=== PATIENT | female | born 1935 | race Caucasian/White ===

== ENCOUNTER 2017-05-30 09:26 | Emergency (ER) | payer MEDICARE, BC, SELFPAY ==
[2017-05-30 09:28] VITALS: BP 147/86; PULSE 98; RESP 17; TEMP 36.6; O2SAT 97; BMI 24.6
[2017-05-30 09:42] VITALS: O2SAT 98
--- NOTE | 2017-05-30 09:49 | RAD_ITS ---
STUDY: X-RAY CHEST REASON FOR EXAM: Female, 82 years old. Cough and congestion x3 days TECHNIQUE: PA and lateral views of the chest. COMPARISON: 04/14/2017 FINDINGS: EKG leads overlie the chest Lungs are expanded. Previous study described opacifications in the left lower lobe/lingular have worsened since the previous study and now appears clear evidence of an infiltrate with small left pleural effusion. Follow-up recommended to assure resolution. Right lung remains clear. Normal size heart. Normal mediastinum and mariza. Normal visualized pulmonary arteries. Normal visualized aortic arch and descending thoracic aorta. There are diffuse degenerative changes of the visualized thoracic spine. Normal visualized ribs, clavicles, and shoulders. There is no demonstrated abnormality of the visualized soft tissue structures of the upper abdomen. RAD/Chest PA and Lateral IMPRESSION: Left lower lobe/lingular pneumonia, small left pleural effusion. Follow-up recommended to assure resolution Electronically Signed: Ty Chinchilla MD at 11:17 EST , Service support ,
--- NOTE | 2017-05-30 09:49 | EKG12_ITS ---
Test Reason : SOB Blood Pressure : / mmHG Vent. Rate : 086 BPM Atrial Rate : 086 BPM P-R Int : 204 ms QRS Dur : 088 ms QT Int : 398 ms P-R-T Axes : 067 -04 061 degrees QTc Int : 476 ms Normal sinus rhythm Nonspecific T wave abnormality Prolonged QT Abnormal ECG Confirmed by GENO OCONNELL, DIPTI ([id number]), marketing editor DEDE SCALES ([id number] on 06/03/2017 2:38:57 PM Referred By: HERBER Confirmed By:DIPTI LORA MD
--- NOTE | 2017-05-30 09:53 | ED.VISSUMM ---
- ER Visit Summary Date of Service: 05/30/17 Chief Complaint: Shortness of breath History of Present Illness: The patient is a 82 F with COPD and atrial fibrillation on Xarelto presenting with 2-3 days of increase in her chronic cough and increase in her chronic sputum production which is white and unchanged in color along with increase in wheezing. She is on oxygen at nighttime only. No fevers. Feels like her chest is full of mucus she states. Physical Examination: Pulse ox 97 on room air. Otherwise vitals are unremarkable. No acute distress. Inspiratory wheezing throughout all lung hahn, bibasilar rhonchi. More prominent breath sounds at the left base compared with the right. Trachea midline. No cervical lymphadenopathy, neck supple. Abdomen benign. Heart is irregularly irregular but not tachycardic. No pedal edema or calf tenderness. Test Results: Chest x-ray shows left lower lobe infiltrate, consistent with her exam. Otherwise labs are normal. Emergency Department Course and Treatment: Patient feels much better after a set of nebulizer treatments and is not currently dyspneic. Pulse ox is 97-98% on room air. I offered admission. She wants to go home. She is conversational, smiling, and breathing well. With ambulation, she did not become hypoxic, and states that she felt well enough to go home. I do not think that is unreasonable at this point. She has an extensive allergy list, and after extensive discussion with her and her son, she has no true allergic reactions to anything but does not remember the majority of the reactions with the exception of diarrhea to Augmentin. She was given 1 g Rocephin IV, and monitor. She had no true allergic reaction. Therefore, I will place her on Ceftin and advised that she eat with it. She does not remember if her reaction to it was stomach upset or not. Advised to follow-up closely with her doctor. Treatment Plan: Ceftin 500 mg p.o. twice daily ?10 days, prednisone 40 mg daily ?5 days Disposition: Discharge home Impression: Community-acquired pneumonia COPD exacerbation This note was generated with [employer] software. It may contain incorrect words, spelling, and punctuation that were not noted in review of the chart prior to signing ED Disposition - Plan for ED Patient: Disposition: Home or Assisted Living Chief Complaint: Shortness of Breath Instructions: ED Pneumonia Adult, ED COPD Flare Prescriptions: Prednisone [Deltasone] 40 mg PO DAILY #10 tab Cefuroxime Axetil [Ceftin] 500 mg PO BID 10 Days tab Referrals: Cricket Mcconnell [Primary Care Provider] - 2 Days
[2017-05-30] MEDS: Albuterol 2.5 MG/3 ML VIAL.NEB. INHALATION (10:11)
[2017-05-30] MEDS: Ipratropium/Albuterol Sulfate 3 ML AMPUL.NEB INHALATION (10:11)
[2017-05-30 10:13] VITALS: PULSE 80; RESP 20
[2017-05-30 10:18] LABS: Absolute Lymphocyte Count 2.38 X10^3/ul (0.83-4.51); Absolute Neutrophil Count 4.1 X10^3/uL (2.0-7.7); Basophil# 0.02 X10^3/uL; Basophil% 0.3 % (0-1); Eosinophil# 0.06 X10^3/uL; Eosinophils% 0.8 % (0-5); Hematocrit 39.2 % (37-47); Hemoglobin 12.4 g/dl (12.0-15.0); Lymphocyte # 2.38 X10^3/ul (4.0); Lymphocyte % 33.7 % (19-41); Mean Corp Hgb Conc 31.6 g/gl (32-36); Mean Corpuscular Hgb 29.2 pg (27.0-32.0); Mean Corpuscular Volume 92.5 fL (81-99); Mean Platelet Vol. 9.2 fl (6.2-12.0); Monocyte# 0.49 X10^3/uL; Monocyte% 6.9 % (0-10); Neutrophil % 58.2 % (47-70); Platelet Count 309 K/mm3 (150-450); RBC Distribution Width CV 13.4 % (11.6-14.6); RBC Distribution Width SD 45.1 fl (35.1-43.9); Red Blood Count 4.24 M/mm3 (4.2-5.4); White Blood Count 7.1 K/mm3 (4.4-11.0)
[2017-05-30 10:21] LABS: POSITIVE COUNT NO; POSITIVE DIFFERENTIAL NO; POSITIVE MORPHOLOGY NO
[2017-05-30 10:38] LABS: Anion Gap 8 (5-15); BUN 15 mg/dL (7-18); BUN/Creat Ratio 16.6 RATIO (10-20); Calcium,Total 8.8 mg/dL (8.5-10.1); Chloride 107 mmol/L (98-107); EST Glomerular Filtration Rate 64 mL/min (>60); Est Glom Filt Rate - Afr Amer 77 mL/min (>60); Estimated Creatinine Clearance 38.77 ml/min; Glucose 138 mg/dL (74-106); Potassium 3.9 mmol/L (3.5-5.1); Sodium Level 141 mmol/L (136-145)
[2017-05-30 10:50] LABS: BNP,B-Type NATRIURETIC PEPTIDE 57.1 pg/mL (0-100)
[2017-05-30 11:34] VITALS: PULSE 77; RESP 20; O2SAT 97
[2017-05-30] MEDS: Ceftriaxone 1 GM/50 ML BAG IV (12:17)
[2017-05-30] MEDS: MethylPREDNISolone 125 MG/2 ML Vial IV (12:17)
[2017-05-30 12:28] VITALS: BP 163/72; PULSE 76; RESP 18; O2SAT 96
== END 2017-05-30 12:28 | disposition home or self-care (01) ==
PROVIDERS: Emergency Provider Emergency Medicine; Family Provider Family Medicine; PCP Family Medicine
DX: J18.9 Pneumonia, unspecified organism (principal); J44.1 Chronic obstructive pulmonary disease with (acute) exacerbation; I48.91 Unspecified atrial fibrillation; Z79.01 Long term (current) use of anticoagulants
CPT/HCPCS: 71046; 80048; 83880; 84484; 85025; 87804; 93005; 94640; 96374; 96375; 99284; J7050; A4216

== ENCOUNTER → 2017-06-30 13:10 | Outpatient (CLI) | payer MEDICARE, BC, SELFPAY ==
--- NOTE | 2017-07-01 17:39 | PFTCOMP_ITS ---
COMPLETE PULMONARY FUNCTION TEST INTERPRETATION Brief HPI: Patient is an 82 year old female, currently under the care of myself, who presents to [facility] for complete pulmonary function tests secondary to diagnosis of pulmonary fibrosis. Respiratory therapist reports good effort and reproducible results. Interpretation: Forced expiration spirometry shows no large airways obstructive ventilatory defect with an FEV1 of 60 % predicted. There is no significant bronchodilator response by ATS criteria. Spirograms are of good quality and plateau normally. The respiratory flow volume loop shows decreased expiratory flow rates at high lung volumes consistent with small airways obstruction. Lung volumes by body plethysmography show a decreased total lung capacity at 2.92 L, 67 % predicted. All other lung volumes are reduced symmetrically. Diffusion capacity by carbon monoxide is decreased at 22 % predicted. The airway resistance is normal. Compared to previous pulmonary function tests from 05/19/16, there has been a significant change in FVC, down 12%, FEV1, down 26%, and DLCO, down 64%. Impression: Moderate severe restrictive ventilatory defect with a concomitant reduction in diffusing capacity. There has been significant worsening over the last 1 year.
== END ==
PROVIDERS: Family Provider Family Medicine; PCP Family Medicine; Visit Provider Internal Medicine Critical Care Medicine
DX: I27.20 Pulmonary hypertension, unspecified (principal); J84.10 Pulmonary fibrosis, unspecified
CPT/HCPCS: 94060; 94726; 94729

== ENCOUNTER → 2017-07-08 10:23 | Outpatient (CLI) | payer MEDICARE, BC, SELFPAY ==
--- NOTE | 2017-07-08 10:27 | EKG12_ITS ---
Test Reason : SOB, CONGESTION Blood Pressure : / mmHG Vent. Rate : 081 BPM Atrial Rate : 081 BPM P-R Int : 174 ms QRS Dur : 100 ms QT Int : 392 ms P-R-T Axes : 068 019 027 degrees QTc Int : 455 ms Normal sinus rhythm with sinus arrhythmia Normal ECG Confirmed by CATERINA OCONNELL, HECTOR ([id number]), bilingual speech therapist DEDE SCALES ([id number] on 07/09/2017 3:20:24 PM Referred By: DANIEL Confirmed By:HECTOR DIGGS MD
== END ==
PROVIDERS: Family Provider Family Medicine; PCP Family Medicine; Visit Provider Nurse Practitioner Acute Care
DX: Z79.899 Other long term (current) drug therapy (principal)
CPT/HCPCS: 93005

== ENCOUNTER 2017-07-18 19:41 | Emergency (ER) | payer MEDICARE, BC, SELFPAY ==
[2017-07-18 19:42] VITALS: BP 147/59; PULSE 88
[2017-07-18 19:43] VITALS: BP 147/59; PULSE 86; RESP 17; TEMP 36.8; BMI 24.1
--- NOTE | 2017-07-18 20:05 | ED.VISSUMM ---
- ER Visit Summary Date of Service: 07/18/17 Chief Complaint: Constipation History of Present Illness: The patient is a 82 F states that on Thursday she gave herself an enema. Thursday she had a bowel movement. Then she has not had a bowel movement since. Last night into today she has developed a left lower quadrant abdominal pain that radiates into her back. She attempted to perform an enema today but does not believe she held it long enough. She denies any fevers. She notes the left lower quadrant pain is worse when she walks and touches her abdomen. She denies any fevers or urinary symptoms. Physical Examination: Afebrile vital signs are stable Gen: Well-nourished well-developed Head: Normocephalic atraumatic Eyes: Perrl EOMI ENT: TMs clear no rhinorrhea moist mucous membranes Neck: Supple no lymphadenopathy no JVD nontender CVS: Regular rate rhythm no murmurs normal S1-S2 Respiratory: No distress clear to auscultation bilaterally chest nontender Abdomen: Soft tender to palpation in the left lower quadrant nondistended normal bowel sounds no masses Back: Nontender Extremity: Nontender no edema Skin: Normal color no rash Neuro: alert orientated ?3 CN II-XII intact normal strength sensation reflexes gait cerebellar Psych: Normal affect normal mood Test Results: White count is 11.3. Lactic acid is normal. Urinalysis normal. CT shows marked constipation. Emergency Department Course and Treatment: Patient was given lactulose. Continues his treatment at home. I do not believe given the location of the stool that enemas are going to be of much benefit at this point. Perhaps as the stool moves down this may be important. Impression: 1. Constipation This note was generated with [employer] ([place] dictation software. It may contain incorrect words, spelling, and punctuation that were not noted in review of the chart prior to signing ED Disposition - Plan for ED Patient: Disposition: Home or Assisted Living Chief Complaint: Constipation Instructions: ED Constipation Prescriptions: Lactulose 10 gm PO BID #120 ml Referrals: Cricket Mcconnell [Primary Care Provider] - 3-5 Days
[2017-07-18] MEDS: 0.9% Normal Saline 1,000 ML 125 ML IV (20:19)
[2017-07-18 20:36] LABS: Absolute Neutrophil Count 7.2 X10^3/uL (2.0-7.7); Basophil# 0.02 X10^3/uL; Basophil% 0.2 % (0-1); Eosinophil# 0.06 X10^3/uL; Eosinophils% 0.5 % (0-5); Hematocrit 37.5 % (37-47); Hemoglobin 11.9 g/dl (12.0-15.0); Lymphocyte % 26.6 % (19-41); Mean Corp Hgb Conc 31.7 g/gl (32-36); Mean Corpuscular Hgb 29.7 pg (27.0-32.0); Mean Corpuscular Volume 93.5 fL (81-99); Mean Platelet Vol. 9.2 fl (6.2-12.0); Monocyte# 0.96 X10^3/uL; Monocyte% 8.5 % (0-10); Neutrophil # 7.21 X10^3/uL (2.7-7.7); POSITIVE COUNT NO; POSITIVE DIFFERENTIAL NO; POSITIVE MORPHOLOGY NO; Platelet Count 322 K/mm3 (150-450); RBC Distribution Width CV 13.6 % (11.6-14.6); RBC Distribution Width SD 46.7 fl (35.1-43.9); Red Blood Count 4.01 M/mm3 (4.2-5.4); White Blood Count 11.3 K/mm3 (4.4-11.0)
[2017-07-18 20:56] LABS: AST(SGOT) 10 U/L (15-37); Alanine Aminotransfer ALT/SGPT 18 U/L (13-56); Alkaline Phosphatase 62 U/L (45-117); Anion Gap 7 (5-15); BUN 19 mg/dL (7-18); BUN/Creat Ratio 21.6 RATIO (10-20); Calcium,Total 8.4 mg/dL (8.5-10.1); Chloride 106 mmol/L (98-107); Creatinine, Serum 0.88 mg/dL (0.55-1.02); EST Glomerular Filtration Rate 66 mL/min (>60); Est Glom Filt Rate - Afr Amer 79 mL/min (>60); Estimated Creatinine Clearance 39.65 ml/min; Globulin 3.1 g/dL (2.2-4.2); Glucose 141 mg/dL (74-106); Potassium 4.2 mmol/L (3.5-5.1); Protein, Total 6.1 g/dL (6.4-8.2); Sodium Level 142 mmol/L (136-145)
[2017-07-18 21:04] LABS: Lactic Acid 1.5 mmol/L (0.4-2.0)
--- NOTE | 2017-07-18 21:11 | CT_ITS ---
CT Abdomen And Pelvis W/ Contrast INDICATION: LLQ PAIN,CONSTIPATIONHX:DIABETES,HTN,ASTHMA COMPARISON: None TECHNIQUE: Axial CT imaging of the abdomen and pelvis with coronal and sagittal reformatted images. Radiation dose technique applied. 1 mL of Isovue-300 were given intravenously. FINDINGS: Chronic bronchiectasis with peribronchial opacities and volume loss are noted in the left lower lobe. Otherwise, geographic areas of air-trapping are noted at the visualized lung bases. The heart size is at the upper limits of normal. The liver and spleen are unremarkable. The gallbladder is not visualized, may be surgically absent. There is prominence of the common bile duct with 1.2 cm diameter. The kidneys enhance contrast symmetrically bilaterally and are without evidence of hydronephrosis. The pancreas is small in size. The small bowel loops are nondistended. The colon is distended with air and large amount of fecal material. Urinary bladder is physiologically distended. No evidence of free air or free fluid. No evidence of inflammatory mesenteric fat stranding. Osseous structures are diffusely osteopenic and demonstrate multilevel degenerative changes at the lumbar spine. CT/Abdomen/Pelvis W IV Cont ONLY IMPRESSION: Marked constipation. Chronic infection at the left lung base with bronchiectasis and peribronchial thickening. at 2304 Reported and signed by: Cecelia Lundy MD Electronically Signed: Cecelia Lundy MD at 22:03 EDT Tel , Service support ,
[2017-07-18 21:15] LABS: Bacteria 0 SEEN /hpf (None Seen); Mucous, Urine 0 SEEN /hpf (<or=2+); Red Blood Cells-Urine 0 SEEN /hpf (0-5)
[2017-07-18 21:22] LABS: Color, Urine Yellow (Yellow); Glucose, Dipstick Normal (Normal); Ketone-Dipstick Negative (Negative); Leukocyte Esterase-Dipstick 25 /ul (Negative); Nitrite-Dipstick Negative (Negative); Occult Blood-Urine Negative /ul (Negative); Protein-Dipstick Negative (Negative); Specific Gravity, Urine 1.015 (1.002-1.030); Urine Bilirubin Dipstick Negative (Negative); Urine Clarity Sl. Cloudy (Clear); Urine Urobilinogen Normal (Normal)
[2017-07-18 21:37] LABS: Hyaline Cast 0-5 SEEN /lpf (0-5); Squamous Epithelial Cells - UA 0-5 SEEN /hpf (5-10)
[2017-07-18 21:38] LABS: White Blood Cells 0-5 SEEN /hpf (0-5)
[2017-07-19] MEDS: Lactulose 20 GM/30 ML UDC PO (00:33)
[2017-07-19 00:40] VITALS: BP 147/64; PULSE 70; RESP 16; O2SAT 100
== END 2017-07-19 00:41 | disposition home or self-care (01) ==
PROVIDERS: Emergency Provider Emergency Medicine; Family Provider Family Medicine; PCP Family Medicine
DX: K59.00 Constipation, unspecified (principal); I48.91 Unspecified atrial fibrillation; J84.10 Pulmonary fibrosis, unspecified; Z79.01 Long term (current) use of anticoagulants; Z79.899 Other long term (current) drug therapy
CPT/HCPCS: 74177; 80053; 81001; 83605; 85025; 99283; J7030; Q9967; A4216

== ENCOUNTER 2017-07-21 09:37 | Emergency (ER) | payer MEDICARE, BC, SELFPAY ==
[2017-07-21 09:38] VITALS: BP 106/72; PULSE 92; RESP 16; TEMP 36.8; O2SAT 95; BMI 24.1
--- NOTE | 2017-07-21 10:04 | ED.VISSUMM ---
- ER Visit Summary Date of Service: 07/21/17 Chief Complaint: Abdominal bloating and constipation History of Present Illness: The patient is a 82 F who was seen this past weekend and had a significant workup including a CT of the abdomen and pelvis which was remarkable for significant fecal stasis. She was prescribed 15 mL of lactulose twice daily. She reports no results. She states she is watchful waiting. She denies nausea vomiting. She has absolutely no other complaints with respect to her chief complaint. Review of systems is remarkable for dyspnea which is chronic. Physical Examination: Vital signs are unremarkable. She is a pleasant elderly woman who appears in no discomfort. HEENT is unremarkable. Heart is regular. Lungs revealed rales at the bases secondary to bronchiectasis. Abdomen is distended tympanitic decreased bowel sounds. There is no evidence of umbilical or inguinal hernia. A well-healed right upper quadrant scar is noted secondary to cholecystectomy. Test Results: Laboratory results and radiologic images from the seventh were reviewed and it is my impression medical opinion no further testing is warranted or indicated. Emergency Department Course and Treatment: Patient and daughter were instructed that she must drink significantly more fluid than she presently does. She drinks 250-375 cc of fluid per day at most. Treatment Plan: Mag citrate 10 ounces follow 4 hours later with 1 glass of MiraLAX. She is to drink 1 glass of MiraLAX every hour until she has results. Disposition: Discharged to home with daughter Impression: Abdominal discomfort secondary to constipation This note was generated with [employer] dictation software. It may contain incorrect words, spelling, and punctuation that were not noted in review of the chart prior to signing ED Disposition - Plan for ED Patient: Disposition: Home or Assisted Living Chief Complaint: Constipation Instructions: ED Constipation Referrals: Cricket Mcconnell [Primary Care Provider] - 3-5 Days if not improving Additional Instructions: Drink 10 ounces of mag citrate. Begin drinking 1 glass of MiraLAX every 1 hour 4 hours later until you have results. You should drink a minimum of 3-4 containers of your thickened liquid solution a day.
== END 2017-07-21 10:32 | disposition home or self-care (01) ==
LOC: ED 10:23
PROVIDERS: Emergency Provider Emergency Medicine; Family Provider Family Medicine; PCP Family Medicine
DX: K59.00 Constipation, unspecified (principal); I10 Essential (primary) hypertension; E11.9 Type 2 diabetes mellitus without complications; I27.20 Pulmonary hypertension, unspecified; I48.91 Unspecified atrial fibrillation; J47.9 Bronchiectasis, uncomplicated; Z79.01 Long term (current) use of anticoagulants; Z79.899 Other long term (current) drug therapy; Z86.73 Personal history of transient ischemic attack (TIA), and cerebral infarction without residual deficits
CPT/HCPCS: 99282

== ENCOUNTER → 2017-07-24 14:05 | Outpatient (CLI) | payer MEDICARE, BC, SELFPAY ==
--- NOTE | 2017-07-24 14:07 | RAD_ITS ---
STUDY: X-RAY - LUMBAR SPINE REASON FOR EXAM: Female, 82 years old. Low-back pain for 2 months. 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 TECHNIQUE: Four view(s) of the lumbar spine were obtained. COMPARISON: CT of the abdomen and pelvis dated July 18, 2017. FINDINGS: Normal lumbar lordosis. There is mild curvature of the lumbar spine with convexity towards left. There is a normal alignment of the vertebrae. There is multilevel endplate spondylosis of the lumbar vertebrae. There is multi-level degenerative disc disease with multi-level disc space narrowing. There is no demonstrated fracture. There is atherosclerotic calcification of the abdominal aorta without a demonstrated aneurysm. There is a well-circumscribed opacity in the right upper quadrant that may be some thickening of the stomach. RAD/L/S Spine Min 4 Views IMPRESSION: Multilevel spondylosis, degenerative disc disease and degenerative arthropathy of the lumbar spine. Electronically Signed: Jacklyn Bravo MD at 8:42 EDT , Service support ,
== END ==
PROVIDERS: Family Provider Family Medicine; PCP Family Medicine; Visit Provider Family Medicine
DX: M51.16 Intervertebral disc disorders with radiculopathy, lumbar region (principal); M47.896 Other spondylosis, lumbar region
CPT/HCPCS: 72110

== ENCOUNTER → 2017-07-30 12:24 | Outpatient (CLI) | payer MEDICARE, BC, SELFPAY ==
--- NOTE | 2017-07-30 12:33 | MRI_ITS ---
STUDY: MRI LUMBAR SPINE WITHOUT CONTRAST REASON FOR EXAM: Female, 82 years old. LEFT RADICULOPATHY fall 3 weeks ago, pain low back and left side/leg TECHNIQUE: Standardized fat and water weighted pulse sequences were obtained in the sagittal and axial planes. COMPARISON: X-ray July 26, 2017 FINDINGS: Normal lumbar lordosis. There is a levoscoliosis of the lumbar spine. Normal conus medullaris that terminates at the L2 level. There is no spondylolisthesis. There is loss of disc height at L1-2 through L4-5. There is multilevel disc desiccation. There is a chronic compression fracture of L4 on the right. There is a subacute mild compression fracture of the L2 superior endplate without any significant loss of height. No retropulsion of bony fragments to cause central canal stenosis. There is bone marrow edema of L1 on the left, probably representing Modic type I change. There are Modic type II changes at L4-5 and L3-4. There is multilevel facet arthropathy and ligamentum flavum hypertrophy. There is diffuse heterogeneous bone marrow signal consistent with senescent marrow. T12/L1: Sagittal images only were obtained. Normal. L1/2: There is a diffuse bulge larger on the left. There is mild central canal stenosis and moderate left without right neuroforaminal stenosis. L2/3: There is a diffuse bulge larger on the left. There is moderate central canal stenosis and moderate left and mild right neuroforaminal stenosis. L3/4: There is a diffuse bulge. There is moderate central canal stenosis and moderate right and [id number] left neuroforaminal stenosis. L4/5: There is a diffuse bulge. There is mild central canal stenosis and moderate left and mild right neuroforaminal stenosis. L5/S1: There is a mild diffuse bulge causing impression on the ventral thecal sac. There is mild bilateral neuroforaminal stenosis. Normal visualized sacral ala. There is suggestion of a small infrarenal aortic aneurysm measuring 2.3 cm in maximal diameter. MRI/Spine Lumbar (Routine) IMPRESSION: Multilevel degenerative changes, as described above. There is a levoscoliosis. There is a subacute mild compression fracture of the L2. There is suggestion of a small infrarenal aortic aneurysm measuring 2.3 cm. L1/2: There is a diffuse bulge larger on the left. There is mild central canal stenosis and moderate left neuroforaminal stenosis. L2/3: There is a diffuse bulge larger on the left. There is moderate central canal stenosis and moderate left and mild right neuroforaminal stenosis. L3/4: There is a diffuse bulge. There is moderate central canal stenosis and moderate right and iofz-[id number] left neuroforaminal stenosis. L4/5: There is a diffuse bulge. There is mild central canal stenosis and moderate left and mild right neuroforaminal stenosis. L5/S1: There is a mild diffuse bulge. There is mild bilateral neuroforaminal stenosis. Electronically Signed: Myriam Mendez MD at 14:24 EDT , Service support ,
== END ==
PROVIDERS: Family Provider Family Medicine; PCP Family Medicine; Visit Provider Family Medicine
DX: M54.16 Radiculopathy, lumbar region (principal)
CPT/HCPCS: 72148

== ENCOUNTER 2018-05-29 09:53 | Inpatient (IN) | payer MEDICARE, BC, SELFPAY ==
[2018-04-15 10:08] VITALS: BMI 24.5
[2018-05-29] VITALS (13 sets, daily range): BP systolic 117–143; BP diastolic 44–65; PULSE 75–104; RESP 16–26; TEMP 36.6–37.7; O2SAT 92–997; BMI 24.5; BMI 23.8
--- NOTE | 2018-05-29 10:40 | EKG12_ITS ---
Test Reason : SOB Blood Pressure : / mmHG Vent. Rate : 084 BPM Atrial Rate : 084 BPM P-R Int : 202 ms QRS Dur : 116 ms QT Int : 394 ms P-R-T Axes : 056 084 024 degrees QTc Int : 465 ms Normal sinus rhythm Right bundle branch block Abnormal ECG Confirmed by CATERINA OCONNELL, HECTOR ([id number]), graphic editor DEDE SCALES ([id number]) on 06/01/2018 10:29:43 AM Referred By: FERNANDO Confirmed By:HECTOR DIGGS MD
--- NOTE | 2018-05-29 10:40 | RAD_ITS ---
STUDY: X-RAY CHEST REASON FOR EXAM: Female, 83 years old. Cough and shortness of breath TECHNIQUE: PA and lateral views of the chest. COMPARISON: 05/30/2017 FINDINGS: The lungs are clear and expanded. There is no demonstrated pleural abnormality. There is borderline cardiomegaly. Normal mediastinum and mariza. Normal visualized pulmonary arteries. Normal visualized aortic arch and descending thoracic aorta. Normal visualized thoracic spine. Normal visualized ribs, clavicles, and shoulders. There is no demonstrated abnormality of the visualized soft tissue structures of the upper abdomen. RAD/Chest PA and Lateral IMPRESSION: No acute cardiopulmonary disease Electronically Signed: Dave Parker DO at 12:21 EST Tel , Service support ,
[2018-05-29] MEDS: Ipratropium/Albuterol Sulfate 3 ML AMPUL.NEB INHALATION (10:52)
[2018-05-29 11:06] LABS: Absolute Lymphocyte Count 0.85 X10^3/ul (0.83-4.51); Absolute Neutrophil Count 5.7 X10^3/uL (2.0-7.7); Basophil# 0.01 X10^3/uL; Basophil% 0.1 % (0-1); Eosinophil# 0.04 X10^3/uL; Eosinophils% 0.6 % (0-5); Hematocrit 35.8 % (37-47); Hemoglobin 11.3 g/dl (12.0-15.0); Lymphocyte # 0.85 X10^3/ul (4.0); Lymphocyte % 11.8 % (19-41); Mean Corp Hgb Conc 31.6 g/gl (32-36); Mean Corpuscular Hgb 29.7 pg (27.0-32.0); Mean Corpuscular Volume 94.2 fL (81-99); Mean Platelet Vol. 9.2 fl (6.2-12.0); Monocyte# 0.62 X10^3/uL; Monocyte% 8.6 % (0-10); Neutrophil # 5.69 X10^3/uL (2.7-7.7); Neutrophil % 78.8 % (47-70); POSITIVE COUNT NO; POSITIVE DIFFERENTIAL NO; POSITIVE MORPHOLOGY NO; Platelet Count 184 K/mm3 (150-450); RBC Distribution Width CV 13.2 % (11.6-14.6); RBC Distribution Width SD 45.1 fl (35.1-43.9); White Blood Count 7.2 K/mm3 (4.4-11.0)
[2018-05-29] MEDS: MethylPREDNISolone 125 MG/2 ML Vial 60 MG IV (11:08)
[2018-05-29 11:18] LABS: Anion Gap 6 (5-15); BUN 16 mg/dL (7-18); BUN/Creat Ratio 18.4 RATIO (10-20); Calcium,Total 8.5 mg/dL (8.5-10.1); Chloride 108 mmol/L (98-107); Creatinine, Serum 0.87 mg/dL (0.55-1.02); EST Glomerular Filtration Rate 66 mL/min (>60); Est Glom Filt Rate - Afr Amer 80 mL/min (>60); Estimated Creatinine Clearance 39.43 ml/min; Glucose 111 mg/dL (74-106); Potassium 3.9 mmol/L (3.5-5.1); Sodium Level 140 mmol/L (136-145)
[2018-05-29 11:28] LABS: Lactic Acid 1.6 mmol/L (0.4-2.0)
--- NOTE | 2018-05-29 13:24 | NURSING ---
DR MALLORY KING
--- NOTE | 2018-05-29 13:31 | ED.DCSUM_ITS ---
- ER Visit Summary Date of Service: 05/29/18 Chief Complaint: [Shortness of breath] History of Present Illness: The patient is a 83 F [presents the emergency department complaint of shortness of breath for the last 2 days. Patient had a cough with some white phlegm production. Patient is concerned because she was at the dentist office couple days ago having the dental work done and she swallowed some fluid that was not taken and she is worried about aspiration. Patient has had pneumonia before. Patient has a history of diabetes, hypertension, a flutter, restrictive lung disease, and COPD. Patient does use home O2 at night and as needed during the day. Patient has had fever at home up to 100 over the last 2 days. She has had some sweats. Patient complaining of some exertional dyspnea. She is been using her breathing treatments every 3 hours.] Physical Examination: [HEENT-PERRLA, EOMI. Cranial nerves II through XII grossly intact. TMs clear. Mucous membranes moist. No adenopathy. Cardiovascular-regular rate and rhythm without murmur or ectopy Lungs-diminished breath sounds bilaterally with some expiratory wheezes noted. Patient has some coarse breath sounds in the left upper lobe with some rhonchi. She has mild tachypnea but no accessory muscle use or retractions. Abdomen-normoactive bowel sounds, soft, nontender, no rebound or rigidity, no peritoneal signs. Extremities-intact ?4, normal range of motion, normal pulses, atraumatic] Test Results: [EKG obtained on arrival showed a sinus rhythm with a ventricular rate of 84 bpm with a right bundle branch block. CBC with differential showing a 7.2, hemoglobin 11, hematocrit 36, place 24. Chemistries unremarkable. Troponin is less than 0.015. Chest x-ray showed nothing acute.] Emergency Department Course and Treatment: [Patient was given a DuoNeb aerosol and started on Solu-Medrol 125 mg IV. Blood cultures were ordered. Respiratory panel was sent.] Treatment Plan: [Admit for further treatment as patient continues to wheeze generally is weak.] Disposition: [Admit.] Impression: [COPD exacerbation Asthmatic bronchitis Generalized weakness] This note was generated with [employer] software. It may contain incorrect words, spelling, and punctuation that were not noted in review of the chart prior to signing ED Disposition - Plan for ED Patient: Referrals: Cricket Mcconnell [Primary Care Provider] -
--- NOTE | 2018-05-29 13:33 | HP.PCM_ITS ---
Problem List (1) Nonrheumatic aortic valve stenosis Status: Chronic (2) Encounter for long-term current use of high risk medication Status: Chronic (3) Cardiomyopathy in other diseases classified elsewhere Status: Chronic (4) Nonrheumatic tricuspid (valve) insufficiency Status: Chronic (5) Nonrheumatic mitral (valve) insufficiency Status: Chronic (6) Cardiac murmur Status: Chronic (7) Cardiomyopathy Status: Chronic Qualifiers: Cardiomyopathy type: other Qualified Code(s): I42.8 - Other cardiomyopathies (8) Atrial flutter Status: Chronic (9) Bronchiectasis Status: Chronic Qualifiers: Bronchiectasis type: with acute lower respiratory infection Qualified Code(s): J47.0 - Bronchiectasis with acute lower respiratory infection (10) High risk medications (not anticoagulants) long-term use Status: Chronic (11) Restrictive lung disease Status: Chronic (12) Anxiety disorder Status: Chronic Qualifiers: Anxiety disorder type: unspecified anxiety disorder Qualified Code(s): F41.9 - Anxiety disorder, unspecified (13) Diabetes Status: Chronic Qualifiers: Diabetes mellitus type: type 2 Diabetes mellitus complication status: without complication Qualified Code(s): E11.9 - Type 2 diabetes mellitus without complications (14) HTN (hypertension) Status: Chronic Qualifiers: Hypertension type: essential hypertension Qualified Code(s): I10 - Essential (primary) hypertension (15) Hemiparesis Status: Chronic Comment: s/p spine surgery for a cyst (16) Atrial fibrillation with RVR Status: Chronic (17) 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 Patient symptoms started after dental work 2 days prior to his admission. Patient felt she had aspirated. She did develop persistent cough as well as shortness of breath and wheezing. Also did complain of subjective fever as well as chills. In view of the progressive nature of symptoms patient was brought to the emergency department by family. An assessment of acute bronchitis was made. Patient did receive aerosol treatments in the ED without much movement. Check history obtained in the ED however did not demonstrate any acute cardiopulmonary pathology. Patient was admitted to regular nursing floor for subsequent management after a respiratory panel had been obtained. Past Medical History Past Medical History (Chronic Problems): Chronic Problems (Last Reviewed 05/29/18 @ 14:01 by Tanner Talamantes MD) Nonrheumatic aortic valve stenosis (Chronic) Encounter for long-term current use of high risk medication (Chronic) Cardiomyopathy in other diseases classified elsewhere (Chronic) Nonrheumatic tricuspid (valve) insufficiency (Chronic) Nonrheumatic mitral (valve) insufficiency (Chronic) Cardiac murmur (Chronic) Cardiomyopathy (Chronic) Atrial flutter (Chronic) Bronchiectasis (Chronic) High risk medications (not anticoagulants) long-term use (Chronic) Restrictive lung disease (Chronic) Anxiety disorder (Chronic) Diabetes (Chronic) HTN (hypertension) (Chronic) Hemiparesis (Chronic) s/p spine surgery for a cyst Atrial fibrillation with RVR (Chronic) 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 aspiration Dysphagia (Chronic) Pulmonary hypertension, mild (Chronic) d/t lung disease PAF (paroxysmal atrial fibrillation) (Chronic) Medical History: Medical History (Last Reviewed 05/29/18 @ 14:01 by Tanner Talamantes MD) Encounter for long-term current use of high risk medication (Chronic) Z79.899 Cardiomyopathy in other diseases classified elsewhere (Chronic) I43 Nonrheumatic tricuspid (valve) insufficiency (Chronic) I36.1 Nonrheumatic mitral (valve) insufficiency (Chronic) I34.0 Cardiac murmur (Chronic) R01.1 Cardiomyopathy (Chronic) I42.9 Atrial flutter (Chronic) I48.92 Bronchiectasis (Chronic) J47.9 High risk medications (not anticoagulants) long-term use (Chronic) Z79.899 Restrictive lung disease (Chronic) J98.4 URI (upper respiratory infection) (Resolved) J06.9 Thrush, oral (Resolved) B37.0 Pneumonia (Resolved) J18.9 Anxiety disorder (Chronic) F41.9 Diabetes (Chronic) E11.9 HTN (hypertension) (Chronic) I10 Hemiparesis (Chronic) G81.90 s/p spine surgery for a cyst Atrial fibrillation with RVR (Chronic) I48.91 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 aspiration Dysphagia (Chronic) R13.10 Pulmonary hypertension, mild (Chronic) I27.2 d/t lung disease PAF (paroxysmal atrial fibrillation) (Chronic) I48.0 MRSA (methicillin resistant staphylococcus aureus) pneumonia (Resolved) J15.212 Acute respiratory failure with hypoxia (Resolved) J96.01 Bronchiectasis with (acute) exacerbation J47.1 Hip fracture, right S72.001A 09/2017 Localized swelling of both lower legs R22.43 Streptococcal pneumonia J15.4 Back pain M54.9 Bronchiectasis J47.9 Dyspnea R06.00 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 Seasonal allergies J30.2 Sinus drainage J34.89 Endotracheally intubated Z97.8 Allergies amoxicillin trihydrate [From Augmentin] Allergy (Verified 05/29/18 09:58) Diarrhea aspirin [ASA] Allergy (Verified 05/29/18 09:58) Unknown pt states she has mac degen and can't take it cefdinir Allergy (Verified 05/29/18 09:58) Unknown doxycycline Allergy (Verified 05/29/18 09:58) Unknown gatifloxacin [From Tequin] Allergy (Verified 05/29/18 09:58) Unknown potassium clavulanate [From Augmentin] Allergy (Verified 05/29/18 09:58) Unknown levofloxacin [From Levaquin] Adverse Reaction (Severe, Verified 05/29/18 09:58) Rash fluticasone propionate [From Advair Diskus] Adverse Reaction (Verified 05/29/18 09:58) Unknown salmeterol xinafoate [From Advair Diskus] Adverse Reaction (Verified 05/29/18 09:58) Unknown my head gets funny Home Medications: Ambulatory Orders Medication Instructions Recorded Albuterol IH (ProAir) [Proair Hfa 2 puff INHALATION Q6H PRN PRN 01/29/17 (SP)Vent Pts] Amiodarone HCl 100 mg PO DAILY 01/29/17 Clonazepam [Klonopin] 0.5 mg PO TID PRN PRN 01/29/17 Furosemide [Lasix] 20 mg PO DAILY 01/29/17 Omeprazole [Prilosec] 20 mg PO DAILY 01/29/17 Rivaroxaban [Xarelto] 15 mg PO DAILY 01/29/17 Temazepam [Restoril] 15 mg PO QHS 01/29/17 Montelukast Sodium [Singulair] 10 mg PO DAILY 04/14/17 Potassium Chloride [Klor-Con 10] 10 meq PO BID 04/14/17 fluticasone 50 mcg/actuation nasal 1 spray INTRANASAL QDAY 04/16/17 spray,suspension guaifenesin 100 mg/5 mL oral liquid 200 mg PO Q4H PRN 04/16/17 losartan 25 mg tablet 25 mg PO QDAY 04/16/17 vlxcimdtewmb-Nd-uscz-minerals 1 tab PO QDAY ea 04/16/17 tablet prednisolone acetate 1 % eye 1 drp OPHTHALMIC QDAY ml 04/16/17 drops,suspension nortriptyline 50 mg capsule 50 mg PO QHS cap 09/01/17 diltiazem ER 120 mg capsule,24 120 mg PO DAILY #90 cap 02/26/18 hr,extended release azithromycin 250 mg tablet 250 mg PO QMWF tab 03/24/18 ergocalciferol (vitamin D2) 50,000 50,000 unit PO .QOW cap 03/24/18 unit capsule albuterol sulfate 2.5 mg/3 mL 2.5 mg INHALATION Q4H PRN #180 vial 04/15/18 (0.083 %) solution for nebulization umeclidinium 62.5 mcg/actuation 1 inh INHALATION QDAY #3 device 05/17/18 blister powder for inhalation Acetaminophen 1,000 mg PO BID PRN PRN 05/29/18 Bisacodyl 10 mg RC DAILY PRN 05/29/18 Glucagon,Human Recombinant 1 mg IJ PRN PRN 05/29/18 [Glucagon Emergency Kit] Hydrocodone/Acetaminophen [[place] 1 each PO QHS 05/29/18 5-325 Tablet] Magnesium Hydroxide [Milk Of 30 ml PO DAILY PRN PRN 05/29/18 Magnesia] Mometasone/Formoterol [Dulera 200 2 puff INHALATION BID 05/29/18 Mcg/5 Mcg Inhaler] Na Phos,M-B/Na Phos,Di-Ba [Fleet 120 ml RECTAL X1 PRN 05/29/18 Enema] Polyethylene Glycol 3350 [Miralax] 17 gm PO DAILY 05/29/18 Prednisone 1 tab PO DAILY 05/29/18 Sennosides/Docusate Sodium 1 tab PO DAILY PRN 05/29/18 [Senna-S Laxative Tablet] Surgical History: Surgical History (Last Reviewed 05/29/18 @ 14:01 by Tanner Talamantes MD) DCCV for atrial flutter (Resolved) 04/11/14 H/O Spinal surgery Z98.890 to remove tumor Hx of cholecystectomy Z98.890, Z90.49 Partial hip replacement 09/2017 Surgical History: - - spinal tumor removed, cholecystectomy 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 Review of Systems Constitutional: Reports: Anorexia, Chills, Fever, Weakness HEENT: Denies: Head Aches, Sinus Congestion, Sinus Drainage Cardiovascular: Denies: Chest Pain, Orthopnea, Palpitations, Paroxysmal Noc. Dyspnea Respiratory: Reports: Cough, Shortness of Breath Gastrointestinal: Denies: Abdominal Pain, Hematemesis, Hematochezia, Nausea, Melena Genitourinary: Denies: Dysuria, Frequency, Hematuria Musculoskeletal: Denies: Joint Pain, Joint Tenderness Neurological: Denies: Focal weakness, Numbness, Tingling Psychiatric: Denies: Homicidal Ideations, Suicidal Ideations Hematologic/ Lymphatic: Denies: Easy Bruising, Easy Bleeding VTE Information - Inpt Only VTE Present on Admission: No VTE Mechan Device Prophylaxis: Knee High PARK Hose VTE Pharm Prophylaxis ordered?: Yes Patient Problems: Active and Suspected Problems (Last Reviewed 05/29/18 @ 14:01 by Tanner Talamantes MD) Acute bronchitis (Acute) Objective: GENERAL: Appears ill looking HEENT: Atraumatic; moist oral mucosa EYES; Anicteric, Normal Conjunctiva NECK; supple, normal thyroid, RESPIRATORY: Diminished to auscultation bilaterally, bilateral rhonchi CARDIOVASCULAR: Regular S1 S2, GI: soft, non-tender, normoactive bowel sounds, : No Renal angle tenderness; EXTREMITIES: No edema, no clubbing, no cyanosis. MUSCULOSKELETAL: No Joint Tenderness; NEURO: Awake; left sided weakness SKIN: No Rash PSYCH; Normal affect - Physical Exam Vital Signs Temp Pulse Resp BP Pulse Ox 98.3 F 76 22 H 127/59 H 95 05/29/18 13:32 05/29/18 13:32 05/29/18 13:32 05/29/18 13:32 05/29/18 13:32 Oxygen Delivery Method Room Air Weight: 60.781 kg Body Mass Index (BMI) 24.5 Finger Stick Blood Glucose 133 Laboratory Tests Past 24 Hrs 05/29/18 05/29/18 05/29/18 10:30 10:30 10:30 WBC 7.2 RBC 3.80 L Hgb 11.3 L Hct 35.8 L MCV 94.2 MCH 29.7 MCHC 31.6 L RDW 13.2 RDW Differential 45.1 H Plt Count 184 MPV 9.2 Immature Gran % (Auto) 0.100 Neut % (Auto) 78.8 H Lymph % (Auto) 11.8 L [place] % (Auto) 8.6 Eos % (Auto) 0.6 Baso % (Auto) 0.1 Absolute Neuts (auto) 5.7 Absolute Lymphs (auto) 0.85 Total Counted Not Reportable Sodium 140 Potassium 3.9 Chloride 108 H Carbon Dioxide 26.0 Anion Gap 6 BUN 16 Creatinine 0.87 Estim Creat Clear Calc 39.43 Est GFR (MDRD) Af Amer 80 Est GFR (MDRD) Non-Af 66 BUN/Creatinine Ratio 18.4 Glucose 111 H Lactic Acid 1.6 Calcium 8.5 Assessment/Plan All Active Problems (Last Reviewed 05/29/18 @ 14:01 by Tanner Talamantes MD) Acute bronchitis (Acute) DCCV for atrial flutter (Resolved) URI (upper respiratory infection) (Resolved) Thrush, oral (Resolved) Pneumonia (Resolved) MRSA (methicillin resistant staphylococcus aureus) pneumonia (Resolved) Acute respiratory failure with hypoxia (Resolved) Patient is an 83-year-old lady with multiple comorbidities presenting with progressive shortness of breath and persistent cough in addition to subjective fever and chills. An assessment of acute bronchitis made admitted to regular nursing floor for further management 1. Acute bronchitis suspected to be viral in etiology. Chest x-ray obtained on admission did not show any infiltrate. Patient has been admitted to a regular nursing floor as stated above. Patient was started on aerosol treatment, steroids and empiric Tamiflu pending results of respiratory panel. Patient was also placed on oxygen titrated to keep saturation greater than 90 2. Chronic hypoxic respiratory failure secondary to combination of COPD and bronchiectasis patient is followed by pulmonary medicine as outpatient patient is on baseline home O2 3. Dysphagia patient is on mechanical soft diet 4. Paroxysmal A. fib/flutter patient is on amiodarone and Cardizem. Also on systemic anticoagulation with xarelto. 5. GERD; on PPI 6. Hypertension blood pressure stable did continue with home meds 7. Anxiety disorder patient is on Klonopin at home 8. History of left-sided hemiplegia following cervical cyst removal requested for PT OT as tolerated 9. DVT prophylaxis patient will Xarelto no need for additional measures Clinical Impression(s) from Imaging Studies Chest X-Ray 05/29/18 10:40 IMPRESSION: No acute cardiopulmonary disease Electronically Signed: Dave Parker DO at 12:21 EST Tel , Service support , Code Visit OBSV E&M: [id number] Initial observation care L3
--- NOTE | 2018-05-29 13:34 | NURSING ---
MED SURG COPD, EXAC, WEAKNESS, BRONCHITIS KITTOE
[2018-05-29] MEDS: Oseltamivir Phosphate 30 MG Capsule PO ×2 (17:55→23:13)
[2018-05-29] MEDS: 0.9% NaCl Peripheral Flush Adult/Peds IV ×2 (18:03→23:03)
--- NOTE | 2018-05-29 21:20 | NURSING ---
This nurse was phoned by JOSE Contreras and asked to come to pts room. After entering, noticed pt was on the bathroom floor. 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 133/76, 113,, 98.2, 14 R, 76%. Pt denied hitting her head, back or knees and stated I only hit my behind. Assessed pts coccyx which was reddened on left posterior hip. Gave scheduled NORCO. Charge nurse informed. Will continue to monitor.
[2018-05-29] MEDS: clonazePAM 0.5 MG Tablet PO (23:00)
[2018-05-29] MEDS: HYDROcodone Bitartrate/Apap 5/325 Tablet PO (23:00)
[2018-05-29] MEDS: Nortriptyline 25 MG Capsule 50 MG PO (23:01)
[2018-05-29] MEDS: Temazepam 15 MG Capsule PO (23:01)
[2018-05-29] MEDS: guaiFENesin 1,200 MG Tablet 1200 MG PO (23:11)
[2018-05-30] VITALS (8 sets, daily range): BP systolic 115–152; BP diastolic 58–72; PULSE 65–86; RESP 16–20; TEMP 36.5–36.8; O2SAT 84–96
[2018-05-30] MEDS: Acetaminophen 500 MG Tablet 1000 MG PO ×2 (02:57→23:38)
[2018-05-30] MEDS: guaiFENesin 10 ML UDC (200MG/10ML) PO ×2 (02:58→23:38)
[2018-05-30] MEDS: 0.9% NaCl Peripheral Flush Adult/Peds IV ×2 (05:26→14:26)
[2018-05-30 06:28] LABS: Hematocrit 35.2 % (37-47); Hemoglobin 11.6 g/dl (12.0-15.0); Mean Corpuscular Hgb 30.7 pg (27.0-32.0); Mean Corpuscular Volume 93.1 fL (81-99); Mean Platelet Vol. 10.1 fl (6.2-12.0); Platelet Count 193 K/mm3 (150-450); RBC Distribution Width CV 12.6 % (11.6-14.6); RBC Distribution Width SD 41.2 fl (35.1-43.9); Red Blood Count 3.78 M/mm3 (4.2-5.4); White Blood Count 16.1 K/mm3 (4.4-11.0)
[2018-05-30 06:30] LABS: Scan Indicated on CBC? Y/N NO
[2018-05-30 06:35] LABS: Anion Gap 9 (5-15); BUN 22 mg/dL (7-18); BUN/Creat Ratio 27.8 RATIO (10-20); Chloride 107 mmol/L (98-107); Creatinine, Serum 0.79 mg/dL (0.55-1.02); EST Glomerular Filtration Rate 74 mL/min (>60); Est Glom Filt Rate - Afr Amer 89 mL/min (>60); Glucose 157 mg/dL (74-106); Potassium 4.1 mmol/L (3.5-5.1); Sodium Level 139 mmol/L (136-145)
[2018-05-30] MEDS: Ipratropium/Albuterol Sulfate 3 ML AMPUL.NEB INHALATION ×4 (06:49→19:00)
--- NOTE | 2018-05-30 07:20 | PCM.PN.HOSP ---
Patient Problems: Active and Suspected Problems (Last Reviewed 05/29/18 @ 14:01 by Tanner Talamantes MD) Acute bronchitis (Acute) Subjective: Patient is an 83-year-old lady with multiple comorbidities presenting with progressive shortness of breath and persistent cough in addition to subjective fever and chills. An assessment of acute bronchitis made admitted to regular nursing floor for further management. Subsequent respiratory panel obtained came back positive for influenza A. Patient had been started empirically on Tamiflu on admission. Seen this a.m. complains of feeling tired Objective: GENERAL: Appears ill looking HEENT: Atraumatic; moist oral mucosa EYES; Anicteric, Normal Conjunctiva NECK; supple, normal thyroid, RESPIRATORY: Diminished to auscultation bilaterally, bilateral rhonchi CARDIOVASCULAR: Regular S1 S2, GI: soft, non-tender, normoactive bowel sounds, : No Renal angle tenderness; EXTREMITIES: No edema, no clubbing, no cyanosis. MUSCULOSKELETAL: No Joint Tenderness; NEURO: Awake; left sided weakness SKIN: No Rash PSYCH; Normal affect Vitals/I&O's: Vital Signs Temp Pulse Resp BP Pulse Ox 97.7 F L 65 16 134/68 H 93 05/30/18 03:01 05/30/18 03:01 05/30/18 03:01 05/30/18 03:01 05/30/18 03:01 Oxygen Flow Rate (L/min) 2 Oxygen Delivery Method Nasal Cannula Weight: 57.6 kg Body Mass Index (BMI) 23.8 Finger Stick Blood Glucose 133 Intake and Output for Last 24 Hours 05/28/18 05/29/18 05/30/18 23:59 23:59 23:59 Intake Total 300 / 300 Balance 300 / 300 Microbiology Past 72 Hours 05/29/18 11:02 Mucosa - Nasopharyngeal Respiratory Panel (PCR) - Preliminary Influenza A (Subtype H3) Laboratory Results 05/29/18 10:30: WBC 7.2, RBC 3.80 L, Hgb 11.3 L, Hct 35.8 L, MCV 94.2, MCH 29.7, MCHC 31.6 L, RDW 13.2, RDW Differential 45.1 H, Plt Count 184, MPV 9.2, Immature Gran % (Auto) 0.100, Neut % (Auto) 78.8 H, Lymph % (Auto) 11.8 L, [place] % (Auto) 8.6, Eos % (Auto) 0.6, Baso % (Auto) 0.1, Absolute Neuts (auto) 5.7, Absolute Lymphs (auto) 0.85, Total Counted Not Reportable 05/29/18 10:30: Sodium 140, Potassium 3.9, Chloride 108 H, Carbon Dioxide 26.0, Anion Gap 6, BUN 16, Creatinine 0.87, Estim Creat Clear Calc 39.43, Est GFR (MDRD) Af Amer 80, Est GFR (MDRD) Non-Af 66, BUN/Creatinine Ratio 18.4, Glucose 111 H, Calcium 8.5 05/29/18 10:30: Lactic Acid 1.6 05/30/18 05:59: WBC 16.1 H, RBC 3.78 L, Hgb 11.6 L, Hct 35.2 L, MCV 93.1, MCH 30.7, MCHC 33.0, RDW 12.6, RDW Differential 41.2, Plt Count 193, MPV 10.1 05/30/18 05:59: Sodium 139, Potassium 4.1, Chloride 107, Carbon Dioxide 23.0, Anion Gap 9, BUN 22 H, Creatinine 0.79, Estim Creat Clear Calc 34.30, Est GFR (MDRD) Af Amer 89, Est GFR (MDRD) Non-Af 74, BUN/Creatinine Ratio 27.8 H, Glucose 157 H, Calcium 9.0 Current Medications Acetaminophen (Tylenol) 1,000 mg PO BID PRN PRN PRN Reason: PAIN Last Admin: 05/30/18 02:57 Dose: 1,000 mg Hydrocodone Bitart/Acetaminophen ([place] 5mg-325mg) 1 tablet PO QHS [facility] Last Admin: 05/29/18 23:00 Dose: 1 tablet Albuterol Sulfate (Ventolin Aerosols) 2.5 mg INHALATION Q4H PRN PRN Reason: pul fibrosis J84.10 & bronchiectasis J47.9 Albuterol/Ipratropium (Duoneb) 3 ml INHALATION Q4HWA.RT [facility] Last Admin: 05/30/18 06:49 Dose: 3 ml Amiodarone HCl (Cordarone) 100 mg PO DAILY [facility] Azithromycin (Zithromax) 250 mg PO MoWeFr@1000 [facility] Bisacodyl (Dulcolax) 10 mg RECTAL DAILY PRN PRN Reason: Constipation Clonazepam (Klonopin) 0.5 mg PO TID PRN PRN PRN Reason: ANXIETY Last Admin: 05/29/18 23:00 Dose: 0.5 mg Diltiazem HCl (Cardizem Cd) 120 mg PO DAILY [facility] Fluticasone Propionate (Flonase Nasal [place]) 1 spray NASAL DAILY [facility] Furosemide (Lasix) 20 mg PO DAILY [facility] Guaifenesin (Mucinex) 1,200 mg PO BID [facility] Last Admin: 05/29/18 23:11 Dose: 1,200 mg Guaifenesin (Robitussin) 10 ml PO Q4H PRN PRN PRN Reason: COUGH Last Admin: 05/30/18 02:58 Dose: 10 ml Losartan Potassium (Cozaar) 25 mg PO DAILY [facility] Magnesium Hydroxide (Milk Of Magnesia) 30 ml PO DAILY PRN PRN PRN Reason: Constipation Methylprednisolone (Solu-Medrol) 40 mg IV Q8 [facility] Stop: 05/30/18 14:01 Last Admin: 05/30/18 05:26 Dose: 40 mg Montelukast Sodium (Singulair) 10 mg PO QHS [facility] Nortriptyline HCl (Pamelor) 50 mg PO QHS [facility] Last Admin: 05/29/18 23:01 Dose: 50 mg Oseltamivir Phosphate (Tamiflu) 30 mg PO BID [facility] Stop: 06/02/18 22:01 Last Admin: 05/29/18 23:13 Dose: 30 mg Pantoprazole Sodium (Protonix) 20 mg PO DAILY [facility] Polyethylene Glycol (Miralax) 17 gm PO DAILY [facility] Potassium Chloride (K[facility]Dur) [facility] Last Admin: 05/29/18 17:56 Dose: 10 meq Prednisolone Acetate (Pred Forte Eye Drops (1 Ml)) 1 drop OPHTHALMIC DAILY [facility] Prednisone () 40 mg PO DAILY@0800 [facility] Rivaroxaban (Xarelto) 15 mg PO DAILY [facility] Senna/Docusate Sodium (Senokot-S, Juanita-Colace) 1 tablet PO DAILY PRN PRN PRN Reason: Constipation Sodium Chloride () 5 - 15 ml IV UD PRN PRN Reason: SALINE FLUSH Last Admin: 05/30/18 05:26 Dose: 10 ml Temazepam (Restoril) 15 mg PO QHS [facility] Last Admin: 05/29/18 23:01 Dose: 15 mg Medical Necessity - Tobacco Use Smoking Status: Never smoker Tobacco Use: Non-smoker Assessment/Plan All Active Problems (Last Reviewed 05/29/18 @ 14:01 by Tanner Talamantes MD) Acute bronchitis (Acute) DCCV for atrial flutter (Resolved) URI (upper respiratory infection) (Resolved) Thrush, oral (Resolved) Pneumonia (Resolved) MRSA (methicillin resistant staphylococcus aureus) pneumonia (Resolved) Acute respiratory failure with hypoxia (Resolved) Patient is an 83-year-old lady with multiple comorbidities presenting with progressive shortness of breath and persistent cough in addition to subjective fever and chills. An assessment of acute bronchitis made admitted to regular nursing floor for further management 1. Acute viral bronchitis with influenza A. Chest x-ray obtained on admission did not show any infiltrate. Patient has been admitted to a regular nursing floor as stated above. Patient was started on aerosol treatment, steroids and empiric Tamiflu pending results of respiratory panel. Patient acute respiratory panel came back positive for influenza A patient was also placed on oxygen titrated to keep saturation greater than 90 2. Chronic hypoxic respiratory failure secondary to combination of COPD and bronchiectasis patient is followed by pulmonary medicine as outpatient patient is on baseline home O2 3. Dysphagia patient is on mechanical soft diet 4. Paroxysmal A. fib/flutter patient is on amiodarone and Cardizem. Also on systemic anticoagulation with xarelto. 5. GERD; on PPI 6. Hypertension blood pressure stable did continue with home meds 7. Anxiety disorder patient is on Klonopin at home 8. History of left-sided hemiplegia following cervical cyst removal requested for PT OT as tolerated 9. DVT prophylaxis patient will Xarelto no need for additional measures Advance planning; did discuss with the patient and family regarding advanced directives as well as CODE STATUS. Did explain the various scenarios involved ( FULL CODE, DNR CCA, DNR CCA with no intubation, and DNR CC and what each meant) patient elected to be DNR CCA no intubation. Order was placed. Time spent on discussion 18 minutes. Microbiology 05/29/18 11:02 Respiratory Panel (PCR) - Final Mucosa - Nasopharyngeal Influenza A (Subtype H3) Code Visit OBSV E&M: [id number] Subsequent observation care L3
[2018-05-30] MEDS: Oseltamivir Phosphate 30 MG Capsule PO ×2 (08:23→21:27)
[2018-05-30] MEDS: Furosemide 20 MG Tablet PO (08:24)
[2018-05-30] MEDS: dilTIAZem CD 120 MG Capsule PO (08:27)
[2018-05-30] MEDS: Fluticasone 0.05% 1 SPRAY NASAL.SRY NASAL (08:30)
[2018-05-30] MEDS: Amiodarone 200 MG Tablet 100 MG PO (08:30)
[2018-05-30] MEDS: Losartan Potassium 25 MG Tablet PO (08:30)
[2018-05-30] MEDS: Polyethylene Glycol 3350 17 GM PACKET PO (08:31)
[2018-05-30] MEDS: guaiFENesin 1,200 MG Tablet 1200 MG PO ×2 (08:31→21:19)
[2018-05-30] MEDS: Rivaroxaban 15 MG Tablet PO (08:33)
[2018-05-30] MEDS: prednisoLONE eye drops (1 mL) 1 DROP OPTH.BTL 1 DRP OPHTHALMIC (08:33)
[2018-05-30] MEDS: Pantoprazole Sodium 20 MG Tablet PO (08:45)
[2018-05-30] MEDS: HYDROcodone Bitartrate/Apap 5/325 Tablet PO (21:19)
[2018-05-30] MEDS: clonazePAM 0.5 MG Tablet PO (21:19)
[2018-05-30] MEDS: Montelukast 10 MG Tablet PO (21:19)
[2018-05-30] MEDS: Nortriptyline 25 MG Capsule 50 MG PO (21:20)
[2018-05-30] MEDS: Temazepam 15 MG Capsule PO (21:20)
[2018-05-31] VITALS (12 sets, daily range): BP systolic 123–142; BP diastolic 51–66; PULSE 79–99; RESP 16–28; TEMP 36.6–37.3; O2SAT 85–97
[2018-05-31 06:13] LABS: Hematocrit 34.3 % (37-47); Hemoglobin 11.3 g/dl (12.0-15.0); Mean Corp Hgb Conc 32.9 g/gl (32-36); Mean Corpuscular Hgb 31.7 pg (27.0-32.0); Mean Corpuscular Volume 96.1 fL (81-99); Mean Platelet Vol. 9.9 fl (6.2-12.0); Platelet Count 211 K/mm3 (150-450); RBC Distribution Width CV 12.6 % (11.6-14.6); RBC Distribution Width SD 42.8 fl (35.1-43.9); Red Blood Count 3.57 M/mm3 (4.2-5.4); White Blood Count 14.7 K/mm3 (4.4-11.0)
[2018-05-31 06:21] LABS: BUN 25 mg/dL (7-18); Creatinine, Serum 0.81 mg/dL (0.55-1.02); EST Glomerular Filtration Rate 72 mL/min (>60); Estimated Creatinine Clearance 42.35 ml/min; Glucose 141 mg/dL (74-106)
[2018-05-31 06:22] LABS: Anion Gap 9 (5-15); Chloride 107 mmol/L (98-107); Est Glom Filt Rate - Afr Amer 88 mL/min (>60); Potassium 4.3 mmol/L (3.5-5.1); Sodium Level 139 mmol/L (136-145)
[2018-05-31] MEDS: Ipratropium/Albuterol Sulfate 3 ML AMPUL.NEB INHALATION ×3 (07:00→19:11)
[2018-05-31 07:05] LABS: Scan Indicated on CBC? Y/N NO
[2018-05-31] MEDS: dilTIAZem CD 120 MG Capsule PO (09:07)
[2018-05-31] MEDS: Amiodarone 200 MG Tablet 100 MG PO (09:07)
[2018-05-31] MEDS: Losartan Potassium 25 MG Tablet PO (09:07)
[2018-05-31] MEDS: predniSONE 20 MG Tablet 40 MG PO (09:07)
[2018-05-31] MEDS: Fluticasone 0.05% 1 SPRAY NASAL.SRY NASAL (09:08)
[2018-05-31] MEDS: Furosemide 20 MG Tablet PO (09:08)
[2018-05-31] MEDS: guaiFENesin 1,200 MG Tablet 1200 MG PO ×2 (09:10→22:05)
[2018-05-31] MEDS: prednisoLONE eye drops (1 mL) 1 DROP OPTH.BTL 1 DRP OPHTHALMIC (09:12)
[2018-05-31] MEDS: Rivaroxaban 15 MG Tablet PO (09:12)
[2018-05-31] MEDS: Oseltamivir Phosphate 30 MG Capsule PO ×2 (09:12→22:05)
[2018-05-31] MEDS: Azithromycin 250 MG Tablet PO (09:13)
[2018-05-31] MEDS: Pantoprazole Sodium 20 MG Tablet PO (09:14)
--- NOTE | 2018-05-31 10:50 | PCM.PN.HOSP ---
Patient Problems: Active and Suspected Problems (Last Reviewed 05/29/18 @ 14:01 by Tanner Talamantes MD) Acute bronchitis (Acute) Subjective: Patient was seen and examined. Complains of feeling very weak. Denies any fever or chills. No acute events overnight Vitals/I&O's: Vital Signs Temp Pulse Resp BP Pulse Ox 98.1 F 98 16 137/62 H 96 05/31/18 07:54 05/31/18 07:54 05/31/18 07:54 05/31/18 07:54 05/31/18 07:54 Oxygen Flow Rate (L/min) 2 Oxygen Delivery Method Nasal Cannula Weight: 58.3 kg Body Mass Index (BMI) 23.8 Finger Stick Blood Glucose 133 Intake and Output for Last 24 Hours 05/29/18 05/30/18 05/31/18 23:59 23:59 23:59 Intake Total 300 / 300 700 / 700 Balance 300 / 300 700 / 700 General: Alert, Oriented x3, Cooperative, No apparent distress, - - on 2L of oxygen HEENT: Atraumatic, PERRLA, EOMI, Normocephalic Oral: Moist Mucosa Neck: Supple Lungs: Normal air movement, Diminished Cardiovascular: Regular rate, Regular Rhythm, Normal S1, Normal S2, No murmurs Abdomen: Bowel Sounds Present, Soft, Non Tender, Non-Distended, No Hepato-splenomegaly Extremities: No edema Skin: No rashes, No breakdown Musculoskeletal: No Tenderness to Palpation of Joints or Extremities Neurological: Cranial nerves II-XII grossly intact Psych/Mental Status: Normal Affect, Appropriate Microbiology Past 72 Hours 05/29/18 11:05 Blood Culture (Wb) #2 - Anticubital Left Blood Culture - Preliminary No growth in 48 hours. 05/29/18 10:30 Blood Culture (Wb) - Anticubital Right Blood Culture - Preliminary No growth in 48 hours. 05/30/18 06:30 Sputum, Expectorated/Coughed Gram Stain - Final 05/29/18 11:02 Mucosa - Nasopharyngeal Respiratory Panel (PCR) - Final Influenza A (Subtype H3) Laboratory Results 05/31/18 05:16: WBC 14.7 H, RBC 3.57 L, Hgb 11.3 L, Hct 34.3 L, MCV 96.1, MCH 31.7, MCHC 32.9, RDW 12.6, RDW Differential 42.8, Plt Count 211, MPV 9.9 05/31/18 05:16: Sodium 139, Potassium 4.3, Chloride 107, Carbon Dioxide 23.0, Anion Gap 9, BUN 25 H, Creatinine 0.81, Estim Creat Clear Calc 42.35, Est GFR (MDRD) Af Amer 88, Est GFR (MDRD) Non-Af 72, BUN/Creatinine Ratio 31.0 H, Glucose 141 H, Calcium 9.0 Current Medications Acetaminophen (Tylenol) 1,000 mg PO BID PRN PRN PRN Reason: PAIN Last Admin: 05/30/18 23:38 Dose: 1,000 mg Hydrocodone Bitart/Acetaminophen ([place] 5mg-325mg) 1 tablet PO QHS [facility] Last Admin: 05/30/18 21:19 Dose: 1 tablet Albuterol Sulfate (Ventolin Aerosols) 2.5 mg INHALATION Q4H PRN PRN Reason: pul fibrosis J84.10 & bronchiectasis J47.9 Albuterol/Ipratropium (Duoneb) 3 ml INHALATION Q4HWA.RT [facility] Last Admin: 05/31/18 07:00 Dose: 3 ml Amiodarone HCl (Cordarone) 100 mg PO DAILY [facility] Last Admin: 05/31/18 09:07 Dose: 100 mg Azithromycin (Zithromax) 250 mg PO MoWeFr@1000 [facility] Last Admin: 05/31/18 09:13 Dose: 250 mg Bisacodyl (Dulcolax) 10 mg RECTAL DAILY PRN PRN Reason: Constipation Clonazepam (Klonopin) 0.5 mg PO TID PRN PRN PRN Reason: ANXIETY Last Admin: 05/30/18 21:19 Dose: 0.5 mg Diltiazem HCl (Cardizem Cd) 120 mg PO DAILY [facility] Last Admin: 05/31/18 09:07 Dose: 120 mg Fluticasone Propionate (Flonase Nasal [place]) 1 spray NASAL DAILY [facility] Last Admin: 05/31/18 09:08 Dose: 1 spray Furosemide (Lasix) 20 mg PO DAILY [facility] Last Admin: 05/31/18 09:08 Dose: 20 mg Guaifenesin (Mucinex) 1,200 mg PO BID [facility] Last Admin: 05/31/18 09:10 Dose: 1,200 mg Losartan Potassium (Cozaar) 25 mg PO DAILY [facility] Last Admin: 05/31/18 09:07 Dose: 25 mg Magnesium Hydroxide (Milk Of Magnesia) 30 ml PO DAILY PRN PRN PRN Reason: Constipation Montelukast Sodium (Singulair) 10 mg PO QHS [facility] Last Admin: 05/30/18 21:19 Dose: 10 mg Nortriptyline HCl (Pamelor) 50 mg PO QHS [facility] Last Admin: 05/30/18 21:20 Dose: 50 mg Oseltamivir Phosphate (Tamiflu) 30 mg PO BID [facility] Stop: 06/02/18 22:01 Last Admin: 05/31/18 09:12 Dose: 30 mg Pantoprazole Sodium (Protonix) 20 mg PO DAILY [facility] Last Admin: 05/31/18 09:14 Dose: 20 mg Polyethylene Glycol (Miralax) 17 gm PO DAILY [facility] Last Admin: 05/31/18 09:10 Dose: Not Given [facility] Last Admin: 05/31/18 09:06 Dose: 10 meq Prednisolone Acetate (Pred Forte Eye Drops (1 Ml)) 1 drop OPHTHALMIC DAILY [facility] Last Admin: 05/31/18 09:12 Dose: 1 ml Prednisone () 40 mg PO DAILY@0800 [facility] Last Admin: 05/31/18 09:07 Dose: 40 mg Rivaroxaban (Xarelto) 15 mg PO DAILY [facility] Last Admin: 05/31/18 09:12 Dose: 15 mg Senna/Docusate Sodium (Senokot-S, Juanita-Colace) 1 tablet PO DAILY PRN PRN PRN Reason: Constipation Sodium Chloride () 5 - 15 ml IV UD PRN PRN Reason: SALINE FLUSH Last Admin: 05/30/18 14:26 Dose: 10 ml Temazepam (Restoril) 15 mg PO QHS [facility] Last Admin: 05/30/18 21:20 Dose: 15 mg Medical Necessity - Tobacco Use Smoking Status: Never smoker Tobacco Use: Non-smoker Assessment/Plan All Active Problems (Last Reviewed 05/29/18 @ 14:01 by Tanner Talamantes MD) Acute bronchitis (Acute) DCCV for atrial flutter (Resolved) URI (upper respiratory infection) (Resolved) Thrush, oral (Resolved) Pneumonia (Resolved) MRSA (methicillin resistant staphylococcus aureus) pneumonia (Resolved) Acute respiratory failure with hypoxia (Resolved) 83-year-old lady with multiple comorbidities admitted with progressive shortness of breath, cough, fever and chills and is being managed as acute bronchitis secondary to Acute influenza A. 1. Acute viral bronchitis secondary to Acute influenza A, continues to be on Tamiflu, will continue with as needed supportive care 2. Chronic hypoxic respiratory failure secondary to combination of COPD/bronchiectasis, on 2 L home oxygen, follows with pulmonary outpatient. 3. Dysphagia- on mechanical soft diet 4. Paroxysmal A. fib/flutter, on amiodarone, Cardizem, xarelto. 5. GERD on PPI 6. Hypertension, BP is stable, on Losartan, continue same 7. Anxiety disorder- on Klonopin, Restoril 8. History of left-sided hemiplegia following cervical cyst removal 9. DVT prophylaxis -on Xarelto Code Visit Inpatient E&M: 57091 Subs Hosp L2
--- NOTE | 2018-05-31 12:05 | CASEMGMT ---
HAROLDO CELAYA Face to Face with patient for initial transition planning/care coordination assessment. HAROLDO CELAYA introduced self and role at [facility]. Patient sitting in chair, alert and oriented, daughter in law and grandson at bedside. Patient willing to participate in assessment and is able to answer all questions appropriately. Care providers, pharmacy, and demographics verified. Patient wishes to discharge to SNF at discharge with [facility] at her first choice. Patient states she has no further needs or concerns at this time. CHEVY Noriega updated regarding request for placement at discharge. PCP: Jayesh Specialists: Nikhil, interlocker maintainer; Marisol, nurse midwife/clinical instructor Preferred Pharmacy: [facility] Insurance: [facility] Prescription Benefit: Yes Living Will/HPOA: Yes, son Adam Velazcole HPOA LNOK: Sons, daughter in law, grandson Living Arrangements: Patient lives with son in ranch style home with 2 step and railing to enter the home. Patient requires assistance with bathing at home. Transportation: Family DME/HHC: Patient has shower chair, raised toilet seat, grab bars, walker, rollator, wc, oxygen 2 lpm at night through [employer], and nebulizer at home. Patient has Private aide 1x/week for bathing. [facility] for SN once a week. Disposition Plan: Patient to discharge to SNF pending acceptance and qualifying stay. Natacha BROWNLEE, RN, CM
--- NOTE | 2018-05-31 12:30 | CASEMGMT ---
Social Work Note RN BELIA Vickers updated this worker that pt is wanting SNF at discharge and would like referral sent to [facility]. SW placed a call to Haroon Bernard, quality management, to send referral to [facility]. Natacha Noriega GUIDE [place], LAN SPECIALIST
--- NOTE | 2018-05-31 12:57 | CASEMGMT ---
Per CHEVY Angeles, referral needs sent to [facility]. Call placed to facility, spoke with Jovana. Should have bed availability on Thursday. Referal faxed to [phone], confirmation received. Betty Brenard LPN Clinical Support
[2018-05-31] MEDS: Acetaminophen 500 MG Tablet 1000 MG PO (17:19)
[2018-05-31] MEDS: Nortriptyline 25 MG Capsule 50 MG PO (22:03)
[2018-05-31] MEDS: HYDROcodone Bitartrate/Apap 5/325 Tablet PO (22:05)
[2018-05-31] MEDS: Montelukast 10 MG Tablet PO (22:05)
[2018-05-31] MEDS: Temazepam 15 MG Capsule PO (22:05)
[2018-05-31] MEDS: clonazePAM 0.5 MG Tablet PO (22:09)
[2018-06-01] VITALS (32 sets, daily range): BP systolic 90–145; BP diastolic 46–72; PULSE 80–117; RESP 12–32; TEMP 36.6–37.9; O2SAT 86–98
[2018-06-01] MEDS: Albuterol 2.5 MG/3 ML VIAL.NEB. INHALATION (03:51)
--- NOTE | 2018-06-01 04:09 | NURSING ---
Did pt's vitals at 0325 and her pulse ox was in the mid 80's on 5L. Called respiratory and he came up and put her on a venti mask with pink adapter at 40%. He had to do a nasal swab in another room and then he was going to come back and check her pulse ox again. Recheck pulse ox and it was 89. respiratory then put her on 50% 02. will recheck o2.
--- NOTE | 2018-06-01 04:30 | RAD_ITS ---
STUDY: X-RAY CHEST REASON FOR EXAM: Female, 83 years old. Dyspnea TECHNIQUE: Single AP portable view of the chest. COMPARISON: 05/29/2018 FINDINGS: Patchy airspace opacities are seen in the right upper lobe, right lower lobe and left lower lobe suggesting bilateral pneumonia. There is no demonstrated pleural abnormality. Normal size heart. Normal mediastinum and mariza. Normal visualized pulmonary arteries. Normal visualized aortic arch and descending thoracic aorta. Normal visualized thoracic spine. Normal visualized ribs, clavicles, and shoulders. There is no demonstrated abnormality of the visualized soft tissue structures of the upper abdomen. RAD/Chest 1 View (Portable) IMPRESSION: Bilateral pneumonia. Electronically Signed: Gloria Parish MD at 5:21 EST Tel , Service support ,
[2018-06-01] MEDS: Acetaminophen 500 MG Tablet 1000 MG PO (05:55)
[2018-06-01] MEDS: Ceftriaxone 1 GM/50 ML BAG IV (06:03)
[2018-06-01] MEDS: Ipratropium/Albuterol Sulfate 3 ML AMPUL.NEB INHALATION ×4 (07:12→19:18)
[2018-06-01] MEDS: predniSONE 20 MG Tablet 40 MG PO (08:05)
[2018-06-01 09:32] LABS: M R Staph aureus DNA By PCR POSITIVE (Negative); Probe Check PASS
[2018-06-01] MEDS: Pantoprazole Sodium 20 MG Tablet PO (11:07)
[2018-06-01] MEDS: Amiodarone 200 MG Tablet 100 MG PO (11:07)
[2018-06-01] MEDS: guaiFENesin 1,200 MG Tablet 1200 MG PO ×2 (11:08→22:56)
[2018-06-01] MEDS: Polyethylene Glycol 3350 17 GM PACKET PO (11:08)
[2018-06-01] MEDS: dilTIAZem CD 120 MG Capsule PO (11:08)
[2018-06-01] MEDS: Oseltamivir Phosphate 30 MG Capsule PO ×2 (11:08→22:56)
[2018-06-01] MEDS: Rivaroxaban 15 MG Tablet PO ×2 (11:08)
[2018-06-01] MEDS: Fluticasone 0.05% 1 SPRAY NASAL.SRY NASAL (11:12)
--- NOTE | 2018-06-01 11:16 | PCM.PN.HOSP ---
Patient Problems: Active and Suspected Problems (Last Reviewed 05/29/18 @ 14:01 by Tanner Talamantes MD) Acute bronchitis (Acute) Influenza A (Acute) Subjective: Patient was seen and examined. Overnight she became more hypoxic, according to use of BiPAP. Patient has been transitioned over the day 2 vent remarks and nasal cannula oxygen. Pulmonology has been consulted. She complains of feeling hot and cold. Denied any chest discomfort, dizziness or palpitations. Vitals/I&O's: Vital Signs Temp Pulse Resp BP Pulse Ox 98.7 F 87 22 H 127/69 H 96 06/01/18 11:14 06/01/18 11:14 06/01/18 11:14 06/01/18 11:14 06/01/18 11:14 Oxygen Flow Rate (L/min) 5 Oxygen Delivery Method Venturi Mask Weight: 58 kg Body Mass Index (BMI) 23.8 Finger Stick Blood Glucose 133 Intake and Output for Last 24 Hours 05/30/18 05/31/18 06/01/18 23:59 23:59 23:59 Intake Total 300 / 300 1200 / 1200 400 / 400 Output Total 300 / 300 Balance 300 / 300 1200 / 1200 100 / 100 General: Alert, Oriented x3, Cooperative, - - in mild respirator distress, on Bipap HEENT: Atraumatic, PERRLA, EOMI, Normocephalic Oral: Moist Mucosa Neck: Supple, No JVD, Negative Carotid Bruits Lungs: Normal air movement, Diminished Cardiovascular: Regular rate, Regular Rhythm, Normal S1, Normal S2, No murmurs Abdomen: Bowel Sounds Present, Soft, Non Tender, Non-Distended, No Hepato-splenomegaly Extremities: No edema Skin: No rashes, No breakdown Musculoskeletal: No Tenderness to Palpation of Joints or Extremities Lymphatic: No Cervical, Supraclavicular, or Inguinal Adenopathy Neurological: Cranial nerves II-XII grossly intact, Neuro grossly intact Psych/Mental Status: Normal Affect, Appropriate Microbiology Past 72 Hours 05/30/18 06:30 Sputum, Expectorated/Coughed Gram Stain - Final 05/30/18 06:30 Sputum, Expectorated/Coughed Respiratory Culture - Preliminary Staphylococcus aureus 05/29/18 11:05 Blood Culture (Wb) #2 - Anticubital Left Blood Culture - Preliminary No growth in 48 hours. 05/29/18 10:30 Blood Culture (Wb) - Anticubital Right Blood Culture - Preliminary No growth in 48 hours. 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 & bronchiectasis J47.9 Last Admin: 06/01/18 03:51 Dose: 2.5 mg Albuterol/Ipratropium (Duoneb) 3 ml INHALATION Q4HWA.RT [facility] Last Admin: 06/01/18 07:12 Dose: 3 ml Amiodarone HCl (Cordarone) 100 mg PO DAILY [facility] Last Admin: 06/01/18 11:07 Dose: 100 mg Bisacodyl (Dulcolax) 10 mg RECTAL DAILY PRN PRN Reason: Constipation Clonazepam (Klonopin) 0.5 mg PO TID PRN PRN PRN Reason: ANXIETY Last Admin: 05/31/18 22:09 Dose: 0.5 mg Diltiazem HCl (Cardizem Cd) 120 mg PO DAILY [facility] Last Admin: 06/01/18 11:08 Dose: 120 mg Fluticasone Propionate (Flonase Nasal [place]) 1 spray NASAL DAILY [facility] Last Admin: 06/01/18 11:12 Dose: 1 spray Furosemide (Lasix) 20 mg PO DAILY [facility] Last Admin: 05/31/18 09:08 Dose: 20 mg Guaifenesin (Mucinex) 1,200 mg PO BID [facility] Last Admin: 06/01/18 11:08 Dose: 1,200 mg Ceftriaxone Sodium (Rocephin) 1 gm in 50 mls @ 100 mls/hr IV Q24 [facility] Last Admin: 06/01/18 06:03 Dose: 100 mls/hr Doxycycline Hyclate 100 mg/ (Dextrose) 260 mls @ 250 mls/hr IV Q12 [facility] Losartan Potassium (Cozaar) 25 mg PO DAILY [facility] Last Admin: 05/31/18 09:07 Dose: 25 mg Magnesium Hydroxide (Milk Of Magnesia) 30 ml PO DAILY PRN PRN PRN Reason: Constipation Montelukast Sodium (Singulair) 10 mg PO QHS [facility] Last Admin: 05/31/18 22:05 Dose: 10 mg Nortriptyline HCl (Pamelor) 50 mg PO QHS [facility] Last Admin: 05/31/18 22:03 Dose: 50 mg Oseltamivir Phosphate (Tamiflu) 30 mg PO BID [facility] Stop: 06/02/18 22:01 Last Admin: 06/01/18 11:08 Dose: 30 mg Pantoprazole Sodium (Protonix) 20 mg PO DAILY [facility] Last Admin: 06/01/18 11:07 Dose: 20 mg Polyethylene Glycol (Miralax) 17 gm PO DAILY [facility] Last Admin: 06/01/18 11:08 Dose: 17 gm Potassium [facility] ([facility]) [facility] Last Admin: 06/01/18 08:05 Dose: 10 meq Prednisolone Acetate (Pred Forte Eye Drops (1 Ml)) 1 drop OPHTHALMIC DAILY [facility] Last Admin: 05/31/18 09:12 Dose: 1 ml Prednisone () 40 mg PO DAILY@0800 [facility] Last Admin: 06/01/18 08:05 Dose: 40 mg Rivaroxaban (Xarelto) 15 mg PO DAILY [facility] Last Admin: 06/01/18 11:08 Dose: 15 mg Senna/Docusate Sodium (Senokot-S, Juanita-Colace) 1 tablet PO DAILY PRN PRN PRN Reason: Constipation Sodium Chloride () 5 - 15 ml IV UD PRN PRN Reason: SALINE FLUSH Last Admin: 05/30/18 14:26 Dose: 10 ml Temazepam (Restoril) 15 mg PO QHS [facility] Last Admin: 05/31/18 22:05 Dose: 15 mg Medical Necessity - Tobacco Use Smoking Status: Never smoker Tobacco Use: Non-smoker Assessment/Plan All Active Problems (Last Reviewed 05/29/18 @ 14:01 by Tanner Talamantes MD) Acute bronchitis (Acute) Influenza A (Acute) DCCV for atrial flutter (Resolved) URI (upper respiratory infection) (Resolved) Thrush, oral (Resolved) Pneumonia (Resolved) MRSA (methicillin resistant staphylococcus aureus) pneumonia (Resolved) Acute respiratory failure with hypoxia (Resolved) 83-year-old lady with multiple comorbidities admitted with progressive shortness of breath, cough, fever and chills and is being managed as acute bronchitis secondary to Acute influenza A. Overnight, patient had complained of hypoxia, chest x-ray confirms bilateral pneumonia. Sputum cultures positive for staph aureus. MRSA PCR positive. 1. Acute MRSA bilateral pneumonia, likely secondary to hospital-acquired versus natural sequelae of acute influenza Patient has been in the hospital for more than 48 hours, was on IV azithromycin and ceftriaxone, switched to IV vancomycin Pulmonology consulted. 2. Acute viral bronchitis secondary to Acute influenza A, on Tamiflu, will continue with as needed supportive care 3. Acute on chronic hypoxic respiratory failure secondary to combination of COPD/bronchiectasis, was on BiPAP overnight, Ventimask, continue to monitor on nasal cannula oxygen, encourage use of incentive spirometer, PEEP. 4. Dysphagia- on mechanical soft diet 5. Paroxysmal A. fib/flutter, on amiodarone, Cardizem, xarelto. 6. GERD on PPI 7. Hypertension, BP is stable, on Losartan, continue same 8. Anxiety disorder- on Klonopin, Restoril 9. History of left-sided hemiplegia following cervical cyst removal 10. DVT prophylaxis -on Xarelto Code Visit Inpatient E&M: 55353 Subs Hosp L2
--- NOTE | 2018-06-01 11:31 | CASEMGMT ---
Addendum entered by Natacha Noriega 06/01/18 13:24: SW updated pt on acceptance to [facility]. Per physician, pt is going to be at [facility] for 1-2 more days. Original Note: Social Work Note SW placed a call to Jovana at [facility]. Per Jovana a pt is discharging tomorrow morning and pending the pt does discharge she will have a bed for pt tomorrow afternoon. CHEVY asked Jovana to let this worker know SHEILA if the discharge isn't happening tomorrow so this worker can look at different facilities for pt. Jovana states understanding. Plan: Discharge to [facility] tomorrow skilled Natacha Noriega CHOCOLATE PACKER, SCHOOL BUS DISPATCHER
[2018-06-01] MEDS: prednisoLONE eye drops (1 mL) 1 DROP OPTH.BTL 1 DRP OPHTHALMIC (12:43)
--- NOTE | 2018-06-01 13:50 | CON.PCM_ITS ---
Problem List (1) Influenza A Status: Acute (2) Nonrheumatic aortic valve stenosis Status: Chronic (3) Cardiomyopathy in other diseases classified elsewhere Status: Chronic (4) Nonrheumatic tricuspid (valve) insufficiency Status: Chronic (5) Nonrheumatic mitral (valve) insufficiency Status: Chronic (6) Bronchiectasis Status: Chronic Qualifiers: Bronchiectasis type: with acute lower respiratory infection Qualified Code(s): J47.0 - Bronchiectasis with acute lower respiratory infection (7) Restrictive lung disease Status: Chronic (8) Anxiety disorder Status: Chronic Qualifiers: Anxiety disorder type: unspecified anxiety disorder Qualified Code(s): F41.9 - Anxiety disorder, unspecified (9) Diabetes Status: Chronic Qualifiers: Diabetes mellitus type: type 2 Diabetes mellitus complication status: without complication Qualified Code(s): E11.9 - Type 2 diabetes mellitus without complications (10) HTN (hypertension) Status: Chronic Qualifiers: Hypertension type: essential hypertension Qualified Code(s): I10 - Essential (primary) hypertension (11) Pulmonary hypertension, mild Status: Chronic Comment: d/t lung disease (12) MRSA (methicillin resistant staphylococcus aureus) pneumonia Status: Resolved Qualifiers: Laterality: bilateral Lung location: unspecified part of lung Qualified Code(s): J15.212 - Pneumonia due to Methicillin resistant Staphylococcus aureus (13) Acute respiratory failure with hypoxia Status: Resolved Reason for Consult Date of Consultation: 06/01/18 Reason for Consultation: Hypoxic respiratory failure History of Present Illness: The patient is an 83 year old F, with past medical history listed below and well-known to me from the outpatient office, who presented to [facility] on 05/29/2018 secondary to shortness of breath and persistent cough. Symptoms reportedly started shortly after dental work 2 days prior to presentation. Patient does have a history of dysphasia and was worried that she had aspirated. Patient started to develop persistent cough, shortness of breath and wheezing. Patient received aerosol treatments in the ED without much improvement, so was admitted to the floor and placed on ceftriaxone and azithromycin. She has come back positive with influenza A. Over the course of patient's hospitalization, patient feels she is subjectively unchanged. Overnight, patient had respiratory distress requiring BiPAP rescue secondary to low oxygen saturations. Patient does use 2 L nasal cannula with exertion at baseline, but is currently requiring 5 L nasal cannula to maintain appropriate saturations. Patient does report a significant cough productive of green to yellow sputum. No hemoptysis has been reported. Patient sputum culture has grown MRSA, so a pulmonary consult was obtained. Prior to acute illness, patient reports she was at her baseline. Patient does use a modified diet at baseline and states that she has been compliant. Patient denies any recent sinus congestion, chest pain, abdominal pain, nausea or vomiting. Patient did have some subjective fevers. Patient states that she is been compliant with her baseline inhaler therapy. Review of systems otherwise negative x10 systems. Past Medical History Past Medical History (Chronic Problems): Chronic Problems (Last Reviewed 05/29/18 @ 14:01 by Tanner Talamantes MD) Nonrheumatic aortic valve stenosis (Chronic) Encounter for long-term current use of high risk medication (Chronic) Cardiomyopathy in other diseases classified elsewhere (Chronic) Nonrheumatic tricuspid (valve) insufficiency (Chronic) Nonrheumatic mitral (valve) insufficiency (Chronic) Cardiac murmur (Chronic) Cardiomyopathy (Chronic) Atrial flutter (Chronic) Bronchiectasis (Chronic) High risk medications (not anticoagulants) long-term use (Chronic) Restrictive lung disease (Chronic) Anxiety disorder (Chronic) Diabetes (Chronic) HTN (hypertension) (Chronic) Hemiparesis (Chronic) s/p spine surgery for a cyst Atrial fibrillation with RVR (Chronic) 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 aspiration Dysphagia (Chronic) Pulmonary hypertension, mild (Chronic) d/t lung disease PAF (paroxysmal atrial fibrillation) (Chronic) Medical History: Medical History (Last Reviewed 05/29/18 @ 14:01 by Tanner Talamantes MD) Encounter for long-term current use of high risk medication (Chronic) Z79.899 Cardiomyopathy in other diseases classified elsewhere (Chronic) I43 Nonrheumatic tricuspid (valve) insufficiency (Chronic) I36.1 Nonrheumatic mitral (valve) insufficiency (Chronic) I34.0 Cardiac murmur (Chronic) R01.1 Cardiomyopathy (Chronic) I42.9 Atrial flutter (Chronic) I48.92 Bronchiectasis (Chronic) J47.9 High risk medications (not anticoagulants) long-term use (Chronic) Z79.899 Restrictive lung disease (Chronic) J98.4 URI (upper respiratory infection) (Resolved) J06.9 Thrush, oral (Resolved) B37.0 Pneumonia (Resolved) J18.9 Anxiety disorder (Chronic) F41.9 Diabetes (Chronic) E11.9 HTN (hypertension) (Chronic) I10 Hemiparesis (Chronic) G81.90 s/p spine surgery for a cyst Atrial fibrillation with RVR (Chronic) I48.91 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 aspiration Dysphagia (Chronic) R13.10 Pulmonary hypertension, mild (Chronic) I27.2 d/t lung disease PAF (paroxysmal atrial fibrillation) (Chronic) I48.0 MRSA (methicillin resistant staphylococcus aureus) pneumonia (Resolved) J15.212 Acute respiratory failure with hypoxia (Resolved) J96.01 Bronchiectasis with (acute) exacerbation J47.1 Hip fracture, right S72.001A 09/2017 Localized swelling of both lower legs R22.43 Streptococcal pneumonia J15.4 Back pain M54.9 Bronchiectasis J47.9 Dyspnea R06.00 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 Seasonal allergies J30.2 Sinus drainage J34.89 Endotracheally intubated Z97.8 Allergies amoxicillin trihydrate [From Augmentin] Allergy (Verified 05/29/18 09:58) Diarrhea aspirin [ASA] Allergy (Verified 05/29/18 09:58) Unknown pt states she has mac degen and can't take it cefdinir Allergy (Verified 05/29/18 09:58) Unknown doxycycline Allergy (Verified 05/29/18 09:58) Unknown gatifloxacin [From Tequin] Allergy (Verified 05/29/18 09:58) Unknown potassium clavulanate [From Augmentin] Allergy (Verified 05/29/18 09:58) Unknown levofloxacin [From Levaquin] Adverse Reaction (Severe, Verified 05/29/18 09:58) Rash fluticasone propionate [From Advair Diskus] Adverse Reaction (Verified 05/29/18 09:58) Unknown salmeterol xinafoate [From Advair Diskus] Adverse Reaction (Verified 05/29/18 09:58) Unknown my head gets funny Home Medications: Ambulatory Orders Medication Instructions Recorded Albuterol IH (ProAir) [Proair Hfa 2 puff INHALATION Q6H PRN PRN 01/29/17 (SP)Vent Pts] Amiodarone HCl 100 mg PO DAILY 01/29/17 Clonazepam [Klonopin] 0.5 mg PO TID PRN PRN 01/29/17 Furosemide [Lasix] 20 mg PO DAILY 01/29/17 Omeprazole [Prilosec] 20 mg PO DAILY 01/29/17 Rivaroxaban [Xarelto] 15 mg PO DAILY 01/29/17 Temazepam [Restoril] 15 mg PO QHS 01/29/17 Montelukast Sodium [Singulair] 10 mg PO DAILY 04/14/17 Potassium Chloride [Klor-Con 10] 10 meq PO BID 04/14/17 fluticasone 50 mcg/actuation nasal 1 spray INTRANASAL QDAY 04/16/17 spray,suspension guaifenesin 100 mg/5 mL oral liquid 200 mg PO Q4H PRN 04/16/17 losartan 25 mg tablet 25 mg PO QDAY 04/16/17 nuceflxlwqre-Bc-ssct-minerals 1 tab PO QDAY ea 04/16/17 tablet prednisolone acetate 1 % eye 1 drp OPHTHALMIC QDAY ml 04/16/17 drops,suspension nortriptyline 50 mg capsule 50 mg PO QHS cap 09/01/17 diltiazem ER 120 mg capsule,24 120 mg PO DAILY #90 cap 02/26/18 hr,extended release azithromycin 250 mg tablet 250 mg PO QMWF tab 03/24/18 ergocalciferol (vitamin D2) 50,000 50,000 unit PO .QOW cap 03/24/18 unit capsule albuterol sulfate 2.5 mg/3 mL 2.5 mg INHALATION Q4H PRN #180 vial 04/15/18 (0.083 %) solution for nebulization umeclidinium 62.5 mcg/actuation 1 inh INHALATION QDAY #3 device 05/17/18 blister powder for inhalation Acetaminophen 1,000 mg PO BID PRN PRN 05/29/18 Bisacodyl 10 mg RC DAILY PRN 05/29/18 Glucagon,Human Recombinant 1 mg IJ PRN PRN 05/29/18 [Glucagon Emergency Kit] Hydrocodone/Acetaminophen [Metcalf 1 each PO QHS 05/29/18 5-325 Tablet] Magnesium Hydroxide [Milk Of 30 ml PO DAILY PRN PRN 05/29/18 Magnesia] Mometasone/Formoterol [Dulera 200 2 puff INHALATION BID 05/29/18 Mcg/5 Mcg Inhaler] Na Phos,M-B/Na Phos,Di-Ba [Fleet 120 ml RECTAL X1 PRN 05/29/18 Enema] Polyethylene Glycol 3350 [Miralax] 17 gm PO DAILY 05/29/18 Prednisone 1 tab PO DAILY 05/29/18 Sennosides/Docusate Sodium 1 tab PO DAILY PRN 05/29/18 [Senna-S Laxative Tablet] Surgical History: Surgical History (Last Reviewed 05/29/18 @ 14:01 by Tanner Talamantes MD) DCCV for atrial flutter (Resolved) 04/11/14 H/O Spinal surgery Z98.890 to remove tumor Hx of cholecystectomy Z98.890, Z90.49 Partial hip replacement 09/2017 Surgical History: - - spinal tumor removed, cholecystectomy Psychiatric History: 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 Review of Systems Comment: See HPI, otherwise negative x10 systems Patient Problems: Active and Suspected Problems (Last Reviewed 05/29/18 @ 14:01 by Tanner Talamantes MD) Acute bronchitis (Acute) Influenza A (Acute) Objective: Chest x-ray was personally reviewed and shows evolving bilateral infiltrates over the course of the hospitalization. Last pulmonary function test (06/30/2017): Moderate restrictive ventilatory defect with reduction in diffusing capacity (FVC 63%, FEV1 60%, TLC 67%, DLCO 22%). There is been no recent echocardiogram. - Physical Exam General: Alert, Oriented x3, Cooperative, - - Mild conversational dyspnea. Appears stated age. HEENT: Atraumatic, PERRLA, EOMI, Normocephalic, - - No scleral icterus or injection noted. Oral: Moist Mucosa, No Gingival or Mucosal Lesions/ Ulcerations, - - Fair dentition. Neck: Supple, No JVD, No Nodes, Trachea Midline Lungs: No rales, Diminished, Rhonchi - Bilateral, Wheezes - Bilateral Cardiovascular: Regular rate, Regular Rhythm, Normal S1, Normal S2, Murmur - 2 out of 6 systolic ejection murmur at the right sternal border, No rub noted, No Gallop Abdomen: Bowel Sounds Present, Soft, Non Tender, Non-Distended Extremities: No clubbing, No cyanosis, No edema, Capillary Refill Less than 3 Seconds Skin: No rashes, No breakdown Musculoskeletal: No Tenderness to Palpation of Joints or Extremities Lymphatic: No Cervical, Supraclavicular, or Inguinal Adenopathy Neurological: Cranial nerves II-XII grossly intact, Neuro grossly intact, Motor Exam 5/5 strength throughout Psych/Mental Status: Alert and oriented to time, place, person, mood and affect Vital Signs Temp Pulse Resp BP Pulse Ox 37.1 C 87 22 H 127/69 H 96 06/01/18 11:14 06/01/18 11:14 06/01/18 11:14 06/01/18 11:14 06/01/18 11:14 Oxygen Flow Rate (L/min) 5 Oxygen Delivery Method Venturi Mask Weight: 58 kg Body Mass Index (BMI) 23.8 Finger Stick Blood Glucose 133 Intake and Output for Last 24 Hours 05/30/18 05/31/18 06/01/18 23:59 23:59 23:59 Intake Total 300 / 300 1200 / 1200 950 / 950 Output Total 300 / 300 Balance 300 / 300 1200 / 1200 650 / 650 Microbiology Past 72 Hours 05/30/18 06:30 Gram Stain - Final Sputum, Expectorated/Coughed Respiratory Culture - Preliminary Staphylococcus aureus 05/29/18 11:05 Blood Culture - Preliminary Blood Culture (Wb) #2 - Anticubital Left No growth in 48 hours. 05/29/18 10:30 Blood Culture - Preliminary Blood Culture (Wb) - Anticubital Right No growth in 48 hours. 05/29/18 11:02 Respiratory Panel (PCR) - Final Mucosa - Nasopharyngeal Influenza A (Subtype H3) Laboratory Tests Past 24 Hrs 06/01/18 07:49 MRSA (PCR) POSITIVE H Clinical Impression(s) from Imaging Studies Chest X-Ray 05/29/18 10:40 IMPRESSION: No acute cardiopulmonary disease Electronically Signed: Dave Parker DO at 12:21 EST Tel , Service support , Chest X-Ray 06/01/18 04:30 IMPRESSION: Bilateral pneumonia. Electronically Signed: Gloria Parish MD at 5:21 EST Tel , Service support , Assessment/Plan All Active Problems (Last Reviewed 05/29/18 @ 14:01 by Tanner Talamantes MD) Acute bronchitis (Acute) Influenza A (Acute) DCCV for atrial flutter (Resolved) URI (upper respiratory infection) (Resolved) Thrush, oral (Resolved) Pneumonia (Resolved) MRSA (methicillin resistant staphylococcus aureus) pneumonia (Resolved) Acute respiratory failure with hypoxia (Resolved) RECOMMENDATIONS: 1. Transition to vancomycin 2. Continue steroids, mucolytic, Tamiflu and bronchodilators 3. Aggressive pulmonary toileting with Acapella, possible initiation of vest therapy 4. Wean oxygen as tolerated 5. Rescue as necessary overnight IMPRESSIONS: 1. Acute on chronic hypoxic respiratory failure secondary to influenza A with MRSA superinfection She was significant worsening in infiltrates over the course of the hospitalization. Clinical suspicion for superinfection with MRSA. Patient does have a history of bronchiectasis in the past with staph noted on previous cultures. However, patient is not been positive recently. Continue with prednisone therapy, mucolytic and Tamiflu. Bronchodilators as ordered. Patient may require BiPAP rescue, especially with sleeping. Wean oxygen as tolerated. 2. 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 Patient has had multiple admissions secondary to aspiration pneumonia in the distant past. Patient should be continued on a modified diet. 3. History of paroxysmal A. fib Patient is currently on her baseline medications and tolerating well. Heart rate is well-controlled. Continue current therapy. 4. Diabetes mellitus/hypertension Patient currently on modified diet. Blood pressures have been trending up. Continue sliding scale insulin. Will need to watch blood sugars closely given concomitant steroid therapy 5. Anxiety disorder Patient is on Klonopin among other medications at home. Patient appears to be at baseline at this time. Code Visit Inpatient E&M: 99608 Init Hosp L3
[2018-06-01] MEDS: Vancomycin IV 1,000 MG/200 ML BAG 200 MG IV (14:13)
[2018-06-01] MEDS: 0.9% NaCl Peripheral Flush Adult/Peds IV (14:13)
--- NOTE | 2018-06-01 14:39 | PCM.RX.CS ---
Consult Pharmacy has been consulted to manage selected antiobiotic: Vancomycin Type of Consult: New start Suspected Infection: Pneumonia Prior Doses of Antibiotics Received/Current Regimen: NEW START Labs: Sodium 139 mmol/L (136-145) 05/31/18 05:16 Potassium 4.3 mmol/L (3.5-5.1) 05/31/18 05:16 Chloride 107 mmol/L (98-107) 05/31/18 05:16 Carbon Dioxide 23.0 mmol/L (21.0-32.0) 05/31/18 05:16 Anion Gap 9 (5-15) 05/31/18 05:16 BUN 25 mg/dL (7-18) H 05/31/18 05:16 Creatinine 0.81 mg/dL (0.55-1.02) 05/31/18 05:16 Est GFR (MDRD) Af Amer 88 mL/min (>60) 05/31/18 05:16 Est GFR (MDRD) Non-Af 72 mL/min (>60) 05/31/18 05:16 BUN/Creatinine Ratio 31.0 RATIO (10-20) H 05/31/18 05:16 Glucose 141 mg/dL (74-106) H 05/31/18 05:16 TROUGH LEVEL PRIOR TO 4TH DOSE Microbiology: Microbiology 05/30/18 06:30 Sputum, Expectorated/Coughed Gram Stain - Final 05/30/18 06:30 Sputum, Expectorated/Coughed Respiratory Culture - Preliminary Staphylococcus aureus 05/29/18 11:05 Blood Culture (Wb) #2 - Anticubital Left Blood Culture - Preliminary No growth in 48 hours. 05/29/18 10:30 Blood Culture (Wb) - Anticubital Right Blood Culture - Preliminary No growth in 48 hours. 05/29/18 11:02 Mucosa - Nasopharyngeal Respiratory Panel (PCR) - Final Influenza A (Subtype H3) Weight used for dosin kg Estimated Creatinine Clearance: 42 Goal Trough: 15-20 mcg/mL - VANCOMYCIN LOAD OF 1000MG THEN 500MG Q12H Pharmacy Plan for Drug Dosing: Pharmacy Service will continue to monitor and adjust dosing as required.
[2018-06-01] MEDS: Montelukast 10 MG Tablet PO (22:55)
[2018-06-01] MEDS: Nortriptyline 25 MG Capsule 50 MG PO (22:55)
[2018-06-01] MEDS: Temazepam 15 MG Capsule PO (22:56)
[2018-06-01] MEDS: HYDROcodone Bitartrate/Apap 5/325 Tablet PO (22:56)
[2018-06-02] VITALS (31 sets, daily range): BP systolic 103–150; BP diastolic 53–78; PULSE 80–114; RESP 12–36; TEMP 36.4–37.3; O2SAT 70–100
[2018-06-02] MEDS: Vancomycin IV 500 MG/100 ML BAG 100 MG IV ×2 (01:33→13:23)
[2018-06-02] MEDS: 0.9% NaCl Peripheral Flush Adult/Peds IV (01:33)
--- NOTE | 2018-06-02 05:35 | NURSING ---
Pt's SATS routinely dropped throughout the night and morning into the 80's due to her removing her Bipap. Once bipap was put back on her pulse ox nori back into the mid to high 90's.
[2018-06-02 06:02] LABS: Anion Gap 10 (5-15); BUN 19 mg/dL (7-18); BUN/Creat Ratio 24.5 RATIO (10-20); Calcium,Total 8.6 mg/dL (8.5-10.1); Chloride 103 mmol/L (98-107); Creatinine, Serum 0.78 mg/dL (0.55-1.02); EST Glomerular Filtration Rate 76 mL/min (>60); Est Glom Filt Rate - Afr Amer 92 mL/min (>60); Glucose 95 mg/dL (74-106); Sodium Level 137 mmol/L (136-145)
[2018-06-02 06:45] LABS: Absolute Neutrophil Count 9.6 X10^3/uL (2.0-7.7); Basophil# 0.16 X10^3/uL; Basophil% 1.3 % (0-1); Eosinophil# 0.01 X10^3/uL; Eosinophils% 0.1 % (0-5); Hematocrit 34.7 % (37-47); Mean Corp Hgb Conc 31.7 g/gl (32-36); Mean Corpuscular Hgb 30.3 pg (27.0-32.0); Mean Corpuscular Volume 95.6 fL (81-99); Mean Platelet Vol. 9.9 fl (6.2-12.0); Monocyte% 7.3 % (0-10); Neutrophil # 9.56 X10^3/uL (2.7-7.7); Neutrophil % 77.9 % (47-70); Platelet Count 197 K/mm3 (150-450); RBC Distribution Width CV 12.6 % (11.6-14.6); RBC Distribution Width SD 42.3 fl (35.1-43.9); Red Blood Count 3.63 M/mm3 (4.2-5.4); White Blood Count 12.3 K/mm3 (4.4-11.0)
[2018-06-02 06:50] LABS: Differential Indicated SCAN CRITERIA MET; POSITIVE COUNT NO; POSITIVE DIFFERENTIAL NO; POSITIVE MORPHOLOGY YES
[2018-06-02] MEDS: Ipratropium/Albuterol Sulfate 3 ML AMPUL.NEB INHALATION ×4 (07:01→18:44)
--- NOTE | 2018-06-02 07:03 | NURSING ---
PT complained and refused bipap. pt was on bipap all night. I put pt on 6L NC and called respiratory about her low SATS. respiratory came and gave her a breathing treatment.
--- NOTE | 2018-06-02 07:19 | CPS ---
Pt was 86% on 6 lpm with HOB flat. HOB elevated and pt's saturation came up to 92% on 6lpm. Nurse made aware.Aerosol rx given and janusz well. Pt was offered Bipap prior to leaving room and refused. Pt's saturation remained at 92% prior to leaving room.
[2018-06-02] MEDS: dilTIAZem CD 120 MG Capsule PO (08:34)
[2018-06-02] MEDS: predniSONE 20 MG Tablet 40 MG PO (08:35)
[2018-06-02] MEDS: Pantoprazole Sodium 20 MG Tablet PO (08:35)
[2018-06-02] MEDS: Amiodarone 200 MG Tablet 100 MG PO (08:35)
[2018-06-02] MEDS: Oseltamivir Phosphate 30 MG Capsule PO ×2 (08:35→21:26)
[2018-06-02] MEDS: Furosemide 20 MG Tablet PO (08:35)
[2018-06-02] MEDS: Losartan Potassium 25 MG Tablet PO (08:35)
[2018-06-02] MEDS: Fluticasone 0.05% 1 SPRAY NASAL.SRY NASAL (08:36)
[2018-06-02] MEDS: guaiFENesin 1,200 MG Tablet 1200 MG PO ×2 (08:36→21:25)
[2018-06-02] MEDS: prednisoLONE eye drops (1 mL) 1 DROP OPTH.BTL 1 DRP OPHTHALMIC (08:38)
--- NOTE | 2018-06-02 10:43 | PCM.PN.HOSP ---
Patient Problems: Active and Suspected Problems (Last Reviewed 05/29/18 @ 14:01 by Tanner Talamantes MD) Acute bronchitis (Acute) Influenza A (Acute) Subjective: Patient seen and examined. She has persistent cough. No fever or chills. Been on Venturi mask and 6L nasal canula oxygen. Objective: General: Alert, Oriented x3, Cooperative, - - in mild respiratory distress, on Venturi mask at the time of exam HEENT: Atraumatic, PERRLA, EOMI, Normocephalic Oral: Moist Mucosa Neck: Supple, No JVD, Negative Carotid Bruits Lungs: Diminished, lots of transmitted sounds Cardiovascular: Regular rate, Regular Rhythm, Normal S1, Normal S2, No murmurs Abdomen: Bowel Sounds Present, Soft, Non Tender, Non-Distended, No Hepato-splenomegaly Extremities: No edema Skin: No rashes, No breakdown Musculoskeletal: No Tenderness to Palpation of Joints or Extremities Lymphatic: No Cervical, Supraclavicular, or Inguinal Adenopathy Neurological: Cranial nerves II-XII grossly intact, Neuro grossly intact Psych/Mental Status: Normal Affect, Appropriate Vitals/I&O's: Vital Signs Temp Pulse Resp BP Pulse Ox 98.0 F 97 30 H 126/53 H 87 06/02/18 10:37 06/02/18 10:37 06/02/18 10:37 06/02/18 10:37 06/02/18 10:37 Oxygen Flow Rate (L/min) 6 Oxygen Delivery Method Venturi Mask Weight: 58.1 kg Body Mass Index (BMI) 23.8 Finger Stick Blood Glucose 133 Intake and Output for Last 24 Hours 05/31/18 06/01/18 06/02/18 23:59 23:59 23:59 Intake Total 1200 / 1200 1650 / 1650 440 / 440 Output Total 300 / 300 150 / 150 Balance 1200 / 1200 1350 / 1350 290 / 290 Microbiology Past 72 Hours 05/30/18 06:30 Sputum, Expectorated/Coughed Gram Stain - Final 05/30/18 06:30 Sputum, Expectorated/Coughed Respiratory Culture - Final Meth. resistant Staph. aureus Presumptive C albicans 05/29/18 11:05 Blood Culture (Wb) #2 - Anticubital Left Blood Culture - Preliminary No growth in 48 hours. 05/29/18 10:30 Blood Culture (Wb) - Anticubital Right Blood Culture - Preliminary No growth in 48 hours. 05/29/18 11:02 Mucosa - Nasopharyngeal Respiratory Panel (PCR) - Final Influenza A (Subtype H3) Laboratory Results 06/02/18 04:56: WBC 12.3 H, RBC 3.63 L, Hgb 11.0 L, Hct 34.7 L, MCV 95.6, MCH 30.3, MCHC 31.7 L, RDW 12.6, RDW Differential 42.3, Plt Count 197, MPV 9.9, Immature Gran % (Auto) 0.400, Neut % (Auto) 77.9 H, Lymph % (Auto) 13.0 L, [place] % (Auto) 7.3, Eos % (Auto) 0.1, Baso % (Auto) 1.3 H, Absolute Neuts (auto) 9.6 H, Absolute Lymphs (auto) 1.60, Total Counted Not Reportable 06/02/18 04:56: Sodium 137, Potassium 4.0, Chloride 103, Carbon Dioxide 24.0, Anion Gap 10, BUN 19 H, Creatinine 0.78, Estim Creat Clear Calc 34.30, Est GFR (MDRD) Af Amer 92, Est GFR (MDRD) Non-Af 76, BUN/Creatinine Ratio 24.5 H, Glucose 95, Calcium 8.6 Current Medications Acetaminophen (Tylenol) 1,000 mg PO BID PRN PRN PRN Reason: PAIN Last Admin: 06/01/18 05:55 Dose: 1,000 mg Hydrocodone Bitart/Acetaminophen ([place] 5mg-325mg) 1 tablet PO QHS [facility] Last Admin: 06/01/18 22:56 Dose: 1 tablet Albuterol Sulfate (Ventolin Aerosols) 2.5 mg INHALATION Q4H PRN PRN Reason: pul fibrosis J84.10 & bronchiectasis J47.9 Last Admin: 06/01/18 03:51 Dose: 2.5 mg Albuterol/Ipratropium (Duoneb) 3 ml INHALATION Q4HWA.RT [facility] Last Admin: 06/02/18 07:01 Dose: 3 ml Amiodarone HCl (Cordarone) 100 mg PO DAILY [facility] Last Admin: 06/02/18 08:35 Dose: 100 mg Bisacodyl (Dulcolax) 10 mg RECTAL DAILY PRN PRN Reason: Constipation Clonazepam (Klonopin) 0.5 mg PO TID PRN PRN PRN Reason: ANXIETY Last Admin: 05/31/18 22:09 Dose: 0.5 mg Diltiazem HCl (Cardizem Cd) 120 mg PO DAILY [facility] Last Admin: 06/02/18 08:34 Dose: 120 mg Fluticasone Propionate (Flonase Nasal Grahn) 1 spray NASAL DAILY [facility] Last Admin: 06/02/18 08:36 Dose: 1 spray Furosemide (Lasix) 20 mg PO DAILY [facility] Last Admin: 06/02/18 08:35 Dose: 20 mg Guaifenesin (Mucinex) 1,200 mg PO BID [facility] Last Admin: 06/02/18 08:36 Dose: 1,200 mg Vancomycin IV Pharmacy to Dose (1 ea/ Sodium Chloride) 500 mls @ 250 mls/hr IV X1 PRN; Protocol PRN Reason: Rx to Dose Vancomycin HCl () 500 mg in 100 mls @ 100 mls/hr IV Q12H [facility] Last Admin: 06/02/18 01:33 Dose: 100 mls/hr Losartan Potassium (Cozaar) 25 mg PO DAILY [facility] Last Admin: 06/02/18 08:35 Dose: 25 mg Magnesium Hydroxide (Milk Of Magnesia) 30 ml PO DAILY PRN PRN PRN Reason: Constipation Montelukast Sodium (Singulair) 10 mg PO QHS [facility] Last Admin: 06/01/18 22:55 Dose: 10 mg Nortriptyline HCl (Pamelor) 50 mg PO QHS [facility] Last Admin: 06/01/18 22:55 Dose: 50 mg Oseltamivir Phosphate (Tamiflu) 30 mg PO BID [facility] Stop: 06/02/18 22:01 Last Admin: 06/02/18 08:35 Dose: 30 mg Pantoprazole Sodium (Protonix) 20 mg PO DAILY [facility] Last Admin: 06/02/18 08:35 Dose: 20 mg Polyethylene Glycol (Miralax) 17 gm PO DAILY [facility] Last Admin: 06/02/18 08:36 Dose: Not Given [facility] Last Admin: 06/02/18 08:34 Dose: 10 meq Prednisolone Acetate (Pred Forte Eye Drops (1 Ml)) 1 drop OPHTHALMIC DAILY [facility] Last Admin: 02/20/19 08:38 Dose: 1 drop Prednisone () 40 mg PO DAILY@0800 [facility] Last Admin: 06/02/18 08:35 Dose: 40 mg Rivaroxaban (Xarelto) 15 mg PO DAILY [facility] Last Admin: 06/01/18 11:08 Dose: 15 mg Senna/Docusate Sodium (Senokot-S, Juanita-Colace) 1 tablet PO DAILY PRN PRN PRN Reason: Constipation Sodium Chloride () 5 - 15 ml IV UD PRN PRN Reason: SALINE FLUSH Last Admin: 06/02/18 01:33 Dose: 10 ml Temazepam (Restoril) 15 mg PO QHS [facility] Last Admin: 06/01/18 22:56 Dose: 15 mg Medical Necessity - Tobacco Use Smoking Status: Never smoker Tobacco Use: Non-smoker Assessment/Plan All Active Problems (Last Reviewed 05/29/18 @ 14:01 by Tanner Talamantes MD) Acute bronchitis (Acute) Influenza A (Acute) DCCV for atrial flutter (Resolved) URI (upper respiratory infection) (Resolved) Thrush, oral (Resolved) Pneumonia (Resolved) MRSA (methicillin resistant staphylococcus aureus) pneumonia (Resolved) Acute respiratory failure with hypoxia (Resolved) 83-year-old lady with multiple comorbidities admitted with progressive shortness of breath, cough, fever and chills and is being managed as acute bronchitis secondary to Acute influenza A. Over the course of her stay here, patient had complained of progressive shortness of breath and chest x-ray confirmed bilateral pneumonia. Sputum cultures positive for staph aureus. MRSA PCR positive. 1. Acute MRSA bilateral pneumonia, likely secondary to hospital-acquired versus natural sequelae of acute influenza Patient has been in the hospital for more than 48 hours, on IV vancomycin Pulmonology consulted. 2. Oral thrush, will start on nystatin swish and swallow 3. Acute viral bronchitis secondary to Acute influenza A, on Tamiflu, last dose today 4. Acute on chronic hypoxic respiratory failure secondary to combination of COPD/bronchiectasis, interchanging between Ventimask and nasal canula oxygen Continue to monitor on nasal cannula oxygen, encourage use of incentive spirometer, PEEP. 5. Dysphagia- on mechanical soft diet 6. Paroxysmal A. fib/flutter, on amiodarone, Cardizem, xarelto. 7. GERD on PPI 8. Hypertension, BP is stable, on Losartan, continue same 9. Anxiety disorder- on Klonopin, Restoril 10. History of left-sided hemiplegia following cervical cyst removal 11. DVT prophylaxis -on Xarelto Code Visit Inpatient E&M: 61870 Subs Hosp L2
[2018-06-02] MEDS: 0.9% Normal Saline 1,000 ML 75 ML IV (11:11)
--- NOTE | 2018-06-02 11:28 | CASEMGMT ---
Social Work Note Physician is not discharging pt today. CHEVY placed a call to Jovana at [facility] and updated her on this. CHEVY faxed updated clinicals to [facility]. [facility] Natacha Noriega [employer]PERATOR, [employer] MACHINE OPERATOR
--- NOTE | 2018-06-02 11:33 | PN_ITS ---
Patient Problems: Active and Suspected Problems (Last Reviewed 05/29/18 @ 14:01 by Tanner Talamantes MD) Acute bronchitis (Acute) Influenza A (Acute) Subjective: Patient did okay overnight. Patient feels subjectively worse compared to previous. Patient is now currently on 6 L to Ventimask to maintain saturations. Patient does report a cough that is wet, but little production is reported. Patient does admit she is not used her Acapella much given the need for Ventimask. - Physical Exam General: Alert, Oriented x3, Cooperative, - - Mild conversational dyspnea. Appears stated age. HEENT: Atraumatic, PERRLA, EOMI, Normocephalic, - - No scleral icterus or inject ion noted. Oral: Moist Mucosa, No Gingival or Mucosal Lesions/ Ulcerations, - - Fair dentition Neck: Supple, No JVD, No Nodes, Trachea Midline Lungs: No rales, Diminished, Rhonchi, Wheezes, - - Symmetric expansion. Cardiovascular: Regular rate, Regular Rhythm, Normal S1, Normal S2, No murmurs, No rub noted, No Gallop Abdomen: Bowel Sounds Present, Soft, Non Tender, Non-Distended Extremities: No clubbing, No cyanosis, Edema - Trace lower extremity Skin: - - No significant change compared to previous Musculoskeletal: No Tenderness to Palpation of Joints or Extremities, No Muscle Wasting Lymphatic: No Cervical, Supraclavicular, or Inguinal Adenopathy Neurological: Cranial nerves II-XII grossly intact, Neuro grossly intact, Motor Exam 5/5 strength throughout Psych/Mental Status: Alert and oriented to time, place, person, mood and affect Vital Signs Temp Pulse Resp BP Pulse Ox 36.7 C 97 30 H 126/53 H 92 06/02/18 10:37 06/02/18 10:37 06/02/18 10:37 06/02/18 10:37 06/02/18 10:59 Oxygen Flow Rate (L/min) 6 Oxygen Delivery Method Venturi Mask Weight: 58.1 kg Body Mass Index (BMI) 23.8 Finger Stick Blood Glucose 133 Intake and Output for Last 24 Hours 05/31/18 06/01/18 06/02/18 23:59 23:59 23:59 Intake Total 1200 / 1200 1650 / 1650 440 / 440 Output Total 300 / 300 150 / 150 Balance 1200 / 1200 1350 / 1350 290 / 290 Microbiology Past 72 Hours 05/30/18 06:30 Gram Stain - Final Sputum, Expectorated/Coughed Respiratory Culture - Final Meth. resistant Staph. aureus Presumptive C albicans 05/29/18 11:05 Blood Culture - Preliminary Blood Culture (Wb) #2 - Anticubital Left No growth in 48 hours. 05/29/18 10:30 Blood Culture - Preliminary Blood Culture (Wb) - Anticubital Right No growth in 48 hours. 05/29/18 11:02 Respiratory Panel (PCR) - Final Mucosa - Nasopharyngeal Influenza A (Subtype H3) Laboratory Tests Past 24 Hrs 06/02/18 06/02/18 04:56 04:56 WBC 12.3 H RBC 3.63 L Hgb 11.0 L Hct 34.7 L MCV 95.6 MCH 30.3 MCHC 31.7 L RDW 12.6 RDW Differential 42.3 Plt Count 197 MPV 9.9 Immature Gran % (Auto) 0.400 Neut % (Auto) 77.9 H Lymph % (Auto) 13.0 L [place] % (Auto) 7.3 Eos % (Auto) 0.1 Baso % (Auto) 1.3 H Absolute Neuts (auto) 9.6 H Absolute Lymphs (auto) 1.60 Total Counted Not Reportable Sodium 137 Potassium 4.0 Chloride 103 Carbon Dioxide 24.0 Anion Gap 10 BUN 19 H Creatinine 0.78 Estim Creat Clear Calc 34.30 Est GFR (MDRD) Af Amer 92 Est GFR (MDRD) Non-Af 76 BUN/Creatinine Ratio 24.5 H Glucose 95 Calcium 8.6 Medical Necessity - Tobacco Use Smoking Status: Never smoker Tobacco Use: Non-smoker Assessment/Plan All Active Problems (Last Reviewed 05/29/18 @ 14:01 by Tanner Talamantes MD) Acute bronchitis (Acute) Influenza A (Acute) DCCV for atrial flutter (Resolved) URI (upper respiratory infection) (Resolved) Thrush, oral (Resolved) Pneumonia (Resolved) MRSA (methicillin resistant staphylococcus aureus) pneumonia (Resolved) Acute respiratory failure with hypoxia (Resolved) RECOMMENDATIONS: 1. Continue vancomycin 2. Continue steroids, mucolytic, Tamiflu and bronchodilators 3. Aggressive pulmonary toileting with Acapella, add vest therapy 4. Wean oxygen as tolerated 5. Rescue as necessary overnight IMPRESSIONS: 1. Acute on chronic hypoxic respiratory failure secondary to influenza A with MRSA superinfection She was significant worsening in infiltrates over the course of the hospitalization. Clinical suspicion for superinfection with MRSA. Patient does have a history of bronchiectasis in the past with staph noted on previous cultures. However, patient is not been positive recently. Continue with prednisone therapy, mucolytic, Tamiflu and bronchodilators. Wean oxygen as tolerated. Add vest therapy to help with pulmonary toileting. Continue BiPAP at night. 2. 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 Patient has had multiple admissions secondary to aspiration pneumonia in the distant past. Patient should be continued on a modified diet. 3. History of paroxysmal A. fib Patient is currently on her baseline medications and tolerating well. Heart rate is well-controlled. Continue current therapy. 4. Diabetes mellitus/hypertension Patient currently on modified diet. Blood pressures have been trending up. Continue sliding scale insulin. Will need to watch blood sugars closely given concomitant steroid therapy 5. Anxiety disorder Patient is on Klonopin among other medications at home. Patient appears to be at baseline at this time. Code Visit Inpatient E&M: 31541 [facility] Hosp L3
[2018-06-02] MEDS: NYSTATIN 500,000 UNIT/5 ML UDC 500000 UNIT PO ×3 (13:26→21:25)
--- NOTE | 2018-06-02 15:06 | NURSING ---
student nurses charting reviewed for educational teaching only
[2018-06-02] MEDS: Montelukast 10 MG Tablet PO (21:25)
[2018-06-02] MEDS: HYDROcodone Bitartrate/Apap 5/325 Tablet PO (21:25)
[2018-06-02] MEDS: Nortriptyline 25 MG Capsule 50 MG PO (21:25)
[2018-06-02] MEDS: Temazepam 15 MG Capsule PO (21:26)
[2018-06-03] VITALS (35 sets, daily range): BP systolic 111–147; BP diastolic 54–73; PULSE 69–127; RESP 12–46; TEMP 36.4–37.5; O2SAT 60–99
[2018-06-03] MEDS: Vancomycin IV 500 MG/100 ML BAG 100 MG IV (01:38)
[2018-06-03] MEDS: 0.9% Normal Saline 1,000 ML 75 ML IV ×2 (01:38→21:59)
[2018-06-03 02:06] LABS: Absolute Lymphocyte Count 1.31 X10^3/ul (0.83-4.51); Basophil# 0.05 X10^3/uL; Basophil% 0.3 % (0-1); Hematocrit 31.6 % (37-47); Hemoglobin 10.2 g/dl (12.0-15.0); Lymphocyte # 1.31 X10^3/ul (4.0); Lymphocyte % 8.8 % (19-41); Mean Corp Hgb Conc 32.3 g/gl (32-36); Mean Corpuscular Hgb 29.9 pg (27.0-32.0); Mean Corpuscular Volume 92.7 fL (81-99); Mean Platelet Vol. 9.6 fl (6.2-12.0); Monocyte# 1.38 X10^3/uL; Monocyte% 9.3 % (0-10); Neutrophil # 12.04 X10^3/uL (2.7-7.7); Neutrophil % 81.2 % (47-70); POSITIVE COUNT NO; POSITIVE DIFFERENTIAL NO; POSITIVE MORPHOLOGY NO; Platelet Count 213 K/mm3 (150-450); RBC Distribution Width CV 12.7 % (11.6-14.6); RBC Distribution Width SD 43.1 fl (35.1-43.9); Red Blood Count 3.41 M/mm3 (4.2-5.4); White Blood Count 14.8 K/mm3 (4.4-11.0)
[2018-06-03 03:37] LABS: Anion Gap 9 (5-15); BUN 21 mg/dL (7-18); BUN/Creat Ratio 32.1 RATIO (10-20); Calcium,Total 8.2 mg/dL (8.5-10.1); Chloride 106 mmol/L (98-107); Creatinine, Serum 0.65 mg/dL (0.55-1.02); EST Glomerular Filtration Rate 92 mL/min (>60); Est Glom Filt Rate - Afr Amer 111 mL/min (>60); Glucose 123 mg/dL (74-106); Potassium 4.3 mmol/L (3.5-5.1); Sodium Level 141 mmol/L (136-145)
--- NOTE | 2018-06-03 05:10 | NURSING ---
bladder scanned for >[id number]
[2018-06-03] MEDS: Ipratropium/Albuterol Sulfate 3 ML AMPUL.NEB INHALATION ×4 (06:55→18:37)
--- NOTE | 2018-06-03 09:39 | RAD_ITS ---
STUDY: X-RAY CHEST REASON FOR EXAM: Female, 83 years old. Shortness of breath/dyspnea. TECHNIQUE: Single AP portable view of the chest. COMPARISON: Comparison is made with prior study dated June 01, 2018. FINDINGS: EKG electrodes are seen. Since prior study, there has been progressive infiltrate in the left upper lobe. Improved aeration of the left lower lobe. Progressive right upper lobe infiltrate as well. Normal size heart. Normal mediastinum and mariza. Normal visualized pulmonary arteries. There is atherosclerotic calcification of the aortic arch with tortuosity. There are diffuse degenerative changes of the visualized thoracic spine. Normal visualized ribs, clavicles, and shoulders. There is no demonstrated abnormality of the visualized soft tissue structures of the upper abdomen. RAD/Chest 1 View (Portable) IMPRESSION: Progressive infiltrates in the right upper lobe and left upper lobe. Improved aeration of the left lung base. Electronically Signed: Roger Mijares MD at 10:43 EST , Service support ,
--- NOTE | 2018-06-03 09:39 | NURSING ---
supervisor malt house informed Dr. Patino at bedside and requesting moving pt to ICU.
--- NOTE | 2018-06-03 09:45 | NURSING ---
PT WAS HAVING INCREASED SOB AND SATS WERE DROPPING TO MID 8O'S HEART RATE INCREASING TO 130-140'S - PT HAD BEEN PREVIOUSLY UP TO CHAIR AND THEN BACK TO BED AND WAS UNABLE TO RECOVER SO BIPAP APPLIED- DR PAINTSIL UP TO SEE PT AND VSA AT EVERY 15-TO HOUR AND SHE ORDERED BLOOD GASES AND CHEST X-RAY AND WAS SENT OT ICU- PT TRANSPORTED AND REPORT GIVEN
--- NOTE | 2018-06-03 09:54 | PN_ITS ---
Patient Problems: Active and Suspected Problems (Last Reviewed 05/29/18 @ 14:01 by Tanner Talamantes MD) Acute bronchitis (Acute) Influenza A (Acute) Subjective: Patient was seen and examined. She is reported not to have tolerated vest therapy ordered yesterday. She has been tachycardiac. Patient complains of not being able to bring out sputum well and her mouth being very dry. She denies chest pain, dizziness. She feels very weak and fatigued. Rest of ROS is negative. Objective: Physical exam: General: Alert, Oriented x3, Cooperative, - - in mild respiratory distress, on Bipap HEENT: Atraumatic, PERRLA, EOMI, Normocephalic Oral: Moist Mucosa Neck: Supple, No JVD, Negative Carotid Bruits Lungs: Diminished, lots of transmitted sounds Cardiovascular: Regular rate, Regular Rhythm, Normal S1, Normal S2, No murmurs Abdomen: Bowel Sounds Present, Soft, Non Tender, Non-Distended, No Hepato- splenomegaly Extremities: No edema Skin: No rashes, No breakdown Musculoskeletal: No Tenderness to Palpation of Joints or Extremities Lymphatic: No Cervical, Supraclavicular, or Inguinal Adenopathy Neurological: Cranial nerves II-XII grossly intact, Neuro grossly intact Psych/Mental Status: Normal Affect, Appropriate Vitals/I&O's: Vital Signs Temp Pulse Resp BP Pulse Ox 98.8 F 127 H 32 H 111/56 L 87 06/03/18 09:16 06/03/18 09:16 06/03/18 09:16 06/03/18 09:16 06/03/18 09:16 Oxygen Flow Rate (L/min) 6 Oxygen Delivery Method Bi-pap Weight: 58.4 kg Body Mass Index (BMI) 23.8 Finger Stick Blood Glucose 133 Intake and Output for Last 24 Hours 06/01/18 06/02/18 06/03/18 23:59 23:59 23:59 Intake Total 1650 / 1650 440 / 440 1197 / 1197 Output Total 300 / 300 350 / 350 525 / 525 Balance 1350 / 1350 90 / 90 672 / 672 Microbiology Past 72 Hours 05/30/18 06:30 Sputum, Expectorated/Coughed Gram Stain - Final 05/30/18 06:30 Sputum, Expectorated/Coughed Respiratory Culture - Final Meth. resistant Staph. aureus Presumptive C albicans 05/29/18 11:05 Blood Culture (Wb) #2 - Anticubital Left Blood Culture - Preliminary No growth in 48 hours. 05/29/18 10:30 Blood Culture (Wb) - Anticubital Right Blood Culture - Preliminary No growth in 48 hours. Laboratory Results 06/03/18 01:45: Vancomycin Trough 8.0 06/03/18 01:45: WBC 14.8 H, RBC 3.41 L, Hgb 10.2 L, Hct 31.6 L, MCV 92.7, MCH 29.9, MCHC 32.3, RDW 12.7, RDW Differential 43.1, Plt Count 213, MPV 9.6, Immature Gran % (Auto) 0.400, Neut % (Auto) 81.2 H, Lymph % (Auto) 8.8 L, [place] % (Auto) 9.3, Eos % (Auto) 0.0, Baso % (Auto) 0.3, Absolute Neuts (auto) 12.0 H, Absolute Lymphs (auto) 1.31, Total Counted Not Reportable 06/03/18 01:45: Sodium 141, Potassium 4.3, Chloride 106, Carbon Dioxide 26.0, Anion Gap 9, BUN 21 H, Creatinine 0.65, Estim Creat Clear Calc 34.30, Est GFR (MDRD) Af Amer 111, Est GFR (MDRD) Non-Af 92, BUN/Creatinine Ratio 32.1 H, Glucose 123 H, Calcium 8.2 L Current Medications Acetaminophen (Tylenol) 1,000 mg PO BID PRN PRN PRN Reason: PAIN Last Admin: 06/01/18 05:55 Dose: 1,000 mg Hydrocodone Bitart/Acetaminophen ([place] 5mg-325mg) 1 tablet PO QHS ANDREA Last Admin: 06/02/18 21:25 Dose: 1 tablet Albuterol Sulfate (Ventolin Aerosols) 2.5 mg INHALATION Q4H PRN PRN Reason: pul fibrosis J84.10 & bronchiectasis J47.9 Last Admin: 06/01/18 03:51 Dose: 2.5 mg Albuterol/Ipratropium (Duoneb) 3 ml INHALATION Q4HWA.RT ANDREA Last Admin: 06/03/18 06:55 Dose: 3 ml Amiodarone HCl (Cordarone) 100 mg PO DAILY ANDREA Last Admin: 06/02/18 08:35 Dose: 100 mg Bisacodyl (Dulcolax) 10 mg RECTAL DAILY PRN PRN Reason: Constipation Clonazepam (Klonopin) 0.5 mg PO TID PRN PRN PRN Reason: ANXIETY Last Admin: 05/31/18 22:09 Dose: 0.5 mg Diltiazem HCl (Cardizem Cd) 120 mg PO DAILY [facility] Last Admin: 06/02/18 08:34 Dose: 120 mg Fluticasone Propionate (Flonase Nasal [place]) 1 spray NASAL DAILY [facility] Last Admin: 06/02/18 08:36 Dose: 1 spray Furosemide (Lasix) 20 mg PO DAILY [facility] Last Admin: 06/02/18 08:35 Dose: 20 mg Guaifenesin (Mucinex) 1,200 mg PO BID [facility] Last Admin: 06/02/18 21:25 Dose: 1,200 mg Vancomycin IV Pharmacy to Dose (1 ea/ Sodium Chloride) 500 mls @ 250 mls/hr IV X1 PRN; Protocol PRN Reason: Rx to Dose Vancomycin HCl () 500 mg in 100 mls @ 100 mls/hr IV Q12H [facility] Last Admin: 06/03/18 01:38 Dose: 100 mls/hr Ceftriaxone Sodium (Rocephin) 1 gm in 50 mls @ 100 mls/hr IV Q24 [facility] Sodium Chloride () 1,000 mls @ 100 mls/hr IV .Q10H [facility] Stop: 06/03/18 06:54 Losartan Potassium (Cozaar) 25 mg PO DAILY [facility] Last Admin: 06/02/18 08:35 Dose: 25 mg Magnesium Hydroxide (Milk Of Magnesia) 30 ml PO DAILY PRN PRN PRN Reason: Constipation Methylprednisolone (Solu-Medrol) 40 mg IV Q8 [facility] Montelukast Sodium (Singulair) 10 mg PO QHS [facility] Last Admin: 06/02/18 21:25 Dose: 10 mg Nortriptyline HCl (Pamelor) 50 mg PO QHS [facility] Last Admin: 06/02/18 21:25 Dose: 50 mg Nystatin (Nystatin) 500,000 unit PO 4X/DAY [facility] Stop: 06/12/18 14:01 Last Admin: 06/02/18 21:25 Dose: 500,000 unit Pantoprazole Sodium (Protonix) 20 mg PO DAILY [facility] Last Admin: 06/02/18 08:35 Dose: 20 mg Polyethylene Glycol (Miralax) 17 gm PO DAILY [facility] Last Admin: 06/02/18 08:36 Dose: Not Given Potassium Chloride (K-Dur) 10 meq PO BIDCM [facility] Last Admin: 06/02/18 16:53 Dose: 10 meq Prednisolone Acetate (Pred Forte Eye Drops (1 Ml)) 1 drop OPHTHALMIC DAILY [facility] Last Admin: 06/02/18 08:38 Dose: 1 drop Rivaroxaban (Xarelto) 15 mg PO DAILY [facility] Last Admin: 06/01/18 11:08 Dose: 15 mg Senna/Docusate Sodium (Senokot-S, Juanita-Colace) 1 tablet PO DAILY PRN PRN PRN Reason: Constipation Sodium Chloride () 5 - 15 ml IV UD PRN PRN Reason: SALINE FLUSH Last Admin: 06/02/18 01:33 Dose: 10 ml Temazepam (Restoril) 15 mg PO QHS [facility] Last Admin: 06/02/18 21:26 Dose: 15 mg Medical Necessity - Tobacco Use Smoking Status: Never smoker Tobacco Use: Non-smoker Assessment/Plan All Active Problems (Last Reviewed 05/29/18 @ 14:01 by Tanner Talamantes MD) Acute bronchitis (Acute) Influenza A (Acute) DCCV for atrial flutter (Resolved) URI (upper respiratory infection) (Resolved) Thrush, oral (Resolved) Pneumonia (Resolved) MRSA (methicillin resistant staphylococcus aureus) pneumonia (Resolved) Acute respiratory failure with hypoxia (Resolved) 83-year-old female with multiple comorbidities admitted with progressive shortness of breath, cough, fever and chills and is being managed as acute bronchitis secondary to Acute influenza A. Over the course of her stay here, patient had complained of progressive shortness of breath and chest x-ray confirmed bilateral pneumonia. Sputum cultures positive for staph aureus. MRSA PCR positive. 1. Acute on chronic hypoxic respiratory failure secondary to progressive HCAP/MRSA pneumonia, patient is on BiPAP Code Status is DNR CCA, will continue on BiPAP, wean off for SPO2 more than 94%, continue on breathing treatments Will transfer to ICU for closer monitoring. 2. Acute MRSA bilateral pneumonia, hospital-acquired versus natural sequelae of acute influenza On IV vancomycin, started on IV ceftriaxone. Upon review of CXR, will continue on IV vancomycin and Zosyn going forward. We will repeat blood cultures and sputum cultures. 3. Oral thrush, on nystatin swish and swallow 4. Acute viral bronchitis secondary to Acute influenza A, completed Tamiflu. 5. Dysphagia- on mechanical soft diet 6. Paroxysmal A. fib/flutter, on amiodarone, Cardizem, xarelto. 7. GERD on PPI 8. Hypertension, BP is relatively low, will hold losartan, will continue to monitor 9. Anxiety disorder- on Klonopin, Restoril 10. DVT prophylaxis -on Xarelto 11. GI ppx- PPI Code Visit Inpatient E&M: 38743 Subs Hosp L3
--- NOTE | 2018-06-03 10:05 | NURSING ---
pt transported by this nurse, primary RN, and CPS on telemonitor/c.spo2 and bipap to ICU1. Serena ZARCO at bedside
--- NOTE | 2018-06-03 10:08 | PCM.RX.CS ---
Consult Pharmacy has been consulted to manage selected antiobiotic: Vancomycin Type of Consult: Follow-up Suspected Infection: Pneumonia Prior Doses of Antibiotics Received/Current Regimen: Medications Discontinued Medications Vancomycin HCl () 500 mg in 100 mls @ 100 mls/hr IV Q12H ANDREA Last Admin: 06/03/18 01:38 Dose: 100 mls/hr Labs: Sodium 141 mmol/L (136-145) 06/03/18 01:45 Potassium 4.3 mmol/L (3.5-5.1) 06/03/18 01:45 Chloride 106 mmol/L (98-107) 06/03/18 01:45 Carbon Dioxide 26.0 mmol/L (21.0-32.0) 06/03/18 01:45 Anion Gap 9 (5-15) 06/03/18 01:45 BUN 21 mg/dL (7-18) H 06/03/18 01:45 Creatinine 0.65 mg/dL (0.55-1.02) 06/03/18 01:45 Est GFR (MDRD) Af Amer 111 mL/min (>60) 06/03/18 01:45 Est GFR (MDRD) Non-Af 92 mL/min (>60) 06/03/18 01:45 BUN/Creatinine Ratio 32.1 RATIO (10-20) H 06/03/18 01:45 Glucose 123 mg/dL (74-106) H 06/03/18 01:45 Vancomycin Trough 8.0 ug/mL (5.0-15.0) 06/03/18 01:45 Microbiology: Microbiology 05/30/18 06:30 Sputum, Expectorated/Coughed Gram Stain - Final 05/30/18 06:30 Sputum, Expectorated/Coughed Respiratory Culture - Final Meth. resistant Staph. aureus Presumptive C albicans 05/29/18 11:05 Blood Culture (Wb) #2 - Anticubital Left Blood Culture - Preliminary No growth in 48 hours. 05/29/18 10:30 Blood Culture (Wb) - Anticubital Right Blood Culture - Preliminary No growth in 48 hours. 05/29/18 11:02 Mucosa - Nasopharyngeal Respiratory Panel (PCR) - Final Influenza A (Subtype H3) Goal Trough: 15-20 mcg/mL Pharmacy Plan for Drug Dosing: The patient had a trough drawn 12hrs from last administered dose, which resulted in a value of 8 (drawn appropriately). Given the trough goal is 15-20, will plan on increasing vancomycin dose. Will also schedule administration of new dosing schedule sooner than 12hrs, given low initial trough. New trough assessment will be scheduled prior to 4th dose of new regimen. PLAN/RECOMMENDATIONS 1. Vancomycin 1000mg IV Q12hrs to start 06/03/18 @1100 2. Trough scheduled 06/04/18 @2230 3. Pharmacy Service will continue to monitor and adjust dosing as required.
[2018-06-03 10:32] LABS: Allen Test POS; Base Excess 0 mmol/L (-2 to +2); Bicarbonate 24.4 mmol/L (22-26); Blood Gas Specimen Type ART; EPAP 7; FI02 60; IPAP 12; PO2 77 mmHG (75-100); RR 41; SITE L Radial; SO2 95 % (95-99); Time Given 1020; Total Carbon Dioxide 26 mmol/L; pCO2 39.6 mmHg (35-45)
--- NOTE | 2018-06-03 10:45 | CASEMGMT ---
Pt came to ICU from [facility]. Plan is for pt to go to [facility] at discharge. SW called [facility], let Jovana in admissions know that pt was moved to ICU today. SW will continue to follow. ENRIQUE Roca, WEB SITE ADMIN
--- NOTE | 2018-06-03 10:53 | CASEMGMT ---
LW/POA forms in echplatter, from 2013. Bahman Edmonds is listed as POA. SW placed the forms in the paper chart. ENRIQUE Roca, CATTLE EXAMINER
[2018-06-03] MEDS: Ceftriaxone 1 GM/50 ML BAG IV (11:00)
[2018-06-03] MEDS: prednisoLONE eye drops (1 mL) 1 DROP OPTH.BTL 1 DRP OPHTHALMIC (11:16)
[2018-06-03] MEDS: Fluticasone 0.05% 1 SPRAY NASAL.SRY NASAL (11:37)
[2018-06-03] MEDS: Amiodarone 200 MG Tablet 100 MG PO (11:38)
[2018-06-03] MEDS: guaiFENesin 1,200 MG Tablet 1200 MG PO ×2 (11:38→21:53)
[2018-06-03] MEDS: dilTIAZem CD 120 MG Capsule PO (11:39)
[2018-06-03] MEDS: Rivaroxaban 15 MG Tablet PO (11:39)
[2018-06-03] MEDS: NYSTATIN 500,000 UNIT/5 ML UDC 500000 UNIT PO ×3 (11:50→21:53)
[2018-06-03] MEDS: Vancomycin IV 1,000 MG/200 ML BAG 200 MG IV ×2 (11:50→22:12)
[2018-06-03] MEDS: Pantoprazole Sodium 20 MG Tablet PO (11:50)
[2018-06-03] MEDS: 0.9% Normal Saline 1,000 ML 100 ML IV (12:04)
[2018-06-03 13:10] LABS: BNP,B-Type NATRIURETIC PEPTIDE 91.8 pg/mL (0-100)
[2018-06-03 13:13] LABS: Phosphorus 2.5 mg/dL (2.5-4.9)
--- NOTE | 2018-06-03 13:46 | PN_ITS ---
Subjective: LATE ENTRY Placed on vest therapy yesterday. Patient reportedly did not tolerate this very well and became tachycardic. Patient has continued to report a wet but nonproductive cough. Overnight, patient had been persistently tachycardic and was desaturating despite 6 L nasal cannula. Patient was also noted to be tach ypneic into the 30s. Patient was transferred to the intensive care unit and placed on BiPAP therapy. Patient has not had any fever overnight and states she feels mildly improved after continuation of BiPAP therapy. Objective: Chest x-ray was personally reviewed and shows increased infiltrates in the left upper lobe General: Alert, Oriented x3, Cooperative, - - Conversational dyspnea appreciated. HEENT: Atraumatic, PERRLA, EOMI, Normocephalic, - - No scleral icterus or injection noted. Oral: Moist Mucosa, No Gingival or Mucosal Lesions/ Ulcerations, - - Fair dentition Neck: Supple, No JVD, No Nodes, Trachea Midline Lungs: No rales, Diminished, Rhonchi, Wheezes, - - Symmetric expansion. No dullness to percussion. Cardiovascular: Normal S1, Normal S2, No murmurs, Irregular Rate, No rub noted, No Gallop, Tachycardic Abdomen: Bowel Sounds Present, Soft, Non Tender, Non-Distended Extremities: No cyanosis, Capillary Refill Less than 3 Seconds, Edema Skin: - - No significant change compared to previous Musculoskeletal: No Tenderness to Palpation of Joints or Extremities Lymphatic: No Cervical, Supraclavicular, or Inguinal Adenopathy Neurological: Cranial nerves II-XII grossly intact, Neuro grossly intact, Motor Exam 5/5 strength throughout Psych/Mental Status: Anxious, Restless Vital Signs Temp Pulse Resp BP Pulse Ox 37.3 C H 105 H 35 H 127/64 H 95 06/03/18 12:00 06/03/18 13:00 06/03/18 13:00 06/03/18 13:00 06/03/18 13:00 Oxygen Flow Rate (L/min) 6 Oxygen Delivery Method Bi-pap Weight: 53.6 kg Body Mass Index (BMI) 23.8 Finger Stick Blood Glucose 133 Intake and Output for Last 24 Hours 06/01/18 06/02/18 06/03/18 23:59 23:59 23:59 Intake Total 1650 / 1650 440 / 440 1301 / 1301 Output Total 300 / 300 350 / 350 525 / 525 Balance 1350 / 1350 90 / 90 776 / 776 Labs (Last 48 Hours) 06/02/18 06/02/18 06/03/18 04:56 04:56 01:45 WBC 12.3 H RBC 3.63 L Hgb 11.0 L Hct 34.7 L MCV 95.6 MCH 30.3 MCHC 31.7 L RDW 12.6 RDW Differential 42.3 Plt Count 197 MPV 9.9 Immature Gran % (Auto) 0.400 Neut % (Auto) 77.9 H Lymph % (Auto) 13.0 L [place] % (Auto) 7.3 Eos % (Auto) 0.1 Baso % (Auto) 1.3 H Absolute Neuts (auto) 9.6 H Absolute Lymphs (auto) 1.60 Total Counted Not Reportable Specimen Type Sample Site pH Bicarbonate Actual POC Total CO2 Base Excess O2 Saturation O2 % ABG pCO2 ABG pO2 [place] Test Respiration Rate O2 Delivery Device EPAP IPAP Blood Gas Notified Whom Blood Gas Notified Time Sodium 137 Potassium 4.0 Chloride 103 Carbon Dioxide 24.0 Anion Gap 10 BUN 19 H Creatinine 0.78 Estim Creat Clear Calc 34.30 Est GFR (MDRD) Af Amer 92 Est GFR (MDRD) Non-Af 76 BUN/Creatinine Ratio 24.5 H Glucose 95 Calcium 8.6 Phosphorus B-Natriuretic Peptide Vancomycin Trough 8.0 06/03/18 06/03/18 06/03/18 01:45 01:45 01:45 WBC 14.8 H RBC 3.41 L Hgb 10.2 L Hct 31.6 L MCV 92.7 MCH 29.9 MCHC 32.3 RDW 12.7 RDW Differential 43.1 Plt Count 213 MPV 9.6 Immature Gran % (Auto) 0.400 Neut % (Auto) 81.2 H Lymph % (Auto) 8.8 L [place] % (Auto) 9.3 Eos % (Auto) 0.0 Baso % (Auto) 0.3 Absolute Neuts (auto) 12.0 H Absolute Lymphs (auto) 1.31 Total Counted Not Reportable Specimen Type Sample Site pH Bicarbonate Actual POC Total CO2 Base Excess O2 Saturation O2 % ABG pCO2 ABG pO2 [place] Test Respiration Rate O2 Delivery Device EPAP IPAP Blood Gas Notified Whom Blood Gas Notified Time Sodium 141 Potassium 4.3 Chloride 106 Carbon Dioxide 26.0 Anion Gap 9 BUN 21 H Creatinine 0.65 Estim Creat Clear Calc 34.30 Est GFR (MDRD) Af Amer 111 Est GFR (MDRD) Non-Af 92 BUN/Creatinine Ratio 32.1 H Glucose 123 H Calcium 8.2 L Phosphorus B-Natriuretic Peptide 91.8 Vancomycin Trough 06/03/18 06/03/18 01:45 10:26 WBC RBC Hgb Hct MCV MCH MCHC RDW RDW Differential Plt Count MPV Immature Gran % (Auto) Neut % (Auto) Lymph % (Auto) [place] % (Auto) Eos % (Auto) Baso % (Auto) Absolute Neuts (auto) Absolute Lymphs (auto) Total Counted Specimen Type ART Sample Site L Radial pH 7.40 Bicarbonate Actual 24.4 POC Total CO2 26 Base Excess 0 O2 Saturation 95 O2 % 60 ABG pCO2 39.6 ABG pO2 77 [place] Test POS Respiration Rate 41 O2 Delivery Device Bi / C PAP EPAP 7 IPAP 12 Blood Gas Notified Whom ICU Blood Gas Notified Time 1020 Sodium Potassium Chloride Carbon Dioxide Anion Gap BUN Creatinine Estim Creat Clear Calc Est GFR (MDRD) Af Amer Est GFR (MDRD) Non-Af BUN/Creatinine Ratio Glucose Calcium Phosphorus 2.5 B-Natriuretic Peptide Vancomycin Trough Microbiology 05/29/18 11:05 Blood Culture (Wb) #2 - Anticubital Left Blood Culture - Final No growth in 5 days. 05/29/18 10:30 Blood Culture (Wb) - Anticubital Right Blood Culture - Final No growth in 5 days. 05/30/18 06:30 Sputum, Expectorated/Coughed Gram Stain - Final 05/30/18 06:30 Sputum, Expectorated/Coughed Respiratory Culture - Final Meth. resistant Staph. aureus Presumptive C albicans Clinical Impression(s) from Imaging Studies Chest X-Ray 06/03/18 09:39 IMPRESSION: Progressive infiltrates in the right upper lobe and left upper lobe. Improved aeration of the left lung base. Electronically Signed: Roger Mijares MD at 10:43 EST , Service support , Medical Necessity - Tobacco Use Smoking Status: Never smoker Tobacco Use: Non-smoker Assessment/Plan All Active Problems (Last Reviewed 05/29/18 @ 14:01 by Tanner Talamantes MD) Acute bronchitis (Acute) Influenza A (Acute) DCCV for atrial flutter (Resolved) URI (upper respiratory infection) (Resolved) Thrush, oral (Resolved) Pneumonia (Resolved) MRSA (methicillin resistant staphylococcus aureus) pneumonia (Resolved) Acute respiratory failure with hypoxia (Resolved) RECOMMENDATIONS: 1. Continue vancomycin add Zosyn 2. Continue steroids, mucolytic, Tamiflu and bronchodilators 3. Transition to AVAPS 4. Wean oxygen as tolerated 5. Continue modified diet IMPRESSIONS: 1. Acute on chronic hypoxic respiratory failure secondary to influenza A with MRSA superinfection She was significant worsening in infiltrates over the course of the hospitalization. Clinical suspicion for superinfection with MRSA. Unclear for patient's recent decompensation. Patient may have had some thin liquids with aspiration. Other differential would include diastolic dysfunction exacerbated by A. fib with RVR. Cardiology has been consulted. Heart rate is slightly more improved compared to previous. Will transition patient to AVAPS and her persistent tachypnea on BiPAP therapy. Will allow for more targeted tidal volumes. 2. 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 Patient has had multiple admissions secondary to aspiration pneumonia in the distant past. Patient should be continued on a modified diet. 3. History of paroxysmal A. fib Patient is currently on her baseline medications and tolerating well. Heart rate is well-controlled. Continue current therapy. 4. Diabetes mellitus/hypertension Patient currently on modified diet. Blood pressures have been trending up. Continue sliding scale insulin. Will need to watch blood sugars closely given concomitant steroid therapy 5. Anxiety disorder Patient is on Klonopin among other medications at home. Patient appears to be at baseline at this time. TIME: 33 minutes critical care time spent addressing patient's acute on chronic respiratory failure, CHF, pulmonary fibrosis, A. fib with RVR, review of all data and collaboration with care team (10 AM to 1:45 PM) Code Visit 9xxxx: [id number] Critical care first hour
[2018-06-03] MEDS: Temazepam 15 MG Capsule PO (21:53)
[2018-06-03] MEDS: Nortriptyline 25 MG Capsule 50 MG PO (21:53)
[2018-06-03] MEDS: Montelukast 10 MG Tablet PO (21:53)
[2018-06-03] MEDS: 0.9% NaCl Peripheral Flush Adult/Peds IV (21:53)
[2018-06-03] MEDS: HYDROcodone Bitartrate/Apap 5/325 Tablet PO (21:54)
[2018-06-04] VITALS (37 sets, daily range): BP systolic 102–160; BP diastolic 58–103; PULSE 65–121; RESP 12–32; TEMP 36.4–37.3; O2SAT 91–100
--- NOTE | 2018-06-04 02:30 | NURSING ---
Pt had not urinated in [place] this shift. Pt stated she felt as though she had gone. Pt bedding dry and suction canister empty. Bladder scanned pt to find 999ml in bladder. Ramos catheter placed using sterile technique throughout procedure. Immediate return of cloudy, dark yellow urine returned in the amount of 800ml. Pt tolerated well.
[2018-06-04 05:13] LABS: Albumin, Serum 1.8 g/dL (3.2-5.0); BUN 17 mg/dL (7-18); BUN/Creat Ratio 26.3 RATIO (10-20); Calcium,Total 8.4 mg/dL (8.5-10.1); Chloride 108 mmol/L (98-107); Creatinine, Serum 0.65 mg/dL (0.55-1.02); EST Glomerular Filtration Rate 93 mL/min (>60); Est Glom Filt Rate - Afr Amer 113 mL/min (>60); Glucose 195 mg/dL (74-106); Phosphorus 2.7 mg/dL (2.5-4.9); Potassium 4.4 mmol/L (3.5-5.1); Sodium Level 142 mmol/L (136-145)
[2018-06-04 05:28] LABS: Absolute Lymphocyte Count 0.99 X10^3/ul (0.83-4.51); Absolute Neutrophil Count 11.9 X10^3/uL (2.0-7.7); Basophil# 0.02 X10^3/uL; Basophil% 0.1 % (0-1); Hematocrit 32.6 % (37-47); Hemoglobin 10.4 g/dl (12.0-15.0); Lymphocyte # 0.99 X10^3/ul (4.0); Lymphocyte % 7.3 % (19-41); Mean Corp Hgb Conc 31.9 g/gl (32-36); Mean Corpuscular Hgb 29.5 pg (27.0-32.0); Mean Corpuscular Volume 92.6 fL (81-99); Mean Platelet Vol. 9.8 fl (6.2-12.0); Monocyte# 0.45 X10^3/uL; Monocyte% 3.3 % (0-10); Neutrophil # 11.91 X10^3/uL (2.7-7.7); Neutrophil % 88.5 % (47-70); Platelet Count 271 K/mm3 (150-450); RBC Distribution Width CV 12.8 % (11.6-14.6); RBC Distribution Width SD 43.5 fl (35.1-43.9); Red Blood Count 3.52 M/mm3 (4.2-5.4); White Blood Count 13.5 K/mm3 (4.4-11.0)
[2018-06-04 05:39] LABS: POSITIVE COUNT NO; POSITIVE MORPHOLOGY NO
[2018-06-04 05:43] LABS: POSITIVE DIFFERENTIAL NO
[2018-06-04] MEDS: Ipratropium/Albuterol Sulfate 3 ML AMPUL.NEB INHALATION ×4 (07:10→18:48)
--- NOTE | 2018-06-04 07:36 | PCM.PN.HOSP ---
Patient Problems: Active and Suspected Problems (Last Reviewed 05/29/18 @ 14:01 by Tanner Talamantes MD) Acute bronchitis (Acute) Influenza A (Acute) Subjective: Patient was seen and examined. She remained on Bipap for most of yesterday. Able to tolerate being off Bipap for a short period of time. Still has a problem bringing up sputum. Objective: Physical exam: General: Alert, Oriented x3, Cooperative, - - in mild respiratory distress, on Bipap HEENT: Atraumatic, PERRLA, EOMI, Normocephalic Oral: Moist Mucosa Neck: Supple, No JVD, Negative Carotid Bruits Lungs: Diminished, lots of transmitted sounds, wheezing++ Cardiovascular: Regular rate, Regular Rhythm, Normal S1, Normal S2, No murmurs Abdomen: Bowel Sounds Present, Soft, Non Tender, Non-Distended, No Hepato-splenomegaly Extremities: No edema Skin: No rashes, No breakdown Musculoskeletal: No Tenderness to Palpation of Joints or Extremities Lymphatic: No Cervical, Supraclavicular, or Inguinal Adenopathy Neurological: Cranial nerves II-XII grossly intact, Neuro grossly intact Psych/Mental Status: Normal Affect, Appropriate Vitals/I&O's: Vital Signs Temp Pulse Resp BP Pulse Ox 97.8 F 95 30 H 145/81 H 97 06/04/18 04:00 06/04/18 07:10 06/04/18 07:10 06/04/18 06:00 06/04/18 06:00 Oxygen Flow Rate (L/min) 10 Oxygen Delivery Method Nasal Cannula Weight: 54.2 kg Body Mass Index (BMI) 23.8 Finger Stick Blood Glucose 133 Intake and Output for Last 24 Hours 06/02/18 06/03/18 06/04/18 23:59 23:59 23:59 Intake Total 440 / 440 2229 / 2229 1400 / 1400 Output Total 350 / 350 525 / 525 875 / 875 Balance 90 / 90 1704 / 1704 525 / 525 Microbiology Past 72 Hours 05/29/18 11:05 Blood Culture (Wb) #2 - Anticubital Left Blood Culture - Final No growth in 5 days. 05/29/18 10:30 Blood Culture (Wb) - Anticubital Right Blood Culture - Final No growth in 5 days. 05/30/18 06:30 Sputum, Expectorated/Coughed Gram Stain - Final 05/30/18 06:30 Sputum, Expectorated/Coughed Respiratory Culture - Final Meth. resistant Staph. aureus Presumptive C albicans Laboratory Results 06/03/18 01:45: B-Natriuretic Peptide 91.8 06/03/18 01:45: Phosphorus 2.5 06/03/18 10:26: Specimen Type ART, Sample Site L Radial, pH 7.40, Bicarbonate Actual 24.4, POC Total CO2 26, Base Excess 0, O2 Saturation 95, O2 % 60, ABG pCO2 39.6, ABG pO2 77, [place] Test POS, Respiration Rate 41, O2 Delivery Device Bi / C PAP, EPAP 7, IPAP 12, Blood Gas Notified Whom ICU MD, Blood Gas Notified Time 1020 06/04/18 04:30: WBC 13.5 H, RBC 3.52 L, Hgb 10.4 L, Hct 32.6 L, MCV 92.6, MCH 29.5, MCHC 31.9 L, RDW 12.8, RDW Differential 43.5, Plt Count 271, MPV 9.8, Immature Gran % (Auto) 0.800, Neut % (Auto) 88.5 H, Lymph % (Auto) 7.3 L, [place] % (Auto) 3.3, Eos % (Auto) 0.0, Baso % (Auto) 0.1, Absolute Neuts (auto) 11.9 H, Absolute Lymphs (auto) 0.99, Total Counted Not Reportable 06/04/18 04:30: Sodium 142, Potassium 4.4, Chloride 108 H, Carbon Dioxide 26.0, BUN 17, Creatinine 0.65, Estim Creat Clear Calc 34.30, Est GFR (MDRD) Af Amer 113, Est GFR (MDRD) Non-Af 93, BUN/Creatinine Ratio 26.3 H, Glucose 195 H, Calcium 8.4 L, Phosphorus 2.7, Albumin 1.8 L Current Medications Hydrocodone Bitart/Acetaminophen (Kemp 5mg-325mg) 1 tablet PO QHS ANDREA Last Admin: 06/03/18 21:54 Dose: 1 tablet Albuterol Sulfate (Ventolin Aerosols) 2.5 mg INHALATION Q4H PRN PRN Reason: pul fibrosis J84.10 & bronchiectasis J47.9 Last Admin: 06/01/18 03:51 Dose: 2.5 mg Albuterol/Ipratropium (Duoneb) 3 ml INHALATION Q4HWA.RT [facility] Last Admin: 06/04/18 07:10 Dose: 3 ml Amiodarone HCl (Cordarone) 100 mg PO DAILY [facility] Last Admin: 06/03/18 11:38 Dose: 100 mg Bisacodyl (Dulcolax) 10 mg RECTAL DAILY PRN PRN Reason: Constipation Clonazepam (Klonopin) 0.5 mg PO TID PRN PRN PRN Reason: ANXIETY Last Admin: 05/31/18 22:09 Dose: 0.5 mg Diltiazem HCl (Cardizem Cd) 120 mg PO DAILY [facility] Last Admin: 06/03/18 11:39 Dose: 120 mg Fluticasone Propionate (Flonase Nasal [place]) 1 spray NASAL DAILY [facility] Last Admin: 06/03/18 11:37 Dose: 1 spray Guaifenesin (Mucinex) 1,200 mg PO BID [facility] Last Admin: 06/03/18 21:53 Dose: 1,200 mg Vancomycin IV Pharmacy to Dose (1 ea/ Sodium Chloride) 500 mls @ 250 mls/hr IV X1 PRN; Protocol PRN Reason: Rx to Dose Vancomycin HCl (Vancomycin) 1,000 mg in 200 mls @ 200 mls/hr IV Q12H [facility] Last Admin: 06/03/18 22:12 Dose: 200 mls/hr Piperacillin Sod/Tazobactam (Sod 3.375 gm/ Sodium Chloride) 50 mls @ 12.5 mls/hr IV Q8 [facility] Magnesium Hydroxide (Milk Of Magnesia) 30 ml PO DAILY PRN PRN PRN Reason: Constipation Methylprednisolone (Solu-Medrol) 40 mg IV Q8 [facility] Last Admin: 06/04/18 05:45 Dose: 40 mg Montelukast Sodium (Singulair) 10 mg PO QHS [facility] Last Admin: 06/03/18 21:53 Dose: 10 mg Nortriptyline HCl (Pamelor) 50 mg PO QHS [facility] Last Admin: 06/03/18 21:53 Dose: 50 mg Nystatin (Nystatin) 500,000 unit PO 4X/DAY [facility] Stop: 06/12/18 14:01 Last Admin: 06/03/18 21:53 Dose: 500,000 unit Pantoprazole Sodium (Protonix) 20 mg PO DAILY [facility] Last Admin: 06/03/18 11:50 Dose: 20 mg Polyethylene Glycol (Miralax) 17 gm PO DAILY [facility] Last Admin: 06/03/18 11:39 Dose: Not Given Potassium Chloride (K-Dur) 10 meq PO BIDCM [facility] Last Admin: 06/03/18 16:48 Dose: 10 meq Prednisolone Acetate (Pred Forte Eye Drops (1 Ml)) 1 drop OPHTHALMIC DAILY [facility] Last Admin: 06/03/18 11:16 Dose: 1 drop Rivaroxaban (Xarelto) 15 mg PO DAILY [facility] Last Admin: 06/03/18 11:39 Dose: 15 mg Senna/Docusate Sodium (Senokot-S, Juanita-Colace) 1 tablet PO DAILY PRN PRN PRN Reason: Constipation Sodium Chloride () 5 - 15 ml IV UD PRN PRN Reason: SALINE FLUSH Last Admin: 06/03/18 21:53 Dose: 10 ml Temazepam (Restoril) 15 mg PO QHS [facility] Last Admin: 06/03/18 21:53 Dose: 15 mg Medical Necessity - Tobacco Use Smoking Status: Never smoker Tobacco Use: Non-smoker Assessment/Plan All Active Problems (Last Reviewed 05/29/18 @ 14:01 by Tanner Talamantes MD) Acute bronchitis (Acute) Influenza A (Acute) DCCV for atrial flutter (Resolved) URI (upper respiratory infection) (Resolved) Thrush, oral (Resolved) Pneumonia (Resolved) MRSA (methicillin resistant staphylococcus aureus) pneumonia (Resolved) Acute respiratory failure with hypoxia (Resolved) 83-year-old female with multiple comorbidities admitted with progressive shortness of breath, cough, fever and chills and is being managed as acute bronchitis secondary to Acute influenza A. Over the course of her stay here, patient had complained of progressive shortness of breath and chest x-ray confirmed bilateral pneumonia. Sputum cultures positive for staph aureus. MRSA PCR positive. 1. Acute on chronic hypoxic respiratory failure secondary to progressive HCAP/MRSA pneumonia, patient remains unchanged On BiPAP, will continue on BiPAP, wean off for SPO2 more than 94%, continue on breathing treatments Continue to keep in ICU for closer monitoring. 2. Acute MRSA bilateral pneumonia, hospital-acquired versus natural sequelae of acute influenza On IV vancomycin, and Zosyn, repeat blood cultures are pending. 3. Oral thrush, on nystatin swish and swallow 4. Acute viral bronchitis secondary to Acute influenza A, completed Tamiflu. 5. Dysphagia- on mechanical soft diet 6. Paroxysmal A. fib/flutter, on amiodarone, Cardizem, xarelto. 7. GERD on PPI 8. Hypertension, BP is starting to rise up, will resume losartan, will continue to monitor 9. Anxiety disorder- on Klonopin, Restoril 10. DVT prophylaxis -on Xarelto 11. GI ppx- PPI Code Visit Inpatient E&M: 50847 Subs Hosp L3
--- NOTE | 2018-06-04 07:38 | PCM.PN.INT ---
Subjective: Patient did okay overnight on AVAPS, but tolerated only approximately 1 hour off of BiPAP this morning. Patient reported subjective improvement in overall condition, but continues to have a loose cough with minimal production. Patient denied any chest pain and was asking for a p.o. diet. Patient did have to have a Ramos placed overnight secondary to urinary retention with 800 mL immediate response. General: Alert, Oriented x3, Cooperative, - - Mild conversational dyspnea off of BiPAP. Comfortable on BiPAP. HEENT: Atraumatic, PERRLA, EOMI, Normocephalic, - - Slight scleral injection without icterus Oral: No Gingival or Mucosal Lesions/ Ulcerations, Dry Mucosa Neck: Supple, No Nodes, Trachea Midline, JVD, Right Lungs: No rales, Diminished, Rhonchi, Wheezes, - - Symmetric expansion. No dullness to percussion. Cardiovascular: Regular rate, Regular Rhythm, Normal S1, Normal S2, Murmur - Grade 2 out of 6 systolic ejection murmur at the right sternal border, No rub noted, No Gallop, - - Sinus rhythm noted on telemetry. Abdomen: Bowel Sounds Present, Soft, Non Tender, Non-Distended Extremities: No cyanosis, Clubbing, Edema Skin: - - No significant change compared to previous Musculoskeletal: No Tenderness to Palpation of Joints or Extremities Lymphatic: No Cervical, Supraclavicular, or Inguinal Adenopathy Neurological: Cranial nerves II-XII grossly intact, Neuro grossly intact, Motor Exam 5/5 strength throughout Psych/Mental Status: Anxious Vital Signs Temp Pulse Resp BP Pulse Ox 36.6 C 95 30 H 145/81 H 97 06/04/18 04:00 06/04/18 07:10 06/04/18 07:10 06/04/18 06:00 06/04/18 06:00 Oxygen Flow Rate (L/min) 10 Oxygen Delivery Method Nasal Cannula Weight: 54.2 kg Body Mass Index (BMI) 23.8 Finger Stick Blood Glucose 133 Intake and Output for Last 24 Hours 06/02/18 06/03/18 06/04/18 23:59 23:59 23:59 Intake Total 440 / 440 2229 / 2229 1400 / 1400 Output Total 350 / 350 525 / 525 875 / 875 Balance 90 / 90 1704 / 1704 525 / 525 Labs (Last 48 Hours) 06/03/18 06/03/18 06/03/18 01:45 01:45 01:45 WBC 14.8 H RBC 3.41 L Hgb 10.2 L Hct 31.6 L MCV 92.7 MCH 29.9 MCHC 32.3 RDW 12.7 RDW Differential 43.1 Plt Count 213 MPV 9.6 Immature Gran % (Auto) 0.400 Neut % (Auto) 81.2 H Lymph % (Auto) 8.8 L [place] % (Auto) 9.3 Eos % (Auto) 0.0 Baso % (Auto) 0.3 Absolute Neuts (auto) 12.0 H Absolute Lymphs (auto) 1.31 Total Counted Not Reportable Specimen Type Sample Site pH Bicarbonate Actual POC Total CO2 Base Excess O2 Saturation O2 % ABG pCO2 ABG pO2 [place] Test Respiration Rate O2 Delivery Device EPAP IPAP Blood Gas Notified Whom Blood Gas Notified Time Sodium 141 Potassium 4.3 Chloride 106 Carbon Dioxide 26.0 Anion Gap 9 BUN 21 H Creatinine 0.65 Estim Creat Clear Calc 34.30 Est GFR (MDRD) Af Amer 111 Est GFR (MDRD) Non-Af 92 BUN/Creatinine Ratio 32.1 H Glucose 123 H Calcium 8.2 L Phosphorus B-Natriuretic Peptide Albumin Vancomycin Trough 8.0 06/03/18 06/03/18 06/03/18 01:45 01:45 10:26 WBC RBC Hgb Hct MCV MCH MCHC RDW RDW Differential Plt Count MPV Immature Gran % (Auto) Neut % (Auto) Lymph % (Auto) [place] % (Auto) Eos % (Auto) Baso % (Auto) Absolute Neuts (auto) Absolute Lymphs (auto) Total Counted Specimen Type ART Sample Site L Radial pH 7.40 Bicarbonate Actual 24.4 POC Total CO2 26 Base Excess 0 O2 Saturation 95 O2 % 60 ABG pCO2 39.6 ABG pO2 77 [place] Test POS Respiration Rate 41 O2 Delivery Device Bi / C PAP EPAP 7 IPAP 12 Blood Gas Notified Whom ICU MD Blood Gas Notified Time 1020 Sodium Potassium Chloride Carbon Dioxide Anion Gap BUN Creatinine Estim Creat Clear Calc Est GFR (MDRD) Af Amer Est GFR (MDRD) Non-Af BUN/Creatinine Ratio Glucose Calcium Phosphorus 2.5 B-Natriuretic Peptide 91.8 Albumin Vancomycin Trough 06/04/18 06/04/18 04:30 04:30 WBC 13.5 H RBC 3.52 L Hgb 10.4 L Hct 32.6 L MCV 92.6 MCH 29.5 MCHC 31.9 L RDW 12.8 RDW Differential 43.5 Plt Count 271 MPV 9.8 Immature Gran % (Auto) 0.800 Neut % (Auto) 88.5 H Lymph % (Auto) 7.3 L [place] % (Auto) 3.3 Eos % (Auto) 0.0 Baso % (Auto) 0.1 Absolute Neuts (auto) 11.9 H Absolute Lymphs (auto) 0.99 Total Counted Not Reportable Specimen Type Sample Site pH Bicarbonate Actual POC Total CO2 Base Excess O2 Saturation O2 % ABG pCO2 ABG pO2 [place] Test Respiration Rate O2 Delivery Device EPAP IPAP Blood Gas Notified Whom Blood Gas Notified Time Sodium 142 Potassium 4.4 Chloride 108 H Carbon Dioxide 26.0 Anion Gap BUN 17 Creatinine 0.65 Estim Creat Clear Calc 34.30 Est GFR (MDRD) Af Amer 113 Est GFR (MDRD) Non-Af 93 BUN/Creatinine Ratio 26.3 H Glucose 195 H Calcium 8.4 L Phosphorus 2.7 B-Natriuretic Peptide Albumin 1.8 L Vancomycin Trough Microbiology 05/29/18 11:05 Blood Culture (Wb) #2 - Anticubital Left Blood Culture - Final No growth in 5 days. 05/29/18 10:30 Blood Culture (Wb) - Anticubital Right Blood Culture - Final No growth in 5 days. 05/30/18 06:30 Sputum, Expectorated/Coughed Gram Stain - Final 05/30/18 06:30 Sputum, Expectorated/Coughed Respiratory Culture - Final Meth. resistant Staph. aureus Presumptive C albicans Clinical Impression(s) from Imaging Studies Chest X-Ray 06/03/18 09:39 IMPRESSION: Progressive infiltrates in the right upper lobe and left upper lobe. Improved aeration of the left lung base. Electronically Signed: Roger Mijares MD at 10:43 EST , Service support , Medical Necessity - Tobacco Use Smoking Status: Never smoker Tobacco Use: Non-smoker Assessment/Plan All Active Problems (Last Reviewed 05/29/18 @ 14:01 by Tanner Talamantes MD) Acute bronchitis (Acute) Influenza A (Acute) DCCV for atrial flutter (Resolved) URI (upper respiratory infection) (Resolved) Thrush, oral (Resolved) Pneumonia (Resolved) MRSA (methicillin resistant staphylococcus aureus) pneumonia (Resolved) Acute respiratory failure with hypoxia (Resolved) RECOMMENDATIONS: 1. Continue vancomycin and Zosyn 2. Continue steroids, mucolytic, Tamiflu and bronchodilators 3. Transition to AVAPS with breaks as tolerated 4. Wean oxygen as tolerated 5. Hold IV fluids IMPRESSIONS: 1. Acute on chronic hypoxic respiratory failure secondary to influenza A with MRSA superinfection She was significant worsening in infiltrates over the course of the hospitalization. Clinical suspicion for superinfection with MRSA. Unclear for patient's recent decompensation. Patient may have had some thin liquids with aspiration. Other differential would include diastolic dysfunction exacerbated by A. fib with RVR, but BNP is not impressive. Cardiology has been consulted. Heart rate is improved compared to previous. Will continue AVAPS and give breaks as tolerated. This should be continued with any sleep. 2. 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 Patient has had multiple admissions secondary to aspiration pneumonia in the distant past. Patient should be continued on a modified diet (nectar thick). 3. History of paroxysmal A. fib Patient is currently on her baseline medications and tolerating well. Heart rate is well-controlled. Continue current therapy. 4. Diabetes mellitus/hypertension Patient currently on modified diet. Blood pressures have been trending up. Continue sliding scale insulin. Will need to watch blood sugars closely given concomitant steroid therapy 5. Anxiety disorder Patient is on Klonopin among other medications at home. Patient appears to be at baseline at this time. TIME: 31 minutes critical care time spent addressing patient's acute on chronic respiratory failure, CHF, pulmonary fibrosis, A. fib with RVR, review of all data and collaboration with care team (7 AM to 7:42 AM) Code Visit 9xxxx: [id number] Critical care first hour
[2018-06-04] MEDS: Pantoprazole Sodium 20 MG Tablet PO (10:09)
[2018-06-04] MEDS: NYSTATIN 500,000 UNIT/5 ML UDC 500000 UNIT PO ×4 (10:09→22:00)
[2018-06-04] MEDS: Polyethylene Glycol 3350 17 GM PACKET PO (10:09)
[2018-06-04] MEDS: Amiodarone 200 MG Tablet 100 MG PO (10:09)
[2018-06-04] MEDS: guaiFENesin 1,200 MG Tablet 1200 MG PO ×2 (10:09→22:00)
[2018-06-04] MEDS: prednisoLONE eye drops (1 mL) 1 DROP OPTH.BTL 1 DRP OPHTHALMIC (10:10)
[2018-06-04] MEDS: Fluticasone 0.05% 1 SPRAY NASAL.SRY NASAL (10:11)
[2018-06-04] MEDS: Rivaroxaban 15 MG Tablet PO (10:25)
[2018-06-04] MEDS: dilTIAZem CD 120 MG Capsule PO (10:25)
[2018-06-04] MEDS: Vancomycin IV 1,000 MG/200 ML BAG 200 MG IV (12:07)
--- NOTE | 2018-06-04 12:24 | CASEMGMT ---
Addendum entered by Megan Nguyen 06/04/18 14:07: SW called Miguel at [facility], second message left and let her know to follow up w/SW Nadiya Nava if she has any questions. ENRIQUE Roca, PUBLIC RELATIONS ACCOUNT SUPERVISOR Original Note: SW spoke w/pt, daughter in law and sister in room, confirmed that plan is for pt to go to [facility] at discharge. Pt's sister in law said that Guillermo(pt's son) just painted the pt's room--he works in maintenance at [facility]. SW called Miguel at [facility], message left and updates faxed. CHEVY completed the hospital exemption in [place] and placed it along w/transport forms and green sheet on the front of chart in the event pt can be discharged on the weekend. ENRIQUE Roca, PUBLIC RELATIONS ACCOUNT SUPERVISOR
[2018-06-04] MEDS: Losartan Potassium 25 MG Tablet PO (14:34)
--- NOTE | 2018-06-04 15:29 | EKG12_ITS ---
Test Reason : ARRHYTHMIA Blood Pressure : / mmHG Vent. Rate : 118 BPM Atrial Rate : 118 BPM P-R Int : 202 ms QRS Dur : 104 ms QT Int : 332 ms P-R-T Axes : 000 071 009 degrees QTc Int : 465 ms Sinus tachycardia with Fusion complexes ST & T wave abnormality, consider anterior ischemia Abnormal ECG Confirmed by CATERINA OCONNELL, HECTOR ([id number]), supervising editor trailer ANGIE MOORE ([id number]) on 06/10/2018 3:56:17 PM Referred By: ROSETTE Confirmed By:HECTOR DIGGS MD
[2018-06-04] MEDS: Metoprolol Tartrate 5 MG/5 ML Vial 2.5 MG IV (16:42)
[2018-06-04] MEDS: Temazepam 15 MG Capsule PO (22:00)
[2018-06-04] MEDS: HYDROcodone Bitartrate/Apap 5/325 Tablet PO (22:00)
[2018-06-04] MEDS: Nortriptyline 25 MG Capsule 50 MG PO (22:00)
[2018-06-04] MEDS: Montelukast 10 MG Tablet PO (22:01)
[2018-06-04] MEDS: clonazePAM 0.5 MG Tablet PO (22:20)
[2018-06-04] MEDS: 0.9% NaCl Peripheral Flush Adult/Peds IV (23:01)
[2018-06-05] VITALS (36 sets, daily range): BP systolic 108–153; BP diastolic 31–130; PULSE 63–99; RESP 12–35; TEMP 36.3–37.1; O2SAT 90–100
[2018-06-05 00:56] LABS: Vancomycin, Trough Level 16.4 ug/mL (5.0-15.0)
[2018-06-05] MEDS: Vancomycin IV 1,000 MG/200 ML BAG 200 MG IV ×2 (01:10→10:32)
--- NOTE | 2018-06-05 02:29 | PCM.RX.CS ---
Consult Pharmacy has been consulted to manage selected antiobiotic: Vancomycin Type of Consult: Follow-up Suspected Infection: Pneumonia Prior Doses of Antibiotics Received/Current Regimen: Medications Vancomycin HCl (Vancomycin) 1,000 mg in 200 mls @ 200 mls/hr IV Q12H ANDREA Last Admin: 06/05/18 01:10 Dose: 200 mls/hr Labs: Sodium 142 mmol/L (136-145) 06/04/18 04:30 Potassium 4.4 mmol/L (3.5-5.1) 06/04/18 04:30 Chloride 108 mmol/L (98-107) H 06/04/18 04:30 Carbon Dioxide 26.0 mmol/L (21.0-32.0) 06/04/18 04:30 Anion Gap 9 (5-15) 06/03/18 01:45 BUN 17 mg/dL (7-18) 06/04/18 04:30 Creatinine 0.65 mg/dL (0.55-1.02) 06/04/18 04:30 Est GFR (MDRD) Af Amer 113 mL/min (>60) 06/04/18 04:30 Est GFR (MDRD) Non-Af 93 mL/min (>60) 06/04/18 04:30 BUN/Creatinine Ratio 26.3 RATIO (10-20) H 06/04/18 04:30 Glucose 195 mg/dL (74-106) H 06/04/18 04:30 Vancomycin Trough 16.4 ug/mL (5.0-15.0) H 06/04/18 23:05 Microbiology: Microbiology 05/29/18 11:05 Blood Culture (Wb) #2 - Anticubital Left Blood Culture - Final No growth in 5 days. 05/29/18 10:30 Blood Culture (Wb) - Anticubital Right Blood Culture - Final No growth in 5 days. 05/30/18 06:30 Sputum, Expectorated/Coughed Gram Stain - Final 05/30/18 06:30 Sputum, Expectorated/Coughed Respiratory Culture - Final Meth. resistant Staph. aureus Presumptive C albicans 05/29/18 11:02 Mucosa - Nasopharyngeal Respiratory Panel (PCR) - Final Influenza A (Subtype H3) Weight used for dosin kg Estimated Creatinine Clearance: 42 Goal Trough: 15-20 mcg/mL Pharmacy Plan for Drug Dosing: Pharmacy Service will continue to monitor and adjust dosing as required. The vancomycin trough level returned at 16.4 before the 4th dose of the new regimen in the goal range of 15-20. Vancomycin 1000mg IV q12h will be continued and a trough level will be checked in 4 days. Follow-Up Labs: Trough Vancomycin Labs to be done on [date and time ordered]: 06/08/18 1035
[2018-06-05] MEDS: Ipratropium/Albuterol Sulfate 3 ML AMPUL.NEB INHALATION ×3 (06:50→18:39)
--- NOTE | 2018-06-05 07:30 | PCM.PN.HOSP ---
Patient Problems: Active and Suspected Problems (Last Reviewed 05/29/18 @ 14:01 by Tanner Talamantes MD) Acute bronchitis (Acute) Influenza A (Acute) Subjective: Patient was seen and examined. She is of BiPAP this morning, on 8 L of oxygen. She was on BiPAP throughout the night. She was in atrial flutter yesterday, given IV metoprolol, converted to normal sinus rhythm. She denied any worsening shortness of breath. Complains of chest wall discomfort with vest therapy. Complained that she could not over boiled eggs and banana. I reassured her that Speech therapy will be in to be evaluate her. Vitals/I&O's: Vital Signs Temp Pulse Resp BP Pulse Ox 97.4 F L 78 20 H 153/130 H 91 06/05/18 04:00 06/05/18 07:00 06/05/18 07:00 06/05/18 07:00 06/05/18 07:00 Oxygen Flow Rate (L/min) 8 Oxygen Delivery Method Nasal Cannula Weight: 53.6 kg Body Mass Index (BMI) 23.8 Finger Stick Blood Glucose 133 Intake and Output for Last 24 Hours 06/03/18 06/04/18 06/05/18 23:59 23:59 23:59 Intake Total 2229 / 2229 2674 / 2674 388.7 / 388.7 Output Total 525 / 525 1570 / 1570 150 / 150 Balance 1704 / 1704 1104 / 1104 238.7 / 238.7 General: Alert, Oriented x3, Cooperative, No apparent distress, - - On 8 L of oxygen HEENT: Atraumatic, PERRLA, EOMI, Normocephalic Oral: Dry Mucosa Neck: Supple Lungs: Clear to auscultation, Normal air movement Cardiovascular: Regular rate, Regular Rhythm, Normal S1, Normal S2, No murmurs, - - anterior chest wall discomfort Abdomen: Bowel Sounds Present, Soft, Non Tender, Non-Distended, No Hepato-splenomegaly Extremities: No edema Skin: No rashes, No breakdown Musculoskeletal: No Tenderness to Palpation of Joints or Extremities Lymphatic: No Cervical, Supraclavicular, or Inguinal Adenopathy Neurological: Cranial nerves II-XII grossly intact, Neuro grossly intact Psych/Mental Status: Normal Affect, Appropriate Microbiology Past 72 Hours 05/29/18 11:05 Blood Culture (Wb) #2 - Anticubital Left Blood Culture - Final No growth in 5 days. 05/29/18 10:30 Blood Culture (Wb) - Anticubital Right Blood Culture - Final No growth in 5 days. 05/30/18 06:30 Sputum, Expectorated/Coughed Gram Stain - Final 05/30/18 06:30 Sputum, Expectorated/Coughed Respiratory Culture - Final Meth. resistant Staph. aureus Presumptive C albicans Laboratory Results 06/04/18 23:05: Vancomycin Trough 16.4 H Current Medications Hydrocodone Bitart/Acetaminophen (Lennox 5mg-325mg) 1 tablet PO QHS [facility] Last Admin: 06/04/18 22:00 Dose: 1 tablet Albuterol Sulfate (Ventolin Aerosols) 2.5 mg INHALATION Q4H PRN PRN Reason: pul fibrosis J84.10 & bronchiectasis J47.9 Last Admin: 06/01/18 03:51 Dose: 2.5 mg Albuterol/Ipratropium (Duoneb) 3 ml INHALATION Q4HWA.RT [facility] Last Admin: 06/05/18 06:50 Dose: 3 ml Amiodarone HCl (Cordarone) 100 mg PO DAILY [facility] Last Admin: 06/04/18 10:09 Dose: 100 mg Bisacodyl (Dulcolax) 10 mg RECTAL DAILY PRN PRN Reason: Constipation Clonazepam (Klonopin) 0.5 mg PO TID PRN PRN PRN Reason: ANXIETY Last Admin: 06/04/18 22:20 Dose: 0.5 mg Diltiazem HCl (Cardizem Cd) 120 mg PO DAILY [facility] Last Admin: 06/04/18 10:25 Dose: 120 mg Fluticasone Propionate (Flonase Nasal [place]) 1 spray NASAL DAILY [facility] Last Admin: 06/04/18 10:11 Dose: 1 spray Guaifenesin (Mucinex) 1,200 mg PO BID [facility] Last Admin: 06/04/18 22:00 Dose: 1,200 mg Vancomycin IV Pharmacy to Dose (1 ea/ Sodium Chloride) 500 mls @ 250 mls/hr IV X1 PRN; Protocol PRN Reason: Rx to Dose Vancomycin HCl (Vancomycin) 1,000 mg in 200 mls @ 200 mls/hr IV Q12H [facility] Last Admin: 06/05/18 01:10 Dose: 200 mls/hr Piperacillin Sod/Tazobactam (Sod 3.375 gm/ Sodium Chloride) 50 mls @ 12.5 mls/hr IV Q8 [facility] Last Admin: 06/05/18 05:52 Dose: 12.5 mls/hr Losartan Potassium (Cozaar) 25 mg PO DAILY [facility] Last Admin: 06/04/18 14:34 Dose: 25 mg Magnesium Hydroxide (Milk Of Magnesia) 30 ml PO DAILY PRN PRN PRN Reason: Constipation Methylprednisolone (Solu-Medrol) 40 mg IV Q8 [facility] Last Admin: 06/05/18 05:52 Dose: 40 mg Montelukast Sodium (Singulair) 10 mg PO QHS [facility] Last Admin: 06/04/18 22:01 Dose: 10 mg Nortriptyline HCl (Pamelor) 50 mg PO QHS [facility] Last Admin: 06/04/18 22:00 Dose: 50 mg Nystatin (Nystatin) 500,000 unit PO 4X/DAY [facility] Stop: 06/12/18 14:01 Last Admin: 06/04/18 22:00 Dose: 500,000 unit Pantoprazole Sodium (Protonix) 20 mg PO DAILY [facility] Last Admin: 06/04/18 10:09 Dose: 20 mg Polyethylene Glycol (Miralax) 17 gm PO DAILY [facility] Last Admin: 06/04/18 10:09 Dose: 17 gm Potassium Chloride (K-Dur) 10 meq PO BIDCM [facility] Last Admin: 06/04/18 16:42 Dose: 10 meq Prednisolone Acetate (Pred Forte Eye Drops (1 Ml)) 1 drop OPHTHALMIC DAILY [facility] Last Admin: 06/04/18 10:10 Dose: 1 drop Rivaroxaban (Xarelto) 15 mg PO DAILY [facility] Last Admin: 06/04/18 10:25 Dose: 15 mg Senna/Docusate Sodium (Senokot-S, Juanita-Colace) 1 tablet PO DAILY PRN PRN PRN Reason: Constipation Sodium Chloride () 5 - 15 ml IV UD PRN PRN Reason: SALINE FLUSH Last Admin: 06/04/18 23:01 Dose: 10 ml Temazepam (Restoril) 15 mg PO QHS [facility] Last Admin: 06/04/18 22:00 Dose: 15 mg Medical Necessity - Tobacco Use Smoking Status: Never smoker Tobacco Use: Non-smoker Assessment/Plan All Active Problems (Last Reviewed 05/29/18 @ 14:01 by Tanner Talamantes MD) Acute bronchitis (Acute) Influenza A (Acute) DCCV for atrial flutter (Resolved) URI (upper respiratory infection) (Resolved) Thrush, oral (Resolved) Pneumonia (Resolved) MRSA (methicillin resistant staphylococcus aureus) pneumonia (Resolved) Acute respiratory failure with hypoxia (Resolved) 83-year-old female with multiple comorbidities admitted with progressive shortness of breath, cough, fever and chills and is being managed as acute bronchitis secondary to Acute influenza A. Over the course of her stay here, patient had complained of progressive shortness of breath and chest x-ray confirmed bilateral pneumonia. Sputum cultures positive for staph aureus. MRSA PCR positive. 1. Acute on chronic hypoxic respiratory failure secondary to progressive HCAP/MRSA pneumonia, patient is improved today, on 8 L of oxygen, will get BiPAP at night, tray setter on board, will continue to wean off for SPO2 more than 94%, continue on breathing treatments Continue to keep in ICU for closer monitoring. 2. Acute MRSA bilateral pneumonia, hospital-acquired versus natural sequelae of acute influenza On IV vancomycin(day5) and Zosyn(day 2), repeat blood cultures are pending We will continue same 3. Possible acute COPD exacerbation, patient is on IV Solu-Medrol, continue same, possible switch to prednisone taper from tomorrow if she continues to be improving 4. Oral thrush, on nystatin swish and swallow 5. Acute viral bronchitis secondary to Acute influenza A, completed Tamiflu. 6. Dysphagia- on mechanical soft diet, will be seen by speech therapist 7. Paroxysmal A. fib/flutter, in NSR now, on amiodarone, Cardizem, xarelto. 8. GERD on PPI 9. Hypertension, resumed on her home blood pressure medication, continue to monitor 10. Anxiety disorder- on Klonopin, Restoril 11. DVT prophylaxis -on Xarelto 12. GI ppx- PPI Code Visit Inpatient E&M: [id number] Subs Hosp L2
--- NOTE | 2018-06-05 08:05 | PCM.PN.INT ---
Subjective: Patient did well overnight. Patient is back in sinus rhythm and only required BiPAP therapy for approximately 5 hours overnight. Patient has had high nasal cannula requirements otherwise though. Patient reports subjective improvement in overall condition. General: Alert, Cooperative, No apparent distress, Confused, - - Mild conversational dyspnea HEENT: Atraumatic, PERRLA, EOMI, Normocephalic, - - Scleral injection without icterus. Oral: Moist Mucosa, No Gingival or Mucosal Lesions/ Ulcerations Neck: Supple, No JVD, No Nodes, Trachea Midline Lungs: No rales, Diminished, Rhonchi, Wheezes - Scattered at right base Cardiovascular: Regular rate, Regular Rhythm, Normal S1, Normal S2, No murmurs, No rub noted, No Gallop Abdomen: Bowel Sounds Present, Soft, Non Tender, Non-Distended Extremities: No cyanosis, Capillary Refill Less than 3 Seconds, Clubbing, Edema - Trace lower extremity Skin: - - No significant change from previous Musculoskeletal: No Tenderness to Palpation of Joints or Extremities, Muscle Wasting Lymphatic: No Cervical, Supraclavicular, or Inguinal Adenopathy Neurological: Cranial nerves II-XII grossly intact, Neuro grossly intact, Motor Exam 5/5 strength throughout Psych/Mental Status: Normal Affect, Appropriate Vital Signs Temp Pulse Resp BP Pulse Ox 36.3 C L 78 20 H 153/130 H 91 06/05/18 04:00 06/05/18 07:00 06/05/18 07:00 06/05/18 07:00 06/05/18 07:00 Oxygen Flow Rate (L/min) 8 Oxygen Delivery Method Nasal Cannula Weight: 53.6 kg Body Mass Index (BMI) 23.8 Finger Stick Blood Glucose 133 Intake and Output for Last 24 Hours 06/03/18 06/04/18 06/05/18 23:59 23:59 23:59 Intake Total 2229 / 2229 2674 / 2674 388.7 / 388.7 Output Total 525 / 525 1570 / 1570 150 / 150 Balance 1704 / 1704 1104 / 1104 238.7 / 238.7 Labs (Last 48 Hours) 06/03/18 06/03/18 06/03/18 01:45 01:45 10:26 WBC RBC Hgb Hct MCV MCH MCHC RDW RDW Differential Plt Count MPV Immature Gran % (Auto) Neut % (Auto) Lymph % (Auto) [place] % (Auto) Eos % (Auto) Baso % (Auto) Absolute Neuts (auto) Absolute Lymphs (auto) Total Counted Specimen Type ART Sample Site L Radial pH 7.40 Bicarbonate Actual 24.4 POC Total CO2 26 Base Excess 0 O2 Saturation 95 O2 % 60 ABG pCO2 39.6 ABG pO2 77 [place] Test POS Respiration Rate 41 O2 Delivery Device Bi / C PAP EPAP 7 IPAP 12 Blood Gas Notified Whom ICU MD Blood Gas Notified Time 1020 Sodium Potassium Chloride Carbon Dioxide BUN Creatinine Estim Creat Clear Calc Est GFR (MDRD) Af Amer Est GFR (MDRD) Non-Af BUN/Creatinine Ratio Glucose Calcium Phosphorus 2.5 B-Natriuretic Peptide 91.8 Albumin Vancomycin Trough 06/04/18 06/04/18 06/04/18 04:30 04:30 23:05 WBC 13.5 H RBC 3.52 L Hgb 10.4 L Hct 32.6 L MCV 92.6 MCH 29.5 MCHC 31.9 L RDW 12.8 RDW Differential 43.5 Plt Count 271 MPV 9.8 Immature Gran % (Auto) 0.800 Neut % (Auto) 88.5 H Lymph % (Auto) 7.3 L [place] % (Auto) 3.3 Eos % (Auto) 0.0 Baso % (Auto) 0.1 Absolute Neuts (auto) 11.9 H Absolute Lymphs (auto) 0.99 Total Counted Not Reportable Specimen Type Sample Site pH Bicarbonate Actual POC Total CO2 Base Excess O2 Saturation O2 % ABG pCO2 ABG pO2 [place] Test Respiration Rate O2 Delivery Device EPAP IPAP Blood Gas Notified Whom Blood Gas Notified Time Sodium 142 Potassium 4.4 Chloride 108 H Carbon Dioxide 26.0 BUN 17 Creatinine 0.65 Estim Creat Clear Calc 34.30 Est GFR (MDRD) Af Amer 113 Est GFR (MDRD) Non-Af 93 BUN/Creatinine Ratio 26.3 H Glucose 195 H Calcium 8.4 L Phosphorus 2.7 B-Natriuretic Peptide Albumin 1.8 L Vancomycin Trough 16.4 H Microbiology 05/29/18 11:05 Blood Culture (Wb) #2 - Anticubital Left Blood Culture - Final No growth in 5 days. 05/29/18 10:30 Blood Culture (Wb) - Anticubital Right Blood Culture - Final No growth in 5 days. Medical Necessity - Tobacco Use Smoking Status: Never smoker Tobacco Use: Non-smoker Assessment/Plan All Active Problems (Last Reviewed 05/29/18 @ 14:01 by Tanner Talamantes MD) Acute bronchitis (Acute) Influenza A (Acute) DCCV for atrial flutter (Resolved) URI (upper respiratory infection) (Resolved) Thrush, oral (Resolved) Pneumonia (Resolved) MRSA (methicillin resistant staphylococcus aureus) pneumonia (Resolved) Acute respiratory failure with hypoxia (Resolved) RECOMMENDATIONS: 1. Continue vancomycin and Zosyn 2. Continue steroids, mucolytic and bronchodilators 3. Continue AVAPS with breaks as tolerated 4. Wean oxygen as tolerated 5. Hold IV fluids 6. Possible transfer out of the intensive care unit later today if FiO2 less than 6 L IMPRESSIONS: 1. Acute on chronic hypoxic respiratory failure secondary to influenza A with MRSA superinfection She was significant worsening in infiltrates over the course of the hospitalization. Clinical suspicion for superinfection with MRSA. Unclear for patient's recent decompensation. Patient may have had some thin liquids with aspiration. Patient appears to be improving from a clinical standpoint. We will continue to wean oxygen as tolerated. If patient is able to tolerate less than 6 L, likely okay to go to the PCU from my perspective. Do anticipate a protracted recovery given patient's poor baseline status. 2. 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 Patient has had multiple admissions secondary to aspiration pneumonia in the distant past. Patient should be continued on a modified diet (nectar thick). 3. History of paroxysmal A. fib Patient is currently on her baseline medications and tolerating well. Heart rate is well-controlled. Continue current therapy. 4. Diabetes mellitus/hypertension Patient currently on modified diet. Blood pressures have been trending up. Continue sliding scale insulin. Will need to watch blood sugars closely given concomitant steroid therapy 5. Anxiety disorder Patient is on Klonopin among other medications at home. Patient appears to be at baseline at this time. Code Visit Inpatient E&M: [id number] [facility] Hosp L3
--- NOTE | 2018-06-05 09:51 | CM.UR ---
Participated in interdisciplinary rounds this am. Therapy will continue to work with her. Diet is unchanged. [facility]. Haroon Rod RN, CCM.
[2018-06-05] MEDS: Amiodarone 200 MG Tablet 100 MG PO (09:59)
[2018-06-05] MEDS: guaiFENesin 1,200 MG Tablet 1200 MG PO ×2 (10:00→21:28)
[2018-06-05] MEDS: Rivaroxaban 15 MG Tablet PO (10:00)
[2018-06-05] MEDS: Losartan Potassium 25 MG Tablet PO (10:00)
[2018-06-05] MEDS: Pantoprazole Sodium 20 MG Tablet PO (10:00)
[2018-06-05] MEDS: Polyethylene Glycol 3350 17 GM PACKET PO (10:01)
[2018-06-05] MEDS: Fluticasone 0.05% 1 SPRAY NASAL.SRY NASAL (10:01)
[2018-06-05] MEDS: prednisoLONE eye drops (1 mL) 1 DROP OPTH.BTL 1 DRP OPHTHALMIC (10:02)
[2018-06-05] MEDS: NYSTATIN 500,000 UNIT/5 ML UDC 500000 UNIT PO ×4 (10:04→21:29)
[2018-06-05] MEDS: dilTIAZem CD 120 MG Capsule PO (12:16)
[2018-06-05] MEDS: 0.9% NaCl Peripheral Flush Adult/Peds IV ×2 (12:17→21:38)
[2018-06-05] MEDS: clonazePAM 0.5 MG Tablet PO ×2 (15:03→21:38)
[2018-06-05] MEDS: Albuterol 2.5 MG/3 ML VIAL.NEB. INHALATION (16:50)
[2018-06-05] MEDS: Temazepam 15 MG Capsule PO (21:28)
[2018-06-05] MEDS: Nortriptyline 25 MG Capsule 50 MG PO (21:28)
[2018-06-05] MEDS: HYDROcodone Bitartrate/Apap 5/325 Tablet PO (21:28)
[2018-06-05] MEDS: Montelukast 10 MG Tablet PO (21:28)
[2018-06-06] VITALS (35 sets, daily range): BP systolic 131–163; BP diastolic 57–80; PULSE 65–101; RESP 12–36; TEMP 36.7–37.1; O2SAT 88–97
[2018-06-06] MEDS: Vancomycin IV 1,000 MG/200 ML BAG 200 MG IV ×2 (01:25→10:34)
[2018-06-06] MEDS: 0.9% NaCl Peripheral Flush Adult/Peds IV ×3 (05:11→21:17)
[2018-06-06] MEDS: Ipratropium/Albuterol Sulfate 3 ML AMPUL.NEB INHALATION ×4 (06:59→19:20)
[2018-06-06] MEDS: Ondansetron 4 MG/2 ML Vial IV (07:00)
[2018-06-06 07:17] LABS: Anion Gap 7 (5-15); BUN 23 mg/dL (7-18); BUN/Creat Ratio 31.6 RATIO (10-20); Chloride 105 mmol/L (98-107); Creatinine, Serum 0.73 mg/dL (0.55-1.02); EST Glomerular Filtration Rate 82 mL/min (>60); Est Glom Filt Rate - Afr Amer 99 mL/min (>60); Glucose 215 mg/dL (74-106); Potassium 4.3 mmol/L (3.5-5.1); Sodium Level 140 mmol/L (136-145)
[2018-06-06 07:23] LABS: Absolute Lymphocyte Count 0.73 X10^3/ul (0.83-4.51); Absolute Neutrophil Count 18.4 X10^3/uL (2.0-7.7); Basophil# 0.01 X10^3/uL; Hematocrit 32.4 % (37-47); Hemoglobin 10.1 g/dl (12.0-15.0); Lymphocyte # 0.73 X10^3/ul (4.0); Lymphocyte % 3.6 % (19-41); Mean Corp Hgb Conc 31.2 g/gl (32-36); Mean Corpuscular Hgb 29.3 pg (27.0-32.0); Mean Corpuscular Volume 93.9 fL (81-99); Mean Platelet Vol. 9.7 fl (6.2-12.0); Monocyte# 0.84 X10^3/uL; Monocyte% 4.1 % (0-10); Neutrophil # 18.36 X10^3/uL (2.7-7.7); Neutrophil % 90.1 % (47-70); Platelet Count 358 K/mm3 (150-450); RBC Distribution Width CV 12.5 % (11.6-14.6); RBC Distribution Width SD 41.3 fl (35.1-43.9); Red Blood Count 3.45 M/mm3 (4.2-5.4); White Blood Count 20.4 K/mm3 (4.4-11.0)
[2018-06-06 07:24] LABS: POSITIVE COUNT YES; POSITIVE DIFFERENTIAL NO; POSITIVE MORPHOLOGY YES
--- NOTE | 2018-06-06 07:32 | PN_ITS ---
Subjective: Patient did okay overnight. Patient did wear BiPAP with sleep, but otherwise respiratory status has been doing well. Patient has been receiving significant pulmonary toileting, but productive cough is minimal per the patient. Patient had noted some nausea this morning, but no diarrhea or fever has been reported. General: Alert, Oriented x3, Cooperative, No apparent distress, Confused - At times per nursing, - - Very hard of hearing. HEENT: Atraumatic, PERRLA, EOMI, Normocephalic, - - No scleral icterus or injection noted. Oral: Moist Mucosa, No Gingival or Mucosal Lesions/ Ulcerations Neck: Supple, No JVD, No Nodes, Trachea Midline Lungs: No rhonchi, No rales, Diminished, Wheezes - Scattered Cardiovascular: Regular rate, Regular Rhythm, Normal S1, Normal S2, No murmurs, No rub noted, No Gallop Abdomen: Bowel Sounds Present, Soft, Non Tender, Non-Distended Extremities: No clubbing, No cyanosis, No edema, Capillary Refill Less than 3 Seconds Skin: No rashes, No breakdown Musculoskeletal: No Tenderness to Palpation of Joints or Extremities Lymphatic: No Cervical, Supraclavicular, or Inguinal Adenopathy Neurological: Cranial nerves II-XII grossly intact, Neuro grossly intact, Motor Exam 5/5 strength throughout Psych/Mental Status: Appropriate, Anxious Vital Signs Temp Pulse Resp BP Pulse Ox 36.7 C 74 24 H 158/74 H 93 06/06/18 04:00 06/06/18 06:00 06/06/18 06:00 06/06/18 06:00 06/06/18 06:00 Oxygen Flow Rate (L/min) 7 Oxygen Delivery Method Nasal Cannula Weight: 53.7 kg Body Mass Index (BMI) 23.8 Finger Stick Blood Glucose 133 Intake and Output for Last 24 Hours 06/04/18 06/05/18 06/06/18 23:59 23:59 23:59 Intake Total 2674 / 2674 1273.2 / 1273.2 393 / 393 Output Total 1570 / 1570 590 / 590 250 / 250 Balance 1104 / 1104 683.2 / 683.2 143 / 143 Labs (Last 48 Hours) 06/04/18 06/06/18 06/06/18 23:05 05:15 05:15 WBC 20.4 H RBC 3.45 L Hgb 10.1 L Hct 32.4 L MCV 93.9 MCH 29.3 MCHC 31.2 L RDW 12.5 RDW Differential 41.3 Plt Count 358 MPV 9.7 Immature Gran % (Auto) 2.200 H Neut % (Auto) 90.1 H Lymph % (Auto) 3.6 L [place] % (Auto) 4.1 Eos % (Auto) 0.0 Baso % (Auto) 0.0 Absolute Neuts (auto) 18.4 H Absolute Lymphs (auto) 0.73 L Total Counted Not Reportable Sodium 140 Potassium 4.3 Chloride 105 Carbon Dioxide 28.0 Anion Gap 7 BUN 23 H Creatinine 0.73 Estim Creat Clear Calc 34.30 Est GFR (MDRD) Af Amer 99 Est GFR (MDRD) Non-Af 82 BUN/Creatinine Ratio 31.6 H Glucose 215 H Calcium 9.0 Vancomycin Trough 16.4 H Microbiology 06/03/18 14:35 Blood Culture (Wb) - Anticubital Left Blood Culture - Preliminary No growth in 48 hours. 06/03/18 14:30 Blood Culture (Wb) - Anticubital Right Blood Culture - Preliminary No growth in 48 hours. Medical Necessity - Tobacco Use Smoking Status: Never smoker Tobacco Use: Non-smoker Assessment/Plan All Active Problems (Last Reviewed 05/29/18 @ 14:01 by Tanner Talamantes MD) Acute bronchitis (Acute) Influenza A (Acute) DCCV for atrial flutter (Resolved) URI (upper respiratory infection) (Resolved) Thrush, oral (Resolved) Pneumonia (Resolved) MRSA (methicillin resistant staphylococcus aureus) pneumonia (Resolved) Acute respiratory failure with hypoxia (Resolved) RECOMMENDATIONS: 1. Continue vancomycin and Zosyn to complete a 10-day course 2. Continue steroids, mucolytic and bronchodilators 3. Continue AVAPS with breaks as tolerated 4. Wean oxygen as tolerated 5. Possible transfer out of the intensive care unit later today if FiO2 less than 6 L IMPRESSIONS: 1. Acute on chronic hypoxic respiratory failure secondary to influenza A with MRSA superinfection She was significant worsening in infiltrates over the course of the hospitalization. Clinical suspicion for superinfection with MRSA following influenza A on presentation. Unclear for patient's recent decompensation. Patient may have had some thin liquids with aspiration. Patient appears to be improving from a clinical standpoint. We will continue to wean oxygen as tolerated. If patient is able to tolerate less than 6 L, likely okay to go to the PCU from my perspective. Do anticipate a protracted recovery given patient's poor baseline status. 2. 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 Patient has had multiple admissions secondary to aspiration pneumonia in the distant past. Patient should be continued on a modified diet (nectar thick). 3. History of paroxysmal A. fib Patient is currently on her baseline medications and tolerating well. Heart rate is well-controlled. Continue current therapy. Patient has had issues with A. fib with RVR during hospitalization. 4. Diabetes mellitus/hypertension Patient currently on modified diet. Blood pressures have been trending up. Continue sliding scale insulin. Will need to watch blood sugars closely given concomitant steroid therapy 5. Anxiety disorder Patient is on Klonopin among other medications at home. Patient appears to be at baseline at this time. Code Visit Inpatient E&M: [id number] [facility] Hosp L3
[2018-06-06] MEDS: Losartan Potassium 25 MG Tablet PO (08:38)
[2018-06-06] MEDS: dilTIAZem CD 120 MG Capsule PO (08:38)
[2018-06-06] MEDS: Amiodarone 200 MG Tablet 100 MG PO (08:38)
[2018-06-06] MEDS: Pantoprazole Sodium 20 MG Tablet PO (08:39)
[2018-06-06] MEDS: guaiFENesin 1,200 MG Tablet 1200 MG PO ×2 (08:39→21:10)
[2018-06-06] MEDS: Rivaroxaban 15 MG Tablet PO (08:39)
[2018-06-06] MEDS: Polyethylene Glycol 3350 17 GM PACKET PO (08:39)
[2018-06-06] MEDS: Fluticasone 0.05% 1 SPRAY NASAL.SRY NASAL (10:34)
[2018-06-06] MEDS: NYSTATIN 500,000 UNIT/5 ML UDC 500000 UNIT PO ×4 (10:34→21:10)
[2018-06-06] MEDS: prednisoLONE eye drops (1 mL) 1 DROP OPTH.BTL 1 DRP OPHTHALMIC (10:35)
[2018-06-06] MEDS: Glucerna Shake 120 ML LIQUID PO ×4 (10:35→21:11)
--- NOTE | 2018-06-06 14:19 | PCM.PN.HOSP ---
Patient Problems: Active and Suspected Problems (Last Reviewed 05/29/18 @ 14:01 by Tanner Talamantes MD) Acute bronchitis (Acute) Influenza A (Acute) Subjective: Patient was seen and examined. She feels the same. Difficult to get sputum out. She does not like the vest therapy. Denies fever or chills. Objective: Physical exam: General: Alert, Oriented x3, Cooperative, No apparent distress, - - On 8 L of oxygen HEENT: Atraumatic, PERRLA, EOMI, Normocephalic Oral: Dry Mucosa Neck: Supple Lungs: Clear to auscultation, Normal air movement Cardiovascular: Regular rate, Regular Rhythm, Normal S1, Normal S2, No murmurs, - - anterior chest wall discomfort Abdomen: Bowel Sounds Present, Soft, Non Tender, Non-Distended, No Hepato-splenomegaly Extremities: No edema Skin: No rashes, No breakdown Musculoskeletal: No Tenderness to Palpation of Joints or Extremities Lymphatic: No Cervical, Supraclavicular, or Inguinal Adenopathy Neurological: Cranial nerves II-XII grossly intact, Neuro grossly intact Psych/Mental Status: Normal Affect, Appropriate Vitals/I&O's: Vital Signs Temp Pulse Resp BP Pulse Ox 98.6 F 100 25 H 135/68 H 92 06/06/18 12:00 06/06/18 12:00 06/06/18 12:00 06/06/18 12:00 06/06/18 12:00 Oxygen Flow Rate (L/min) 10 Oxygen Delivery Method Nasal Cannula Weight: 53.7 kg Body Mass Index (BMI) 23.8 Finger Stick Blood Glucose 133 Intake and Output for Last 24 Hours 06/04/18 06/05/18 06/06/18 23:59 23:59 23:59 Intake Total 2674 / 2674 1273.2 / 1273.2 393 / 393 Output Total 1570 / 1570 590 / 590 250 / 250 Balance 1104 / 1104 683.2 / 683.2 143 / 143 Microbiology Past 72 Hours 06/03/18 14:35 Blood Culture (Wb) - Anticubital Left Blood Culture - Preliminary No growth in 48 hours. 06/03/18 14:30 Blood Culture (Wb) - Anticubital Right Blood Culture - Preliminary No growth in 48 hours. 05/29/18 11:05 Blood Culture (Wb) #2 - Anticubital Left Blood Culture - Final No growth in 5 days. 05/29/18 10:30 Blood Culture (Wb) - Anticubital Right Blood Culture - Final No growth in 5 days. Laboratory Results 06/06/18 05:15: WBC 20.4 H, RBC 3.45 L, Hgb 10.1 L, Hct 32.4 L, MCV 93.9, MCH 29.3, MCHC 31.2 L, RDW 12.5, RDW Differential 41.3, Plt Count 358, MPV 9.7, Immature Gran % (Auto) 2.200 H, Neut % (Auto) 90.1 H, Lymph % (Auto) 3.6 L, [place] % (Auto) 4.1, Eos % (Auto) 0.0, Baso % (Auto) 0.0, Absolute Neuts (auto) 18.4 H, Absolute Lymphs (auto) 0.73 L, Total Counted Not Reportable, Diff Path Review August06/06/18 05:15: Sodium 140, Potassium 4.3, Chloride 105, Carbon Dioxide 28.0, Anion Gap 7, BUN 23 H, Creatinine 0.73, Estim Creat Clear Calc 34.30, Est GFR (MDRD) Af Amer 99, Est GFR (MDRD) Non-Af 82, BUN/Creatinine Ratio 31.6 H, Glucose 215 H, Calcium 9.0 Current Medications Hydrocodone Bitart/Acetaminophen ([place] 5mg-325mg) 1 tablet PO QHS [facility] Last Admin: 06/05/18 21:28 Dose: 1 tablet Albuterol Sulfate (Ventolin Aerosols) 2.5 mg INHALATION Q4H PRN PRN Reason: pul fibrosis J84.10 & bronchiectasis J47.9 Last Admin: 06/05/18 16:50 Dose: 2.5 mg Albuterol/Ipratropium (Duoneb) 3 ml INHALATION Q4HWA.RT [facility] Last Admin: 06/06/18 11:11 Dose: 3 ml Amiodarone HCl (Cordarone) 100 mg PO DAILY [facility] Last Admin: 06/06/18 08:38 Dose: 100 mg Bisacodyl (Dulcolax) 10 mg RECTAL DAILY PRN PRN Reason: Constipation Clonazepam (Klonopin) 0.5 mg PO TID PRN PRN PRN Reason: ANXIETY Last Admin: 06/05/18 21:38 Dose: 0.5 mg Diltiazem HCl (Cardizem Cd) 120 mg PO DAILY [facility] Last Admin: 06/06/18 08:38 Dose: 120 mg Fluticasone Propionate (Flonase Nasal [place]) 1 spray NASAL DAILY [facility] Last Admin: 06/06/18 10:34 Dose: 1 spray Guaifenesin (Mucinex) 1,200 mg PO BID [facility] Last Admin: 06/06/18 08:39 Dose: 1,200 mg Vancomycin IV Pharmacy to Dose (1 ea/ Sodium Chloride) 500 mls @ 250 mls/hr IV X1 PRN; Protocol PRN Reason: Rx to Dose Vancomycin HCl (Vancomycin) 1,000 mg in 200 mls @ 200 mls/hr IV Q12H [facility] Last Admin: 06/06/18 10:34 Dose: 200 mls/hr Piperacillin Sod/Tazobactam (Sod 3.375 gm/ Sodium Chloride) 50 mls @ 12.5 mls/hr IV Q8 [facility] Last Admin: 06/06/18 05:11 Dose: 12.5 mls/hr Losartan Potassium (Cozaar) 25 mg PO DAILY [facility] Last Admin: 06/06/18 08:38 Dose: 25 mg Magnesium Hydroxide (Milk Of Magnesia) 30 ml PO DAILY PRN PRN PRN Reason: Constipation Methylprednisolone (Solu-Medrol) 40 mg IV Q12 [facility] Montelukast Sodium (Singulair) 10 mg PO QHS [facility] Last Admin: 06/05/18 21:28 Dose: 10 mg Nortriptyline HCl (Pamelor) 50 mg PO QHS [facility] Last Admin: 06/05/18 21:28 Dose: 50 mg Nutritional Formula (Lactose Free) (Glucerna Shake) 120 ml PO 4X/DAY [facility] Last Admin: 06/06/18 10:35 Dose: 120 ml Nystatin (Nystatin) 500,000 unit PO 4X/DAY [facility] Stop: 06/12/18 14:01 Last Admin: 06/06/18 10:34 Dose: 500,000 unit Ondansetron HCl (Zofran) 4 mg IV Q6H PRN PRN PRN Reason: NAUSEA/VOMITING Last Admin: 06/06/18 07:00 Dose: 4 mg Pantoprazole Sodium (Protonix) 20 mg PO DAILY [facility] Last Admin: 06/06/18 08:39 Dose: 20 mg Polyethylene Glycol (Miralax) 17 gm PO DAILY [facility] Last Admin: 06/06/18 08:39 Dose: 17 gm Potassium Chloride (K-Dur) 10 meq PO BIDCM [facility] Last Admin: 06/06/18 08:38 Dose: 10 meq Prednisolone Acetate (Pred Forte Eye Drops (1 Ml)) 1 drop OPHTHALMIC DAILY [facility] Last Admin: 06/06/18 10:35 Dose: 1 drop Rivaroxaban (Xarelto) 15 mg PO DAILY [facility] Last Admin: 06/06/18 08:39 Dose: 15 mg Senna/Docusate Sodium (Senokot-S, Juanita-Colace) 1 tablet PO DAILY PRN PRN PRN Reason: Constipation Sodium Chloride () 5 - 15 ml IV UD PRN PRN Reason: SALINE FLUSH Last Admin: 06/06/18 07:00 Dose: 10 ml Temazepam (Restoril) 15 mg PO QHS [facility] Last Admin: 06/05/18 21:28 Dose: 15 mg Medical Necessity - Tobacco Use Smoking Status: Never smoker Tobacco Use: Non-smoker Assessment/Plan All Active Problems (Last Reviewed 05/29/18 @ 14:01 by Tanner Talamantes MD) Acute bronchitis (Acute) Influenza A (Acute) DCCV for atrial flutter (Resolved) URI (upper respiratory infection) (Resolved) Thrush, oral (Resolved) Pneumonia (Resolved) MRSA (methicillin resistant staphylococcus aureus) pneumonia (Resolved) Acute respiratory failure with hypoxia (Resolved) 83-year-old female with multiple comorbidities admitted with progressive shortness of breath, cough, fever and chills and is being managed as acute bronchitis secondary to Acute influenza A. Over the course of her stay here, patient had complained of progressive shortness of breath and chest x-ray confirmed bilateral pneumonia. Sputum cultures positive for staph aureus. MRSA PCR positive. 1. Acute on chronic hypoxic respiratory failure secondary to progressive HCAP/MRSA pneumonia, Patient appears to have very minimal improvements, not much progress in her recovery. On nasal canula oxygen during the day and Bipap at night. Remains in ICU. Will continue to wean off for SPO2 more than 94%, continue on breathing treatments 2. Acute MRSA bilateral pneumonia - hospital-acquired versus natural sequelae of acute influenza On IV vancomycin(day 6) and Zosyn(day 3), repeat blood cultures are negative We will continue same antibiotics for now. 3. Possible acute COPD exacerbation, remains on IV Solu-Medrol, will leave it same as there is not much improvement 4. Oral thrush, on nystatin swish and swallow 5. Acute viral bronchitis secondary to Acute influenza A, completed Tamiflu. 6. Dysphagia- on mechanical soft diet, will be seen by speech therapist 7. Paroxysmal A. fib/flutter, in NSR now, on amiodarone, Cardizem, xarelto. 8. GERD on PPI 9. Hypertension, resumed on her home blood pressure medication, continue to monitor 10. Anxiety disorder- on Klonopin, Restoril 11. DVT prophylaxis -on Xarelto 12. GI ppx- PPI 13. Disposition: Patient will require SNF at discharge Code Visit Inpatient E&M: 87658 Subs Hosp L2
[2018-06-06] MEDS: clonazePAM 0.5 MG Tablet PO ×2 (14:37→21:10)
[2018-06-06] MEDS: Nortriptyline 25 MG Capsule 50 MG PO (21:10)
[2018-06-06] MEDS: HYDROcodone Bitartrate/Apap 5/325 Tablet PO (21:10)
[2018-06-06] MEDS: Temazepam 15 MG Capsule PO (21:10)
[2018-06-06] MEDS: Montelukast 10 MG Tablet PO (21:10)
[2018-06-06] MEDS: Mag Hydrox/Al Hydrox/Simeth 30 ML UDC PO (23:23)
--- NOTE | 2018-06-06 23:25 | NURSING ---
Pt. was given Mylanta for indigestion/burping and pt. requesting bipap be left off for awhile. Pt. on 12L hi flow O2.
[2018-06-07] VITALS (36 sets, daily range): BP systolic 114–171; BP diastolic 7–111; PULSE 78–914; RESP 12–41; TEMP 36.3–37.7; O2SAT 86–96
[2018-06-07] MEDS: Ipratropium/Albuterol Sulfate 3 ML AMPUL.NEB INHALATION ×4 (00:30→15:00)
[2018-06-07] MEDS: Vancomycin IV 1,000 MG/200 ML BAG 200 MG IV ×3 (00:50→23:35)
--- NOTE | 2018-06-07 00:57 | CPS ---
increased Fio2 to 50%
[2018-06-07] MEDS: Ondansetron 4 MG/2 ML Vial IV (01:39)
[2018-06-07] MEDS: 0.9% NaCl Peripheral Flush Adult/Peds IV ×3 (01:39→10:10)
[2018-06-07 04:31] LABS: Hematocrit 31.9 % (37-47); Hemoglobin 10.3 g/dl (12.0-15.0); Mean Corp Hgb Conc 32.3 g/gl (32-36); Mean Corpuscular Hgb 29.9 pg (27.0-32.0); Mean Corpuscular Volume 92.5 fL (81-99); Mean Platelet Vol. 9.2 fl (6.2-12.0); Platelet Count 316 K/mm3 (150-450); RBC Distribution Width CV 12.9 % (11.6-14.6); RBC Distribution Width SD 43.6 fl (35.1-43.9); Red Blood Count 3.45 M/mm3 (4.2-5.4); White Blood Count 26.2 K/mm3 (4.4-11.0)
[2018-06-07 04:34] LABS: Differential Indicated MANUAL DIFF; POSITIVE COUNT YES; POSITIVE DIFFERENTIAL YES; POSITIVE MORPHOLOGY YES
[2018-06-07 04:51] LABS: Anion Gap 8 (5-15); BUN 21 mg/dL (7-18); BUN/Creat Ratio 27.2 RATIO (10-20); Calcium,Total 8.5 mg/dL (8.5-10.1); Chloride 102 mmol/L (98-107); Creatinine, Serum 0.77 mg/dL (0.55-1.02); EST Glomerular Filtration Rate 76 mL/min (>60); Est Glom Filt Rate - Afr Amer 92 mL/min (>60); Glucose 237 mg/dL (74-106); Potassium 4.7 mmol/L (3.5-5.1); Sodium Level 141 mmol/L (136-145)
--- NOTE | 2018-06-07 06:31 | RAD_ITS ---
STUDY: X-RAY CHEST REASON FOR EXAM: Female, 83 years old. Shortness of breath/dyspnea. TECHNIQUE: Single AP portable view of the chest. COMPARISON: Comparison is made with prior examination dated June 03, 2018. FINDINGS: EKG electrodes are seen. Stable dense infiltration in the right upper lobe. Mild improved aeration of the right lung base. Stable left pulmonary infiltrates. Blunting of left costophrenic angle. Normal size heart. Normal mediastinum and mariza. Normal visualized pulmonary arteries. There is atherosclerotic calcification of the aortic arch with tortuosity. There are diffuse degenerative changes of the visualized thoracic spine. Normal visualized ribs, clavicles, and shoulders. There is no demonstrated abnormality of the visualized soft tissue structures of the upper abdomen. RAD/Chest 1 View (Portable) IMPRESSION: Improved aeration of the right lung base. Otherwise, there has been essentially no change. Electronically Signed: Roger Mijares MD at 12:26 EST , Service support ,
[2018-06-07 06:33] LABS: Lymphocyte 7 % (19-41); Monocyte 4 % (0-10); Neutrophil-Band 3 % (0-5); Neutrophil-Segmented 86 % (47-70); Total Cells Counted 100 (MANUAL DIFF)
[2018-06-07 06:34] LABS: Anisocytosis 1+; Basophilic Stippling RARE; Hypochromasia RARE; Platelet Estimate ADEQUATE (ADEQ); Polychromasia RARE
[2018-06-07 06:35] LABS: Microcytosis 1+; Platelet Morphology LARGE
[2018-06-07 06:36] LABS: Absolute Lymphocyte Count 1.83 X10^3/ul (0.83-4.51); Absolute Neutrophil Count 23.3 X10^3/uL (2.0-7.7)
--- NOTE | 2018-06-07 06:55 | PCM.PN.INT ---
Subjective: The patient was seen and examined at the bedside this morning. Events from the last 24 hours have been reviewed. The patient is currently afebrile, hemodynamically stable and maintaining appropriate oxygen saturations on AVAPS with an FiO2 requirement of 55%. The patient is currently overall net +6.8 L for the admission. Patient's white blood cell count has increased to 26,000 this morning. The patient has been resistant to the idea of using BiPAP at times. Nevertheless, she appears to have decompensated over the last 24 hours. Her BNP is elevated this morning as well. In addition, over concerns for potential aspiration, she has been made n.p.o., with plans for modified barium swallow. Objective: The patient's most recent lab work, culture data and imaging studies have all been personally reviewed. Respiratory viral panel was positive for influenza A. Sputum culture was positive for methicillin-resistant staph aureus. Blood cultures have not shown any growth to date. Surface echocardiogram dated August 2015 revealed normal LV size and ejection fraction. There was moderate focal aortic valve calcification along with a right ventricular systolic pressure estimated to be 32 mmHg. General: Alert, Cooperative HEENT: Atraumatic, PERRLA, Normocephalic Oral: No Gingival or Mucosal Lesions/ Ulcerations, Dry Mucosa Neck: Supple, No Nodes, Trachea Midline Lungs: Diminished, Wheezes Cardiovascular: Normal S1, Normal S2, No murmurs, Irregular Rate, Tachycardic Abdomen: Bowel Sounds Present, Soft, Non Tender Extremities: No clubbing, No cyanosis, No edema Skin: No breakdown Musculoskeletal: No Tenderness to Palpation of Joints or Extremities Lymphatic: No Cervical, Supraclavicular, or Inguinal Adenopathy Neurological: Cranial nerves II-XII grossly intact, Neuro grossly intact Psych/Mental Status: Anxious Vital Signs Temp Pulse Resp BP Pulse Ox 36.9 C 90 28 H 141/66 H 93 06/07/18 04:00 06/07/18 06:29 06/07/18 06:29 06/07/18 06:00 06/07/18 06:29 Oxygen Flow Rate (L/min) 12 Oxygen Delivery Method Bi-pap Weight: 121 lb 14.65 oz Body Mass Index (BMI) 23.8 Finger Stick Blood Glucose 133 Intake and Output for Last 24 Hours 06/05/18 06/06/18 06/07/18 23:59 23:59 23:59 Intake Total 1273.2 / 1273.2 1399.4 / 1399.4 338 / 338 Output Total 590 / 590 1120 / 1120 250 / 250 Balance 683.2 / 683.2 279.4 / 279.4 88 / 88 Labs (Last 48 Hours) 06/06/18 06/06/18 06/07/18 05:15 05:15 04:10 WBC 20.4 H 26.2 H RBC 3.45 L 3.45 L Hgb 10.1 L 10.3 L Hct 32.4 L 31.9 L MCV 93.9 92.5 MCH 29.3 29.9 MCHC 31.2 L 32.3 RDW 12.5 12.9 RDW Differential 41.3 43.6 Plt Count 358 316 MPV 9.7 9.2 Immature Gran % (Auto) 2.200 H Neut % (Auto) 90.1 H Not Reportable Lymph % (Auto) 3.6 L [place] % (Auto) 4.1 Eos % (Auto) 0.0 Baso % (Auto) 0.0 Absolute Neuts (auto) 18.4 H 23.3 H Absolute Lymphs (auto) 0.73 L 1.83 Total Counted Not Reportable 100 Neutrophils % (Manual) 86 H Band Neutrophils % 3 Lymphocytes % (Manual) 7 L Monocytes % (Manual) 4 Diff Path Review May foll May foll Platelet Estimate ADEQUATE Plt Morphology Comment LARGE Polychromasia RARE Hypochromasia RARE Basophilic Stippling RARE Anisocytosis 1+ Microcytosis 1+ Sodium 140 Potassium 4.3 Chloride 105 Carbon Dioxide 28.0 Anion Gap 7 BUN 23 H Creatinine 0.73 Estim Creat Clear Calc 34.30 Est GFR (MDRD) Af Amer 99 Est GFR (MDRD) Non-Af 82 BUN/Creatinine Ratio 31.6 H Glucose 215 H Calcium 9.0 06/07/18 04:10 WBC RBC Hgb Hct MCV MCH MCHC RDW RDW Differential Plt Count MPV Immature Gran % (Auto) Neut % (Auto) Lymph % (Auto) [place] % (Auto) Eos % (Auto) Baso % (Auto) Absolute Neuts (auto) Absolute Lymphs (auto) Total Counted Neutrophils % (Manual) Band Neutrophils % Lymphocytes % (Manual) Monocytes % (Manual) Diff Path Review Platelet Estimate Plt Morphology Comment Polychromasia Hypochromasia Basophilic Stippling Anisocytosis Microcytosis Sodium 141 Potassium 4.7 Chloride 102 Carbon Dioxide 31.0 Anion Gap 8 BUN 21 H Creatinine 0.77 Estim Creat Clear Calc 34.30 Est GFR (MDRD) Af Amer 92 Est GFR (MDRD) Non-Af 76 BUN/Creatinine Ratio 27.2 H Glucose 237 H Calcium 8.5 Microbiology 06/03/18 14:35 Blood Culture (Wb) - Anticubital Left Blood Culture - Preliminary No growth in 48 hours. 06/03/18 14:30 Blood Culture (Wb) - Anticubital Right Blood Culture - Preliminary No growth in 48 hours. Clinical Impression(s) from Imaging Studies Chest X-Ray 05/29/18 10:40 IMPRESSION: No acute cardiopulmonary disease Electronically Signed: Dvae Parker DO at 12:21 EST Tel , Service support , Chest X-Ray 06/01/18 04:30 IMPRESSION: Bilateral pneumonia. Electronically Signed: Gloria Parish MD at 5:21 EST Tel , Service support , Chest X-Ray 06/03/18 09:39 IMPRESSION: Progressive infiltrates in the right upper lobe and left upper lobe. Improved aeration of the left lung base. Electronically Signed: Roger Mijares MD at 10:43 EST , Service support , Medical Necessity - Tobacco Use Smoking Status: Never smoker Tobacco Use: Non-smoker Assessment/Plan All Active Problems (Last Reviewed 05/29/18 @ 14:01 by Tanner Talamantes MD) Acute bronchitis (Acute) Influenza A (Acute) DCCV for atrial flutter (Resolved) URI (upper respiratory infection) (Resolved) Thrush, oral (Resolved) Pneumonia (Resolved) MRSA (methicillin resistant staphylococcus aureus) pneumonia (Resolved) Acute respiratory failure with hypoxia (Resolved) RECOMMENDATIONS: 1. Continue the use of noninvasive positive pressure ventilation as tolerated. 2. Start daily IV Lasix as ordered. 3. Patient made n.p.o. for now. Recommend modified barium swallow. 4. Continue aerosol treatments as ordered. 5. Transition from IV steroids to prednisone beginning today. 6. Continue antibiotics as ordered. IMPRESSIONS: 1. Acute on chronic hypoxemic respiratory failure secondary to influenza A with MRSA superinfection Although initially improving on therapy, the patient appears to have decompensated overnight with worsening oxygenation. Her plain film chest x-ray also appears somewhat worse than previous. Given that her BNP is also elevated and she is net positive for the admission, IV diuretics will be started today. Over concerns for potential silent aspiration, the patient has been made n.p.o. with plans to proceed with a modified barium swallow. She will be continued on her current antibiotic course as ordered. 2. 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 pending further evaluation with modified barium swallow. 3. History of paroxysmal atrial fibrillation Continue current medical management and systemic anticoagulation with Xarelto. 4. Diabetes mellitus/hypertension/generalized anxiety disorder Complicates care, management, recovery and prognosis. Continue home medications as indicated. This note was generated with [employer] dictation software. It may contain incorrect words, spelling, and punctuation that were not noted in checking the note before signing. Code Visit Inpatient E&M: [id number] [facility] Hosp L3
--- NOTE | 2018-06-07 06:59 | PN_ITS ---
Subjective: The patient was seen and examined at the bedside this morning. Events from the last 24 hours have been reviewed. The patient is currently afebrile, hemodynamically stable and maintaining appropriate oxygen saturations on AVAPS with an FiO2 requirement of 55%. The patient is currently overall net +6.8 L for the admission. Patient's white blood cell count has increased to 26,000 this morning. The patient has been resistant to the idea of using BiPAP at times. Nevertheless, she appears to have decompensated over the last 24 hours. Her BNP is elevated this morning as well. In addition, over concerns for potential aspiration, she has been made n.p.o., with plans for modified barium swallow. Objective: The patient's most recent lab work, culture data and imaging studies have all been personally reviewed. Respiratory viral panel was positive for influenza A. Sputum culture was positive for methicillin-resistant staph aureus. Blood cultures have not shown any growth to date. Surface echocardiogram dated August 2015 revealed normal LV size and ejection fraction. There was moderate focal aortic valve calcification along with a right ventricular systolic pressure estimated to be 32 mmHg. General: Alert, Cooperative HEENT: Atraumatic, PERRLA, Normocephalic Oral: No Gingival or Mucosal Lesions/ Ulcerations, Dry Mucosa Neck: Supple, No Nodes, Trachea Midline Lungs: Diminished, Wheezes Cardiovascular: Normal S1, Normal S2, No murmurs, Irregular Rate, Tachycardic Abdomen: Bowel Sounds Present, Soft, Non Tender Extremities: No clubbing, No cyanosis, No edema Skin: No breakdown Musculoskeletal: No Tenderness to Palpation of Joints or Extremities Lymphatic: No Cervical, Supraclavicular, or Inguinal Adenopathy Neurological: Cranial nerves II-XII grossly intact, Neuro grossly intact Psych/Mental Status: Anxious Vital Signs Temp Pulse Resp BP Pulse Ox 36.9 C 90 28 H 141/66 H 93 06/07/18 04:00 06/07/18 06:29 06/07/18 06:29 06/07/18 06:00 06/07/18 06:29 Oxygen Flow Rate (L/min) 12 Oxygen Delivery Method Bi-pap Weight: 121 lb 14.65 oz Body Mass Index (BMI) 23.8 Finger Stick Blood Glucose 133 Intake and Output for Last 24 Hours 06/05/18 06/06/18 06/07/18 23:59 23:59 23:59 Intake Total 1273.2 / 1273.2 1399.4 / 1399.4 338 / 338 Output Total 590 / 590 1120 / 1120 250 / 250 Balance 683.2 / 683.2 279.4 / 279.4 88 / 88 Labs (Last 48 Hours) 06/06/18 06/06/18 06/07/18 05:15 05:15 04:10 WBC 20.4 H 26.2 H RBC 3.45 L 3.45 L Hgb 10.1 L 10.3 L Hct 32.4 L 31.9 L MCV 93.9 92.5 MCH 29.3 29.9 MCHC 31.2 L 32.3 RDW 12.5 12.9 RDW Differential 41.3 43.6 Plt Count 358 316 MPV 9.7 9.2 Immature Gran % (Auto) 2.200 H Neut % (Auto) 90.1 H Not Reportable Lymph % (Auto) 3.6 L [place] % (Auto) 4.1 Eos % (Auto) 0.0 Baso % (Auto) 0.0 Absolute Neuts (auto) 18.4 H 23.3 H Absolute Lymphs (auto) 0.73 L 1.83 Total Counted Not Reportable 100 Neutrophils % (Manual) 86 H Band Neutrophils % 3 Lymphocytes % (Manual) 7 L Monocytes % (Manual) 4 Diff Path Review May foll May foll Platelet Estimate ADEQUATE Plt Morphology Comment LARGE Polychromasia RARE Hypochromasia RARE Basophilic Stippling RARE Anisocytosis 1+ Microcytosis 1+ Sodium 140 Potassium 4.3 Chloride 105 Carbon Dioxide 28.0 Anion Gap 7 BUN 23 H Creatinine 0.73 Estim Creat Clear Calc 34.30 Est GFR (MDRD) Af Amer 99 Est GFR (MDRD) Non-Af 82 BUN/Creatinine Ratio 31.6 H Glucose 215 H Calcium 9.0 06/07/18 04:10 WBC RBC Hgb Hct MCV MCH MCHC RDW RDW Differential Plt Count MPV Immature Gran % (Auto) Neut % (Auto) Lymph % (Auto) [place] % (Auto) Eos % (Auto) Baso % (Auto) Absolute Neuts (auto) Absolute Lymphs (auto) Total Counted Neutrophils % (Manual) Band Neutrophils % Lymphocytes % (Manual) Monocytes % (Manual) Diff Path Review Platelet Estimate Plt Morphology Comment Polychromasia Hypochromasia Basophilic Stippling Anisocytosis Microcytosis Sodium 141 Potassium 4.7 Chloride 102 Carbon Dioxide 31.0 Anion Gap 8 BUN 21 H Creatinine 0.77 Estim Creat Clear Calc 34.30 Est GFR (MDRD) Af Amer 92 Est GFR (MDRD) Non-Af 76 BUN/Creatinine Ratio 27.2 H Glucose 237 H Calcium 8.5 Microbiology 06/03/18 14:35 Blood Culture (Wb) - Anticubital Left Blood Culture - Preliminary No growth in 48 hours. 06/03/18 14:30 Blood Culture (Wb) - Anticubital Right Blood Culture - Preliminary No growth in 48 hours. Clinical Impression(s) from Imaging Studies Chest X-Ray 05/29/18 10:40 IMPRESSION: No acute cardiopulmonary disease Electronically Signed: aDve Parker DO at 12:21 EST Tel , Service support , Chest X-Ray 06/01/18 04:30 IMPRESSION: Bilateral pneumonia. Electronically Signed: Gloria Parish MD at 5:21 EST Tel , Service support , Chest X-Ray 06/03/18 09:39 IMPRESSION: Progressive infiltrates in the right upper lobe and left upper lobe. Improved aeration of the left lung base. Electronically Signed: Roger Mijares MD at 10:43 EST , Service support , Medical Necessity - Tobacco Use Smoking Status: Never smoker Tobacco Use: Non-smoker Assessment/Plan All Active Problems (Last Reviewed 05/29/18 @ 14:01 by Tanner Talamantes MD) Acute bronchitis (Acute) Influenza A (Acute) DCCV for atrial flutter (Resolved) URI (upper respiratory infection) (Resolved) Thrush, oral (Resolved) Pneumonia (Resolved) MRSA (methicillin resistant staphylococcus aureus) pneumonia (Resolved) Acute respiratory failure with hypoxia (Resolved) RECOMMENDATIONS: 1. Continue the use of noninvasive positive pressure ventilation as tolerated. 2. Start daily IV Lasix as ordered. 3. Patient made n.p.o. for now. Recommend modified barium swallow. 4. Continue aerosol treatments as ordered. 5. Transition from IV steroids to prednisone beginning today. 6. Continue antibiotics as ordered. IMPRESSIONS: 1. Acute on chronic hypoxemic respiratory failure secondary to influenza A with MRSA superinfection Although initially improving on therapy, the patient appears to have decompensated overnight with worsening oxygenation. Her plain film chest x-ray also appears somewhat worse than previous. Given that her BNP is also elevated and she is net positive for the admission, IV diuretics will be started today. Over concerns for potential silent aspiration, the patient has been made n.p.o. with plans to proceed with a modified barium swallow. She will be continued on her current antibiotic course as ordered. 2. 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 pending further evaluation with modified barium swallow. 3. History of paroxysmal atrial fibrillation Continue current medical management and systemic anticoagulation with Xarelto. 4. Diabetes mellitus/hypertension/generalized anxiety disorder Complicates care, management, recovery and prognosis. Continue home medications as indicated. This note was generated with [employer] dictation software. It may contain incorrect words, spelling, and punctuation that were not noted in checking the note before signing. Code Visit Inpatient E&M: 13589 [facility] Hosp L3
--- NOTE | 2018-06-07 07:47 | PCM.PN.HOSP ---
Patient Problems: Active and Suspected Problems (Last Reviewed 05/29/18 @ 14:01 by Tanner Talamantes MD) Acute bronchitis (Acute) Influenza A (Acute) Subjective: Patient is an 83-year-old lady with multiple comorbidities presenting with progressive shortness of breath and persistent cough in addition to subjective fever and chills. An assessment of acute bronchitis made admitted to regular nursing floor for further management and condition deteriorated resulting in patient being moved from the regular nursing floor to ICU. Patient was managed with noninvasive ventilation BiPAP. Subsequent sputum cultures came back positive for MRSA Objective: GENERAL: Ill-looking HEENT: Atraumatic; moist oral mucosa EYES; Anicteric, Normal Conjunctiva NECK; supple, normal thyroid, no distended JVD. RESPIRATORY: Diminished to auscultation bilaterally, CARDIOVASCULAR: Regular S1 S2, GI: soft, non-tender, normoactive bowel sounds, : No Renal angle tenderness; EXTREMITIES: trace edema, no clubbing, MUSCULOSKELETAL: No Joint Tenderness; NEURO: Awake; no lateralizing signs. SKIN: No Rash PSYCH; Normal affect Vitals/I&O's: Vital Signs Temp Pulse Resp BP Pulse Ox 98.4 F 90 28 H 141/66 H 93 06/07/18 04:00 06/07/18 06:29 06/07/18 06:29 06/07/18 06:00 06/07/18 06:29 Oxygen Flow Rate (L/min) 12 Oxygen Delivery Method Bi-pap Weight: 55.3 kg Body Mass Index (BMI) 23.8 Finger Stick Blood Glucose 133 Intake and Output for Last 24 Hours 06/05/18 06/06/18 06/07/18 23:59 23:59 23:59 Intake Total 1273.2 / 1273.2 1399.4 / 1399.4 338 / 338 Output Total 590 / 590 1120 / 1120 250 / 250 Balance 683.2 / 683.2 279.4 / 279.4 88 / 88 Microbiology Past 72 Hours 06/03/18 14:35 Blood Culture (Wb) - Anticubital Left Blood Culture - Preliminary No growth in 48 hours. 06/03/18 14:30 Blood Culture (Wb) - Anticubital Right Blood Culture - Preliminary No growth in 48 hours. Laboratory Results 06/06/18 05:15: Diff Path Review August06/07/18 04:10: WBC 26.2 H, RBC 3.45 L, Hgb 10.3 L, Hct 31.9 L, MCV 92.5, MCH 29.9, MCHC 32.3, RDW 12.9, RDW Differential 43.6, Plt Count 316, MPV 9.2, Neut % (Auto) Not Reportable, Absolute Neuts (auto) 23.3 H, Absolute Lymphs (auto) 1.83, Total Counted 100, Neutrophils % (Manual) 86 H, Band Neutrophils % 3, Lymphocytes % (Manual) 7 L, Monocytes % (Manual) 4, Diff Path Review May foll, Platelet Estimate ADEQUATE, Plt Morphology Comment LARGE, Polychromasia RARE, Hypochromasia RARE, Basophilic Stippling RARE, Anisocytosis 1+, Microcytosis 1+ 06/07/18 04:10: Sodium 141, Potassium 4.7, Chloride 102, Carbon Dioxide 31.0, Anion Gap 8, BUN 21 H, Creatinine 0.77, Estim Creat Clear Calc 34.30, Est GFR (MDRD) Af Amer 92, Est GFR (MDRD) Non-Af 76, BUN/Creatinine Ratio 27.2 H, Glucose 237 H, Calcium 8.5 Current Medications Hydrocodone Bitart/Acetaminophen ([place] 5mg-325mg) 1 tablet PO QHS [facility] Last Admin: 06/06/18 21:10 Dose: 1 tablet Al Hydroxide/Mg Hydroxide (Mylanta Ii) 30 ml PO Q6H PRN PRN PRN Reason: INDIGESTION Last Admin: 06/06/18 23:23 Dose: 30 ml Albuterol Sulfate (Ventolin Aerosols) 2.5 mg INHALATION Q4H PRN PRN Reason: pul fibrosis J84.10 & bronchiectasis J47.9 Last Admin: 06/05/18 16:50 Dose: 2.5 mg Albuterol/Ipratropium (Duoneb) 3 ml INHALATION Q4HWA.RT [facility] Last Admin: 06/07/18 06:29 Dose: 3 ml Amiodarone HCl (Cordarone) 100 mg PO DAILY [facility] Last Admin: 06/06/18 08:38 Dose: 100 mg Bisacodyl (Dulcolax) 10 mg RECTAL DAILY PRN PRN Reason: Constipation Clonazepam (Klonopin) 0.5 mg PO TID PRN PRN PRN Reason: ANXIETY Last Admin: 06/06/18 21:10 Dose: 0.5 mg Diltiazem HCl (Cardizem Cd) 120 mg PO DAILY [facility] Last Admin: 06/06/18 08:38 Dose: 120 mg Fluticasone Propionate (Flonase Nasal [place]) 1 spray NASAL DAILY [facility] Last Admin: 06/06/18 10:34 Dose: 1 spray Guaifenesin (Mucinex) 1,200 mg PO BID [facility] Last Admin: 06/06/18 21:10 Dose: 1,200 mg Vancomycin IV Pharmacy to Dose (1 ea/ Sodium Chloride) 500 mls @ 250 mls/hr IV X1 PRN; Protocol PRN Reason: Rx to Dose Vancomycin HCl (Vancomycin) 1,000 mg in 200 mls @ 200 mls/hr IV Q12H [facility] Last Admin: 06/07/18 00:50 Dose: 200 mls/hr Piperacillin Sod/Tazobactam (Sod 3.375 gm/ Sodium Chloride) 50 mls @ 12.5 mls/hr IV Q8 [facility] Last Admin: 06/07/18 05:57 Dose: 12.5 mls/hr Losartan Potassium (Cozaar) 25 mg PO DAILY [facility] Last Admin: 06/06/18 08:38 Dose: 25 mg Magnesium Hydroxide (Milk Of Magnesia) 30 ml PO DAILY PRN PRN PRN Reason: Constipation Methylprednisolone (Solu-Medrol) 40 mg IV Q12 [facility] Last Admin: 06/06/18 21:10 Dose: 40 mg Montelukast Sodium (Singulair) 10 mg PO QHS [facility] Last Admin: 06/06/18 21:10 Dose: 10 mg Nortriptyline HCl (Pamelor) 50 mg PO QHS [facility] Last Admin: 06/06/18 21:10 Dose: 50 mg Nutritional Formula (Lactose Free) (Glucerna Shake) 120 ml PO 4X/DAY [facility] Last Admin: 06/06/18 21:11 Dose: 120 ml Nystatin (Nystatin) 500,000 unit PO 4X/DAY [facility] Stop: 06/12/18 14:01 Last Admin: 06/06/18 21:10 Dose: 500,000 unit Ondansetron HCl (Zofran) 4 mg IV Q6H PRN PRN PRN Reason: NAUSEA/VOMITING Last Admin: 06/07/18 01:39 Dose: 4 mg Pantoprazole Sodium (Protonix) 20 mg PO DAILY [facility] Last Admin: 06/06/18 08:39 Dose: 20 mg Polyethylene Glycol (Miralax) 17 gm PO DAILY [facility] Last Admin: 06/06/18 08:39 Dose: 17 gm Potassium Chloride (K-Dur) 10 meq PO BIDCM [facility] Last Admin: 06/06/18 14:37 Dose: 10 meq Prednisolone Acetate (Pred Forte Eye Drops (1 Ml)) 1 drop OPHTHALMIC DAILY [facility] Last Admin: 06/06/18 10:35 Dose: 1 drop Rivaroxaban (Xarelto) 15 mg PO DAILY [facility] Last Admin: 06/06/18 08:39 Dose: 15 mg Senna/Docusate Sodium (Senokot-S, Juanita-Colace) 1 tablet PO DAILY PRN PRN PRN Reason: Constipation Sodium Chloride () 5 - 15 ml IV UD PRN PRN Reason: SALINE FLUSH Last Admin: 06/07/18 05:57 Dose: 10 ml Temazepam (Restoril) 15 mg PO QHS [facility] Last Admin: 06/06/18 21:10 Dose: 15 mg Medical Necessity - Tobacco Use Smoking Status: Never smoker Tobacco Use: Non-smoker Assessment/Plan All Active Problems (Last Reviewed 05/29/18 @ 14:01 by Tanner Talamantes MD) Acute bronchitis (Acute) Influenza A (Acute) DCCV for atrial flutter (Resolved) URI (upper respiratory infection) (Resolved) Thrush, oral (Resolved) Pneumonia (Resolved) MRSA (methicillin resistant staphylococcus aureus) pneumonia (Resolved) Acute respiratory failure with hypoxia (Resolved) Patient is an 83-year-old lady with multiple comorbidities presenting with progressive shortness of breath and persistent cough in addition to subjective fever and chills. An assessment of acute bronchitis made admitted to regular nursing floor for further management and condition deteriorated resulting in patient being moved from the regular nursing floor to ICU. Patient was managed with noninvasive ventilation BiPAP. Subsequent sputum cultures came back positive for MRSA 1. Acute hypoxic respiratory failure secondary to acute influenza A infection complicated by MRSA pneumonia. Patient transferred from a regular nursing floor to the intensive care unit managed on noninvasive ventilation BiPAP which has since been weaned off to high flow oxygen patient did complete a 5-day treatment with Tamiflu currently remains on Zosyn and vancomycin 2. Chronic hypoxic respiratory failure secondary to combination of COPD and bronchiectasis patient is followed by pulmonary medicine as outpatient patient is on baseline home O2 3. Dysphagia patient is on mechanical soft diet 4. Paroxysmal A. fib/flutter patient is on amiodarone and Cardizem. Also on systemic anticoagulation with xarelto. 5. GERD; on PPI 6. Hypertension blood pressure stable did continue with home meds 7. Anxiety disorder patient is on Klonopin at home 8. History of left-sided hemiplegia following cervical cyst removal requested for PT OT as tolerated 9. DVT prophylaxis patient will Xarelto no need for additional measures 10. Physical deconditioning: PT OT as tolerated with plans for patient to be discharged to a fdc facility when medically stable Microbiology 06/03/18 14:35 Blood Culture (Wb) - Anticubital Left Blood Culture - Preliminary No growth in 48 hours. 06/03/18 14:30 Blood Culture (Wb) - Anticubital Right Blood Culture - Preliminary No growth in 48 hours. 05/29/18 11:05 Blood Culture (Wb) #2 - Anticubital Left Blood Culture - Final No growth in 5 days. 05/29/18 10:30 Blood Culture (Wb) - Anticubital Right Blood Culture - Final No growth in 5 days. 05/30/18 06:30 Sputum, Expectorated/Coughed Gram Stain - Final 05/30/18 06:30 Sputum, Expectorated/Coughed Respiratory Culture - Final Meth. resistant Staph. aureus Presumptive C albicans 05/29/18 11:02 Mucosa - Nasopharyngeal Respiratory Panel (PCR) - Final Influenza A (Subtype H3) Active Medications Hydrocodone Bitart/Acetaminophen ([place] 5mg-325mg) 1 tablet PO QHS [facility] Last Admin: 06/06/18 21:10 Dose: 1 tablet Al Hydroxide/Mg Hydroxide (Mylanta Ii) 30 ml PO Q6H PRN PRN PRN Reason: INDIGESTION Last Admin: 06/06/18 23:23 Dose: 30 ml Albuterol Sulfate (Ventolin Aerosols) 2.5 mg INHALATION Q4H PRN PRN Reason: pul fibrosis J84.10 & bronchiectasis J47.9 Last Admin: 06/05/18 16:50 Dose: 2.5 mg Albuterol/Ipratropium (Duoneb) 3 ml INHALATION Q4HWA.RT [facility] Last Admin: 06/07/18 06:29 Dose: 3 ml Amiodarone HCl (Cordarone) 100 mg PO DAILY [facility] Last Admin: 06/06/18 08:38 Dose: 100 mg Bisacodyl (Dulcolax) 10 mg RECTAL DAILY PRN PRN Reason: Constipation Clonazepam (Klonopin) 0.5 mg PO TID PRN PRN PRN Reason: ANXIETY Last Admin: 06/06/18 21:10 Dose: 0.5 mg Diltiazem HCl (Cardizem Cd) 120 mg PO DAILY [facility] Last Admin: 06/06/18 08:38 Dose: 120 mg Fluticasone Propionate (Flonase Nasal [place]) 1 spray NASAL DAILY [facility] Last Admin: 06/06/18 10:34 Dose: 1 spray Guaifenesin (Mucinex) 1,200 mg PO BID [facility] Last Admin: 06/06/18 21:10 Dose: 1,200 mg Vancomycin IV Pharmacy to Dose (1 ea/ Sodium Chloride) 500 mls @ 250 mls/hr IV X1 PRN; Protocol PRN Reason: Rx to Dose Vancomycin HCl (Vancomycin) 1,000 mg in 200 mls @ 200 mls/hr IV Q12H [facility] Last Admin: 06/07/18 00:50 Dose: 200 mls/hr Piperacillin Sod/Tazobactam (Sod 3.375 gm/ Sodium Chloride) 50 mls @ 12.5 mls/hr IV Q8 [facility] Last Admin: 06/07/18 05:57 Dose: 12.5 mls/hr Losartan Potassium (Cozaar) 25 mg PO DAILY [facility] Last Admin: 06/06/18 08:38 Dose: 25 mg Magnesium Hydroxide (Milk Of Magnesia) 30 ml PO DAILY PRN PRN PRN Reason: Constipation Methylprednisolone (Solu-Medrol) 40 mg IV Q12 [facility] Last Admin: 06/06/18 21:10 Dose: 40 mg Montelukast Sodium (Singulair) 10 mg PO QHS [facility] Last Admin: 06/06/18 21:10 Dose: 10 mg Nortriptyline HCl (Pamelor) 50 mg PO QHS [facility] Last Admin: 06/06/18 21:10 Dose: 50 mg Nutritional Formula (Lactose Free) (Glucerna Shake) 120 ml PO 4X/DAY [facility] Last Admin: 06/06/18 21:11 Dose: 120 ml Nystatin (Nystatin) 500,000 unit PO 4X/DAY [facility] Stop: 06/12/18 14:01 Last Admin: 06/06/18 21:10 Dose: 500,000 unit Ondansetron HCl (Zofran) 4 mg IV Q6H PRN PRN PRN Reason: NAUSEA/VOMITING Last Admin: 06/07/18 01:39 Dose: 4 mg Pantoprazole Sodium (Protonix) 20 mg PO DAILY [facility] Last Admin: 06/06/18 08:39 Dose: 20 mg Polyethylene Glycol (Miralax) 17 gm PO DAILY [facility] Last Admin: 06/06/18 08:39 Dose: 17 gm Potassium Chloride (K-Dur) 10 meq PO BIDCM [facility] Last Admin: 06/06/18 14:37 Dose: 10 meq Prednisolone Acetate (Pred Forte Eye Drops (1 Ml)) 1 drop OPHTHALMIC DAILY [facility] Last Admin: 06/06/18 10:35 Dose: 1 drop Rivaroxaban (Xarelto) 15 mg PO DAILY [facility] Last Admin: 06/06/18 08:39 Dose: 15 mg Senna/Docusate Sodium (Senokot-S, Juanita-Colace) 1 tablet PO DAILY PRN PRN PRN Reason: Constipation Sodium Chloride () 5 - 15 ml IV UD PRN PRN Reason: SALINE FLUSH Last Admin: 06/07/18 05:57 Dose: 10 ml Temazepam (Restoril) 15 mg PO QHS [facility] Last Admin: 06/06/18 21:10 Dose: 15 mg Clinical Impression(s) from Imaging Studies Chest X-Ray 05/29/18 10:40 IMPRESSION: No acute cardiopulmonary disease Electronically Signed: Dave Parker DO at 12:21 EST Tel , Service support , Chest X-Ray 06/01/18 04:30 IMPRESSION: Bilateral pneumonia. Electronically Signed: Gloria Parish MD at 5:21 EST Tel , Service support , Chest X-Ray 06/03/18 09:39 IMPRESSION: Progressive infiltrates in the right upper lobe and left upper lobe. Improved aeration of the left lung base. Electronically Signed: Roger Mijares MD at 10:43 EST , Service support , Code Visit Inpatient E&M: [id number] Subs Hosp L3
[2018-06-07 09:18] LABS: BNP,B-Type NATRIURETIC PEPTIDE 526.9 pg/mL (0-100)
[2018-06-07] MEDS: Furosemide 40 MG/4 ML Vial IV (09:57)
--- NOTE | 2018-06-07 09:58 | NURSING ---
HYPOXIA: Increase oxygen hi flow nasal canula to 15L. O2 saturation remained between 84-86%. Bipap applied with 70% Oxygen. Oxygen saturation now 92%. ALL PO meds held at this time. Lasix given per MD order prior to hypoxic episode. Dr. Delgadillo informed of decline. Will continue to monitor.
[2018-06-07] MEDS: prednisoLONE eye drops (1 mL) 1 DROP OPTH.BTL 1 DRP OPHTHALMIC (10:06)
--- NOTE | 2018-06-07 10:18 | CASEMGMT ---
CHEVY called Jovana at [facility] and let her know patient is still not ready for d/c. CHEVY told her if she is not on bi-pap she is on 12-15L of O2. CHEVY faxed her updates. Nadiya [employer]
[2018-06-07 12:14] LABS: Pathologist Review Reviewed
[2018-06-07 12:20] LABS: Pathologist Review Reviewed
--- NOTE | 2018-06-07 12:35 | CPS ---
Attempted to take of Bipap and placed on 15lpm high flow cannula. SpO2 dropped into the 70's. Bipap/AVAPS reapplied.
[2018-06-07] MEDS: NYSTATIN 500,000 UNIT/5 ML UDC 500000 UNIT PO (13:41)
[2018-06-07] MEDS: Acetaminophen 650 MG Suppository RECTAL (14:05)
[2018-06-07] MEDS: Albuterol 2.5 MG/3 ML VIAL.NEB. INHALATION (19:10)
[2018-06-08] VITALS (38 sets, daily range): BP systolic 73–125; BP diastolic 45–106; PULSE 74–163; RESP 12–126; TEMP 35.9–36.7; O2SAT 83–100
[2018-06-08] MEDS: Ipratropium/Albuterol Sulfate 3 ML AMPUL.NEB INHALATION ×4 (07:16→19:22)
--- NOTE | 2018-06-08 07:28 | PN_ITS ---
Patient Problems: Active and Suspected Problems (Last Reviewed 05/29/18 @ 14:01 by Tanner Talamantes MD) Acute bronchitis (Acute) Influenza A (Acute) Subjective: Patient seen was placed back on BiPAP during the night. Chest x-ray obtained demonstrated Progressive infiltrates in the right upper lobe and left upper lobe. Objective: GENERAL: Ill-looking: On BiPAP HEENT: Atraumatic; moist oral mucosa EYES; Anicteric, Normal Conjunctiva NECK; supple, normal thyroid, no distended JVD. RESPIRATORY: Diminished to auscultation bilaterally, CARDIOVASCULAR: Regular S1 S2, GI: soft, non-tender, normoactive bowel sounds, : No Renal angle tenderness; EXTREMITIES: trace edema, no clubbing, MUSCULOSKELETAL: No Joint Tenderness; NEURO: Awake; no lateralizing signs. SKIN: No Rash PSYCH; flat affect Vitals/I&O's: Vital Signs Temp Pulse Resp BP Pulse Ox 97.8 F 135 H 34 H 105/57 L 90 06/08/18 04:00 06/08/18 07:00 06/08/18 07:00 06/08/18 07:00 06/08/18 07:00 Oxygen Flow Rate (L/min) 15 Oxygen Delivery Method Bi-pap Weight: 51 kg Body Mass Index (BMI) 23.8 Finger Stick Blood Glucose 133 Intake and Output for Last 24 Hours 06/06/18 06/07/18 06/08/18 23:59 23:59 23:59 Intake Total 1399.4 / 1399.4 668.7 / 668.7 295.5 / 295.5 Output Total 1120 / 1120 3425 / 3425 295 / 295 Balance 279.4 / 279.4 -2756.3 / -2756.3 0.5 / 0.5 Microbiology Past 72 Hours 06/03/18 14:35 Blood Culture (Wb) - Anticubital Left Blood Culture - Preliminary No growth in 48 hours. 06/03/18 14:30 Blood Culture (Wb) - Anticubital Right Blood Culture - Preliminary No growth in 48 hours. Laboratory Results 06/06/18 05:15: Diff Path Review Reviewed 06/07/18 04:10: Diff Path Review Reviewed 06/07/18 04:10: B-Natriuretic Peptide 526.9 H Current Medications Acetaminophen (Tylenol) 650 mg RECTAL Q4H PRN PRN PRN Reason: MILD-MOD PAIN (1-5/10) Last Admin: 06/07/18 14:05 Dose: 650 mg Hydrocodone Bitart/Acetaminophen ([place] 5mg-325mg) 1 tablet PO QHS [facility] Last Admin: 06/07/18 21:17 Dose: Not Given Al Hydroxide/Mg Hydroxide (Mylanta Ii) 30 ml PO Q6H PRN PRN PRN Reason: INDIGESTION Last Admin: 06/06/18 23:23 Dose: 30 ml Albuterol Sulfate (Ventolin Aerosols) 2.5 mg INHALATION Q4H PRN PRN Reason: pul fibrosis J84.10 & bronchiectasis J47.9 Last Admin: 06/07/18 19:10 Dose: 2.5 mg Albuterol/Ipratropium (Duoneb) 3 ml INHALATION Q4HWA.RT [facility] Last Admin: 06/08/18 07:16 Dose: 3 ml Amiodarone HCl (Cordarone) 100 mg PO DAILY [facility] Last Admin: 06/07/18 12:39 Dose: Not Given Bisacodyl (Dulcolax) 10 mg RECTAL DAILY PRN PRN Reason: Constipation Clonazepam (Klonopin) 0.5 mg PO TID PRN PRN PRN Reason: ANXIETY Last Admin: 06/06/18 21:10 Dose: 0.5 mg Diltiazem HCl (Cardizem Cd) 120 mg PO DAILY [facility] Last Admin: 06/07/18 12:39 Dose: Not Given Fluticasone Propionate (Flonase Nasal [place]) 1 spray NASAL DAILY [facility] Last Admin: 06/07/18 12:39 Dose: Not Given Furosemide (Lasix) 40 mg IV DAILY [facility] Last Admin: 06/07/18 09:57 Dose: 40 mg Guaifenesin (Mucinex) 1,200 mg PO BID [facility] Last Admin: 06/07/18 21:17 Dose: Not Given Vancomycin IV Pharmacy to Dose (1 ea/ Sodium Chloride) 500 mls @ 250 mls/hr IV X1 PRN; Protocol PRN Reason: Rx to Dose Vancomycin HCl (Vancomycin) 1,000 mg in 200 mls @ 200 mls/hr IV Q12H [facility] Last Admin: 06/07/18 23:35 Dose: 200 mls/hr Piperacillin Sod/Tazobactam (Sod 3.375 gm/ Sodium Chloride) 50 mls @ 12.5 mls/hr IV Q8 [facility] Last Admin: 06/08/18 06:36 Dose: 12.5 mls/hr Losartan Potassium (Cozaar) 25 mg PO DAILY [facility] Last Admin: 06/07/18 12:39 Dose: Not Given Magnesium Hydroxide (Milk Of Magnesia) 30 ml PO DAILY PRN PRN PRN Reason: Constipation Montelukast Sodium (Singulair) 10 mg PO QHS [facility] Last Admin: 06/07/18 21:18 Dose: Not Given Nortriptyline HCl (Pamelor) 50 mg PO QHS [facility] Last Admin: 06/07/18 21:18 Dose: Not Given Nutritional Formula (Lactose Free) (Glucerna Shake) 120 ml PO 4X/DAY [facility] Last Admin: 06/07/18 21:17 Dose: Not Given Nystatin (Nystatin) 500,000 unit PO 4X/DAY [facility] Stop: 06/12/18 14:01 Last Admin: 06/07/18 21:17 Dose: Not Given Ondansetron HCl (Zofran) 4 mg IV Q6H PRN PRN PRN Reason: NAUSEA/VOMITING Last Admin: 06/07/18 01:39 Dose: 4 mg Pantoprazole Sodium (Protonix) 20 mg PO DAILY [facility] Last Admin: 06/07/18 12:38 Dose: Not Given Polyethylene Glycol (Miralax) 17 gm PO DAILY [facility] Last Admin: 06/07/18 12:38 Dose: Not Given Potassium Chloride (K-Dur) 10 meq PO BIDCM [facility] Last Admin: 06/07/18 17:53 Dose: Not Given Prednisolone Acetate (Pred Forte Eye Drops (1 Ml)) 1 drop OPHTHALMIC DAILY [facility] Last Admin: 06/07/18 10:06 Dose: 1 drop Prednisone () 40 mg PO DAILY@0800 [facility] Rivaroxaban (Xarelto) 15 mg PO DAILY [facility] Last Admin: 06/07/18 12:38 Dose: Not Given Senna/Docusate Sodium (Senokot-S, Juanita-Colace) 1 tablet PO DAILY PRN PRN PRN Reason: Constipation Sodium Chloride () 5 - 15 ml IV UD PRN PRN Reason: SALINE FLUSH Last Admin: 06/07/18 10:10 Dose: 10 ml Temazepam (Restoril) 15 mg PO QHS [facility] Last Admin: 06/07/18 21:18 Dose: Not Given Medical Necessity - Tobacco Use Smoking Status: Never smoker Tobacco Use: Non-smoker Assessment/Plan All Active Problems (Last Reviewed 05/29/18 @ 14:01 by Tanner Talamantes MD) Acute bronchitis (Acute) Influenza A (Acute) DCCV for atrial flutter (Resolved) URI (upper respiratory infection) (Resolved) Thrush, oral (Resolved) Pneumonia (Resolved) MRSA (methicillin resistant staphylococcus aureus) pneumonia (Resolved) Acute respiratory failure with hypoxia (Resolved) Patient is an 83-year-old lady with multiple comorbidities presenting with progressive shortness of breath and persistent cough in addition to subjective fever and chills. An assessment of acute bronchitis made admitted to regular nursing floor for further management and condition deteriorated resulting in patient being moved from the regular nursing floor to ICU. Patient was managed with noninvasive ventilation BiPAP. Subsequent sputum cultures came back positive for MRSA 1. Acute hypoxic respiratory failure secondary to acute influenza A infection complicated by MRSA pneumonia. Patient transferred from a regular nursing floor to the intensive care unit managed on noninvasive ventilation BiPAP which has since been weaned off to high flow oxygen patient did complete a 5-day treatment with Tamiflu currently remains on Zosyn and vancomycin patient has been weaned off BiPAP however had to be placed back on the night of 06/07/2018. Remains on vancomycin and Zosyn. Case discussed with Dr. Delgadillo with pulmonary medicine/intensive care 2. Chronic hypoxic respiratory failure secondary to combination of COPD and bronchiectasis patient is followed by pulmonary medicine as outpatient patient is on baseline home O2 3. Dysphagia patient is on mechanical soft diet 4. Paroxysmal A. fib/flutter patient is on amiodarone and Cardizem. On systemic anticoagulation with xarelto. 5. GERD; on PPI 6. Hypertension blood pressure stable did continue with home meds 7. Anxiety disorder patient is on Klonopin at home 8. History of left-sided hemiplegia following cervical cyst removal requested for PT OT as tolerated 9. DVT prophylaxis patient will Xarelto no need for additional measures 10. Physical deconditioning: PT OT as tolerated with plans for patient to be discharged to a group home facility when medically stable Code Visit Inpatient E&M: [id number] [facility] Hosp L3
--- NOTE | 2018-06-08 07:30 | PCM.PN.INT ---
Subjective: The patient was seen and examined at the bedside this morning. Events from the last 24 hours have been reviewed. The patient is currently afebrile, but continues to decompensate from a respiratory perspective. She was started on IV diuretic therapy and was noted to be overall net -2.7 L yesterday. She remains overall net +4 L for the admission. The patient has been essentially BiPAP dependent since yesterday, with an escalating FiO2 requirement, currently at 70%. She is also in atrial fibrillation with a rapid ventricular rate. She does report worsening shortness of breath, but denies the presence of a cough. When removed from her BiPAP this morning and placed on a Ventimask, the patient lasted only a few minutes before desaturating into the low 80s. I spoke with both the patient and her family at the bedside this morning following rounds regarding her clinical decompensation and worsening respiratory status. I explained to them that I felt that we were at the point where he needed to make a decision about proceeding with invasive mechanical ventilation versus pursuing comfort care measures. They stated that she would not want to give up and the patient verbalized to me that she needed help breathing. I explained to them my concerns regarding invasive mechanical ventilation, and in particular, my concern that we may be unable to wean her from the ventilator. While they understand my concerns, they wish to pursue aggressive medical therapy at this time. Bedside Intubation Note: The patient was placed in the appropriate sniffing position. She was premedicated with 4 mg of Versed, after which time, she was preoxygenated via bag valve mask. The patient then received 20 mg of etomidate. Direct laryngoscopy was performed, which revealed a grade 1 view. Thick, dried oral secretions were noted in the patient's posterior oropharynx. A #7.5 endotracheal tube was subsequently placed without complication. Positive color change was noted on end-tidal CO2 detector. Bilateral breath sounds were noted. Plain film chest x-ray is currently pending. Objective: The patient's most recent lab work, culture data and imaging studies have all been personally reviewed. Respiratory viral panel was positive for influenza A. Sputum culture was positive for methicillin-resistant staph aureus. Blood cultures have not shown any growth to date. Surface echocardiogram dated August 2015 revealed normal LV size and ejection fraction. There was moderate focal aortic valve calcification along with a right ventricular systolic pressure estimated to be 32 mmHg. General: Alert, Cooperative, - - Acutely ill in appearance with labored breathing HEENT: Atraumatic, PERRLA, Normocephalic Oral: Dry Mucosa Neck: Supple, No Nodes, Trachea Midline Lungs: Diminished, Rales, Short of Breath, Tachypneic, Wheezes Cardiovascular: Normal S1, Normal S2, No murmurs, Irregular Rate, Tachycardic Abdomen: Bowel Sounds Present, Soft, Non Tender Extremities: No clubbing, No cyanosis, No edema Skin: - - No significant change from previous Musculoskeletal: No Tenderness to Palpation of Joints or Extremities Lymphatic: No Cervical, Supraclavicular, or Inguinal Adenopathy Neurological: Cranial nerves II-XII grossly intact, Neuro grossly intact Psych/Mental Status: Anxious Vital Signs Temp Pulse Resp BP Pulse Ox 36.6 C 135 H 34 H 105/57 L 90 06/08/18 04:00 06/08/18 07:00 06/08/18 07:00 06/08/18 07:00 06/08/18 07:00 Oxygen Flow Rate (L/min) 15 Oxygen Delivery Method Bi-pap Weight: 112 lb 6.972 oz Body Mass Index (BMI) 23.8 Finger Stick Blood Glucose 133 Intake and Output for Last 24 Hours 06/06/18 06/07/18 06/08/18 23:59 23:59 23:59 Intake Total 1399.4 / 1399.4 668.7 / 668.7 295.5 / 295.5 Output Total 1120 / 1120 3425 / 3425 295 / 295 Balance 279.4 / 279.4 -2756.3 / -2756.3 0.5 / 0.5 Labs (Last 48 Hours) 06/06/18 06/07/18 06/07/18 05:15 04:10 04:10 WBC 26.2 H RBC 3.45 L Hgb 10.3 L Hct 31.9 L MCV 92.5 MCH 29.9 MCHC 32.3 RDW 12.9 RDW Differential 43.6 Plt Count 316 MPV 9.2 Neut % (Auto) Not Reportable Absolute Neuts (auto) 23.3 H Absolute Lymphs (auto) 1.83 Total Counted 100 Neutrophils % (Manual) 86 H Band Neutrophils % 3 Lymphocytes % (Manual) 7 L Monocytes % (Manual) 4 Diff Path Review Reviewed Reviewed Platelet Estimate ADEQUATE Plt Morphology Comment LARGE Polychromasia RARE Hypochromasia RARE Basophilic Stippling RARE Anisocytosis 1+ Microcytosis 1+ Sodium 141 Potassium 4.7 Chloride 102 Carbon Dioxide 31.0 Anion Gap 8 BUN 21 H Creatinine 0.77 Estim Creat Clear Calc 34.30 Est GFR (MDRD) Af Amer 92 Est GFR (MDRD) Non-Af 76 BUN/Creatinine Ratio 27.2 H Glucose 237 H Calcium 8.5 B-Natriuretic Peptide 06/07/18 04:10 WBC RBC Hgb Hct MCV MCH MCHC RDW RDW Differential Plt Count MPV Neut % (Auto) Absolute Neuts (auto) Absolute Lymphs (auto) Total Counted Neutrophils % (Manual) Band Neutrophils % Lymphocytes % (Manual) Monocytes % (Manual) Diff Path Review Platelet Estimate Plt Morphology Comment Polychromasia Hypochromasia Basophilic Stippling Anisocytosis Microcytosis Sodium Potassium Chloride Carbon Dioxide Anion Gap BUN Creatinine Estim Creat Clear Calc Est GFR (MDRD) Af Amer Est GFR (MDRD) Non-Af BUN/Creatinine Ratio Glucose Calcium B-Natriuretic Peptide 526.9 H Clinical Impression(s) from Imaging Studies Chest X-Ray 05/29/18 10:40 IMPRESSION: No acute cardiopulmonary disease Electronically Signed: Dave Parker DO at 12:21 EST Tel , Service support , Chest X-Ray 06/01/18 04:30 IMPRESSION: Bilateral pneumonia. Electronically Signed: Gloria Parish MD at 5:21 EST Tel , Service support , Chest X-Ray 06/03/18 09:39 IMPRESSION: Progressive infiltrates in the right upper lobe and left upper lobe. Improved aeration of the left lung base. Electronically Signed: Roger Mijares MD at 10:43 EST , Service support , Chest X-Ray 06/07/18 06:31 IMPRESSION: Improved aeration of the right lung base. Otherwise, there has been essentially no change. Electronically Signed: Roger Mijares MD at 12:26 EST , Service support , Medical Necessity - Tobacco Use Smoking Status: Never smoker Tobacco Use: Non-smoker Assessment/Plan All Active Problems (Last Reviewed 05/29/18 @ 14:01 by Tanner Talamantes MD) Acute bronchitis (Acute) Influenza A (Acute) DCCV for atrial flutter (Resolved) URI (upper respiratory infection) (Resolved) Thrush, oral (Resolved) Pneumonia (Resolved) MRSA (methicillin resistant staphylococcus aureus) pneumonia (Resolved) Acute respiratory failure with hypoxia (Resolved) RECOMMENDATIONS: 1. We will place hold on barium swallow today, as the patient is unable to tolerate being removed from BiPAP. 2. Patient to remain n.p.o. for now. 3. We will place orders for IV amiodarone and Cardizem. The patient's prednisone will also be transitioned back to IV Solu-Medrol. 4. We will continue IV diuretic therapy 5. As there are plans for the patient to be intubated, will obtain arterial blood gas 1 hour after intubation. 6. Obtain repeat sputum culture. 7. Consider initiation of tube feeds. IMPRESSIONS: 1. Acute on chronic hypoxemic respiratory failure secondary to influenza A with MRSA superinfection Although initially improving on therapy, the patient appears to have decompensated overnight with worsening oxygenation. Her plain film chest x-ray also appears somewhat worse than previous. Given that her BNP is also elevated and she is net positive for the admission, IV diuretics were started. However, the patient is continue to decompensate from a respiratory perspective. I had a lengthy discussion with the patient and her family at the bedside and they have elected to proceed with intubation. The patient will be continued on antibiotics accordingly. Once intubated, will obtain repeat sputum culture. 2. 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 pending further evaluation with modified barium swallow. 3. History of paroxysmal atrial fibrillation Continue current medical management and systemic anticoagulation with Xarelto. The patient's p.o. medications were transitioned to IV amiodarone and Cardizem this morning. 4. Diabetes mellitus/hypertension/generalized anxiety disorder Complicates care, management, recovery and prognosis. Continue home medications as indicated. TIME: 45 minutes, inclusive of procedures, was spent addressing the patient's acute on chronic hypoxemic respiratory failure, influenza A infection, MRSA pneumonia, history of chronic aspiration, paroxysmal atrial fibrillation, review of all data and collaboration with the care team. ([id number]) Code Visit 9xxxx: [id number] Critical care first hour
--- NOTE | 2018-06-08 07:33 | PN_ITS ---
Subjective: The patient was seen and examined at the bedside this morning. Events from the last 24 hours have been reviewed. The patient is currently afebrile, but continues to decompensate from a respiratory perspective. She was started on IV diuretic therapy and was noted to be overall net -2.7 L yesterday. She remains overall net +4 L for the admission. The patient has been essentially BiPAP dependent since yesterday, with an escalating FiO2 requirement, currently at 70%. She is also in atrial fibrillation with a rapid ventricular rate. She does report worsening shortness of breath, but denies the presence of a cough. When removed from her BiPAP this morning and placed on a Ventimask, the patient lasted only a few minutes before desaturating into the low 80s. I spoke with both the patient and her family at the bedside this morning following rounds regarding her clinical decompensation and worsening respiratory status. I explained to them that I felt that we were at the point where he needed to make a decision about proceeding with invasive mechanical ventilation versus pursuing comfort care measures. They stated that she would not want to give up and the patient verbalized to me that she needed help breathing. I explained to them my concerns regarding invasive mechanical ventilation, and in particular, my concern that we may be unable to wean her from the ventilator. While they understand my concerns, they wish to pursue aggressive medical therapy at this time. Bedside Intubation Note: The patient was placed in the appropriate sniffing position. She was premedicated with 4 mg of Versed, after which time, she was preoxygenated via bag valve mask. The patient then received 20 mg of etomidate. Direct laryngoscopy was performed, which revealed a grade 1 view. Thick, dried oral secretions were noted in the patient's posterior oropharynx. A #7.5 endotracheal tube was subsequently placed without complication. Positive color change was noted on end-tidal CO2 detector. Bilateral breath sounds were noted. Plain film chest x-ray is currently pending. Objective: The patient's most recent lab work, culture data and imaging studies have all been personally reviewed. Respiratory viral panel was positive for influenza A. Sputum culture was positive for methicillin-resistant staph aureus. Blood cultures have not shown any growth to date. Surface echocardiogram dated August 2015 revealed normal LV size and ejection fraction. There was moderate focal aortic valve calcification along with a right ventricular systolic pressure estimated to be 32 mmHg. General: Alert, Cooperative, - - Acutely ill in appearance with labored breathing HEENT: Atraumatic, PERRLA, Normocephalic Oral: Dry Mucosa Neck: Supple, No Nodes, Trachea Midline Lungs: Diminished, Rales, Short of Breath, Tachypneic, Wheezes Cardiovascular: Normal S1, Normal S2, No murmurs, Irregular Rate, Tachycardic Abdomen: Bowel Sounds Present, Soft, Non Tender Extremities: No clubbing, No cyanosis, No edema Skin: - - No significant change from previous Musculoskeletal: No Tenderness to Palpation of Joints or Extremities Lymphatic: No Cervical, Supraclavicular, or Inguinal Adenopathy Neurological: Cranial nerves II-XII grossly intact, Neuro grossly intact Psych/Mental Status: Anxious Vital Signs Temp Pulse Resp BP Pulse Ox 36.6 C 135 H 34 H 105/57 L 90 06/08/18 04:00 06/08/18 07:00 06/08/18 07:00 06/08/18 07:00 06/08/18 07:00 Oxygen Flow Rate (L/min) 15 Oxygen Delivery Method Bi-pap Weight: 112 lb 6.972 oz Body Mass Index (BMI) 23.8 Finger Stick Blood Glucose 133 Intake and Output for Last 24 Hours 06/06/18 06/07/18 06/08/18 23:59 23:59 23:59 Intake Total 1399.4 / 1399.4 668.7 / 668.7 295.5 / 295.5 Output Total 1120 / 1120 3425 / 3425 295 / 295 Balance 279.4 / 279.4 -2756.3 / -2756.3 0.5 / 0.5 Labs (Last 48 Hours) 06/06/18 06/07/18 06/07/18 05:15 04:10 04:10 WBC 26.2 H RBC 3.45 L Hgb 10.3 L Hct 31.9 L MCV 92.5 MCH 29.9 MCHC 32.3 RDW 12.9 RDW Differential 43.6 Plt Count 316 MPV 9.2 Neut % (Auto) Not Reportable Absolute Neuts (auto) 23.3 H Absolute Lymphs (auto) 1.83 Total Counted 100 Neutrophils % (Manual) 86 H Band Neutrophils % 3 Lymphocytes % (Manual) 7 L Monocytes % (Manual) 4 Diff Path Review Reviewed Reviewed Platelet Estimate ADEQUATE Plt Morphology Comment LARGE Polychromasia RARE Hypochromasia RARE Basophilic Stippling RARE Anisocytosis 1+ Microcytosis 1+ Sodium 141 Potassium 4.7 Chloride 102 Carbon Dioxide 31.0 Anion Gap 8 BUN 21 H Creatinine 0.77 Estim Creat Clear Calc 34.30 Est GFR (MDRD) Af Amer 92 Est GFR (MDRD) Non-Af 76 BUN/Creatinine Ratio 27.2 H Glucose 237 H Calcium 8.5 B-Natriuretic Peptide 06/07/18 04:10 WBC RBC Hgb Hct MCV MCH MCHC RDW RDW Differential Plt Count MPV Neut % (Auto) Absolute Neuts (auto) Absolute Lymphs (auto) Total Counted Neutrophils % (Manual) Band Neutrophils % Lymphocytes % (Manual) Monocytes % (Manual) Diff Path Review Platelet Estimate Plt Morphology Comment Polychromasia Hypochromasia Basophilic Stippling Anisocytosis Microcytosis Sodium Potassium Chloride Carbon Dioxide Anion Gap BUN Creatinine Estim Creat Clear Calc Est GFR (MDRD) Af Amer Est GFR (MDRD) Non-Af BUN/Creatinine Ratio Glucose Calcium B-Natriuretic Peptide 526.9 H Clinical Impression(s) from Imaging Studies Chest X-Ray 05/29/18 10:40 IMPRESSION: No acute cardiopulmonary disease Electronically Signed: Dave Parker DO at 12:21 EST Tel , Service support , Chest X-Ray 06/01/18 04:30 IMPRESSION: Bilateral pneumonia. Electronically Signed: Gloria Parish MD at 5:21 EST Tel , Service support , Chest X-Ray 06/03/18 09:39 IMPRESSION: Progressive infiltrates in the right upper lobe and left upper lobe. Improved aeration of the left lung base. Electronically Signed: Roger Mijares MD at 10:43 EST , Service support , Chest X-Ray 06/07/18 06:31 IMPRESSION: Improved aeration of the right lung base. Otherwise, there has been essentially no change. Electronically Signed: Roger Mijares MD at 12:26 EST , Service support , Medical Necessity - Tobacco Use Smoking Status: Never smoker Tobacco Use: Non-smoker Assessment/Plan All Active Problems (Last Reviewed 05/29/18 @ 14:01 by Tanner Talamantes MD) Acute bronchitis (Acute) Influenza A (Acute) DCCV for atrial flutter (Resolved) URI (upper respiratory infection) (Resolved) Thrush, oral (Resolved) Pneumonia (Resolved) MRSA (methicillin resistant staphylococcus aureus) pneumonia (Resolved) Acute respiratory failure with hypoxia (Resolved) RECOMMENDATIONS: 1. We will place hold on barium swallow today, as the patient is unable to tolerate being removed from BiPAP. 2. Patient to remain n.p.o. for now. 3. We will place orders for IV amiodarone and Cardizem. The patient's prednisone will also be transitioned back to IV Solu-Medrol. 4. We will continue IV diuretic therapy 5. As there are plans for the patient to be intubated, will obtain arterial blood gas 1 hour after intubation. 6. Obtain repeat sputum culture. 7. Consider initiation of tube feeds. IMPRESSIONS: 1. Acute on chronic hypoxemic respiratory failure secondary to influenza A with MRSA superinfection Although initially improving on therapy, the patient appears to have decompensated overnight with worsening oxygenation. Her plain film chest x-ray also appears somewhat worse than previous. Given that her BNP is also elevated and she is net positive for the admission, IV diuretics were started. However, the patient is continue to decompensate from a respiratory perspective. I had a lengthy discussion with the patient and her family at the bedside and they have elected to proceed with intubation. The patient will be continued on antibiotics accordingly. Once intubated, will obtain repeat sputum culture. 2. 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 pending further evaluation with modified barium swallow. 3. History of paroxysmal atrial fibrillation Continue current medical management and systemic anticoagulation with Xarelto. The patient's p.o. medications were transitioned to IV amiodarone and Cardizem this morning. 4. Diabetes mellitus/hypertension/generalized anxiety disorder Complicates care, management, recovery and prognosis. Continue home medications as indicated. TIME: 45 minutes, inclusive of procedures, was spent addressing the patient's acute on chronic hypoxemic respiratory failure, influenza A infection, MRSA pneumonia, history of chronic aspiration, paroxysmal atrial fibrillation, review of all data and collaboration with the care team. ([id number]) Code Visit 9xxxx: [id number] Critical care first hour
[2018-06-08] MEDS: Midazolam 2 MG/2 ML Syringe 4 MG IV (10:47)
[2018-06-08] MEDS: Propofol 10MG/Ml 1,000 MG/100 ML Bottle 3.06 MG CONT INF (11:00)
--- NOTE | 2018-06-08 11:00 | RAD_ITS ---
STUDY: X-RAY CHEST REASON FOR EXAM: Female, 83 years old. Endotracheal tube and orogastric tube placement. TECHNIQUE: Single AP portable view of the chest. COMPARISON: Comparison is made with prior examination dated June 07, 2018. FINDINGS: An endotracheal tube has been placed. The tip is at 2.6 cm proximal to the cade. An orogastric tube is seen with its tip below the left hemidiaphragm. Stable appearance of the bilateral pulmonary infiltrates worse on the right side. Blunting of left costophrenic angle. RAD/Chest 1 View (Portable) IMPRESSION: The tip of the endotracheal tube is a 2.6 cm proximal to the cade. Stable appearance of the lungs. Electronically Signed: Roger Mijares, at 15:00 EST , Service support ,
--- NOTE | 2018-06-08 11:04 | NURSING ---
1047- 4MG VERSED IV VERSED GIVEN PER DR HOLDER ORDER 1048- 20MG ETOMIDATE IV GIVEN PER DR HOLDER 1050-PT INTUBATED 7.5 ETT 23 AT LIP. POSITIVE COLOR CHANGE
[2018-06-08] MEDS: prednisoLONE eye drops (1 mL) 1 DROP OPTH.BTL 1 DRP OPHTHALMIC (11:43)
[2018-06-08] MEDS: Fluticasone 0.05% 1 SPRAY NASAL.SRY NASAL (11:46)
[2018-06-08] MEDS: 0.9% NaCl Peripheral Flush Adult/Peds IV (11:47)
--- NOTE | 2018-06-08 11:48 | CHAPLAIN ---
Type of Pastoral Visit _x__ Initial Visit ___ Follow-up Visit ___ On-call Visit ___ General Patient Visit ___ Spiritual Assessment ___ Family Conference ___ Bereavement ___ Rapid Response ___ Code Blue ___ Other (describe below) Pastoral Care Referral From ___ Patient _x__ Family ___ Nurse ___ Physician ___ Food Service Cashier ___ Dismantler ___ Other (describe below) Sacrament/Intervention _x__ Active listening ___ Anointing ___ Zoroastrian ___ Bereavement ___ Communion ___ [place] exploration ___ ___ Life review _x__ Prayer ___ Reconciliation ___ Sacrament of Sick _x__ Supportive presence ___ Wedding ___ Other (describe below) Pastoral Comments patient is now intubated and family is gathered in waiting room; offered support and prayer with family which was well received; gave presence and time to seek family needs
[2018-06-08] MEDS: fentaNYL drip 100 ML 5 MCG IV ×2 (12:02→21:43)
[2018-06-08] MEDS: Furosemide 40 MG/4 ML Vial IV (12:07)
[2018-06-08 12:10] LABS: Allen Test POS; Base Excess 13 mmol/L (-2 to +2); Bicarbonate 35.6 mmol/L (22-26); Blood Gas Specimen Type ART; FI02 100; Mode VC+; O2 Delivery Device Vent; PEEP 12; PO2 67 mmHG (75-100); RR 12; SITE L Radial; SO2 95 % (95-99); Time Given 1200; Total Carbon Dioxide 37 mmol/L; Vt 400; pCO2 43.2 mmHg (35-45); pH 7.52 (7.35-7.45)
[2018-06-08 12:31] LABS: Vancomycin, Trough Level 21.2 ug/mL (5.0-15.0)
--- NOTE | 2018-06-08 12:43 | RAD_ITS ---
STUDY: X-RAY CHEST REASON FOR EXAM: Female, 83 years old. PICC line. TECHNIQUE: Single AP portable view of the chest. COMPARISON: Comparison is made with prior examination dated June 08, 2018 at 11:05 AM. FINDINGS: An endotracheal tube is in situ. The tip is at 3.3 cm proximal to the cade. An oral gastric tube is seen with the tip below left hemidiaphragm. A left-sided PICC line catheter has been placed. The tip is at the junction of the superior vena cava and right atrium. EKG lead are seen. Airspace disease seen in both lungs more prominent in the right upper lobe. Inspire study, there has been improved aeration of both lungs. There is no demonstrated pleural abnormality. Normal size heart. Normal mediastinum and mariza. Normal visualized pulmonary arteries. There is atherosclerotic calcification of the aortic arch with tortuosity. There are diffuse degenerative changes of the visualized thoracic spine. Normal visualized ribs, clavicles, and shoulders. There is no demonstrated abnormality of the visualized soft tissue structures of the upper abdomen. RAD/Chest 1 View (Portable) IMPRESSION: Since prior study, there has been improved aeration of both lungs. All the support tubes are in good position. The tip of the left PICC line catheter is at the junction of the superior vena cava and right atrium. Electronically Signed: Roger Mijares, at 13:55 EST , Service support ,
--- NOTE | 2018-06-08 13:05 | PCM.RX.CS ---
Consult Pharmacy has been consulted to manage selected antiobiotic: Vancomycin Type of Consult: Follow-up Suspected Infection: Pneumonia Prior Doses of Antibiotics Received/Current Regimen: 14 Labs: Sodium 141 mmol/L (136-145) 06/07/18 04:10 Potassium 4.7 mmol/L (3.5-5.1) 06/07/18 04:10 Chloride 102 mmol/L (98-107) 06/07/18 04:10 Carbon Dioxide 31.0 mmol/L (21.0-32.0) 06/07/18 04:10 Anion Gap 8 (5-15) 06/07/18 04:10 BUN 21 mg/dL (7-18) H 06/07/18 04:10 Creatinine 0.77 mg/dL (0.55-1.02) 06/07/18 04:10 Est GFR (MDRD) Af Amer 92 mL/min (>60) 06/07/18 04:10 Est GFR (MDRD) Non-Af 76 mL/min (>60) 06/07/18 04:10 BUN/Creatinine Ratio 27.2 RATIO (10-20) H 06/07/18 04:10 Glucose 237 mg/dL (74-106) H 06/07/18 04:10 Vancomycin Trough 21.2 ug/mL (5.0-15.0) H 06/08/18 11:35 HOLD DOSE AND RECHECK VANCO TROUGH LEVEL IN 12 HRS Microbiology: Microbiology 06/03/18 14:35 Blood Culture (Wb) - Anticubital Left Blood Culture - Preliminary No growth in 48 hours. 06/03/18 14:30 Blood Culture (Wb) - Anticubital Right Blood Culture - Preliminary No growth in 48 hours. 05/29/18 11:05 Blood Culture (Wb) #2 - Anticubital Left Blood Culture - Final No growth in 5 days. 05/29/18 10:30 Blood Culture (Wb) - Anticubital Right Blood Culture - Final No growth in 5 days. 05/30/18 06:30 Sputum, Expectorated/Coughed Gram Stain - Final 05/30/18 06:30 Sputum, Expectorated/Coughed Respiratory Culture - Final Meth. resistant Staph. aureus Presumptive C albicans 05/29/18 11:02 Mucosa - Nasopharyngeal Respiratory Panel (PCR) - Final Influenza A (Subtype H3) Weight used for dosin kg Estimated Creatinine Clearance: 34 Goal Trough: 15-20 mcg/mL - HOLD VANCOMYCIN AND RECHECK VANCO TROUGH LEVEL IN 12 HRS = 06/08/18 @ 1584 Pharmacy Plan for Drug Dosing: Pharmacy Service will continue to monitor and adjust dosing as required.
[2018-06-08] MEDS: Rivaroxaban 15 MG Tablet GT (13:50)
[2018-06-08] MEDS: Famotidine 20 MG Tablet GT ×2 (13:50→21:29)
[2018-06-08 14:29] LABS: Absolute Lymphocyte Count 2.66 X10^3/ul (0.83-4.51); Absolute Neutrophil Count 29.1 X10^3/uL (2.0-7.7); Basophil# 0.08 X10^3/uL; Basophil% 0.2 % (0-1); Eosinophil# 0.17 X10^3/uL; Eosinophils% 0.5 % (0-5); Hemoglobin 12.1 g/dl (12.0-15.0); Lymphocyte # 2.66 X10^3/ul (4.0); Mean Corpuscular Hgb 29.2 pg (27.0-32.0); Mean Corpuscular Volume 94.2 fL (81-99); Mean Platelet Vol. 9.9 fl (6.2-12.0); Monocyte% 1.5 % (0-10); Neutrophil # 29.14 X10^3/uL (2.7-7.7); Neutrophil % 87.7 % (47-70); Platelet Count 326 K/mm3 (150-450); RBC Distribution Width SD 44.5 fl (35.1-43.9); Red Blood Count 4.14 M/mm3 (4.2-5.4)
[2018-06-08 14:30] LABS: Differential Indicated SCAN CRITERIA MET; POSITIVE COUNT YES; POSITIVE DIFFERENTIAL YES; POSITIVE MORPHOLOGY YES; White Blood Count 33.3 K/mm3 (4.4-11.0)
[2018-06-08 14:39] LABS: Anion Gap 6 (5-15); BUN 24 mg/dL (7-18); BUN/Creat Ratio 23.1 RATIO (10-20); Calcium,Total 8.4 mg/dL (8.5-10.1); Chloride 97 mmol/L (98-107); Creatinine, Serum 1.04 mg/dL (0.55-1.02); EST Glomerular Filtration Rate 54 mL/min (>60); Est Glom Filt Rate - Afr Amer 65 mL/min (>60); Estimated Creatinine Clearance 32.99 ml/min; Glucose 108 mg/dL (74-106); Potassium 4.3 mmol/L (3.5-5.1); Sodium Level 137 mmol/L (136-145)
[2018-06-08 14:46] LABS: CPK Total, Creatine Kinase 40 U/L (26-192); Triglycerides 178 mg/dL
[2018-06-08 15:16] LABS: Differential Comment SCANNED
--- NOTE | 2018-06-08 15:31 | CASEMGMT ---
CHEVY called Jovana at [facility] and let her know that patient is now on a vent. CHEVY let her know we will keep them updated. Nadiya SAXENA MSW
[2018-06-08 16:51] LABS: Bedside Glucose 117 mg/dL (70-110)
[2018-06-08 17:16] LABS: Bedside Glucose 127 mg/dL (70-110)
[2018-06-08] MEDS: NYSTATIN 500,000 UNIT/5 ML UDC 500000 UNIT PO (21:28)
[2018-06-08] MEDS: Nortriptyline 25 MG Capsule 50 MG GT (21:29)
[2018-06-08] MEDS: Montelukast 10 MG Tablet GT (21:29)
[2018-06-08] MEDS: Temazepam 15 MG Capsule GT (21:29)
[2018-06-08] MEDS: guaiFENesin 1,200 MG Tablet 1200 MG PO (21:29)
[2018-06-08] MEDS: Chlorhexidine 15 ML PO (21:38)
[2018-06-09] VITALS (39 sets, daily range): BP systolic 80–129; BP diastolic 48–81; PULSE 14–137; RESP 12–28; TEMP 36–37.7; O2SAT 89–98
[2018-06-09 00:12] LABS: Vancomycin, Trough Level 17.8 ug/mL (5.0-15.0)
[2018-06-09 00:26] LABS: Bedside Glucose 180 mg/dL (70-110)
[2018-06-09] MEDS: 0.9% NaCl Peripheral Flush Adult/Peds IV ×2 (00:26→12:08)
[2018-06-09] MEDS: Insulin Lispro 100 UNIT/ML INSULN.PEN SC ×4 (00:26→17:43)
--- NOTE | 2018-06-09 00:52 | PCM.RX.CS ---
Consult Pharmacy has been consulted to manage selected antiobiotic: Vancomycin Type of Consult: Follow-up Suspected Infection: Pneumonia Prior Doses of Antibiotics Received/Current Regimen: Medications Discontinued Medications Vancomycin HCl (Vancomycin) 1,000 mg in 200 mls @ 200 mls/hr IV Q12H ANDREA Last Admin: 06/08/18 13:41 Dose: Not Given (held due to trough level at 21.2) Last Actual Admin: 06/07/185 Vancomycin trough level returned on 06/08/18 2315 at 17.8 mg/L at 24 hr after last dose. This is now in goal range of 15-20. Vancomycin will be restarted at 1000 mg IV q24h beginning 06/09/18 0200. Labs: Sodium 137 mmol/L (136-145) 06/08/18 14:00 Potassium 4.3 mmol/L (3.5-5.1) 06/08/18 14:00 Chloride 97 mmol/L (98-107) L 06/08/18 14:00 Carbon Dioxide 34.0 mmol/L (21.0-32.0) H 06/08/18 14:00 Anion Gap 6 (5-15) 06/08/18 14:00 BUN 24 mg/dL (7-18) H 06/08/18 14:00 Creatinine 1.04 mg/dL (0.55-1.02) H 06/08/18 14:00 Est GFR (MDRD) Af Amer 65 mL/min (>60) 06/08/18 14:00 Est GFR (MDRD) Non-Af 54 mL/min (>60) L 06/08/18 14:00 BUN/Creatinine Ratio 23.1 RATIO (10-20) H 06/08/18 14:00 Glucose 108 mg/dL (74-106) H 06/08/18 14:00 Vancomycin Trough 17.8 ug/mL (5.0-15.0) H 06/08/18 23:15 Microbiology: Microbiology 06/08/18 12:00 Sputum, Induced/Lukens Gram Stain - Final 06/03/18 14:35 Blood Culture (Wb) - Anticubital Left Blood Culture - Final No growth in 5 days. 06/03/18 14:30 Blood Culture (Wb) - Anticubital Right Blood Culture - Final No growth in 5 days. 05/29/18 11:05 Blood Culture (Wb) #2 - Anticubital Left Blood Culture - Final No growth in 5 days. 05/29/18 10:30 Blood Culture (Wb) - Anticubital Right Blood Culture - Final No growth in 5 days. 05/30/18 06:30 Sputum, Expectorated/Coughed Gram Stain - Final 05/30/18 06:30 Sputum, Expectorated/Coughed Respiratory Culture - Final Meth. resistant Staph. aureus Presumptive C albicans 05/29/18 11:02 Mucosa - Nasopharyngeal Respiratory Panel (PCR) - Final Influenza A (Subtype H3) Weight used for dosin kg Estimated Creatinine Clearance: 33 ml/min Goal Trough: 15-20 mcg/mL Pharmacy Plan for Drug Dosing: Pharmacy Service will continue to monitor and adjust dosing as required. Follow-Up Labs: Trough Vancomycin Labs to be done on [date and time ordered]: 06/11/18 0130 before 3rd dose of new regimen
[2018-06-09] MEDS: CHLORHEXIDINE GLUC 2% CLOTH 1 EACH TOWELETTE TOPICAL (02:28)
[2018-06-09 06:10] LABS: Bedside Glucose 157 mg/dL (70-110)
--- NOTE | 2018-06-09 06:30 | PN_ITS ---
Subjective: The patient was seen and examined at the bedside this morning. Events from the last 24 hours have been reviewed. Overnight, the patient bounced between normal sinus rhythm and atrial fibrillation. She remains on mechanical ventilation, but is not currently requiring any form of sedation. Her FiO2 is down to 40% and her PEEP is at 5. She is currently documented to be overall net +4 L for the admission. Consultation was placed to infectious diseases yesterday, as the patient's white count continues to climb in the setting of clinical decom pensation, despite being on broad-spectrum antibiotics. Objective: The patient's most recent lab work, culture data and imaging studies have all been personally reviewed. Respiratory viral panel was positive for influenza A. Sputum culture was positive for methicillin-resistant staph aureus. Blood cultures have not shown any growth to date. Surface echocardiogram dated August 2015 revealed normal LV size and ejection fraction. There was moderate focal aortic valve calcification along with a right ventricular systolic pressure estimated to be 32 mmHg. General: Alert, No apparent distress, - - Remains intubated and mechanically ventilated. Tolerating AC without issue. HEENT: Atraumatic, PERRLA, Normocephalic Oral: No Gingival or Mucosal Lesions/ Ulcerations, - - Endotracheal and OG tubes in place Neck: Supple, No Nodes, Trachea Midline Lungs: No wheeze, No rales, Diminished, Rhonchi Cardiovascular: Regular rate, Regular Rhythm, Normal S1, Normal S2, No murmurs, - - Currently in NSR on telemetry Abdomen: Bowel Sounds Present, Soft, Non Tender, Non-Distended Extremities: No clubbing, No cyanosis, - - Trace pedal edema Musculoskeletal: No Tenderness to Palpation of Joints or Extremities Lymphatic: No Cervical, Supraclavicular, or Inguinal Adenopathy Neurological: Neuro grossly intact, - - No sedation. RASS is currently 0 to +1 Vital Signs Temp Pulse Resp BP Pulse Ox 37.7 C H 88 20 H 104/62 93 06/09/18 04:00 06/09/18 06:00 06/09/18 06:00 06/09/18 06:00 06/09/18 06:00 Oxygen Flow Rate (L/min) 15 Oxygen Delivery Method Mechanical Ventilator Weight: 111 lb 15.917 oz Body Mass Index (BMI) 23.8 Finger Stick Blood Glucose 133 Intake and Output for Last 24 Hours 06/07/18 06/08/18 06/09/18 23:59 23:59 23:59 Intake Total 668.7 / 668.7 643.5 / 643.5 434 / 434 Output Total 3425 / 3425 705 / 705 250 / 250 Balance -2756.3 / -2756.3 -61.5 / -61.5 184 / 184 Labs (Last 48 Hours) 06/06/18 06/07/18 06/07/18 05:15 04:10 04:10 WBC Corrected WBC RBC Hgb Hct MCV MCH MCHC RDW RDW Differential Plt Count MPV Immature Gran % (Auto) Neut % (Auto) Lymph % (Auto) [place] % (Auto) Eos % (Auto) Baso % (Auto) Absolute Neuts (auto) 23.3 H Absolute Lymphs (auto) 1.83 Total Counted 100 Neutrophils % (Manual) 86 H Band Neutrophils % 3 Lymphocytes % (Manual) 7 L Monocytes % (Manual) 4 Eosinophils % (Manual) Basophils % (Manual) Metamyelocytes % Myelocytes % Promyelocytes % Blast Cells % Plasma Cell % (Manual) Other Cells % Nucleated RBCs/100 WBC Differential Comment Diff Path Review Reviewed Reviewed Hypersegmented Neuts Atypical Lymphocytes Reactive Lymphocytes Smudge Cells Toxic Granulation Dohle Bodies [place] Rods Platelet Estimate ADEQUATE Plt Morphology Comment LARGE RBC Morphology Polychromasia RARE Hypochromasia RARE Poikilocytosis Basophilic Stippling RARE Anisocytosis 1+ Microcytosis 1+ Macrocytosis Spherocytes Sickle Cells Target Cells Tear Drop Cells Ovalocytes Stomatocytes [place] Bodies [place] Cells Bite Cells Acanthocytes (Spur) Rouleaux Schistocytes Specimen Type Sample Site pH Bicarbonate Actual POC Total CO2 Base Excess O2 Saturation O2 % ABG pCO2 ABG pO2 [place] Test Respiration Rate O2 Delivery Device Minute Volume Vent Mode Tidal Volume POC PEEP Blood Gas Notified Whom Blood Gas Notified Time Sodium Potassium Chloride Carbon Dioxide Anion Gap BUN Creatinine Estim Creat Clear Calc Est GFR (MDRD) Af Amer Est GFR (MDRD) Non-Af BUN/Creatinine Ratio Glucose Calcium Total Creatine Kinase B-Natriuretic Peptide 526.9 H Triglycerides Vancomycin Trough POC Glucose 06/08/18 06/08/18 06/08/18 11:35 11:35 11:52 WBC Cancelled Corrected WBC Cancelled RBC Cancelled Hgb Cancelled Hct Cancelled MCV Cancelled MCH Cancelled MCHC Cancelled RDW Cancelled RDW Differential Cancelled Plt Count Cancelled MPV Cancelled Immature Gran % (Auto) Cancelled Neut % (Auto) Cancelled Lymph % (Auto) Cancelled [place] % (Auto) Cancelled Eos % (Auto) Cancelled Baso % (Auto) Cancelled Absolute Neuts (auto) Cancelled Absolute Lymphs (auto) Cancelled Total Counted Cancelled Neutrophils % (Manual) Cancelled Band Neutrophils % Cancelled Lymphocytes % (Manual) Cancelled Monocytes % (Manual) Cancelled Eosinophils % (Manual) Cancelled Basophils % (Manual) Cancelled Metamyelocytes % Cancelled Myelocytes % Cancelled Promyelocytes % Cancelled Blast Cells % Cancelled Plasma Cell % (Manual) Cancelled Other Cells % Cancelled Nucleated RBCs/100 WBC Cancelled Differential Comment Cancelled Diff Path Review Cancelled Hypersegmented Neuts Cancelled Atypical Lymphocytes Cancelled Reactive Lymphocytes Cancelled Smudge Cells Cancelled Toxic Granulation Cancelled Dohle Bodies Cancelled [place] Rods Cancelled Platelet Estimate Cancelled Plt Morphology Comment Cancelled RBC Morphology Cancelled Polychromasia Cancelled Hypochromasia Cancelled Poikilocytosis Cancelled Basophilic Stippling Cancelled Anisocytosis Cancelled Microcytosis Cancelled Macrocytosis Cancelled Spherocytes Cancelled Sickle Cells Cancelled Target Cells Cancelled Tear Drop Cells Cancelled Ovalocytes Cancelled Stomatocytes Cancelled [place] Bodies Cancelled [place] Cells Cancelled Bite Cells Cancelled Acanthocytes (Spur) Cancelled Rouleaux Cancelled Schistocytes Cancelled Specimen Type Sample Site pH Bicarbonate Actual POC Total CO2 Base Excess O2 Saturation O2 % ABG pCO2 ABG pO2 [place] Test Respiration Rate O2 Delivery Device Minute Volume Vent Mode Tidal Volume POC PEEP Blood Gas Notified Whom Blood Gas Notified Time Sodium Potassium Chloride Carbon Dioxide Anion Gap BUN Creatinine Estim Creat Clear Calc Est GFR (MDRD) Af Amer Est GFR (MDRD) Non-Af BUN/Creatinine Ratio Glucose Calcium Total Creatine Kinase B-Natriuretic Peptide Triglycerides Vancomycin Trough 21.2 H POC Glucose 117 H 06/08/18 06/08/18 06/08/18 12:05 14:00 14:00 WBC 33.3 H* Corrected WBC RBC 4.14 L Hgb 12.1 Hct 39.0 MCV 94.2 MCH 29.2 MCHC 31.0 L RDW 13.0 RDW Differential 44.5 H Plt Count 326 MPV 9.9 Immature Gran % (Auto) 2.100 H Neut % (Auto) 87.7 H Lymph % (Auto) 8.0 L [place] % (Auto) 1.5 Eos % (Auto) 0.5 Baso % (Auto) 0.2 Absolute Neuts (auto) 29.1 H Absolute Lymphs (auto) 2.66 Total Counted Not Reportable Neutrophils % (Manual) Band Neutrophils % Lymphocytes % (Manual) Monocytes % (Manual) Eosinophils % (Manual) Basophils % (Manual) Metamyelocytes % Myelocytes % Promyelocytes % Blast Cells % Plasma Cell % (Manual) Other Cells % Nucleated RBCs/100 WBC Differential Comment SCANNED Diff Path Review May foll Hypersegmented Neuts Atypical Lymphocytes Reactive Lymphocytes Smudge Cells Toxic Granulation Dohle Bodies [place]s Platelet Estimate Plt Morphology Comment RBC Morphology Polychromasia Hypochromasia Poikilocytosis Basophilic Stippling Anisocytosis Microcytosis Macrocytosis Spherocytes Sickle Cells Target Cells Tear Drop Cells Ovalocytes Stomatocytes [place] Bodies [place] Cells Bite Cells Acanthocytes (Spur) Rouleaux Schistocytes Specimen Type ART Sample Site L Radial pH 7.52 H Bicarbonate Actual 35.6 H POC Total CO2 37 Base Excess 13 H O2 Saturation 95 O2 % 100 ABG pCO2 43.2 ABG pO2 67 L [place] Test POS Respiration Rate 12 O2 Delivery Device Vent Minute Volume 9.00 Vent Mode VC+ Tidal Volume 400 POC PEEP 12 Blood Gas Notified Whom ICU Blood Gas Notified Time 1200 Sodium 137 Potassium 4.3 Chloride 97 L Carbon Dioxide 34.0 H Anion Gap 6 BUN 24 H Creatinine 1.04 H Estim Creat Clear Calc 32.99 Est GFR (MDRD) Af Amer 65 Est GFR (MDRD) Non-Af 54 L BUN/Creatinine Ratio 23.1 H Glucose 108 H Calcium 8.4 L Total Creatine Kinase B-Natriuretic Peptide Triglycerides Vancomycin Trough POC Glucose 06/08/18 06/08/18 06/08/18 14:00 17:05 23:15 WBC Corrected WBC RBC Hgb Hct MCV MCH MCHC RDW RDW Differential Plt Count MPV Immature Gran % (Auto) Neut % (Auto) Lymph % (Auto) [place] % (Auto) Eos % (Auto) Baso % (Auto) Absolute Neuts (auto) Absolute Lymphs (auto) Total Counted Neutrophils % (Manual) Band Neutrophils % Lymphocytes % (Manual) Monocytes % (Manual) Eosinophils % (Manual) Basophils % (Manual) Metamyelocytes % Myelocytes % Promyelocytes % Blast Cells % Plasma Cell % (Manual) Other Cells % Nucleated RBCs/100 WBC Differential Comment Diff Path Review Hypersegmented Neuts Atypical Lymphocytes Reactive Lymphocytes Smudge Cells Toxic Granulation Dohle Bodies [place] Platelet Estimate Plt Morphology Comment RBC Morphology Polychromasia Hypochromasia Poikilocytosis Basophilic Stippling Anisocytosis Microcytosis Macrocytosis Spherocytes Sickle Cells Target Cells Tear Drop Cells Ovalocytes Stomatocytes [place] Bodies [place] Cells Bite Cells Acanthocytes (Spur) Rouleaux Schistocytes Specimen Type Sample Site pH Bicarbonate Actual POC Total CO2 Base Excess O2 Saturation O2 % ABG pCO2 ABG pO2 [place] Test Respiration Rate O2 Delivery Device Minute Volume Vent Mode Tidal Volume POC PEEP Blood Gas Notified Whom Blood Gas Notified Time Sodium Potassium Chloride Carbon Dioxide Anion Gap BUN Creatinine Estim Creat Clear Calc Est GFR (MDRD) Af Amer Est GFR (MDRD) Non-Af BUN/Creatinine Ratio Glucose Calcium Total Creatine Kinase 40 B-Natriuretic Peptide Triglycerides 178 Vancomycin Trough 17.8 H POC Glucose 127 H 06/08/18 06/09/18 06/09/18 23:21 05:53 06:10 WBC Pending Corrected WBC RBC Pending Hgb Pending Hct Pending MCV Pending MCH Pending MCHC Pending RDW Pending RDW Differential Pending Plt Count Pending MPV Immature Gran % (Auto) Neut % (Auto) Pending Lymph % (Auto) [place] % (Auto) Eos % (Auto) Baso % (Auto) Absolute Neuts (auto) Pending Absolute Lymphs (auto) Total Counted Pending Neutrophils % (Manual) Band Neutrophils % Lymphocytes % (Manual) Monocytes % (Manual) Eosinophils % (Manual) Basophils % (Manual) Metamyelocytes % Myelocytes % Promyelocytes % Blast Cells % Plasma Cell % (Manual) Other Cells % Nucleated RBCs/100 WBC Differential Comment Diff Path Review Hypersegmented Neuts Atypical Lymphocytes Reactive Lymphocytes Smudge Cells Toxic Granulation Dohle Bodies [place] Platelet Estimate Plt Morphology Comment RBC Morphology Polychromasia Hypochromasia Poikilocytosis Basophilic Stippling Anisocytosis Microcytosis Macrocytosis Spherocytes Sickle Cells Target Cells Tear Drop Cells Ovalocytes Stomatocytes [place] Bodies [place] Cells Bite Cells Acanthocytes (Spur) Rouleaux Schistocytes Specimen Type Sample Site pH Bicarbonate Actual POC Total CO2 Base Excess O2 Saturation O2 % ABG pCO2 ABG pO2 [place] Test Respiration Rate O2 Delivery Device Minute Volume Vent Mode Tidal Volume POC PEEP Blood Gas Notified Whom Blood Gas Notified Time Sodium Potassium Chloride Carbon Dioxide Anion Gap BUN Creatinine Estim Creat Clear Calc Est GFR (MDRD) Af Amer Est GFR (MDRD) Non-Af BUN/Creatinine Ratio Glucose Calcium Total Creatine Kinase B-Natriuretic Peptide Triglycerides Vancomycin Trough POC Glucose 180 H 157 H 06/09/18 06:10 WBC Corrected WBC RBC Hgb Hct MCV MCH MCHC RDW RDW Differential Plt Count MPV Immature Gran % (Auto) Neut % (Auto) Lymph % (Auto) [place] % (Auto) Eos % (Auto) Baso % (Auto) Absolute Neuts (auto) Absolute Lymphs (auto) Total Counted Neutrophils % (Manual) Band Neutrophils % Lymphocytes % (Manual) Monocytes % (Manual) Eosinophils % (Manual) Basophils % (Manual) Metamyelocytes % Myelocytes % Promyelocytes % Blast Cells % Plasma Cell % (Manual) Other Cells % Nucleated RBCs/100 WBC Differential Comment Diff Path Review Hypersegmented Neuts Atypical Lymphocytes Reactive Lymphocytes Smudge Cells Toxic Granulation Dohle Bodies [place] Platelet Estimate Plt Morphology Comment RBC Morphology Polychromasia Hypochromasia Poikilocytosis Basophilic Stippling Anisocytosis Microcytosis Macrocytosis Spherocytes Sickle Cells Target Cells Tear Drop Cells Ovalocytes Stomatocytes [place] Bodies [place] Cells Bite Cells Acanthocytes (Spur) Rouleaux Schistocytes Specimen Type Sample Site pH Bicarbonate Actual POC Total CO2 Base Excess O2 Saturation O2 % ABG pCO2 ABG pO2 [place] Test Respiration Rate O2 Delivery Device Minute Volume Vent Mode Tidal Volume POC PEEP Blood Gas Notified Whom Blood Gas Notified Time Sodium Pending Potassium Pending Chloride Pending Carbon Dioxide Pending Anion Gap Pending BUN Pending Creatinine Pending Estim Creat Clear Calc Est GFR (MDRD) Af Amer Pending Est GFR (MDRD) Non-Af Pending BUN/Creatinine Ratio Pending Glucose Pending Calcium Pending Total Creatine Kinase B-Natriuretic Peptide Triglycerides Vancomycin Trough POC Glucose Microbiology 06/08/18 12:00 Sputum, Induced/Lukens Gram Stain - Final 06/03/18 14:35 Blood Culture (Wb) - Anticubital Left Blood Culture - Final No growth in 5 days. 06/03/18 14:30 Blood Culture (Wb) - Anticubital Right Blood Culture - Final No growth in 5 days. Clinical Impression(s) from Imaging Studies Chest X-Ray 05/29/18 10:40 IMPRESSION: No acute cardiopulmonary disease Electronically Signed: Dave Parker DO at 12:21 EST Tel , Service support , Chest X-Ray 06/01/18 04:30 IMPRESSION: Bilateral pneumonia. Electronically Signed: Gloria Parish MD at 5:21 EST Tel , Service support , Chest X-Ray 06/03/18 09:39 IMPRESSION: Progressive infiltrates in the right upper lobe and left upper lobe. Improved aeration of the left lung base. Electronically Signed: Roger Mijares MD at 10:43 EST , Service support , Chest X-Ray 06/07/18 06:31 IMPRESSION: Improved aeration of the right lung base. Otherwise, there has been essentially no change. Electronically Signed: Roger Mijares MD at 12:26 EST , Service support , Chest X-Ray 06/08/18 11:00 IMPRESSION: The tip of the endotracheal tube is a 2.6 cm proximal to the cade. Stable appearance of the lungs. Electronically Signed: Roger Mijares at 15:00 EST , Service support , Chest X-Ray 06/08/18 12:43 IMPRESSION: Since prior study, there has been improved aeration of both lungs. All the support tubes are in good position. The tip of the left PICC line catheter is at the junction of the superior vena cava and right atrium. Electronically Signed: Roger Mijares, at 13:55 EST , Service support , Medical Necessity - Tobacco Use Smoking Status: Never smoker Tobacco Use: Non-smoker Assessment/Plan All Active Problems (Last Reviewed 05/29/18 @ 14:01 by Tanner Talamantes MD) Acute bronchitis (Acute) Influenza A (Acute) DCCV for atrial flutter (Resolved) URI (upper respiratory infection) (Resolved) Thrush, oral (Resolved) Pneumonia (Resolved) MRSA (methicillin resistant staphylococcus aureus) pneumonia (Resolved) Acute respiratory failure with hypoxia (Resolved) RECOMMENDATIONS: 1. Will discontinue propofol. Fentanyl can be resumed if needed. 2. Continue to wean FiO2 and PEEP to maintain an oxygen saturation at or above 90%. 3. Continue broad-spectrum antimicrobials, pending evaluation by infectious diseases. 4. Continue amiodarone down the G-tube. 5. Continue IV steroids as ordered. 6. Start tube feeds today. 7. Physical therapy to work with patient. 8. Continue Xarelto 9. Continue Pepcid for GI prophylaxis IMPRESSIONS: 1. Acute on chronic hypoxemic respiratory failure secondary to influenza A with MRSA superinfection Although initially improving on therapy, the patient later decompensated, becoming dependent on BiPAP therapy. On June 08, the patient required elective intubation due to an inability to be weaned from noninvasive positive pressure ventilation. In the interim, the patient's white blood cell count has increased, despite being on broad-spectrum antimicrobials. Therefore, infectious diseases has been consulted to evaluate patient. The patient would likely also benefit from gentle diuresis. However, the patient's blood press ures remain borderline for attempts at diuretic therapy. 2. Severe sepsis secondary to influenza A with MRSA superinfection Repeat cultures are currently pending. We will continue broad-spectrum antimicrobials, pending evaluation by infectious diseases. 3. Acute kidney injury Potentially prerenal in etiology. The patient is going to be started on tube feeds today. She is overall net positive for the hospital admission. Therefore, we will hold off on supplemental IV fluids for now. 4. History of pulmonary fibrosis secondary to chronic aspiration Strongly recommend that if the patient is able to be extubated from invasive mechanical ventilation, that she remain n.p.o. until she can be evaluated by speech therapy and undergo a modified barium swallow. 5. History of paroxysmal atrial fibrillation Continue baseline anticoagulation and cardiac medication regimen. 6. Diabetes mellitus/hypertension/generalized anxiety disorder Complicates care, management, recovery and prognosis. Continue home medications as indicated. Physical therapy to work with patient today. TIME: 40 minutes, inclusive of procedures, was spent addressing the patient's acute on chronic hypoxemic respiratory failure, influenza A infection, MRSA pneumonia, history of chronic aspiration, paroxysmal atrial fibrillation, review of all data and collaboration with the care team. ([id number]) Code Visit [id number]: [id number] Critical care first hour
[2018-06-09 06:33] LABS: Anion Gap 11 (5-15); BUN 50 mg/dL (7-18); BUN/Creat Ratio 33.8 RATIO (10-20); Calcium,Total 7.8 mg/dL (8.5-10.1); Chloride 98 mmol/L (98-107); Creatinine, Serum 1.48 mg/dL (0.55-1.02); EST Glomerular Filtration Rate 36 mL/min (>60); Est Glom Filt Rate - Afr Amer 43 mL/min (>60); Estimated Creatinine Clearance 23.18 ml/min; Glucose 167 mg/dL (74-106); Potassium 4.8 mmol/L (3.5-5.1); Sodium Level 141 mmol/L (136-145)
[2018-06-09 06:37] LABS: Absolute Lymphocyte Count 2.09 X10^3/ul (0.83-4.51); Absolute Neutrophil Count 28.7 X10^3/uL (2.0-7.7); Basophil# 0.04 X10^3/uL; Basophil% 0.1 % (0-1); Eosinophil# 0.01 X10^3/uL; Lymphocyte # 2.09 X10^3/ul (4.0); Lymphocyte % 6.5 % (19-41); Mean Corp Hgb Conc 31.4 g/gl (32-36); Mean Corpuscular Hgb 29.3 pg (27.0-32.0); Mean Corpuscular Volume 93.3 fL (81-99); Monocyte# 0.71 X10^3/uL; Monocyte% 2.2 % (0-10); Neutrophil % 89.8 % (47-70); Platelet Count 354 K/mm3 (150-450); RBC Distribution Width CV 13.1 % (11.6-14.6); Red Blood Count 3.75 M/mm3 (4.2-5.4)
[2018-06-09 06:46] LABS: Differential Indicated SCAN CRITERIA MET; POSITIVE COUNT YES; POSITIVE DIFFERENTIAL YES; POSITIVE MORPHOLOGY NO
[2018-06-09] MEDS: Ipratropium/Albuterol Sulfate 3 ML AMPUL.NEB INHALATION ×2 (06:48→10:59)
--- NOTE | 2018-06-09 07:22 | PCM.PN.HOSP ---
Patient Problems: Active and Suspected Problems (Last Reviewed 05/29/18 @ 14:01 by Tanner Talamantes MD) Acute bronchitis (Acute) Influenza A (Acute) Subjective: Patient was intubated on 06/08/2018 as a result of worsening respiratory status and when family elected to have patient intubated. Patient remains on the vent WBC count remains markedly elevated greater than 33K. Kidney function has worsened. Objective: GENERAL: Awake on the vent HEENT: Atraumatic; EYES; Anicteric, Normal Conjunctiva NECK; supple, normal thyroid, RESPIRATORY: Diminished to auscultation bilaterally, CARDIOVASCULAR: Regular S1 S2, GI: soft, non-tender, normoactive bowel sounds, : No Renal angle tenderness; EXTREMITIES: trace edema, no clubbing, NEURO: on the vent. unable to assess SKIN: No Rash PSYCH; on the vent. unable to assess Vitals/I&O's: Vital Signs Temp Pulse Resp BP Pulse Ox 99.8 F H 85 12 106/48 L 89 06/09/18 04:00 06/09/18 07:00 06/09/18 07:00 06/09/18 07:00 06/09/18 07:00 Oxygen Flow Rate (L/min) 15 Oxygen Delivery Method Mechanical Ventilator Weight: 50.8 kg Body Mass Index (BMI) 23.8 Finger Stick Blood Glucose 133 Intake and Output for Last 24 Hours 06/07/18 06/08/18 06/09/18 23:59 23:59 23:59 Intake Total 668.7 / 668.7 643.5 / 643.5 434 / 434 Output Total 3425 / 3425 705 / 705 250 / 250 Balance -2756.3 / -2756.3 -61.5 / -61.5 184 / 184 Microbiology Past 72 Hours 06/08/18 12:00 Sputum, Induced/Lukens Gram Stain - Final 06/03/18 14:35 Blood Culture (Wb) - Anticubital Left Blood Culture - Final No growth in 5 days. 06/03/18 14:30 Blood Culture (Wb) - Anticubital Right Blood Culture - Final No growth in 5 days. Laboratory Results 06/08/18 11:35: Vancomycin Trough 21.2 H 06/08/18 11:35: WBC Cancelled, Corrected WBC Cancelled, RBC Cancelled, Hgb Cancelled, Hct Cancelled, MCV Cancelled, MCH Cancelled, MCHC Cancelled, RDW Cancelled, RDW Differential Cancelled, Plt Count Cancelled, MPV Cancelled, Immature Gran % (Auto) Cancelled, Neut % (Auto) Cancelled, Lymph % (Auto) Cancelled, Cherry % (Auto) Cancelled, Eos % (Auto) Cancelled, Baso % (Auto) Cancelled, Absolute Neuts (auto) Cancelled, Absolute Lymphs (auto) Cancelled, Total Counted Cancelled, Neutrophils % (Manual) Cancelled, Band Neutrophils % Cancelled, Lymphocytes % (Manual) Cancelled, Monocytes % (Manual) Cancelled, Eosinophils % (Manual) Cancelled, Basophils % (Manual) Cancelled, Metamyelocytes % Cancelled, Myelocytes % Cancelled, Promyelocytes % Cancelled, Blast Cells % Cancelled, Plasma Cell % (Manual) Cancelled, Other Cells % Cancelled, Nucleated RBCs/100 WBC Cancelled, Differential Comment Cancelled, Diff Path Review Cancelled, Hypersegmented Neuts Cancelled, Atypical Lymphocytes Cancelled, Reactive Lymphocytes Cancelled, Smudge Cells Cancelled, Toxic Granulation Cancelled, Dohle Bodies Cancelled, Nico Rods Cancelled, Platelet Estimate Cancelled, Plt Morphology Comment Cancelled, RBC Morphology Cancelled, Polychromasia Cancelled, Hypochromasia Cancelled, Poikilocytosis Cancelled, Basophilic Stippling Cancelled, Anisocytosis Cancelled, Microcytosis Cancelled, Macrocytosis Cancelled, Spherocytes Cancelled, Sickle Cells Cancelled, Target Cells Cancelled, Tear Drop Cells Cancelled, Ovalocytes Cancelled, Stomatocytes Cancelled, [place] Bodies Cancelled, [place] Cells Cancelled, Bite Cells Cancelled, Acanthocytes (Spur) Cancelled, Rouleaux Cancelled, Schistocytes Cancelled 06/08/18 11:52: POC Glucose 117 H 06/08/18 12:05: Specimen Type ART, Sample Site L Radial, pH 7.52 H, Bicarbonate Actual 35.6 H, POC Total CO2 37, Base Excess 13 H, O2 Saturation 95, O2 % 100, ABG pCO2 43.2, ABG pO2 67 L, [place] Test POS, Respiration Rate 12, O2 Delivery Device Vent, Minute Volume 9.00, Vent Mode VC+, Tidal Volume 400, POC PEEP 12, Blood Gas Notified Whom ICU , Blood Gas Notified Time 1200 06/08/18 14:00: Sodium 137, Potassium 4.3, Chloride 97 L, Carbon Dioxide 34.0 H, Anion Gap 6, BUN 24 H, Creatinine 1.04 H, Estim Creat Clear Calc 32.99, Est GFR (MDRD) Af Amer 65, Est GFR (MDRD) Non-Af 54 L, BUN/Creatinine Ratio 23.1 H, Glucose 108 H, Calcium 8.4 L 06/08/18 14:00: WBC 33.3 H*, RBC 4.14 L, Hgb 12.1, Hct 39.0, MCV 94.2, MCH 29.2, MCHC 31.0 L, RDW 13.0, RDW Differential 44.5 H, Plt Count 326, MPV 9.9, Immature Gran % (Auto) 2.100 H, Neut % (Auto) 87.7 H, Lymph % (Auto) 8.0 L, Cherry % (Auto) 1.5, Eos % (Auto) 0.5, Baso % (Auto) 0.2, Absolute Neuts (auto) 29.1 H, Absolute Lymphs (auto) 2.66, Total Counted Not Reportable, Differential Comment SCANNED, Diff Path Review August06/08/18 14:00: Total Creatine Kinase 40, Triglycerides 178 06/08/18 17:05: POC Glucose 127 H 06/08/18 23:15: Vancomycin Trough 17.8 H 06/08/18 23:21: POC Glucose 180 H 06/09/18 05:53: POC Glucose 157 H 06/09/18 06:10: WBC 32.0 H*, RBC 3.75 L, Hgb 11.0 L, Hct 35.0 L, MCV 93.3, MCH 29.3, MCHC 31.4 L, RDW 13.1, RDW Differential 44.0 H, Plt Count 354, MPV 10.0, Immature Gran % (Auto) 1.400 H, Neut % (Auto) 89.8 H, Lymph % (Auto) 6.5 L, Cherry % (Auto) 2.2, Eos % (Auto) 0.0, Baso % (Auto) 0.1, Absolute Neuts (auto) 28.7 H, Absolute Lymphs (auto) 2.09, Total Counted Not Reportable, Diff Path Review May foll 06/09/18 06:10: Sodium 141, Potassium 4.8, Chloride 98, Carbon Dioxide 32.0, Anion Gap 11, BUN 50 H, Creatinine 1.48 H, Estim Creat Clear Calc 23.18, Est GFR (MDRD) Af Amer 43 L, Est GFR (MDRD) Non-Af 36 L, BUN/Creatinine Ratio 33.8 H, Glucose 167 H, Calcium 7.8 L Current Medications Acetaminophen (Tylenol) 650 mg RECTAL Q4H PRN PRN PRN Reason: MILD-MOD PAIN (-08/20) Last Admin: 06/07/18 14:05 Dose: 650 mg Hydrocodone Bitart/Acetaminophen ([place] 5mg-325mg) 1 tablet GT QHS [facility] Last Admin: 06/08/18 21:12 Dose: Not Given Al Hydroxide/Mg Hydroxide (Mylanta Ii) 30 ml PO Q6H PRN PRN PRN Reason: INDIGESTION Last Admin: 06/06/18 23:23 Dose: 30 ml Albuterol Sulfate (Ventolin Aerosols) 2.5 mg INHALATION Q4H PRN PRN Reason: pul fibrosis J84.10 & bronchiectasis J47.9 Last Admin: 06/07/18 19:10 Dose: 2.5 mg Albuterol/Ipratropium (Duoneb) 3 ml INHALATION Q4HWA.RT [facility], [facility] Last Admin: 06/09/18 06:48 Dose: 3 ml Amiodarone HCl (Cordarone) 100 mg GT DAILY [facility], [facility] Bisacodyl (Dulcolax) 10 mg RECTAL DAILY PRN PRN Reason: Constipation Chlorhexidine Gluconate () 15 ml PO BID [facility] Last Admin: 06/08/18 21:38 Dose: 15 ml Chlorhexidine Gluconate () 1 each TOPICAL DAILY [facility] Last Admin: 06/09/18 02:28 Dose: 1 each Famotidine (Pepcid) 20 mg GT BID [facility] Last Admin: 06/08/18 21:29 Dose: 20 mg Fluticasone Propionate (Flonase Nasal [place]) 1 spray NASAL DAILY [facility] Last Admin: 06/08/18 11:46 Dose: 1 spray Guaifenesin (Mucinex) 1,200 mg PO BID [facility] Last Admin: 02/26/19 21:29 Dose: 1,200 mg Vancomycin IV Pharmacy to Dose (1 ea/ Sodium Chloride) 500 mls @ 250 mls/hr IV X1 PRN; Protocol PRN Reason: Rx to Dose Piperacillin Sod/Tazobactam (Sod 3.375 gm/ Sodium Chloride) 50 mls @ 12.5 mls/hr IV Q8 [facility] Last Admin: 06/09/18 05:55 Dose: 12.5 mls/hr Propofol (Diprivan) 1,000 mg in 100 mls @ 3.06 mls/hr CONT INF .Q12H [facility] Last Admin: 06/08/18 22:49 Dose: Not Given Fentanyl () 100 mls @ 5 mls/hr IV .Q20H [facility] Last Admin: 06/08/18 21:43 Dose: 5 mls/hr Vancomycin HCl 1,000 mg/ (Sodium Chloride) 200 mls @ 200 mls/hr IV Q24H [facility] Last Admin: 06/09/18 01:34 Dose: 200 mls/hr Insulin Human Lispro (Humalog Kwikpen (Bkc)) 0 unit SC Q6 [facility], [facility]; Protocol Last Admin: 06/09/18 05:55 Dose: 1 u Lansoprazole (Lansoprazole) 15 mg GT DAILY [facility] Magnesium Hydroxide (Milk Of Magnesia) 30 ml PO DAILY PRN PRN PRN Reason: Constipation Methylprednisolone (Solu-Medrol) 40 mg IV DAILY [facility] Last Admin: 06/08/18 13:50 Dose: 40 mg Montelukast Sodium (Singulair) 10 mg GT QHS [facility] Last Admin: 06/08/18 21:29 Dose: 10 mg Nortriptyline HCl (Pamelor) 50 mg GT QHS [facility] Last Admin: 06/08/18 21:29 Dose: 50 mg Nystatin (Nystatin) 500,000 unit PO 4X/DAY [facility] Stop: 06/12/18 14:01 Last Admin: 06/08/18 21:28 Dose: 500,000 unit Ondansetron HCl (Zofran) 4 mg IV Q6H PRN PRN PRN Reason: NAUSEA/VOMITING Last Admin: 06/07/18 01:39 Dose: 4 mg Polyethylene Glycol (Miralax) 17 gm GT DAILY [facility] Potassium Chloride (K-Dur) 10 meq GT BIDCM [facility] Last Admin: 06/08/18 16:48 Dose: 10 meq Prednisolone Acetate (Pred Forte Eye Drops (1 Ml)) 1 drop OPHTHALMIC DAILY [facility] Last Admin: 06/08/18 11:43 Dose: 1 drop Rivaroxaban (Xarelto) 15 mg GT DAILY [facility] Last Admin: 06/08/18 13:50 Dose: 15 mg Senna/Docusate Sodium (Senokot-S, Juanita-Colace) 1 tablet GT DAILY PRN PRN PRN Reason: Constipation Sodium Chloride () 5 - 15 ml IV UD PRN PRN Reason: SALINE FLUSH Last Admin: 06/09/18 00:26 Dose: 10 ml Temazepam (Restoril) 15 mg GT QHS [facility] Last Admin: 06/08/18 21:29 Dose: 15 mg Medical Necessity - Tobacco Use Smoking Status: Never smoker Tobacco Use: Non-smoker Assessment/Plan All Active Problems (Last Reviewed 05/29/18 @ 14:01 by Tanner Talamantes MD) Acute bronchitis (Acute) Influenza A (Acute) DCCV for atrial flutter (Resolved) URI (upper respiratory infection) (Resolved) Thrush, oral (Resolved) Pneumonia (Resolved) MRSA (methicillin resistant staphylococcus aureus) pneumonia (Resolved) Acute respiratory failure with hypoxia (Resolved) Patient is an 83-year-old lady with multiple comorbidities presenting with progressive shortness of breath and persistent cough in addition to subjective fever and chills. An assessment of acute bronchitis made admitted to regular nursing floor for further management and condition deteriorated resulting in patient being moved from the regular nursing floor to ICU. Patient was managed with noninvasive ventilation BiPAP. Subsequent sputum cultures came back positive for MRSA 1. Acute hypoxic respiratory failure secondary to acute influenza A infection complicated by MRSA pneumonia. Patient transferred from a regular nursing floor to the intensive care unit managed on noninvasive ventilation BiPAP which has since been weaned off to high flow oxygen patient did complete a 5-day treatment with Tamiflu currently remains on Zosyn and vancomycin patient has been weaned off BiPAP however had to be placed back on the night of 06/07/2018. Remains on vancomycin and Zosyn. Case discussed with Dr. Delgadillo with pulmonary medicine/intensive care was intubated on 06/08/2018 as a result of worsening respiratory status. Consult was placed to infectious disease in view of worsening WBC count 2. Chronic hypoxic respiratory failure secondary to combination of COPD and bronchiectasis patient is followed by pulmonary medicine as outpatient patient is on baseline home O2 3. Acute kidney injury diuretics held monitoring kidney function 4. Paroxysmal A. fib/flutter patient is on amiodarone and Cardizem. On systemic anticoagulation with xarelto. 5. GERD; on PPI 6. Hypertension blood pressure stable did continue with home meds 7. Anxiety disorder patient is on Klonopin at home 8. History of left-sided hemiplegia following cervical cyst removal requested for PT OT as tolerated 9. DVT prophylaxis patient will Xarelto no need for additional measures 10. Physical deconditioning: PT OT as tolerated with plans for patient to be discharged to a fpc facility when medically stable 11. Dysphagia ; with suspected recurrent aspiration. Code Visit Inpatient E&M: 48394 Subs Hosp L3
--- NOTE | 2018-06-09 09:42 | CASEMGMT ---
SW participated in ICU rounds this morning, pt's son in law present. Pt remains on the vent at this time. SW called Miguel at [facility], updated given. [facility] will continue to follow. ENRIQUE Roca, ACTIVITY THERAPY SPECIALIST
[2018-06-09] MEDS: Chlorhexidine 15 ML PO ×2 (12:05→22:05)
[2018-06-09] MEDS: Amiodarone 200 MG Tablet 100 MG GT (12:05)
[2018-06-09] MEDS: Famotidine 20 MG Tablet GT ×2 (12:06→22:05)
[2018-06-09] MEDS: Polyethylene Glycol 3350 17 GM PACKET GT (12:06)
[2018-06-09] MEDS: NYSTATIN 500,000 UNIT/5 ML UDC 500000 UNIT PO ×4 (12:06→22:05)
[2018-06-09] MEDS: Senna/Docusate Sodium 1 Tablet NG (12:07)
[2018-06-09] MEDS: Rivaroxaban 15 MG Tablet GT (12:07)
[2018-06-09] MEDS: prednisoLONE eye drops (1 mL) 1 DROP OPTH.BTL 1 DRP OPHTHALMIC (12:07)
[2018-06-09 12:45] LABS: Bedside Glucose 159 mg/dL (70-110)
--- NOTE | 2018-06-09 14:07 | CON.PCM_ITS ---
Problem List (1) MRSA (methicillin resistant staphylococcus aureus) pneumonia Status: Resolved Qualifiers: Laterality: bilateral Lung location: unspecified part of lung Qualified Code(s): J15.212 - Pneumonia due to Methicillin resistant Staphylococcus aureus Reason for Consult: resp failure Consulted by: Dr. Delgadillo History of Present Illness: The patient is a 83 year old F who presented 05/30 with a few days of cough, wheezing, fever, chills, weakness. Pt unable to provide history due to ETT. Family at bedside. Admitted on azithro, ceftriaxone. Given 5 days of tamiflu for flu A (+) pcr. Started on vanc 06/01 due to clinical worsening, seen by pulm. Sputum cx with MRSA. Azithro/ceftriaxone changed to zosyn. Had worsening hypoxia overnight, 06/08 intubated, today awake on vent. Denies SOB or abd pain. Minimal sputum, no diarrhea per nursing. ROS unobtainable. - Medical History Past Medical History (Chronic Problems): Chronic Problems (Last Reviewed 05/29/18 @ 14:01 by Tanner Talamantes MD) Nonrheumatic aortic valve stenosis (Chronic) Encounter for long-term current use of high risk medication (Chronic) Cardiomyopathy in other diseases classified elsewhere (Chronic) Nonrheumatic tricuspid (valve) insufficiency (Chronic) Nonrheumatic mitral (valve) insufficiency (Chronic) Cardiac murmur (Chronic) Cardiomyopathy (Chronic) Atrial flutter (Chronic) Bronchiectasis (Chronic) High risk medications (not anticoagulants) long-term use (Chronic) Restrictive lung disease (Chronic) Anxiety disorder (Chronic) Diabetes (Chronic) HTN (hypertension) (Chronic) Hemiparesis (Chronic) s/p spine surgery for a cyst Atrial fibrillation with RVR (Chronic) 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 aspiration Dysphagia (Chronic) Pulmonary hypertension, mild (Chronic) d/t lung disease PAF (paroxysmal atrial fibrillation) (Chronic) Allergies/Adverse Reactions: Allergies amoxicillin trihydrate [From Augmentin] Allergy (Verified 05/29/18 09:58) Diarrhea aspirin [ASA] Allergy (Verified 05/29/18 09:58) Unknown pt states she has mac degen and can't take it cefdinir Allergy (Verified 05/29/18 09:58) Unknown doxycycline Allergy (Verified 05/29/18 09:58) Unknown gatifloxacin [From Tequin] Allergy (Verified 05/29/18 09:58) Unknown potassium clavulanate [From Augmentin] Allergy (Verified 05/29/18 09:58) Unknown levofloxacin [From Levaquin] Adverse Reaction (Severe, Verified 05/29/18 09:58) Rash fluticasone propionate [From Advair Diskus] Adverse Reaction (Verified 05/29/18 09:58) Unknown salmeterol xinafoate [From Advair Diskus] Adverse Reaction (Verified 05/29/18 09:58) Unknown my head gets funny Home Medications: Ambulatory Orders Medication Instructions Recorded Albuterol IH (ProAir) [Proair Hfa 2 puff INHALATION Q6H PRN PRN 01/29/17 (SP)Vent Pts] Amiodarone HCl 100 mg PO DAILY 01/29/17 Clonazepam [Klonopin] 0.5 mg PO TID PRN PRN 01/29/17 Furosemide [Lasix] 20 mg PO DAILY 01/29/17 Omeprazole [Prilosec] 20 mg PO DAILY 01/29/17 Rivaroxaban [Xarelto] 15 mg PO DAILY 01/29/17 Temazepam [Restoril] 15 mg PO QHS 01/29/17 Montelukast Sodium [Singulair] 10 mg PO DAILY 04/14/17 Potassium Chloride [Klor-Con 10] 10 meq PO BID 04/14/17 fluticasone 50 mcg/actuation nasal 1 spray INTRANASAL QDAY 04/16/17 spray,suspension guaifenesin 100 mg/5 mL oral liquid 200 mg PO Q4H PRN 04/16/17 losartan 25 mg tablet 25 mg PO QDAY 04/16/17 [id number]-Al-foyt-minerals 1 tab PO QDAY ea 04/16/17 tablet prednisolone acetate 1 % eye 1 drp OPHTHALMIC QDAY ml 04/16/17 drops,suspension nortriptyline 50 mg capsule 50 mg PO QHS cap 09/01/17 diltiazem ER 120 mg capsule,24 120 mg PO DAILY #90 cap 02/26/18 hr,extended release azithromycin 250 mg tablet 250 mg PO QMWF tab 03/24/18 ergocalciferol (vitamin D2) 50,000 50,000 unit PO .QOW cap 03/24/18 unit capsule albuterol sulfate 2.5 mg/3 mL 2.5 mg INHALATION Q4H PRN #180 vial 04/15/18 (0.083 %) solution for nebulization umeclidinium 62.5 mcg/actuation 1 inh INHALATION QDAY #3 device 05/17/18 blister powder for inhalation Acetaminophen 1,000 mg PO BID PRN PRN 05/29/18 Bisacodyl 10 mg RC DAILY PRN 05/29/18 Glucagon,Human Recombinant 1 mg IJ PRN PRN 05/29/18 [Glucagon Emergency Kit] Hydrocodone/Acetaminophen [[place] 1 each PO QHS 05/29/18 5-325 Tablet] Magnesium Hydroxide [Milk Of 30 ml PO DAILY PRN PRN 05/29/18 Magnesia] Mometasone/Formoterol [Dulera 200 2 puff INHALATION BID 05/29/18 Mcg/5 Mcg Inhaler] Na Phos,M-B/Na Phos,Di-Ba [Fleet 120 ml RECTAL X1 PRN 05/29/18 Enema] Polyethylene Glycol 3350 [Miralax] 17 gm PO DAILY 05/29/18 Prednisone 1 tab PO DAILY 05/29/18 Sennosides/Docusate Sodium 1 tab PO DAILY PRN 05/29/18 [Senna-S Laxative Tablet] Vital Signs Temp Pulse Resp BP Pulse Ox 96.8 F L 98 17 96/51 L 93 06/09/18 08:00 06/09/18 14:01 06/09/18 14:01 06/09/18 10:00 06/09/18 14:01 Oxygen Flow Rate (L/min) 15 Oxygen Delivery Method Mechanical Ventilator Weight: 50.8 kg Body Mass Index (BMI) 23.8 Finger Stick Blood Glucose 133 Microbiology Past 72 Hours 06/08/18 12:00 Gram Stain - Final Sputum, Induced/Lukens Respiratory Culture - Preliminary Staphylococcus aureus 06/03/18 14:35 Blood Culture - Final Blood Culture (Wb) - Anticubital Left No growth in 5 days. 06/03/18 14:30 Blood Culture - Final Blood Culture (Wb) - Anticubital Right No growth in 5 days. Laboratory Tests Past 24 Hrs 06/08/18 06/08/18 06/08/18 14:00 14:00 14:00 WBC 33.3 H* RBC 4.14 L Hgb 12.1 Hct 39.0 MCV 94.2 MCH 29.2 MCHC 31.0 L RDW 13.0 RDW Differential 44.5 H Plt Count 326 MPV 9.9 Immature Gran % (Auto) 2.100 H Neut % (Auto) 87.7 H Lymph % (Auto) 8.0 L [place] % (Auto) 1.5 Eos % (Auto) 0.5 Baso % (Auto) 0.2 Absolute Neuts (auto) 29.1 H Absolute Lymphs (auto) 2.66 Total Counted Not Reportable Differential Comment SCANNED Diff Path Review August foll Sodium 137 Potassium 4.3 Chloride 97 L Carbon Dioxide 34.0 H Anion Gap 6 BUN 24 H Creatinine 1.04 H Estim Creat Clear Calc 32.99 Est GFR (MDRD) Af Amer 65 Est GFR (MDRD) Non-Af 54 L BUN/Creatinine Ratio 23.1 H Glucose 108 H Calcium 8.4 L Total Creatine Kinase 40 Triglycerides 178 Vancomycin Trough 06/08/18 06/09/18 06/09/18 23:15 06:10 06:10 WBC 32.0 H* RBC 3.75 L Hgb 11.0 L Hct 35.0 L MCV 93.3 MCH 29.3 MCHC 31.4 L RDW 13.1 RDW Differential 44.0 H Plt Count 354 MPV 10.0 Immature Gran % (Auto) 1.400 H Neut % (Auto) 89.8 H Lymph % (Auto) 6.5 L [place] % (Auto) 2.2 Eos % (Auto) 0.0 Baso % (Auto) 0.1 Absolute Neuts (auto) 28.7 H Absolute Lymphs (auto) 2.09 Total Counted Not Reportable Differential Comment Diff Path Review May foll Sodium 141 Potassium 4.8 Chloride 98 Carbon Dioxide 32.0 Anion Gap 11 BUN 50 H Creatinine 1.48 H Estim Creat Clear Calc 23.18 Est GFR (MDRD) Af Amer 43 L Est GFR (MDRD) Non-Af 36 L BUN/Creatinine Ratio 33.8 H Glucose 167 H Calcium 7.8 L Total Creatine Kinase Triglycerides Vancomycin Trough 17.8 H - Other Studies Radiology: [] reviewed Other Studies: [] Route of nutrition/ use of supplements: [] Nutritional Intake: [] IV Site: [] Ramos Catheter: [] - Physical Exam General: Alert, Cooperative, No apparent distress HEENT: Atraumatic, PERRLA, EOMI Neck: Supple, No Nodes Lungs: Diminished Cardiovascular: Regular rate, Regular Rhythm Abdomen: Soft, Non Tender, Non-Distended Extremities: No edema Skin: No rashes IV Site: PICC Musculoskeletal: No Tenderness to Palpation of Joints or Extremities Neurological: Cranial nerves II-XII grossly intact - Assessment/Plan Antibiotics: [] Assessment/Plan: [] Active and Suspected Problems (Last Reviewed 05/29/18 @ 14:01 by Tanner Talamantes MD) Acute bronchitis (Acute) Influenza A (Acute) acute hypoxic resp failure due to flu A and MRSA pneumonia - stop zosyn. Repeat sputum cx with staph aureus again. Continue vanc. She completed course of tamiflu earlier this admit. Will follow, thank you, d/w nursing.
[2018-06-09] MEDS: Vital AF 1.2 Cal Liquid 1,000 ML 55 ML GT (14:33)
[2018-06-09] MEDS: clonazePAM 0.5 MG Tablet PO (17:39)
[2018-06-09 17:56] LABS: Bedside Glucose 230 mg/dL (70-110)
[2018-06-09] MEDS: dilTIAZem 30 MG Tablet GT (20:44)
[2018-06-09] MEDS: Nortriptyline 25 MG Capsule 50 MG GT (22:04)
[2018-06-09] MEDS: Temazepam 15 MG Capsule GT (22:04)
[2018-06-09] MEDS: Montelukast 10 MG Tablet GT (22:04)
[2018-06-09] MEDS: fentaNYL drip 100 ML 5 MCG IV (22:20)
[2018-06-10] VITALS (37 sets, daily range): BP systolic 86–124; BP diastolic 49–97; PULSE 62–129; RESP 12–29; TEMP 35.9–36.8; O2SAT 91–99
[2018-06-10] MEDS: Insulin Lispro 100 UNIT/ML INSULN.PEN SC ×4 (00:11→19:06)
[2018-06-10 00:26] LABS: Bedside Glucose 282 mg/dL (70-110)
[2018-06-10] MEDS: CHLORHEXIDINE GLUC 2% CLOTH 1 EACH TOWELETTE TOPICAL (02:48)
[2018-06-10] MEDS: clonazePAM 0.5 MG Tablet GT ×3 (03:02→21:38)
[2018-06-10] MEDS: dilTIAZem 30 MG Tablet GT ×3 (06:11→19:06)
[2018-06-10 06:31] LABS: Bedside Glucose 265 mg/dL (70-110)
--- NOTE | 2018-06-10 06:48 | PN_ITS ---
Subjective: The patient was seen and examined at the bedside this morning. Events from the last 24 hours have been reviewed. The patient is currently afebrile, hemodynamically stable and maintaining appropriate oxygen saturations with an FiO2 requirement of 40%. The patient is currently documented to be overall net +5.2 L for the admission. The patient was transitioned back from assist control to spontaneous this morning and is resting comfortably. Objective: The patient's most recent lab work, culture data and imaging studies have all been personally reviewed. Respiratory viral panel was positive for influenza A. Sputum culture was positive for methicillin-resistant staph aureus. Blood cultures have not shown any growth to date. Surface echocardiogram dated August 2015 revealed normal LV size and ejection fraction. There was moderate focal aortic valve calcification along with a right ventricular systolic pressure estimated to be 32 mmHg. Repeat sputum culture dated June 08 was again positive for MRSA. General: Alert, Cooperative, No apparent distress, - - Remains intubated and me chanically ventilated. HEENT: Atraumatic, PERRLA, Normocephalic Oral: No Gingival or Mucosal Lesions/ Ulcerations, - - Endotracheal and OG tubes remain in place. Neck: Supple, No Nodes, Trachea Midline Lungs: No rhonchi, No wheeze, No rales, Diminished, - Cardiovascular: Regular rate, Regular Rhythm, Normal S1, Normal S2, No murmurs, - - Currently in normal sinus rhythm on telemetry Abdomen: Bowel Sounds Present, Soft, Non Tender, Non-Distended Extremities: No clubbing, No cyanosis, Edema - Trace Skin: - - No significant change from previous. Musculoskeletal: No Tenderness to Palpation of Joints or Extremities Lymphatic: No Cervical, Supraclavicular, or Inguinal Adenopathy Neurological: Cranial nerves II-XII grossly intact, Neuro grossly intact, - - No continuous sedation. RASS is currently 0 Vital Signs Temp Pulse Resp BP Pulse Ox 36.8 C 125 H 18 109/70 97 06/10/18 04:00 06/10/18 06:00 06/10/18 06:00 06/10/18 06:00 06/10/18 06:00 Oxygen Flow Rate (L/min) 15 Oxygen Delivery Method Mechanical Ventilator Weight: 114 lb 6.719 oz Body Mass Index (BMI) 23.8 Finger Stick Blood Glucose 133 Intake and Output for Last 24 Hours 06/08/18 06/09/1806/10/19 23:59 23:59 23:59 Intake Total 643.5 / 643.5 760.9 / 760.9 1325.2 / 1325.2 Output Total 705 / 705 350 / 350 450 / 450 Balance -61.5 / -61.5 410.9 / 410.9 875.2 / 875.2 Labs (Last 48 Hours) 06/08/18 06/08/18 06/08/18 11:35 11:35 11:52 WBC Cancelled Corrected WBC Cancelled RBC Cancelled Hgb Cancelled Hct Cancelled MCV Cancelled MCH Cancelled MCHC Cancelled RDW Cancelled RDW Differential Cancelled Plt Count Cancelled MPV Cancelled Immature Gran % (Auto) Cancelled Neut % (Auto) Cancelled Lymph % (Auto) Cancelled [place] % (Auto) Cancelled Eos % (Auto) Cancelled Baso % (Auto) Cancelled Absolute Neuts (auto) Cancelled Absolute Lymphs (auto) Cancelled Total Counted Cancelled Neutrophils % (Manual) Cancelled Band Neutrophils % Cancelled Lymphocytes % (Manual) Cancelled Monocytes % (Manual) Cancelled Eosinophils % (Manual) Cancelled Basophils % (Manual) Cancelled Metamyelocytes % Cancelled Myelocytes % Cancelled Promyelocytes % Cancelled Blast Cells % Cancelled Plasma Cell % (Manual) Cancelled Other Cells % Cancelled Nucleated RBCs/100 WBC Cancelled Differential Comment Cancelled Diff Path Review Cancelled Hypersegmented Neuts Cancelled Atypical Lymphocytes Cancelled Reactive Lymphocytes Cancelled Smudge Cells Cancelled Toxic Granulation Cancelled Dohle Bodies Cancelled [place] Rods Cancelled Platelet Estimate Cancelled Plt Morphology Comment Cancelled RBC Morphology Cancelled Polychromasia Cancelled Hypochromasia Cancelled Poikilocytosis Cancelled Basophilic Stippling Cancelled Anisocytosis Cancelled Microcytosis Cancelled Macrocytosis Cancelled Spherocytes Cancelled Sickle Cells Cancelled Target Cells Cancelled Tear Drop Cells Cancelled Ovalocytes Cancelled Stomatocytes Cancelled [place] Bodies Cancelled Childs Cells Cancelled Bite Cells Cancelled Acanthocytes (Spur) Cancelled Rouleaux Cancelled Schistocytes Cancelled Specimen Type Sample Site pH Bicarbonate Actual POC Total CO2 Base Excess O2 Saturation O2 % ABG pCO2 ABG pO2 [place] Test Respiration Rate O2 Delivery Device Minute Volume Vent Mode Tidal Volume POC PEEP Blood Gas Notified Whom Blood Gas Notified Time Sodium Potassium Chloride Carbon Dioxide Anion Gap BUN Creatinine Estim Creat Clear Calc Est GFR (MDRD) Af Amer Est GFR (MDRD) Non-Af BUN/Creatinine Ratio Glucose Calcium Total Creatine Kinase Triglycerides Vancomycin Trough 21.2 H POC Glucose 117 H 06/08/18 06/08/18 06/08/18 12:05 14:00 14:00 WBC 33.3 H* Corrected WBC RBC 4.14 L Hgb 12.1 Hct 39.0 MCV 94.2 MCH 29.2 MCHC 31.0 L RDW 13.0 RDW Differential 44.5 H Plt Count 326 MPV 9.9 Immature Gran % (Auto) 2.100 H Neut % (Auto) 87.7 H Lymph % (Auto) 8.0 L [place] % (Auto) 1.5 Eos % (Auto) 0.5 Baso % (Auto) 0.2 Absolute Neuts (auto) 29.1 H Absolute Lymphs (auto) 2.66 Total Counted Not Reportable Neutrophils % (Manual) Band Neutrophils % Lymphocytes % (Manual) Monocytes % (Manual) Eosinophils % (Manual) Basophils % (Manual) Metamyelocytes % Myelocytes % Promyelocytes % Blast Cells % Plasma Cell % (Manual) Other Cells % Nucleated RBCs/100 WBC Differential Comment SCANNED Diff Path Review May foll Hypersegmented Neuts Atypical Lymphocytes Reactive Lymphocytes Smudge Cells Toxic Granulation Dohle Bodies [place] Rods Platelet Estimate Plt Morphology Comment RBC Morphology Polychromasia Hypochromasia Poikilocytosis Basophilic Stippling Anisocytosis Microcytosis Macrocytosis Spherocytes Sickle Cells Target Cells Tear Drop Cells Ovalocytes Stomatocytes [place] Bodies Childs Cells Bite Cells Acanthocytes (Spur) Rouleaux Schistocytes Specimen Type ART Sample Site L Radial pH 7.52 H Bicarbonate Actual 35.6 H POC Total CO2 37 Base Excess 13 H O2 Saturation 95 O2 % 100 ABG pCO2 43.2 ABG pO2 67 L [place] Test POS Respiration Rate 12 O2 Delivery Device Vent Minute Volume 9.00 Vent Mode VC+ Tidal Volume 400 POC PEEP 12 Blood Gas Notified Whom ICU Blood Gas Notified Time 1200 Sodium 137 Potassium 4.3 Chloride 97 L Carbon Dioxide 34.0 H Anion Gap 6 BUN 24 H Creatinine 1.04 H Estim Creat Clear Calc 32.99 Est GFR (MDRD) Af Amer 65 Est GFR (MDRD) Non-Af 54 L BUN/Creatinine Ratio 23.1 H Glucose 108 H Calcium 8.4 L Total Creatine Kinase Triglycerides Vancomycin Trough POC Glucose 06/08/18 06/08/18 06/08/18 14:00 17:05 23:15 WBC Corrected WBC RBC Hgb Hct MCV MCH MCHC RDW RDW Differential Plt Count MPV Immature Gran % (Auto) Neut % (Auto) Lymph % (Auto) [place] % (Auto) Eos % (Auto) Baso % (Auto) Absolute Neuts (auto) Absolute Lymphs (auto) Total Counted Neutrophils % (Manual) Band Neutrophils % Lymphocytes % (Manual) Monocytes % (Manual) Eosinophils % (Manual) Basophils % (Manual) Metamyelocytes % Myelocytes % Promyelocytes % Blast Cells % Plasma Cell % (Manual) Other Cells % Nucleated RBCs/100 WBC Differential Comment Diff Path Review Hypersegmented Neuts Atypical Lymphocytes Reactive Lymphocytes Smudge Cells Toxic Granulation Dohle Bodies [place] Rods Platelet Estimate Plt Morphology Comment RBC Morphology Polychromasia Hypochromasia Poikilocytosis Basophilic Stippling Anisocytosis Microcytosis Macrocytosis Spherocytes Sickle Cells Target Cells Tear Drop Cells Ovalocytes Stomatocytes [place] Bodies Childs Cells Bite Cells Acanthocytes (Spur) Rouleaux Schistocytes Specimen Type Sample Site pH Bicarbonate Actual POC Total CO2 Base Excess O2 Saturation O2 % ABG pCO2 ABG pO2 [place] Test Respiration Rate O2 Delivery Device Minute Volume Vent Mode Tidal Volume POC PEEP Blood Gas Notified Whom Blood Gas Notified Time Sodium Potassium Chloride Carbon Dioxide Anion Gap BUN Creatinine Estim Creat Clear Calc Est GFR (MDRD) Af Amer Est GFR (MDRD) Non-Af BUN/Creatinine Ratio Glucose Calcium Total Creatine Kinase 40 Triglycerides 178 Vancomycin Trough 17.8 H POC Glucose 127 H 06/08/18 06/09/18 06/09/18 23:21 05:53 06:10 WBC 32.0 H* Corrected WBC RBC 3.75 L Hgb 11.0 L Hct 35.0 L MCV 93.3 MCH 29.3 MCHC 31.4 L RDW 13.1 RDW Differential 44.0 H Plt Count 354 MPV 10.0 Immature Gran % (Auto) 1.400 H Neut % (Auto) 89.8 H Lymph % (Auto) 6.5 L [place] % (Auto) 2.2 Eos % (Auto) 0.0 Baso % (Auto) 0.1 Absolute Neuts (auto) 28.7 H Absolute Lymphs (auto) 2.09 Total Counted Not Reportable Neutrophils % (Manual) Band Neutrophils % Lymphocytes % (Manual) Monocytes % (Manual) Eosinophils % (Manual) Basophils % (Manual) Metamyelocytes % Myelocytes % Promyelocytes % Blast Cells % Plasma Cell % (Manual) Other Cells % Nucleated RBCs/100 WBC Differential Comment Diff Path Review May foll Hypersegmented Neuts Atypical Lymphocytes Reactive Lymphocytes Smudge Cells Toxic Granulation Dohle Bodies [place] Rods Platelet Estimate Plt Morphology Comment RBC Morphology Polychromasia Hypochromasia Poikilocytosis Basophilic Stippling Anisocytosis Microcytosis Macrocytosis Spherocytes Sickle Cells Target Cells Tear Drop Cells Ovalocytes Stomatocytes [place] Bodies Childs Cells Bite Cells Acanthocytes (Spur) Rouleaux Schistocytes Specimen Type Sample Site pH Bicarbonate Actual POC Total CO2 Base Excess O2 Saturation O2 % ABG pCO2 ABG pO2 [place] Test Respiration Rate O2 Delivery Device Minute Volume Vent Mode Tidal Volume POC PEEP Blood Gas Notified Whom Blood Gas Notified Time Sodium Potassium Chloride Carbon Dioxide Anion Gap BUN Creatinine Estim Creat Clear Calc Est GFR (MDRD) Af Amer Est GFR (MDRD) Non-Af BUN/Creatinine Ratio Glucose Calcium Total Creatine Kinase Triglycerides Vancomycin Trough POC Glucose 180 H 157 H 06/09/18 06/09/18 06/09/18 06:10 12:00 17:42 WBC Corrected WBC RBC Hgb Hct MCV MCH MCHC RDW RDW Differential Plt Count MPV Immature Gran % (Auto) Neut % (Auto) Lymph % (Auto) [place] % (Auto) Eos % (Auto) Baso % (Auto) Absolute Neuts (auto) Absolute Lymphs (auto) Total Counted Neutrophils % (Manual) Band Neutrophils % Lymphocytes % (Manual) Monocytes % (Manual) Eosinophils % (Manual) Basophils % (Manual) Metamyelocytes % Myelocytes % Promyelocytes % Blast Cells % Plasma Cell % (Manual) Other Cells % Nucleated RBCs/100 WBC Differential Comment Diff Path Review Hypersegmented Neuts Atypical Lymphocytes Reactive Lymphocytes Smudge Cells Toxic Granulation Dohle Bodies [place] Platelet Estimate Plt Morphology Comment RBC Morphology Polychromasia Hypochromasia Poikilocytosis Basophilic Stippling Anisocytosis Microcytosis Macrocytosis Spherocytes Sickle Cells Target Cells Tear Drop Cells Ovalocytes Stomatocytes [place] Bodies Childs Cells Bite Cells Acanthocytes (Spur) Rouleaux Schistocytes Specimen Type Sample Site pH Bicarbonate Actual POC Total CO2 Base Excess O2 Saturation O2 % ABG pCO2 ABG pO2 [place] Test Respiration Rate O2 Delivery Device Minute Volume Vent Mode Tidal Volume POC PEEP Blood Gas Notified Whom Blood Gas Notified Time Sodium 141 Potassium 4.8 Chloride 98 Carbon Dioxide 32.0 Anion Gap 11 BUN 50 H Creatinine 1.48 H Estim Creat Clear Calc 23.18 Est GFR (MDRD) Af Amer 43 L Est GFR (MDRD) Non-Af 36 L BUN/Creatinine Ratio 33.8 H Glucose 167 H Calcium 7.8 L Total Creatine Kinase Triglycerides Vancomycin Trough POC Glucose 159 H 230 H 06/10/18 06/10/18 00:09 06:06 WBC Corrected WBC RBC Hgb Hct MCV MCH MCHC RDW RDW Differential Plt Count MPV Immature Gran % (Auto) Neut % (Auto) Lymph % (Auto) [place] % (Auto) Eos % (Auto) Baso % (Auto) Absolute Neuts (auto) Absolute Lymphs (auto) Total Counted Neutrophils % (Manual) Band Neutrophils % Lymphocytes % (Manual) Monocytes % (Manual) Eosinophils % (Manual) Basophils % (Manual) Metamyelocytes % Myelocytes % Promyelocytes % Blast Cells % Plasma Cell % (Manual) Other Cells % Nucleated RBCs/100 WBC Differential Comment Diff Path Review Hypersegmented Neuts Atypical Lymphocytes Reactive Lymphocytes Smudge Cells Toxic Granulation Dohle Bodies [place] Platelet Estimate Plt Morphology Comment RBC Morphology Polychromasia Hypochromasia Poikilocytosis Basophilic Stippling Anisocytosis Microcytosis Macrocytosis Spherocytes Sickle Cells Target Cells Tear Drop Cells Ovalocytes Stomatocytes [place] Bodies [place] Cells Bite Cells Acanthocytes (Spur) Rouleaux Schistocytes Specimen Type Sample Site pH Bicarbonate Actual POC Total CO2 Base Excess O2 Saturation O2 % ABG pCO2 ABG pO2 [place] Test Respiration Rate O2 Delivery Device Minute Volume Vent Mode Tidal Volume POC PEEP Blood Gas Notified Whom Blood Gas Notified Time Sodium Potassium Chloride Carbon Dioxide Anion Gap BUN Creatinine Estim Creat Clear Calc Est GFR (MDRD) Af Amer Est GFR (MDRD) Non-Af BUN/Creatinine Ratio Glucose Calcium Total Creatine Kinase Triglycerides Vancomycin Trough POC Glucose 282 H 265 H Microbiology 06/08/18 12:00 Sputum, Induced/[place] Gram Stain - Final 06/08/18 12:00 Sputum, Induced/[place] Respiratory Culture - Preliminary Staphylococcus aureus 06/03/18 14:35 Blood Culture (Wb) - Anticubital Left Blood Culture - Final No growth in 5 days. 06/03/18 14:30 Blood Culture (Wb) - Anticubital Right Blood Culture - Final No growth in 5 days. Clinical Impression(s) from Imaging Studies Chest X-Ray 05/29/18 10:40 IMPRESSION: No acute cardiopulmonary disease Electronically Signed: Dave Parker DO at 12:21 EST Tel , Service support , Chest X-Ray 06/01/18 04:30 IMPRESSION: Bilateral pneumonia. Electronically Signed: Gloria Parish MD at 5:21 EST Tel , Service support , Chest X-Ray 06/03/18 09:39 IMPRESSION: Progressive infiltrates in the right upper lobe and left upper lobe. Improved aeration of the left lung base. Electronically Signed: Roger Mijares MD at 10:43 EST , Service support , Chest X-Ray 06/07/18 06:31 IMPRESSION: Improved aeration of the right lung base. Otherwise, there has been essentially no change. Electronically Signed: Roger Mijares MD at 12:26 EST , Service support , Chest X-Ray 06/08/18 11:00 IMPRESSION: The tip of the endotracheal tube is a 2.6 cm proximal to the cade. Stable appearance of the lungs. Electronically Signed: Roger Mijares, at 15:00 EST , Service support , Chest X-Ray 06/08/18 12:43 IMPRESSION: Since prior study, there has been improved aeration of both lungs. All the support tubes are in good position. The tip of the left PICC line catheter is at the junction of the superior vena cava and right atrium. Electronically Signed: Roger Mijares, at 13:55 EST , Service support , Medical Necessity - Tobacco Use Smoking Status: Never smoker Tobacco Use: Non-smoker Assessment/Plan All Active Problems (Last Reviewed 05/29/18 @ 14:01 by Tanner Talamantes MD) Acute bronchitis (Acute) Influenza A (Acute) DCCV for atrial flutter (Resolved) URI (upper respiratory infection) (Resolved) Thrush, oral (Resolved) Pneumonia (Resolved) MRSA (methicillin resistant staphylococcus aureus) pneumonia (Resolved) Acute respiratory failure with hypoxia (Resolved) RECOMMENDATIONS: 1. Continue antibiotics per ID recommendations 2. Continue patient on spontaneous today as tolerated, with plans to transition back to assist control tonight. 3. Continue tube feeds as ordered. 4. Continue bronchodilators. 5. Continue baseline amiodarone and Cardizem. 6. Continue as needed Klonopin, per home regimen. 7. Continue Xarelto per outpatient regimen. 8. Restart home Lasix regimen. 9. Continue Pepcid for GI prophylaxis. IMPRESSIONS: 1. Acute on chronic hypoxemic respiratory failure secondary to influenza A with MRSA superinfection Although initially improving on therapy, the patient later decompensated, becoming dependent on BiPAP therapy. On June 08, the patient required elective intubation due to an inability to be weaned from noninvasive positive pressure ventilation. The patient remains on vancomycin per ID recommendations. Her leukocytosis is now slowly beginning to resolve. The patient is now receiving her baseline amiodarone and Cardizem doses. She transition from atrial fibrillation to a normal sinus rhythm. Her heart rate is currently under control. The patient's baseline diuretic regimen will be restarted today. She is doing well at the present time on spontaneous mode mechanical ventilation, which will be continued throughout the day. She will be placed back on assist control tonight. Pending continued improvement in her respiratory status over the next 24 hours, the patient may be a candidate for extubation tomorrow morning. 2. Severe sepsis secondary to influenza A with MRSA superinfection Repeat sputum cultures are again growing MRSA. Vancomycin will be continued per ID recommendations. 3. History of pulmonary fibrosis secondary to chronic aspiration Strongly recommend that if the patient is able to be extubated from invasive mechanical ventilation, that she remain n.p.o. until she can be evaluated by speech therapy and undergo a modified barium swallow. 4. History of paroxysmal atrial fibrillation Continue baseline anticoagulation and cardiac medication regimen. Restart baseline diuretic regimen. 5. Diabetes mellitus/hypertension/generalized anxiety disorder Complicates care, management, recovery and prognosis. Continue home medications as indicated. Physical therapy to continue to work with the patient. TIME: 45 minutes, inclusive of procedures, was spent addressing the patient's acute on chronic hypoxemic respiratory failure, influenza A infection, MRSA pneumonia, history of chronic aspiration, paroxysmal atrial fibrillation, review of all data and collaboration with the care team. ([id number]) Code Visit [id number]: [id number] Critical care first hour
[2018-06-10] MEDS: Ipratropium/Albuterol Sulfate 3 ML AMPUL.NEB INHALATION ×4 (07:15→18:57)
--- NOTE | 2018-06-10 07:28 | PN_ITS ---
Patient Problems: Active and Suspected Problems (Last Reviewed 05/29/18 @ 14:01 by Tanner Talamantes MD) Acute bronchitis (Acute) Influenza A (Acute) Subjective: Since seen remains on the vent. Was seen in consultation by Dr. Cortez with infectious disease kali Chatterjee. WBC count trending down. Objective: GENERAL: Awake on the vent HEENT: Atraumatic; EYES; Anicteric, Normal Conjunctiva NECK; supple, normal thyroid, RESPIRATORY: Diminished to auscultation bilaterally, CARDIOVASCULAR: Regular S1 S2, GI: soft, non-tender, normoactive bowel sounds, : No Renal angle tenderness; EXTREMITIES: trace edema, no clubbing, NEURO: on the vent. unable to assess SKIN: No Rash PSYCH; on the vent. unable to assess Vitals/I&O's: Vital Signs Temp Pulse Resp BP Pulse Ox 98.2 F 125 H 18 109/70 97 06/10/18 04:00 06/10/18 06:00 06/10/18 06:00 06/10/18 06:00 06/10/18 06:00 Oxygen Flow Rate (L/min) 15 Oxygen Delivery Method Mechanical Ventilator Weight: 51.9 kg Body Mass Index (BMI) 23.8 Finger Stick Blood Glucose 133 Intake and Output for Last 24 Hours 06/08/18 06/09/18 06/10/18 23:59 23:59 23:59 Intake Total 643.5 / 643.5 760.9 / 760.9 1325.2 / 1325.2 Output Total 705 / 705 350 / 350 450 / 450 Balance -61.5 / -61.5 410.9 / 410.9 875.2 / 875.2 Microbiology Past 72 Hours 06/08/18 12:00 Sputum, Induced/Lukens Gram Stain - Final 06/08/18 12:00 Sputum, Induced/Lukens Respiratory Culture - Preliminary Staphylococcus aureus 06/03/18 14:35 Blood Culture (Wb) - Anticubital Left Blood Culture - Final No growth in 5 days. 06/03/18 14:30 Blood Culture (Wb) - Anticubital Right Blood Culture - Final No growth in 5 days. Laboratory Results 06/09/18 12:00: POC Glucose 159 H 06/09/18 17:42: POC Glucose 230 H 06/10/18 00:09: POC Glucose 282 H 06/10/18 06:06: POC Glucose 265 H 06/10/18 07:00: WBC Pending, RBC Pending, Hgb Pending, Hct Pending, MCV Pending, MCH Pending, MCHC Pending, RDW Pending, RDW Differential Pending, Plt Count Pending, Neut % (Auto) Pending, Absolute Neuts (auto) Pending, Total Counted Pending 06/10/18 07:00: Sodium Pending, Potassium Pending, Chloride Pending, Carbon Dioxide Pending, Anion Gap Pending, BUN Pending, Creatinine Pending, Est GFR (MDRD) Af Amer Pending, Est GFR (MDRD) Non-Af Pending, BUN/Creatinine Ratio Pending, Glucose Pending, Calcium Pending Current Medications Acetaminophen (Tylenol) 650 mg RECTAL Q4H PRN PRN PRN Reason: MILD-MOD PAIN (1-5/10) Last Admin: 06/07/18 14:05 Dose: 650 mg Al Hydroxide/Mg Hydroxide (Mylanta Ii) 30 ml PO Q6H PRN PRN PRN Reason: INDIGESTION Last Admin: 06/06/18 23:23 Dose: 30 ml Albuterol Sulfate (Ventolin Aerosols) 2.5 mg INHALATION Q4H PRN PRN Reason: pul fibrosis J84.10 & bronchiectasis J47.9 Last Admin: 06/07/18 19:10 Dose: 2.5 mg Albuterol/Ipratropium (Duoneb) 3 ml INHALATION Q4HWA.RT [facility] Last Admin: 06/10/18 07:15 Dose: 3 ml Amiodarone HCl (Cordarone) 100 mg GT DAILY [facility] Last Admin: 06/09/18 12:05 Dose: 100 mg Bisacodyl (Dulcolax) 10 mg RECTAL DAILY PRN PRN Reason: Constipation Chlorhexidine Gluconate () 15 ml PO BID [facility] Last Admin: 06/09/18 22:05 Dose: 15 ml Chlorhexidine Gluconate () 1 each TOPICAL DAILY [facility] Last Admin: 06/10/18 02:48 Dose: 1 each Clonazepam (Klonopin) 0.5 mg GT Q8H PRN PRN PRN Reason: ANXIETY Last Admin: 06/10/18 03:02 Dose: 0.5 mg Diltiazem HCl (Cardizem) 30 mg GT Q6 [facility] Last Admin: 06/10/18 06:11 Dose: 30 mg Famotidine (Pepcid) 20 mg GT BID [facility] Last Admin: 06/09/18 22:05 Dose: 20 mg Vancomycin IV Pharmacy to Dose (1 ea/ Sodium Chloride) 500 mls @ 250 mls/hr IV X1 PRN; Protocol PRN Reason: Rx to Dose Fentanyl () 100 mls @ 5 mls/hr IV .Q20H [facility] Last Admin: 06/09/18 22:20 Dose: 5 mls/hr Vancomycin HCl 1,000 mg/ (Sodium Chloride) 200 mls @ 200 mls/hr IV Q24H [facility] Last Admin: 06/10/18 02:41 Dose: 200 mls/hr Enteral Nutritional Formula (Vital Af 1.2 Hema Liquid) 1,000 mls @ 55 mls/hr GT .[id number] [facility] Last Admin: 06/10/18 06:12 Dose: Not Given Insulin Human Lispro (Humalog Kwikpen (Bkc)) 0 unit SC Q6 [facility]; Protocol Magnesium Hydroxide (Milk Of Magnesia) 30 ml PO DAILY PRN PRN PRN Reason: Constipation Methylprednisolone (Solu-Medrol) 40 mg IV DAILY [facility] Last Admin: 06/09/18 12:07 Dose: 40 mg Montelukast Sodium (Singulair) 10 mg GT QHS [facility] Last Admin: 06/09/18 22:04 Dose: 10 mg Nortriptyline HCl (Pamelor) 50 mg GT QHS [facility] Last Admin: 06/09/18 22:04 Dose: 50 mg Nystatin (Nystatin) 500,000 unit PO 4X/DAY [facility] Stop: 06/12/18 14:01 Last Admin: 06/09/18 22:05 Dose: 500,000 unit Ondansetron HCl (Zofran) 4 mg IV Q6H PRN PRN PRN Reason: NAUSEA/VOMITING Last Admin: 06/07/18 01:39 Dose: 4 mg Polyethylene Glycol (Miralax) 17 gm GT DAILY [facility] Last Admin: 06/09/18 12:06 Dose: 17 gm Prednisolone Acetate (Pred Forte Eye Drops (1 Ml)) 1 drop OPHTHALMIC DAILY [facility] Last Admin: 06/09/18 12:07 Dose: 1 drop Rivaroxaban (Xarelto) 15 mg GT DAILY [facility] Last Admin: 06/09/18 12:07 Dose: 15 mg Senna/Docusate Sodium (Senokot-S, Juanita-Colace) 1 tablet NG DAILY [facility] Last Admin: 06/09/18 12:07 Dose: 1 tablet Sodium Chloride () 5 - 15 ml IV UD PRN PRN Reason: SALINE FLUSH Last Admin: 06/09/18 12:08 Dose: 10 ml Temazepam (Restoril) 15 mg GT QHS [facility] Last Admin: 06/09/18 22:04 Dose: 15 mg Medical Necessity - Tobacco Use Smoking Status: Never smoker Tobacco Use: Non-smoker Assessment/Plan All Active Problems (Last Reviewed 05/29/18 @ 14:01 by Tanner Talamantes MD) Acute bronchitis (Acute) Influenza A (Acute) DCCV for atrial flutter (Resolved) URI (upper respiratory infection) (Resolved) Thrush, oral (Resolved) Pneumonia (Resolved) MRSA (methicillin resistant staphylococcus aureus) pneumonia (Resolved) Acute respiratory failure with hypoxia (Resolved) Patient is an 83-year-old lady with multiple comorbidities presenting with progressive shortness of breath and persistent cough in addition to subjective fever and chills. An assessment of acute bronchitis made admitted to regular nursing floor for further management and condition deteriorated resulting in patient being moved from the regular nursing floor to ICU. Patient was managed with noninvasive ventilation BiPAP. Subsequent sputum cultures came back positive for MRSA 1. Acute hypoxic respiratory failure secondary to acute influenza A infection complicated by MRSA pneumonia. Patient transferred from a regular nursing floor to the intensive care unit managed on noninvasive ventilation BiPAP which has since been weaned off to high flow oxygen patient did complete a 5-day treatment with Tamiflu currently remains on Zosyn and vancomycin patient has been weaned off BiPAP however had to be placed back on the night of 06/07/2018. Remains on vancomycin and Zosyn. Case discussed with Dr. Delgadillo with pulmonary medicine/intensive care was intubated on 06/08/2018 as a result of worsening respiratory status. Consult was placed to infectious disease in view of worsening WBC count was seen by Dr. Cortez on 06/09/2018 his notes and recommendations reviewed 2. Chronic hypoxic respiratory failure secondary to combination of COPD and bronchiectasis patient is followed by pulmonary medicine as outpatient patient is on baseline home O2 3. Acute kidney injury diuretics held monitoring kidney function 4. Paroxysmal A. fib/flutter patient is on amiodarone and Cardizem. On systemic anticoagulation with xarelto. 5. GERD; on PPI 6. Hypertension blood pressure stable did continue with home meds 7. Anxiety disorder patient is on Klonopin at home 8. History of left-sided hemiplegia following cervical cyst removal requested for PT OT as tolerated 9. DVT prophylaxis patient will Xarelto no need for additional measures 10. Physical deconditioning: PT OT as tolerated with plans for patient to be discharged to a halfway facility when medically stable 11. Dysphagia ; with suspected recurrent aspiration. Code Visit Inpatient E&M: 31177 Subs Hosp L3
[2018-06-10 07:34] LABS: Anion Gap 4 (5-15); BUN 69 mg/dL (7-18); BUN/Creat Ratio 46.9 RATIO (10-20); Calcium,Total 7.7 mg/dL (8.5-10.1); Chloride 98 mmol/L (98-107); Creatinine, Serum 1.47 mg/dL (0.55-1.02); EST Glomerular Filtration Rate 36 mL/min (>60); Est Glom Filt Rate - Afr Amer 44 mL/min (>60); Estimated Creatinine Clearance 23.34 ml/min; Glucose 241 mg/dL (74-106); Potassium 4.2 mmol/L (3.5-5.1); Sodium Level 136 mmol/L (136-145)
[2018-06-10 07:40] LABS: Absolute Lymphocyte Count 1.15 X10^3/ul (0.83-4.51); Basophil# 0.03 X10^3/uL; Basophil% 0.1 % (0-1); Eosinophil# 0.01 X10^3/uL; Hematocrit 32.1 % (37-47); Hemoglobin 10.1 g/dl (12.0-15.0); Lymphocyte # 1.15 X10^3/ul (4.0); Lymphocyte % 4.6 % (19-41); Mean Corp Hgb Conc 31.5 g/gl (32-36); Mean Corpuscular Hgb 29.4 pg (27.0-32.0); Mean Corpuscular Volume 93.6 fL (81-99); Mean Platelet Vol. 9.9 fl (6.2-12.0); Monocyte# 0.88 X10^3/uL; Monocyte% 3.5 % (0-10); Neutrophil # 22.96 X10^3/uL (2.7-7.7); Neutrophil % 91.2 % (47-70); Platelet Count 386 K/mm3 (150-450); RBC Distribution Width CV 13.4 % (11.6-14.6); RBC Distribution Width SD 45.4 fl (35.1-43.9); Red Blood Count 3.43 M/mm3 (4.2-5.4); White Blood Count 25.2 K/mm3 (4.4-11.0)
[2018-06-10 07:41] LABS: Differential Indicated SCAN CRITERIA MET; POSITIVE COUNT NO; POSITIVE DIFFERENTIAL YES; POSITIVE MORPHOLOGY NO
[2018-06-10 08:46] LABS: Pathologist Review Reviewed
[2018-06-10 09:08] LABS: Pathologist Review Reviewed
--- NOTE | 2018-06-10 09:18 | CASEMGMT ---
SW participated in ICU rounds this morning, pt's son in law present. Plan may be to extubate pt tomorrow. The discharge plan continues to be for pt to go to [facility] at discharge. CHEVY called Jovana at [facility], [place], message left letting her know pt is still on the vent and that pt may need IV antibiotics at discharge. CHEVY faxed updates to Jovana. CHEVY will continue to follow. ENRIQUE Roca, SWAGER OPERATOR
[2018-06-10] MEDS: Famotidine 20 MG Tablet GT ×2 (10:08→21:36)
[2018-06-10] MEDS: Amiodarone 200 MG Tablet 100 MG GT (10:08)
[2018-06-10] MEDS: Chlorhexidine 15 ML PO ×2 (10:08→21:36)
[2018-06-10] MEDS: Senna/Docusate Sodium 1 Tablet NG (10:08)
[2018-06-10] MEDS: Rivaroxaban 15 MG Tablet GT (10:08)
[2018-06-10] MEDS: NYSTATIN 500,000 UNIT/5 ML UDC 500000 UNIT PO ×4 (10:09→21:36)
[2018-06-10] MEDS: Furosemide 20 MG Tablet GT (10:09)
[2018-06-10] MEDS: Polyethylene Glycol 3350 17 GM PACKET GT (10:09)
[2018-06-10] MEDS: prednisoLONE eye drops (1 mL) 1 DROP OPTH.BTL 1 DRP OPHTHALMIC (10:10)
--- NOTE | 2018-06-10 10:10 | PCM.PN.ID ---
Patient Problems: Active and Suspected Problems (Last Reviewed 05/29/18 @ 14:01 by Tanner Talamantes MD) Acute bronchitis (Acute) Influenza A (Acute) Subjective: Awake on vent, no fever, family at bedside, denies SOB or abd pain. - Physical Exam General: Alert, No apparent distress Lungs: Diminished Cardiovascular: Tachycardic Abdomen: Soft, Non Tender, Non-Distended Skin: No rashes Vital Signs Temp Pulse Resp BP Pulse Ox 98.2 F 80 24 H 109/70 96 06/10/18 04:00 06/10/18 09:22 06/10/18 09:22 06/10/18 06:00 06/10/18 09:22 Oxygen Flow Rate (L/min) 15 Oxygen Delivery Method Mechanical Ventilator Weight: 51.9 kg Body Mass Index (BMI) 23.8 Finger Stick Blood Glucose 133 Intake and Output for Last 24 Hours 06/08/18 06/09/18 06/10/18 23:59 23:59 23:59 Intake Total 643.5 / 643.5 760.9 / 760.9 1325.2 / 1325.2 Output Total 705 / 705 350 / 350 450 / 450 Balance -61.5 / -61.5 410.9 / 410.9 875.2 / 875.2 Microbiology Past 72 Hours 06/08/18 12:00 Gram Stain - Final Sputum, Induced/Lukens Respiratory Culture - Final Meth. resistant Staph. aureus 06/03/18 14:35 Blood Culture - Final Blood Culture (Wb) - Anticubital Left No growth in 5 days. 06/03/18 14:30 Blood Culture - Final Blood Culture (Wb) - Anticubital Right No growth in 5 days. Laboratory Tests Past 24 Hrs 06/08/18 06/09/18 06/10/18 14:00 06:10 07:00 WBC 25.2 H RBC 3.43 L Hgb 10.1 L Hct 32.1 L MCV 93.6 MCH 29.4 MCHC 31.5 L RDW 13.4 RDW Differential 45.4 H Plt Count 386 MPV 9.9 Immature Gran % (Auto) 0.600 Neut % (Auto) 91.2 H Lymph % (Auto) 4.6 L [place] % (Auto) 3.5 Eos % (Auto) 0.0 Baso % (Auto) 0.1 Absolute Neuts (auto) 23.0 H Absolute Lymphs (auto) 1.15 Total Counted Not Reportable Diff Path Review Reviewed Reviewed Sodium Potassium Chloride Carbon Dioxide Anion Gap BUN Creatinine Estim Creat Clear Calc Est GFR (MDRD) Af Amer Est GFR (MDRD) Non-Af BUN/Creatinine Ratio Glucose Calcium 06/10/18 07:00 WBC RBC Hgb Hct MCV MCH MCHC RDW RDW Differential Plt Count MPV Immature Gran % (Auto) Neut % (Auto) Lymph % (Auto) [place] % (Auto) Eos % (Auto) Baso % (Auto) Absolute Neuts (auto) Absolute Lymphs (auto) Total Counted Diff Path Review Sodium 136 Potassium 4.2 Chloride 98 Carbon Dioxide 34.0 H Anion Gap 4 L BUN 69 H Creatinine 1.47 H Estim Creat Clear Calc 23.34 Est GFR (MDRD) Af Amer 44 L Est GFR (MDRD) Non-Af 36 L BUN/Creatinine Ratio 46.9 H Glucose 241 H Calcium 7.7 L POC Glucose 06/10/18 06/10/18 06/09/18 06:06 00:09 17:42 POC Glucose 265 H 282 H 230 H 06/09/18 12:00 POC Glucose 159 H Medical Necessity - Tobacco Use Smoking Status: Never smoker Tobacco Use: Non-smoker Route of nutrition/ use of supplements: [] Nutritional Intake: [] IV Site: [] Ramos Catheter: [] - Assessment/Plan Antibiotics: [] Assessment/Plan: [] Active and Suspected Problems (Last Reviewed 05/29/18 @ 14:01 by Tanner Talamantes MD) Acute bronchitis (Acute) Influenza A (Acute) acute hypoxic resp failure due to flu A and MRSA pneumonia - stopped zosyn 06/09. Repeat sputum cx with MRSA again. Continue vanc. She completed course of tamiflu earlier this admit. Wbc improved today. Will follow
[2018-06-10 13:06] LABS: Bedside Glucose 241 mg/dL (70-110)
[2018-06-10] MEDS: fentaNYL drip 100 ML 5 MCG IV (19:28)
[2018-06-10] MEDS: Vital AF 1.2 Cal Liquid 1,000 ML 55 ML GT (19:28)
[2018-06-10 19:30] LABS: Bedside Glucose 312 mg/dL (70-110)
[2018-06-10] MEDS: Temazepam 15 MG Capsule GT (21:35)
[2018-06-10] MEDS: Nortriptyline 25 MG Capsule 50 MG GT (21:35)
[2018-06-10] MEDS: Montelukast 10 MG Tablet GT (21:36)
[2018-06-11] VITALS (36 sets, daily range): BP systolic 92–146; BP diastolic 47–109; PULSE 64–134; RESP 12–28; TEMP 36–36.9; O2SAT 90–99
[2018-06-11 00:16] LABS: Bedside Glucose 336 mg/dL (70-110)
[2018-06-11] MEDS: Vancomycin IV 1,000 MG/200 ML BAG 200 MG IV (01:38)
[2018-06-11 03:28] LABS: Vancomycin, Trough Level 17.6 ug/mL (5.0-15.0)
[2018-06-11] MEDS: clonazePAM 0.5 MG Tablet GT ×2 (05:43→21:36)
[2018-06-11] MEDS: dilTIAZem 30 MG Tablet GT ×4 (05:43→23:51)
[2018-06-11] MEDS: Insulin Lispro 100 UNIT/ML INSULN.PEN SC ×5 (05:48→23:51)
[2018-06-11] MEDS: CHLORHEXIDINE GLUC 2% CLOTH 1 EACH TOWELETTE TOPICAL (05:50)
[2018-06-11 06:06] LABS: Bedside Glucose 285 mg/dL (70-110)
[2018-06-11 06:08] LABS: Absolute Lymphocyte Count 0.85 X10^3/ul (0.83-4.51); Absolute Neutrophil Count 14.4 X10^3/uL (2.0-7.7); Basophil# 0.01 X10^3/uL; Basophil% 0.1 % (0-1); Hematocrit 31.3 % (37-47); Hemoglobin 9.3 g/dl (12.0-15.0); Lymphocyte # 0.85 X10^3/ul (4.0); Lymphocyte % 5.2 % (19-41); Mean Corp Hgb Conc 29.7 g/gl (32-36); Mean Corpuscular Hgb 28.5 pg (27.0-32.0); Monocyte# 1.03 X10^3/uL; Monocyte% 6.3 % (0-10); Neutrophil # 14.39 X10^3/uL (2.7-7.7); Platelet Count 412 K/mm3 (150-450); RBC Distribution Width CV 12.7 % (11.6-14.6); Red Blood Count 3.26 M/mm3 (4.2-5.4); White Blood Count 16.4 K/mm3 (4.4-11.0)
[2018-06-11 06:09] LABS: POSITIVE COUNT NO; POSITIVE DIFFERENTIAL NO; POSITIVE MORPHOLOGY NO
[2018-06-11 06:20] LABS: Anion Gap 7 (5-15); BUN 67 mg/dL (7-18); BUN/Creat Ratio 61.5 RATIO (10-20); Calcium,Total 7.8 mg/dL (8.5-10.1); Chloride 99 mmol/L (98-107); Creatinine, Serum 1.09 mg/dL (0.55-1.02); EST Glomerular Filtration Rate 51 mL/min (>60); Est Glom Filt Rate - Afr Amer 62 mL/min (>60); Estimated Creatinine Clearance 31.47 ml/min; Glucose 347 mg/dL (74-106); Potassium 4.5 mmol/L (3.5-5.1); Sodium Level 140 mmol/L (136-145)
--- NOTE | 2018-06-11 06:28 | PN_ITS ---
Subjective: The patient was seen and examined at the bedside this morning. Events from the last 24 hours have been reviewed. The patient is currently afebrile, hemodynamically stable and maintaining appropriate oxygen saturations on CPAP with a FiO2 of 40%. The patient did well overnight and was transition back to a spontaneous breathing trial this morning, which she is currently tolerating quite well. The patient is currently overall net +6 L for the admission. All sedation is currently on hold, as are tube feeds. The patient is alert, cooperative and following commands appropriately. Following my examination of the patient this morning, she was extubated to nasal cannula under my direct supervision. She is to remain n.p.o. until reevaluation by speech therapy. Objective: The patient's most recent lab work, culture data and imaging studies have all been personally reviewed. Respiratory viral panel was positive for influenza A. Sputum culture was positive for methicillin-resistant staph aureus. Blood cultures have not shown any growth to date. Surface echocardiogram dated August 2015 revealed normal LV size and ejection fraction. There was moderate focal aortic valve calcification along with a right ventricular systolic pressure estimated to be 32 mmHg. Repeat sputum culture dated June 08 was again positive for MRSA. General: Alert, Cooperative, No apparent distress, - - Remains intubated and mechanically ventilated. Currently tolerating CPAP without issue. HEENT: Atraumatic, PERRLA, Normocephalic Oral: No Gingival or Mucosal Lesions/ Ulcerations, - - Endotracheal and OG tubes remain in place. Neck: Supple, No Nodes, Trachea Midline Lungs: - - Diminished in the posterior lung bases. Otherwise clear across anterior lung hahn. Cardiovascular: Regular rate, Regular Rhythm, Normal S1, Normal S2, No murmurs, - - Normal sinus rhythm noted on telemetry. Abdomen: Bowel Sounds Present, Soft, Non Tender, Non-Distended Extremities: No clubbing, No cyanosis, No edema Skin: No breakdown Musculoskeletal: No Tenderness to Palpation of Joints or Extremities Lymphatic: No Cervical, Supraclavicular, or Inguinal Adenopathy Neurological: Neuro grossly intact, - - Alert and following commands appr opriately. Vital Signs Temp Pulse Resp BP Pulse Ox 36.6 C 79 18 113/47 L 99 06/11/18 04:00 06/11/18 06:00 06/11/18 06:00 06/11/18 06:00 06/11/18 06:00 Oxygen Flow Rate (L/min) 15 Oxygen Delivery Method Mechanical Ventilator Weight: 114 lb 3.191 oz Body Mass Index (BMI) 23.8 Finger Stick Blood Glucose 133 Intake and Output for Last 24 Hours 06/09/18 06/10/18 06/11/18 23:59 23:59 23:59 Intake Total 760.9 / 760.9 2125.2 / 2125.2 1230.9 / 1230.9 Output Total 350 / 350 1225 / 1225 400 / 400 Balance 410.9 / 410.9 900.2 / 900.2 830.9 / 830.9 Labs (Last 48 Hours) 06/08/18 06/09/18 06/09/18 14:00 06:10 06:10 WBC 32.0 H* RBC 3.75 L Hgb 11.0 L Hct 35.0 L MCV 93.3 MCH 29.3 MCHC 31.4 L RDW 13.1 RDW Differential 44.0 H Plt Count 354 MPV 10.0 Immature Gran % (Auto) 1.400 H Neut % (Auto) 89.8 H Lymph % (Auto) 6.5 L [place] % (Auto) 2.2 Eos % (Auto) 0.0 Baso % (Auto) 0.1 Absolute Neuts (auto) 28.7 H Absolute Lymphs (auto) 2.09 Total Counted Not Reportable Diff Path Review Reviewed Reviewed Sodium 141 Potassium 4.8 Chloride 98 Carbon Dioxide 32.0 Anion Gap 11 BUN 50 H Creatinine 1.48 H Estim Creat Clear Calc 23.18 Est GFR (MDRD) Af Amer 43 L Est GFR (MDRD) Non-Af 36 L BUN/Creatinine Ratio 33.8 H Glucose 167 H Calcium 7.8 L Vancomycin Trough POC Glucose 06/09/18 06/09/18 06/10/18 12:00 17:42 00:09 WBC RBC Hgb Hct MCV MCH MCHC RDW RDW Differential Plt Count MPV Immature Gran % (Auto) Neut % (Auto) Lymph % (Auto) [place] % (Auto) Eos % (Auto) Baso % (Auto) Absolute Neuts (auto) Absolute Lymphs (auto) Total Counted Diff Path Review Sodium Potassium Chloride Carbon Dioxide Anion Gap BUN Creatinine Estim Creat Clear Calc Est GFR (MDRD) Af Amer Est GFR (MDRD) Non-Af BUN/Creatinine Ratio Glucose Calcium Vancomycin Trough POC Glucose 159 H 230 H 282 H 06/10/18 06/10/18 06/10/18 06:06 07:00 07:00 WBC 25.2 H RBC 3.43 L Hgb 10.1 L Hct 32.1 L MCV 93.6 MCH 29.4 MCHC 31.5 L RDW 13.4 RDW Differential 45.4 H Plt Count 386 MPV 9.9 Immature Gran % (Auto) 0.600 Neut % (Auto) 91.2 H Lymph % (Auto) 4.6 L [place] % (Auto) 3.5 Eos % (Auto) 0.0 Baso % (Auto) 0.1 Absolute Neuts (auto) 23.0 H Absolute Lymphs (auto) 1.15 Total Counted Not Reportable Diff Path Review Sodium 136 Potassium 4.2 Chloride 98 Carbon Dioxide 34.0 H Anion Gap 4 L BUN 69 H Creatinine 1.47 H Estim Creat Clear Calc 23.34 Est GFR (MDRD) Af Amer 44 L Est GFR (MDRD) Non-Af 36 L BUN/Creatinine Ratio 46.9 H Glucose 241 H Calcium 7.7 L Vancomycin Trough POC Glucose 265 H 06/10/18 06/10/18 06/10/18 12:37 19:04 23:57 WBC RBC Hgb Hct MCV MCH MCHC RDW RDW Differential Plt Count MPV Immature Gran % (Auto) Neut % (Auto) Lymph % (Auto) [place] % (Auto) Eos % (Auto) Baso % (Auto) Absolute Neuts (auto) Absolute Lymphs (auto) Total Counted Diff Path Review Sodium Potassium Chloride Carbon Dioxide Anion Gap BUN Creatinine Estim Creat Clear Calc Est GFR (MDRD) Af Amer Est GFR (MDRD) Non-Af BUN/Creatinine Ratio Glucose Calcium Vancomycin Trough POC Glucose 241 H 312 H 336 H 06/11/18 06/11/18 06/11/18 01:38 05:41 05:45 WBC 16.4 H RBC 3.26 L Hgb 9.3 L Hct 31.3 L MCV 96.0 MCH 28.5 MCHC 29.7 L RDW 12.7 RDW Differential 43.0 Plt Count 412 MPV 10.0 Immature Gran % (Auto) 0.400 Neut % (Auto) 88.0 H Lymph % (Auto) 5.2 L [place] % (Auto) 6.3 Eos % (Auto) 0.0 Baso % (Auto) 0.1 Absolute Neuts (auto) 14.4 H Absolute Lymphs (auto) 0.85 Total Counted Not Reportable Diff Path Review Sodium Potassium Chloride Carbon Dioxide Anion Gap BUN Creatinine Estim Creat Clear Calc Est GFR (MDRD) Af Amer Est GFR (MDRD) Non-Af BUN/Creatinine Ratio Glucose Calcium Vancomycin Trough 17.6 H POC Glucose 285 H 06/11/18 05:45 WBC RBC Hgb Hct MCV MCH MCHC RDW RDW Differential Plt Count MPV Immature Gran % (Auto) Neut % (Auto) Lymph % (Auto) [place] % (Auto) Eos % (Auto) Baso % (Auto) Absolute Neuts (auto) Absolute Lymphs (auto) Total Counted Diff Path Review Sodium 140 Potassium 4.5 Chloride 99 Carbon Dioxide 34.0 H Anion Gap 7 BUN 67 H Creatinine 1.09 H Estim Creat Clear Calc 31.47 Est GFR (MDRD) Af Amer 62 Est GFR (MDRD) Non-Af 51 L BUN/Creatinine Ratio 61.5 H Glucose 347 H Calcium 7.8 L Vancomycin Trough POC Glucose Microbiology 06/08/18 12:00 Sputum, Induced/Lukens Gram Stain - Final 06/08/18 12:00 Sputum, Induced/Lukens Respiratory Culture - Final Meth. resistant Staph. aureus Clinical Impression(s) from Imaging Studies Chest X-Ray 05/29/18 10:40 IMPRESSION: No acute cardiopulmonary disease Electronically Signed: Dave Parker DO at 12:21 EST Tel , Service support , Chest X-Ray 06/01/18 04:30 IMPRESSION: Bilateral pneumonia. Electronically Signed: Gloria Parish MD at 5:21 EST Tel , Service support , Chest X-Ray 06/03/18 09:39 IMPRESSION: Progressive infiltrates in the right upper lobe and left upper lobe. Improved aeration of the left lung base. Electronically Signed: Roger Mijares MD at 10:43 EST , Service support , Chest X-Ray 06/07/18 06:31 IMPRESSION: Improved aeration of the right lung base. Otherwise, there has been essentially no change. Electronically Signed: Roger Mijares MD at 12:26 EST , Service support , Chest X-Ray 06/08/18 11:00 IMPRESSION: The tip of the endotracheal tube is a 2.6 cm proximal to the cade. Stable appearance of the lungs. Electronically Signed: Roger Mijares, at 15:00 EST , Service support , Chest X-Ray 06/08/18 12:43 IMPRESSION: Since prior study, there has been improved aeration of both lungs. All the support tubes are in good position. The tip of the left PICC line catheter is at the junction of the superior vena cava and right atrium. Electronically Signed: Roger Mijares, at 13:55 EST , Service support , Medical Necessity - Tobacco Use Smoking Status: Never smoker Tobacco Use: Non-smoker Assessment/Plan All Active Problems (Last Reviewed 05/29/18 @ 14:01 by Tanner Talamantes MD) Acute bronchitis (Acute) Influenza A (Acute) DCCV for atrial flutter (Resolved) URI (upper respiratory infection) (Resolved) Thrush, oral (Resolved) Pneumonia (Resolved) MRSA (methicillin resistant staphylococcus aureus) pneumonia (Resolved) Acute respiratory failure with hypoxia (Resolved) RECOMMENDATIONS: 1. Continue antibiotics per ID recommendations 2. Proceed with a trial of extubation this morning. 3. Once extubated, wean supplemental oxygen to maintain saturations at or above 90%. Encourage incentive spirometer use. 4. Speech therapy to reevaluate patient today and potentially complete modified barium swallow. 5. Continue bronchodilators. 6. Continue baseline amiodarone and Cardizem. 7. Continue as needed Klonopin, per home regimen. 8. Continue Xarelto per outpatient regimen. 9. Continue home Lasix regimen. 10. Continue Pepcid for GI prophylaxis. IMPRESSIONS: 1. Acute on chronic hypoxemic respiratory failure secondary to influenza A with MRSA superinfection Although initially improving on therapy, the patient later decompensated, becoming dependent on BiPAP therapy. On June 08, the patient required elective intubation due to an inability to be weaned from noninvasive positive pressure ventilation. The patient remains on vancomycin per ID recommendations. Her white blood cell count continues to improve. The patient was able to be liberated from mechanical ventilation on the morning of June 11. We will plan to wean supplemental oxygen to maintain saturations at or above 90%. The patient is to remain n.p.o. until reevaluation by speech therapy is completed. Recommend obtaining modified barium swallow. In the interim, the patient will be continued on her baseline amiodarone and Cardizem doses. Her baseline Lasix regimen will also be continued. Encourage incentive spirometer use and mobilize patient as tolerated. 2. Severe sepsis secondary to influenza A with MRSA superinfection Continue vancomycin as ordered. Total course duration to be determined by inf ectious diseases. 3. 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 4. History of paroxysmal atrial fibrillation Continue baseline anticoagulation and cardiac medication regimen. Continue baseline diuretic regimen. 5. Diabetes mellitus/hypertension/generalized anxiety disorder Complicates care, management, recovery and prognosis. Continue home medications as indicated. Physical therapy to continue to work with the patient. TIME: 45 minutes, independent of procedures, was spent addressing the patient's acute on chronic hypoxemic respiratory failure, influenza A infection, MRSA pneumonia, history of chronic aspiration, paroxysmal atrial fibrillation, review of all data and collaboration with the care team. ([id number]) Code Visit 9xxxx: [id number] Critical care first hour
[2018-06-11] MEDS: Ipratropium/Albuterol Sulfate 3 ML AMPUL.NEB INHALATION ×4 (07:02→19:05)
--- NOTE | 2018-06-11 07:06 | PHA.PHARE_ITS ---
Consult Pharmacy has been consulted to manage selected antiobiotic: Vancomycin Type of Consult: Follow-up Suspected Infection: Pneumonia Prior Doses of Antibiotics Received/Current Regimen: Medications Vancomycin HCl (Vancomycin) 1,000 mg in 200 mls @ 200 mls/hr IV Q24H ANDREA Last Admin: 06/11/18 01:38 Dose: 200 mls/hr Labs: Sodium 140 mmol/L (136-145) 06/11/18 05:45 Potassium 4.5 mmol/L (3.5-5.1) 06/11/18 05:45 Chloride 99 mmol/L (98-107) 06/11/18 05:45 Carbon Dioxide 34.0 mmol/L (21.0-32.0) H 06/11/18 05:45 Anion Gap 7 (5-15) 06/11/18 05:45 BUN 67 mg/dL (7-18) H 06/11/18 05:45 Creatinine 1.09 mg/dL (0.55-1.02) H 06/11/18 05:45 Est GFR (MDRD) Af Amer 62 mL/min (>60) 06/11/18 05:45 Est GFR (MDRD) Non-Af 51 mL/min (>60) L 06/11/18 05:45 BUN/Creatinine Ratio 61.5 RATIO (10-20) H 06/11/18 05:45 Glucose 347 mg/dL (74-106) H 06/11/18 05:45 Vancomycin Trough 17.6 ug/mL (5.0-15.0) H 06/11/18 01:38 Microbiology: Microbiology 06/08/18 12:00 Sputum, Induced/Lukens Gram Stain - Final 06/08/18 12:00 Sputum, Induced/Lukens Respiratory Culture - Final Meth. resistant Staph. aureus 06/03/18 14:35 Blood Culture (Wb) - Anticubital Left Blood Culture - Final No growth in 5 days. 06/03/18 14:30 Blood Culture (Wb) - Anticubital Right Blood Culture - Final No growth in 5 days. 05/29/18 11:05 Blood Culture (Wb) #2 - Anticubital Left Blood Culture - Fi nal No growth in 5 days. 05/29/18 10:30 Blood Culture (Wb) - Anticubital Right Blood Culture - Final No growth in 5 days. 05/30/18 06:30 Sputum, Expectorated/Coughed Gram Stain - Final 05/30/18 06:30 Sputum, Expectorated/Coughed Respiratory Culture - Final Meth. resistant Staph. aureus Presumptive C albicans 05/29/18 11:02 Mucosa - Nasopharyngeal Respiratory Panel (PCR) - Final Influenza A (Subtype H3) Goal Trough: 15-20 mcg/mL Pharmacy Plan for Drug Dosing: A trough was drawn on the patient which resulted in a value of 17.6 (drawn ~23hrs from last administered dose). Since the patient's goal trough is 15-20, will continue current dosing. Another trough will be drawn in 4 days to reassess dosing at that time. PLAN/RECOMMENDATIONS 1. Continue vancomycin 1000mg IV Q24hrs 2. Trough scheduled 06/15/18 @0130 3. Pharmacy Service will continue to monitor and adjust dosing as required.
--- NOTE | 2018-06-11 07:23 | PN_ITS ---
Patient Problems: Active and Suspected Problems (Last Reviewed 05/29/18 @ 14:01 by Tanner Talamantes MD) Acute bronchitis (Acute) Influenza A (Acute) Subjective: Patient was weaned off the vent this a.m. Patient is scheduled to undergo speech and swallow eval Objective: GENERAL: Awake HEENT: Atraumatic; EYES; Anicteric, Normal Conjunctiva NECK; supple, normal thyroid, RESPIRATORY: Diminished to auscultation bilaterally, CARDIOVASCULAR: Regular S1 S2, GI: soft, non-tender, normoactive bowel sounds, : No Renal angle tenderness; EXTREMITIES: trace edema, no clubbing, NEURO: Grossly intact SKIN: No Rash PSYCH; flat affect Vitals/I&O's: Vital Signs Temp Pulse Resp BP Pulse Ox 97.9 F 77 19 H 113/47 L 97 06/11/18 04:00 06/11/18 06:30 06/11/18 06:30 06/11/18 06:00 06/11/18 06:30 Oxygen Flow Rate (L/min) 5 Oxygen Delivery Method Nasal Cannula Weight: 51.8 kg Body Mass Index (BMI) 23.8 Finger Stick Blood Glucose 133 Intake and Output for Last 24 Hours 06/09/18 06/10/18 06/11/18 23:59 23:59 23:59 Intake Total 760.9 / 760.9 2125.2 / 2125.2 1230.9 / 1230.9 Output Total 350 / 350 1225 / 1225 400 / 400 Balance 410.9 / 410.9 900.2 / 900.2 830.9 / 830.9 Microbiology Past 72 Hours 06/08/18 12:00 Sputum, Induced/Lukens Gram Stain - Final 06/08/18 12:00 Sputum, Induced/Lukens Respiratory Culture - Final Meth. resistant Staph. aureus 06/03/18 14:35 Blood Culture (Wb) - Anticubital Left Blood Culture - Final No growth in 5 days. 06/03/18 14:30 Blood Culture (Wb) - Anticubital Right Blood Culture - Final No growth in 5 days. Laboratory Results 06/08/18 14:00: Diff Path Review Reviewed 06/09/18 06:10: Diff Path Review Reviewed 06/10/18 07:00: WBC 25.2 H, RBC 3.43 L, Hgb 10.1 L, Hct 32.1 L, MCV 93.6, MCH 29.4, MCHC 31.5 L, RDW 13.4, RDW Differential 45.4 H, Plt Count 386, MPV 9.9, Immature Gran % (Auto) 0.600, Neut % (Auto) 91.2 H, Lymph % (Auto) 4.6 L, [place] % (Auto) 3.5, Eos % (Auto) 0.0, Baso % (Auto) 0.1, Absolute Neuts (auto) 23.0 H, Absolute Lymphs (auto) 1.15, Total Counted Not Reportable 06/10/18 07:00: Sodium 136, Potassium 4.2, Chloride 98, Carbon Dioxide 34.0 H, Anion Gap 4 L, BUN 69 H, Creatinine 1.47 H, Estim Creat Clear Calc 23.34, Est GFR (MDRD) Af Amer 44 L, Est GFR (MDRD) Non-Af 36 L, BUN/Creatinine Ratio 46.9 H , Glucose 241 H, Calcium 7.7 L 06/10/18 12:37: POC Glucose 241 H 06/10/18 19:04: POC Glucose 312 H 06/10/18 23:57: POC Glucose 336 H 06/11/18 01:38: Vancomycin Trough 17.6 H 06/11/18 05:41: POC Glucose 285 H 06/11/18 05:45: WBC 16.4 H, RBC 3.26 L, Hgb 9.3 L, Hct 31.3 L, MCV 96.0, MCH 28.5, MCHC 29.7 L, RDW 12.7, RDW Differential 43.0, Plt Count 412, MPV 10.0, Immature Gran % (Auto) 0.400, Neut % (Auto) 88.0 H, Lymph % (Auto) 5.2 L, [place] % (Auto) 6.3, Eos % (Auto) 0.0, Baso % (Auto) 0.1, Absolute Neuts (auto) 14.4 H, Absolute Lymphs (auto) 0.85, Total Counted Not Reportable 06/11/18 05:45: Sodium 140, Potassium 4.5, Chloride 99, Carbon Dioxide 34.0 H, Anion Gap 7, BUN 67 H, Creatinine 1.09 H, Estim Creat Clear Calc 31.47, Est GFR (MDRD) Af Amer 62, Est GFR (MDRD) Non-Af 51 L, BUN/Creatinine Ratio 61.5 H, Glucose 347 H, Calcium 7.8 L Current Medications Acetaminophen (Tylenol) 650 mg RECTAL Q4H PRN PRN PRN Reason: MILD-MOD PAIN (1-5) Last Admin: 06/07/18 14:05 Dose: 650 mg Al Hydroxide/Mg Hydroxide (Mylanta Ii) 30 ml PO Q6H PRN PRN PRN Reason: INDIGESTION Last Admin: 06/06/18 23:23 Dose: 30 ml Albuterol Sulfate (Ventolin Aerosols) 2.5 mg INHALATION Q4H PRN PRN Reason: pul fibrosis J84.10 & bronchiectasis J47.9 Last Admin: 06/07/18 19:10 Dose: 2.5 mg Albuterol/Ipratropium (Duoneb) 3 ml INHALATION Q4HWA.RT ANDREA Last Admin: 06/11/18 07:02 Dose: 3 ml Amiodarone HCl (Cordarone) 100 mg GT DAILY ANDREA Last Admin: 06/10/18 10:08 Dose: 100 mg Bisacodyl (Dulcolax) 10 mg RECTAL DAILY PRN PRN Reason: Constipation Chlorhexidine Gluconate () 1 each TOPICAL DAILY [facility] Last Admin: 06/11/18 05:50 Dose: 1 each Clonazepam (Klonopin) 0.5 mg GT Q8H PRN PRN PRN Reason: ANXIETY Last Admin: 06/11/18 05:43 Dose: 0.5 mg Diltiazem HCl (Cardizem) 30 mg GT Q6 ANDREA Last Admin: 06/11/18 05:43 Dose: 30 mg Furosemide (Lasix) 20 mg GT DAILY [facility] Last Admin: 06/10/18 10:09 Dose: 20 mg Vancomycin IV Pharmacy to Dose (1 ea/ Sodium Chloride) 500 mls @ 250 mls/hr IV X1 PRN; Protocol PRN Reason: Rx to Dose Vancomycin HCl (Vancomycin) 1,000 mg in 200 mls @ 200 mls/hr IV Q24H ANDREA Last Admin: 06/11/18 01:38 Dose: 200 mls/hr Insulin Human Lispro (Humalog Kwikpen (Bkc)) 0 unit SC Q6 ANDREA; Protocol Last Admin: 06/11/18 05:48 Dose: 6 u Magnesium Hydroxide (Milk Of Magnesia) 30 ml PO DAILY PRN PRN PRN Reason: Constipation Methylprednisolone (Solu-Medrol) 40 mg IV DAILY [facility] Last Admin: 06/10/18 10:09 Dose: 40 mg Montelukast Sodium (Singulair) 10 mg GT QHS [facility] Last Admin: 06/10/18 21:36 Dose: 10 mg Nortriptyline HCl (Pamelor) 50 mg GT QHS [facility] Last Admin: 06/10/18 21:35 Dose: 50 mg Nystatin (Nystatin) 500,000 unit PO 4X/DAY [facility] Stop: 06/12/18 14:01 Last Admin: 06/10/18 21:36 Dose: 500,000 unit Ondansetron HCl (Zofran) 4 mg IV Q6H PRN PRN PRN Reason: NAUSEA/VOMITING Last Admin: 06/07/18 01:39 Dose: 4 mg Polyethylene Glycol (Miralax) 17 gm GT DAILY [facility] Last Admin: 06/10/18 10:09 Dose: 17 gm Prednisolone Acetate (Pred Forte Eye Drops (1 Ml)) 1 drop OPHTHALMIC DAILY [facility] Last Admin: 06/10/18 10:10 Dose: 1 drop Rivaroxaban (Xarelto) 15 mg GT DAILY [facility] Last Admin: 06/10/18 10:08 Dose: 15 mg Senna/Docusate Sodium (Senokot-S, Juanita-Colace) 1 tablet NG DAILY [facility] Last Admin: 06/10/18 10:08 Dose: 1 tablet Sodium Chloride () 5 - 15 ml IV UD PRN PRN Reason: SALINE FLUSH Last Admin: 06/09/18 12:08 Dose: 10 ml Medical Necessity - Tobacco Use Smoking Status: Never smoker Tobacco Use: Non-smoker Assessment/Plan All Active Problems (Last Reviewed 05/29/18 @ 14:01 by Tanner Talamantes MD) Acute bronchitis (Acute) Influenza A (Acute) DCCV for atrial flutter (Resolved) URI (upper respiratory infection) (Resolved) Thrush, oral (Resolved) Pneumonia (Resolved) MRSA (methicillin resistant staphylococcus aureus) pneumonia (Resolved) Acute respiratory failure with hypoxia (Resolved) Patient is an 83-year-old lady with multiple comorbidities presenting with progressive shortness of breath and persistent cough in addition to subjective fever and chills. An assessment of acute bronchitis made admitted to regular nursing floor for further management and condition deteriorated resulting in patient being moved from the regular nursing floor to ICU. Patient was managed with noninvasive ventilation BiPAP. Subsequent sputum cultures came back positive for MRSA 1. Acute hypoxic respiratory failure secondary to acute influenza A infection complicated by MRSA pneumonia. Patient transferred from a regular nursing floor to the intensive care unit managed on noninvasive ventilation BiPAP which has since been weaned off to high flow oxygen patient did complete a 5-day treatment with Tamiflu currently remains on Zosyn and vancomycin patient has been weaned off BiPAP however had to be placed back on the night of 06/07/2018. Remains on vancomycin and Zosyn. Case discussed with Dr. Delgadillo with pulmonary medicine/intensive care was intubated on 06/08/2018 as a result of worsening respiratory status. Consult was placed to infectious disease in view of worsening WBC count was seen by Dr. Cortez on 06/09/2018 his notes and recommendations reviewed patient was weaned off the vent on the morning of 06/11/2018. WBC count trending down. Scheduled to undergo speech and swallow eval 2. Chronic hypoxic respiratory failure secondary to combination of COPD and bronchiectasis patient is followed by pulmonary medicine as outpatient patient is on baseline home O2 3. Acute kidney injury diuretics held kidney function back to baseline as of 06/11/2018. 4. Paroxysmal A. fib/flutter patient is on amiodarone and Cardizem. On systemic anticoagulation with xarelto. 5. GERD; on PPI 6. Hypertension blood pressure stable did continue with home meds 7. Anxiety disorder patient is on Klonopin at home 8. History of left-sided hemiplegia following cervical cyst removal requested for PT OT as tolerated 9. DVT prophylaxis patient will Xarelto no need for additional measures 10. Physical deconditioning: PT OT as tolerated with plans for patient to be discharged to a half-way facility when medically stable 11. Dysphagia ; with suspected recurrent aspiration. Scheduled to undergo speech and swallow eval on 06/11/2018. Code Visit Inpatient E&M: [id number] [facility] Hosp L3
--- NOTE | 2018-06-11 10:02 | CASEMGMT ---
SW spoke w/physician. Though pt is extubated, it is anticipated she will be here through the weekend. SW called Miguel at [facility], let her know pt was extubated but it is anticipated pt will be here through the weekend. [facility] will continue to follow. ENRIQUE Roca, PLANER OFFBEARER
--- NOTE | 2018-06-11 12:09 | PN.ID_ITS ---
Patient Problems: Active and Suspected Problems (Last Reviewed 05/29/18 @ 14:01 by Tanner Talamantes MD) Acute bronchitis (Acute) Influenza A (Acute) Subjective: Feeling better, off vent. Wants to eat and drink. - Physical Exam General: Alert, No apparent distress Lungs: Diminished, Rhonchi Cardiovascular: Regular rate, Regular Rhythm Abdomen: Soft, Non Tender, Non-Distended Skin: No rashes Vital Signs Temp Pulse Resp BP Pulse Ox 96.8 F L 67 23 H 116/49 L 99 06/11/18 08:00 06/11/18 08:00 06/11/18 08:00 06/11/18 08:00 06/11/18 08:00 Oxygen Flow Rate (L/min) 5 Oxygen Delivery Method Nasal Cannula Weight: 51.8 kg Body Mass Index (BMI) 23.8 Finger Stick Blood Glucose 133 Intake and Output for Last 24 Hours 06/09/18 06/10/18 06/11/18 23:59 23:59 23:59 Intake Total 760.9 / 760.9 2125.2 / 2125.2 1230.9 / 1230.9 Output Total 350 / 350 1225 / 1225 400 / 400 Balance 410.9 / 410.9 900.2 / 900.2 830.9 / 830.9 Microbiology Past 72 Hours 06/08/18 12:00 Gram Stain - Final Sputum, Induced/Lukens Respiratory Culture - Final Meth. resistant Staph. aureus 06/03/18 14:35 Blood Culture - Final Blood Culture (Wb) - Anticubital Left No growth in 5 days. 06/03/18 14:30 Blood Culture - Final Blood Culture (Wb) - Anticubital Right No growth in 5 days. Laboratory Tests Past 24 Hrs 06/11/18 06/11/18 06/11/18 01:38 05:45 05:45 WBC 16.4 H RBC 3.26 L Hgb 9.3 L Hct 31.3 L MCV 96.0 MCH 28.5 MCHC 29.7 L RDW 12.7 RDW Differential 43.0 Plt Count 412 MPV 10.0 Immature Gran % (Auto) 0.400 Neut % (Auto) 88.0 H Lymph % (Auto) 5.2 L [place] % (Auto) 6.3 Eos % (Auto) 0.0 Baso % (Auto) 0.1 Absolute Neuts (auto) 14.4 H Absolute Lymphs (auto) 0.85 Total Counted Not Reportable Sodium 140 Potassium 4.5 Chloride 99 Carbon Dioxide 34.0 H Anion Gap 7 BUN 67 H Creatinine 1.09 H Estim Creat Clear Calc 31.47 Est GFR (MDRD) Af Amer 62 Est GFR (MDRD) Non-Af 51 L BUN/Creatinine Ratio 61.5 H Glucose 347 H Calcium 7.8 L Vancomycin Trough 17.6 H POC Glucose 06/11/18 06/10/18 06/10/18 05:41 23:57 19:04 POC Glucose 285 H 336 H 312 H 06/10/18 12:37 POC Glucose 241 H Medical Necessity - Tobacco Use Smoking Status: Never smoker Tobacco Use: Non-smoker Route of nutrition/ use of supplements: [] Nutritional Intake: [] IV Site: [] Ramos Catheter: [] - Assessment/Plan Antibiotics: [] Assessment/Plan: [] Active and Suspected Problems (Last Reviewed 05/29/18 @ 14:01 by Tanner Talamantes MD) Acute bronchitis (Acute) Influenza A (Acute) acute hypoxic resp failure due to flu A and MRSA pneumonia - stopped zosyn 06/09. Repeat sputum cx with MRSA again. Continue vanc. She completed course of tamiflu earlier this admit. Wbc improved today. Now extubated. Day 11 of vanc, plan on stop date 06/14/18. Will follow, d/w Dr. Delgadillo.
[2018-06-11] MEDS: prednisoLONE eye drops (1 mL) 1 DROP OPTH.BTL 1 DRP OPHTHALMIC (12:55)
[2018-06-11 13:00] LABS: Bedside Glucose 181 mg/dL (70-110)
[2018-06-11] MEDS: Metoprolol Tartrate 5 MG/5 ML Vial IV (13:37)
--- NOTE | 2018-06-11 13:45 | SP.MBSS_ITS ---
PRIMARY / SECONDARY DIAGNOSIS: dysphagia (R13.12) REFERRING PHYSICIAN: Dr. Tanner Talamantes MD CURRENT DIET: NPO DENTITION: WFL MENTAL STATUS: sufficient to participate in study RESPIRATORY STATUS: O2 at 10L/min via nasal cannula. REASON FOR REFERRAL: The Patient is an 83 year old female referred for a modified barium swallow (MBS) study to objectively assess the Patients oropharyngeal swallow function under fluoroscopy secondary to concerns for persistent aspiration, with a prior history of silent aspiration identified under fluoroscopy. The Patient is currently admitted to [facility] (05/29/2018) due to acute on chronic hypoxic respiratory failure secondary to influenza A with MRSA superinfection requiring intubation (intubated 06/08/2018 at 1050; extubated 06/11/2018 at 0630). MEDICAL HISTORY: Chronic obstructive pulmonary disease with chronic dysphagia and silent aspiration under fluoroscopy, acute respiratory failure with hypoxia, post- inflammatory pulmonary fibrosis, dyspnea, restrictive lung disease, seasonal allergies, sinus drainage, streptococcal pneumonia, methicillin resistant staphylococcus aureus pneumonia, bronchiectasis, cardiomyopathy, cardiac murmur, paroxysmal atrial fibrillation, nonrheumatic tricuspid and mitral valve insufficiency, pulmonary hypertension, diabetes, anxiety disorder, back pain, right hip fracture, chronic hemiparesis status post spinal cyst removal PREVIOUS MODIFIED BARIUM SWALLOW STUDY: 06/11/2015 MBS revealed moderate oropharyngeal dysphagia (R13.12) with SILENT aspiration of thin liquids. 10/18/2014 MBS revealed swallow function grossly within functional limits. 08/18/2014 MBS revealed moderate oropharyngeal dysphagia (R13.12) with SILENT aspiration of thin liquids. ASSESSMENT PARAMETERS: The Patient participated in a Modified Barium Swallow (MBS) study on 06/11/2018. Dr. Mijares was the radiologist present for this evaluation. This study was recorded in the lateral view and images were sent to PACs for storage. Scoring was completed by trial through the 8-point Penetration- Aspiration Scale (PAS) and Videofluoroscopic Scale Score (VSS), and summarized via the Modified Barium Swallow Impairment Profile (MBSImP) and Bolus Residue Scale (BRS), with severity scoring through the Dysphagia Severity Rating Scale (DSRS) and Swallowing Performance Scale (PSP), with recommended diet textures through the International Dysphagia Diet Standardisation Initiative (IDDSI) RESULTS OF THE EVALUATION: The Patient presents with moderate to severe oropharyngeal dysphagia (DSRS: 5; SPS: 6) with grade III and IV SILENT aspiration of thin and nectar thickened liquids secondary to a variety of factors, including chronic obstructive pulmonary disease and iatrogenic factors, (recent intubation and extubation). OBJECTIVE ASSESSMENT OF SWALLOW FUNCTION (QUANTITATIVE ? PER TRIAL): PENETRATION / ASPIRATION SCALE (BALLESTEROS): 1 = does not enter airway 2 = enters airway/above vocal folds/ejected 3 = enters airway/above vocal folds/not ejected 4 = enters airway/contacts vocal folds/ejected 5 = enters airway/contacts vocal folds/not ejected 6 = enters airway/below vocal folds/ejected 7 = enters airway/below vocal folds/not ejected despite effort 8 = enters airway/below vocal folds/no effort VIDEOFLOROSCOPIC SCALE SCORE (BALLESTEROS): Grade I = aspiration of material that has penetrated into the laryngeal vestibule, intact cough reflex Grade II = aspiration < 10 % of the bolus, intact cough reflex Grade III = aspiration of < 10 % of the bolus, reduced cough reflex or aspiration of > 10 % of the bolus, intact cough reflex Grade IV = aspiration of > 10 % of the bolus, reduced cough reflex PENETRATION / ASPIRATION & VIDEOFLOROSCOPIC SCALE SCORE: Thin liquid - 5 mL tsp.: 6 ? Grade III [place] thickened liquids via cup (single sip): 1 [place] thickened liquids via cup (single sip): 6 ? Grade III [place] thickened liquids via cup (single sip): 6 ? Grade III [place] thickened liquids via cup (single sip): 1 Honey thickened liquids via cup (chin tuck): 1 Honey thickened liquids via cup (chin tuck): 1 Pudding via spoon: 1 [place] thickened liquids via cup (chin tuck): 1 [place] thickened liquids via cup (chin tuck): 3 [place] thickened liquids via cup (chin tuck): 8 ? Grade IV Honey thickened liquids via cup (chin tuck): 1 Honey thickened liquids via cup (chin tuck): 1 Honey thickened liquids via cup (chin tuck): 1 OBJECTIVE ASSESSMENT OF SWALLOW FUNCTION (QUANTITATIVE ? AGGREGATE): MODIFIED BARIUM SWALLOW IMPAIRMENT PROFILE (MBSImP) LABIAL SEAL: 0 (of 4) no labial escape TONGUE CONTROL: 3 (of 3) posterior escape > 50% BOLUS PREPARATION / MASTICATION: 3 (of 3) did not test BOLUS TRANSPORT / LINGUAL MOTION: 0 (of 4) brisk tongue motion ORAL RESIDUE: 2 (of 4) residue collection on oral structures INITIATION OF PHARYNGEAL SWALLOW: 2 (of 4) head at posterior surface of epiglottis SOFT PALATE ELEVATION: 1 (of 4) trace column between soft palate & pharyngeal wall LARYNGEAL ELEVATION: 1 (of 3) partial superior movement; partial approximation ANTERIOR HYOID EXCURSION: 1 (of 2) partial anterior movement EPIGLOTTIC MOVEMENT: 1 (of 2) partial epiglottic inversion LARYNGEAL VESTIBULE CLOSURE: 1 (of 2) incomplete closure PHARYNGEAL STRIPPING WAVE: 1 (of 2) present / diminished PHARYNGEAL CONTRACTION (A/P): NA PE SEGMENT OPENIN (of 3) minimal distension / duration; marked obstruction TONGUE BASE RETRACTION: 3 (of 4) wide column of contrast PHARYNGEAL RESIDUE: 3 (of 4) majority of contrast remaining ESOPHAGEAL BOLUS CLEARANCE: could not view ORAL TOTAL SUM: PHARYNGEAL TOTAL SUM: OVERALL IMPRESSION (OI) SCORE: 24 / 55 BOLUS RESIDUE SCALE (BRS): 5(of 6) residue on the posterior pharyngeal wall & pyriforms SWALLOWING PERFORMANCE SCALE (SPS): 6 (moderate to severe) DYSPHAGIA SEVERITY RATING SCALE (DSRS): 5 (moderate to severe) OBJECTIVE ASSESSMENT OF SWALLOW FUNCTION (QUALITATIVE): ORAL PREPARATORY PHASE: oral preparatory phase marked by sufficient anterior oral containment; high oxygenation demands complicating management of breathing / bolus formation, with solid textures requiring mastication held due to concerns for safety. ORAL TRANSITIONAL PHASE: oral transitional phase marked by sufficient bolus transportation with mild generalized slowing, limited clinical significance; no lingual discoordination (no tremor / undulations); reduced oral clearance without side specific consolidation; incompetent tongue?palate seal resulting in premature posterior bolus loss predominantly during trials of thin liquids and nectar thickened liquids. PHARYNGEAL PHASE: pharyngeal phase marked by pharyngeal phase delay / dyssynchrony predominantly with less viscous textures contributing to pre- prandial and prandial penetration and subsequent SILENT aspiration of thin and nectar thickened liquids; reduced hyolaryngeal excursion and duration with suboptimal laryngeal vestibule closure / pressure / duration, with insufficient laryngeal vestibule pressure generated to expel penetrated material; significant pharyngeal dysmotility attributed to reduced tongue based retraction, posterior pharyngeal stripping wave action, and pharyngoesophageal segment opening leading to consolidation within the vallecula and pyriforms directly contributing to post prandial and to an extent prandial penetration and aspiration of thin and nectar thickened liquids ESOPHAGEAL PHASE: no obvious esophageal phase abnormalities observed. CONTRIBUTING / COMPLICATING FACTORS AND NOTABLE FINDINGS: fluctuating sufficiency in regards to cued / volitional cough intensity generated to expel penetrated material / laryngotracheal aspiration, with the Patient able to expel nearly all high laryngotracheal aspiration particularly with more viscous textures; NO RESPONSE TO ASPIRATION. All deficits managed successfully with reduction in bolus size selection when paired with diet texture adjustments; inconsistent benefit from execution of the chin tuck posture with less viscous textures. RECOMMENDATIONS AND CONSIDERATIONS: The Patient was noted to SILENTLY aspirate with thin liquids and nectar thickened liquids, with clinical assessment at bedside relying on identification of classic overt signs and symptoms of aspiration considered unreliable. Would strongly discourage advancement past honey thickened liquids without completion of a repeat modified barium swallow study due to the extent of aspirate identified that was SILENT in nature. Recommend a repeat modified barium swallow study within 1 - 2 weeks (if clinically appropriate) to further assess the presence and extent of silent and overt aspiration prior to advancement to nectar thickened liquids. Would consider post-acute care implementation of the Pack Free Water Protocol (FFWP) following Patient and family education, though would exercise caution, as the Patient has been noted to lack compliance with the protocol in addition to general diet texture recommendations, with resulting persistent aspiration directly attributed to multiple aspiration related pulmonary complications. Continue to recommend aggressive oral care to promote optimal oral health and reduce aspiration risk. The Patient requires intensive skilled speech- language intervention targeting diet texture management and training / implementation of recommended compensatory strategies; Patient and caregiver training targeting meal preparation / thickened liquid preparation if unable to advance to baseline diet textures prior to discharge. Results and recommendations were discussed with the Patient immediately following MBS completion, with the Patient verbalizing understanding and agreement with all recommendations and education provided. DIET TEXTURE RECOMMENDATIONS: Will recommend a pureed textured (IDDSI: 4), honey thickened liquid (IDDSI: 3) diet RECOMMENDED COMPENSATORY STRATEGIES: Direct supervision with assistance as needed, chin tuck with liquids, reduced bolus volume / rate of ingestion, no straws, seated upright at 90 degrees during PO intake, remain upright for 30-60 minutes post meal (GERD precaution), medications crushed in purees. IMAGE COUNT: [id number] Matheus Guaman M.A., CCC-PRODUCT MARKETING SPECIALIST MBSImP Certified, LSVT Certified [facility] Speech-Language Pathology Department [email or web address]
--- NOTE | 2018-06-11 13:55 | RAD_ITS ---
STUDY: SWALLOWING STUDY REASON FOR EXAM: Female, 83 years old. Dysphagia. TECHNIQUE: The examination was performed with Speech Pathology in attendance. Under fluoroscopic observation, the patient ingested thin barium, thick barium, barium pudding, and barium coated cracker. FLUOROSCOPY TIME: 3:21 minutes/seconds. 3092 spot images were obtained. RADIOLOGIST INVOLVEMENT: Radiologist was present and providing direct supervision. COMPARISON: Comparison is made with prior study dated June 11, 2015. FINDINGS: The following was observed during swallowing of the various mixtures of barium: Thin Barium: Penetration and silent aspiration with ingestion of thin liquids. Thick Barium: Status post aspiration with ingestion of nectar thickened liquids. I need for commitment are unremarkable. Barium Pudding: There was no evidence of aspiration or laryngeal penetration. RAD/Swallowing Function w/Video IMPRESSION: Solid aspiration with ingestion of thin liquids as well as nectar thickened liquids. The swallow study findings were discussed with the patient by the speech pathologist at the conclusion of the examination. Please see speech pathology report for more information and recommendations. Electronically Signed: Roger Mijares, at 14:50 EST , Service support ,
[2018-06-11] MEDS: Saliva Substitute 237 ML BOTTLE 15 ML MM (15:34)
[2018-06-11] MEDS: Amiodarone 200 MG Tablet 100 MG GT (15:35)
[2018-06-11] MEDS: Furosemide 20 MG Tablet GT (15:36)
[2018-06-11] MEDS: NYSTATIN 500,000 UNIT/5 ML UDC 500000 UNIT PO ×3 (15:39→21:36)
[2018-06-11 17:45] LABS: Bedside Glucose 225 mg/dL (70-110)
--- NOTE | 2018-06-11 19:11 | CPS ---
decreased O2 to 4 lpm
[2018-06-11] MEDS: Nortriptyline 25 MG Capsule 50 MG GT (21:36)
[2018-06-11] MEDS: Montelukast 10 MG Tablet GT (21:37)
[2018-06-12] VITALS (28 sets, daily range): BP systolic 89–139; BP diastolic 45–84; PULSE 73–134; RESP 16–28; TEMP 36.5–36.9; O2SAT 91–98
[2018-06-12 00:05] LABS: Bedside Glucose 282 mg/dL (70-110)
[2018-06-12] MEDS: Vancomycin IV 1,000 MG/200 ML BAG 200 MG IV (01:28)
[2018-06-12 04:21] LABS: Anion Gap 6 (5-15); BUN 43 mg/dL (7-18); BUN/Creat Ratio 51.6 RATIO (10-20); Chloride 98 mmol/L (98-107); Creatinine, Serum 0.83 mg/dL (0.55-1.02); EST Glomerular Filtration Rate 70 mL/min (>60); Est Glom Filt Rate - Afr Amer 84 mL/min (>60); Estimated Creatinine Clearance 41.33 ml/min; Glucose 257 mg/dL (74-106); Potassium 4.3 mmol/L (3.5-5.1); Sodium Level 138 mmol/L (136-145)
[2018-06-12 04:30] LABS: Absolute Lymphocyte Count 0.82 X10^3/ul (0.83-4.51); Absolute Neutrophil Count 14.4 X10^3/uL (2.0-7.7); Hematocrit 31.4 % (37-47); Hemoglobin 9.8 g/dl (12.0-15.0); Lymphocyte # 0.82 X10^3/ul (4.0); Lymphocyte % 5.1 % (19-41); Mean Corp Hgb Conc 31.2 g/gl (32-36); Mean Corpuscular Hgb 29.4 pg (27.0-32.0); Mean Corpuscular Volume 94.3 fL (81-99); Mean Platelet Vol. 9.8 fl (6.2-12.0); Monocyte# 0.85 X10^3/uL; Monocyte% 5.3 % (0-10); Neutrophil # 14.36 X10^3/uL (2.7-7.7); Neutrophil % 89.3 % (47-70); Platelet Count 359 K/mm3 (150-450); RBC Distribution Width CV 12.8 % (11.6-14.6); RBC Distribution Width SD 43.8 fl (35.1-43.9); Red Blood Count 3.33 M/mm3 (4.2-5.4); White Blood Count 16.1 K/mm3 (4.4-11.0)
[2018-06-12 04:48] LABS: POSITIVE COUNT NO; POSITIVE DIFFERENTIAL NO; POSITIVE MORPHOLOGY NO
[2018-06-12] MEDS: dilTIAZem 30 MG Tablet GT (06:02)
[2018-06-12] MEDS: Insulin Lispro 100 UNIT/ML INSULN.PEN SC ×3 (06:02→17:17)
[2018-06-12 06:16] LABS: Bedside Glucose 228 mg/dL (70-110)
--- NOTE | 2018-06-12 06:27 | PCM.PN.INT ---
Subjective: The patient was seen and examined at the bedside this morning. Events from the last 24 hours have been reviewed. The patient is currently afebrile, hemodynamically stable and maintaining appropriate oxygen saturations on 4 L/min via nasal cannula. The patient continues to fluctuate between normal sinus rhythm and atrial fibrillation. The patient did undergo a formal swallow evaluation yesterday and currently has a modified diet in place per speech therapy recommendations. Per my conversation with infectious diseases yesterday, there are plans for the patient to complete a total of 2 weeks of treatment for her underlying pneumonia. The patient reports decreased phonation and vocal hoarseness this morning. Objective: The patient's most recent lab work, culture data and imaging studies have all been personally reviewed. Respiratory viral panel was positive for influenza A. Sputum culture was positive for methicillin-resistant staph aureus. Blood cultures have not shown any growth to date. Surface echocardiogram dated August 2015 revealed normal LV size and ejection fraction. There was moderate focal aortic valve calcification along with a right ventricular systolic pressure estimated to be 32 mmHg. Repeat sputum culture dated June 08 was again positive for MRSA. General: Alert, Cooperative, No apparent distress, - - Extremely hard of hearing. HEENT: Atraumatic, PERRLA, Normocephalic Oral: Dry Mucosa Neck: Supple, No Nodes, Trachea Midline Lungs: No rhonchi, No wheeze, No rales, Diminished Cardiovascular: Normal S1, Normal S2, No murmurs, Tachycardic Abdomen: Bowel Sounds Present, Soft, Non Tender Extremities: No clubbing, No cyanosis, Edema Skin: - - No significant change from previous. Musculoskeletal: No Tenderness to Palpation of Joints or Extremities Lymphatic: No Cervical, Supraclavicular, or Inguinal Adenopathy Neurological: Cranial nerves II-XII grossly intact, Neuro grossly intact Psych/Mental Status: Normal Affect, Appropriate Vital Signs Temp Pulse Resp BP Pulse Ox 36.9 C 117 H 18 124/73 H 91 06/12/18 04:00 06/12/18 06:00 06/12/18 06:00 06/12/18 06:00 06/12/18 06:00 Oxygen Flow Rate (L/min) 4 Oxygen Delivery Method Nasal Cannula Weight: 110 lb 10.753 oz Body Mass Index (BMI) 23.8 Finger Stick Blood Glucose 133 Intake and Output for Last 24 Hours 0206/11/18 06/12/18 23:59 23:59 23:59 Intake Total 2125.2 / 2125.2 1350.9 / 1350.9 324 / 324 Output Total 1225 / 1225 1150 / 1150 1500 / 1500 Balance 900.2 / 900.2 200.9 / 200.9 -1176 / -1176 Labs (Last 48 Hours) 06/08/18 06/09/18 06/10/18 14:00 06:10 06:06 WBC RBC Hgb Hct MCV MCH MCHC RDW RDW Differential Plt Count MPV Immature Gran % (Auto) Neut % (Auto) Lymph % (Auto) [place] % (Auto) Eos % (Auto) Baso % (Auto) Absolute Neuts (auto) Absolute Lymphs (auto) Total Counted Diff Path Review Reviewed Reviewed Sodium Potassium Chloride Carbon Dioxide Anion Gap BUN Creatinine Estim Creat Clear Calc Est GFR (MDRD) Af Amer Est GFR (MDRD) Non-Af BUN/Creatinine Ratio Glucose Calcium Vancomycin Trough POC Glucose 265 H 06/10/18 06/10/18 06/10/18 07:00 07:00 12:37 WBC 25.2 H RBC 3.43 L Hgb 10.1 L Hct 32.1 L MCV 93.6 MCH 29.4 MCHC 31.5 L RDW 13.4 RDW Differential 45.4 H Plt Count 386 MPV 9.9 Immature Gran % (Auto) 0.600 Neut % (Auto) 91.2 H Lymph % (Auto) 4.6 L [place] % (Auto) 3.5 Eos % (Auto) 0.0 Baso % (Auto) 0.1 Absolute Neuts (auto) 23.0 H Absolute Lymphs (auto) 1.15 Total Counted Not Reportable Diff Path Review Sodium 136 Potassium 4.2 Chloride 98 Carbon Dioxide 34.0 H Anion Gap 4 L BUN 69 H Creatinine 1.47 H Estim Creat Clear Calc 23.34 Est GFR (MDRD) Af Amer 44 L Est GFR (MDRD) Non-Af 36 L BUN/Creatinine Ratio 46.9 H Glucose 241 H Calcium 7.7 L Vancomycin Trough POC Glucose 241 H 06/10/18 06/10/18 06/11/18 19:04 23:57 01:38 WBC RBC Hgb Hct MCV MCH MCHC RDW RDW Differential Plt Count MPV Immature Gran % (Auto) Neut % (Auto) Lymph % (Auto) [place] % (Auto) Eos % (Auto) Baso % (Auto) Absolute Neuts (auto) Absolute Lymphs (auto) Total Counted Diff Path Review Sodium Potassium Chloride Carbon Dioxide Anion Gap BUN Creatinine Estim Creat Clear Calc Est GFR (MDRD) Af Amer Est GFR (MDRD) Non-Af BUN/Creatinine Ratio Glucose Calcium Vancomycin Trough 17.6 H POC Glucose 312 H 336 H 06/11/18 06/11/18 06/11/18 05:41 05:45 05:45 WBC 16.4 H RBC 3.26 L Hgb 9.3 L Hct 31.3 L MCV 96.0 MCH 28.5 MCHC 29.7 L RDW 12.7 RDW Differential 43.0 Plt Count 412 MPV 10.0 Immature Gran % (Auto) 0.400 Neut % (Auto) 88.0 H Lymph % (Auto) 5.2 L [place] % (Auto) 6.3 Eos % (Auto) 0.0 Baso % (Auto) 0.1 Absolute Neuts (auto) 14.4 H Absolute Lymphs (auto) 0.85 Total Counted Not Reportable Diff Path Review Sodium 140 Potassium 4.5 Chloride 99 Carbon Dioxide 34.0 H Anion Gap 7 BUN 67 H Creatinine 1.09 H Estim Creat Clear Calc 31.47 Est GFR (MDRD) Af Amer 62 Est GFR (MDRD) Non-Af 51 L BUN/Creatinine Ratio 61.5 H Glucose 347 H Calcium 7.8 L Vancomycin Trough POC Glucose 285 H 06/11/18 06/11/18 06/11/18 12:53 17:40 23:50 WBC RBC Hgb Hct MCV MCH MCHC RDW RDW Differential Plt Count MPV Immature Gran % (Auto) Neut % (Auto) Lymph % (Auto) [place] % (Auto) Eos % (Auto) Baso % (Auto) Absolute Neuts (auto) Absolute Lymphs (auto) Total Counted Diff Path Review Sodium Potassium Chloride Carbon Dioxide Anion Gap BUN Creatinine Estim Creat Clear Calc Est GFR (MDRD) Af Amer Est GFR (MDRD) Non-Af BUN/Creatinine Ratio Glucose Calcium Vancomycin Trough POC Glucose 181 H 225 H 282 H 06/12/18 06/12/18 06/12/18 03:55 03:55 06:01 WBC 16.1 H RBC 3.33 L Hgb 9.8 L Hct 31.4 L MCV 94.3 MCH 29.4 MCHC 31.2 L RDW 12.8 RDW Differential 43.8 Plt Count 359 MPV 9.8 Immature Gran % (Auto) 0.300 Neut % (Auto) 89.3 H Lymph % (Auto) 5.1 L [place] % (Auto) 5.3 Eos % (Auto) 0.0 Baso % (Auto) 0.0 Absolute Neuts (auto) 14.4 H Absolute Lymphs (auto) 0.82 L Total Counted Not Reportable Diff Path Review Sodium 138 Potassium 4.3 Chloride 98 Carbon Dioxide 34.0 H Anion Gap 6 BUN 43 H Creatinine 0.83 Estim Creat Clear Calc 41.33 Est GFR (MDRD) Af Amer 84 Est GFR (MDRD) Non-Af 70 BUN/Creatinine Ratio 51.6 H Glucose 257 H Calcium 8.0 L Vancomycin Trough POC Glucose 228 H Microbiology 06/08/18 12:00 Sputum, Induced/[place] Gram Stain - Final 06/08/18 12:00 Sputum, Induced/[place] Respiratory Culture - Final Meth. resistant Staph. aureus Clinical Impression(s) from Imaging Studies Chest X-Ray 05/29/18 10:40 IMPRESSION: No acute cardiopulmonary disease Electronically Signed: Dave Parker DO at 12:21 EST Tel , Service support , Chest X-Ray 06/01/18 04:30 IMPRESSION: Bilateral pneumonia. Electronically Signed: Gloria Parish MD at 5:21 EST Tel , Service support , Chest X-Ray 06/03/18 09:39 IMPRESSION: Progressive infiltrates in the right upper lobe and left upper lobe. Improved aeration of the left lung base. Electronically Signed: Roger Mijares MD at 10:43 EST , Service support , Chest X-Ray 06/07/18 06:31 IMPRESSION: Improved aeration of the right lung base. Otherwise, there has been essentially no change. Electronically Signed: Roger Mijares MD at 12:26 EST , Service support , Chest X-Ray 06/08/18 11:00 IMPRESSION: The tip of the endotracheal tube is a 2.6 cm proximal to the cade. Stable appearance of the lungs. Electronically Signed: Roger Mijares, at 15:00 EST , Service support , Chest X-Ray 06/08/18 12:43 IMPRESSION: Since prior study, there has been improved aeration of both lungs. All the support tubes are in good position. The tip of the left PICC line catheter is at the junction of the superior vena cava and right atrium. Electronically Signed: Roger Mijares, at 13:55 EST , Service support , Videofluoroscopic Swallow 06/11/18 13:55 IMPRESSION: Solid aspiration with ingestion of thin liquids as well as nectar thickened liquids. The swallow study findings were discussed with the patient by the speech pathologist at the conclusion of the examination. Please see speech pathology report for more information and recommendations. Electronically Signed: Roger Mijares, at 14:50 EST , Service support , Medical Necessity - Tobacco Use Smoking Status: Never smoker Tobacco Use: Non-smoker Assessment/Plan All Active Problems (Last Reviewed 05/29/18 @ 14:01 by Tanner Talamantes MD) Acute bronchitis (Acute) Influenza A (Acute) DCCV for atrial flutter (Resolved) URI (upper respiratory infection) (Resolved) Thrush, oral (Resolved) Pneumonia (Resolved) MRSA (methicillin resistant staphylococcus aureus) pneumonia (Resolved) Acute respiratory failure with hypoxia (Resolved) RECOMMENDATIONS: 1. Continue modified diet per speech therapy recommendations. 2. Wean supplemental oxygen as tolerated to maintain a saturation at or above 90%. 3. Continue antibiotics to complete treatment course per ID recommendations. 4. Continue bronchodilators. 5. Continue Lasix, amiodarone and Cardizem. 6. IV steroids can be transitioned to prednisone beginning tomorrow. 7. Encourage incentive spirometer use and mobilize patient as tolerated. IMPRESSIONS: 1. Acute on chronic hypoxemic respiratory failure secondary to influenza A with MRSA superinfection Although initially improving on therapy, the patient later decompensated, becoming dependent on BiPAP therapy. On June 08, the patient required elective intubation due to an inability to be weaned from noninvasive positive pressure ventilation. The patient remains on vancomycin per ID recommendations. Her white blood cell count continues to improve. The patient was able to be liberated from mechanical ventilation on the morning of June 11. We will plan to wean supplemental oxygen to maintain saturations at or above 90%. She will remain on a modified diet per speech therapy recommendations, following swallow evaluation completed previously. In the interim, the patient will be continued on her baseline amiodarone and Cardizem doses. Her baseline Lasix regimen will also be continued. Encourage incentive spirometer use and mobilize patient as tolerated. 2. Severe sepsis secondary to influenza A with MRSA superinfection Continue vancomycin as ordered. Total course duration to be determined by infectious diseases. 3. History of pulmonary fibrosis secondary to chronic aspiration The patient will remain on a modified diet, per speech therapy recommendations. 4. History of paroxysmal atrial fibrillation Continue baseline anticoagulation and cardiac medication regimen. Continue baseline diuretic regimen. 5. Diabetes mellitus/hypertension/generalized anxiety disorder Complicates care, management, recovery and prognosis. Continue home medications as indicated. Physical therapy to continue to work with the patient. This note was generated with [employer] dictation software. It may contain incorrect words, spelling, and punctuation that were not noted in checking the note before signing. DISPOSITION: The patient is medically stable for transfer out of the intensive care unit. Code Visit Inpatient E&M: 15871 Subs Hosp L3
[2018-06-12] MEDS: Ipratropium/Albuterol Sulfate 3 ML AMPUL.NEB INHALATION ×4 (06:30→20:21)
--- NOTE | 2018-06-12 06:30 | PN_ITS ---
Subjective: The patient was seen and examined at the bedside this morning. Events from the last 24 hours have been reviewed. The patient is currently afebrile, hemodynamically stable and maintaining appropriate oxygen saturations on 4 L/min via nasal cannula. The patient continues to fluctuate between normal sinus rhythm and atrial fibrillation. The patient did undergo a formal swallow evaluation yesterday and currently has a modified diet in place per speech therapy recommendations. Per my conversation with infectious diseases yesterday, there are plans for the patient to complete a total of 2 weeks of treatment for her underlying pneumonia. The patient reports decreased phonation and vocal hoarseness this morning. Objective: The patient's most recent lab work, culture data and imaging studies have all been personally reviewed. Respiratory viral panel was positive for influenza A. Sputum culture was positive for methicillin-resistant staph aureus. Blood cultures have not shown any growth to date. Surface echocardiogram dated August 2015 revealed normal LV size and ejection fraction. There was moderate focal a ortic valve calcification along with a right ventricular systolic pressure estimated to be 32 mmHg. Repeat sputum culture dated June 08 was again positive for MRSA. General: Alert, Cooperative, No apparent distress, - - Extremely hard of hearing. HEENT: Atraumatic, PERRLA, Normocephalic Oral: Dry Mucosa Neck: Supple, No Nodes, Trachea Midline Lungs: No rhonchi, No wheeze, No rales, Diminished Cardiovascular: Normal S1, Normal S2, No murmurs, Tachycardic Abdomen: Bowel Sounds Present, Soft, Non Tender Extremities: No clubbing, No cyanosis, Edema Skin: - - No significant change from previous. Musculoskeletal: No Tenderness to Palpation of Joints or Extremities Lymphatic: No Cervical, Supraclavicular, or Inguinal Adenopathy Neurological: Cranial nerves II-XII grossly intact, Neuro grossly intact Psych/Mental Status: Normal Affect, Appropriate Vital Signs Temp Pulse Resp BP Pulse Ox 36.9 C 117 H 18 124/73 H 91 06/12/18 04:00 06/12/18 06:00 06/12/18 06:00 06/12/18 06:00 06/12/18 06:00 Oxygen Flow Rate (L/min) 4 Oxygen Delivery Method Nasal Cannula Weight: 110 lb 10.753 oz Body Mass Index (BMI) 23.8 Finger Stick Blood Glucose 133 Intake and Output for Last 24 Hours 06/10/18 06/11/18 06/12/18 23:59 23:59 23:59 Intake Total 2125.2 / 2125.2 1350.9 / 1350.9 324 / 324 Output Total 1225 / 1225 1150 / 1150 1500 / 1500 Balance 900.2 / 900.2 200.9 / 200.9 -1176 / -1176 Labs (Last 48 Hours) 06/08/18 06/09/18 06/10/18 14:00 06:10 06:06 WBC RBC Hgb Hct MCV MCH MCHC RDW RDW Differential Plt Count MPV Immature Gran % (Auto) Neut % (Auto) Lymph % (Auto) [place] % (Auto) Eos % (Auto) Baso % (Auto) Absolute Neuts (auto) Absolute Lymphs (auto) Total Counted Diff Path Review Reviewed Reviewed Sodium Potassium Chloride Carbon Dioxide Anion Gap BUN Creatinine Estim Creat Clear Calc Est GFR (MDRD) Af Amer Est GFR (MDRD) Non-Af BUN/Creatinine Ratio Glucose Calcium Vancomycin Trough POC Glucose 265 H 06/10/18 06/10/18 06/10/18 07:00 07:00 12:37 WBC 25.2 H RBC 3.43 L Hgb 10.1 L Hct 32.1 L MCV 93.6 MCH 29.4 MCHC 31.5 L RDW 13.4 RDW Differential 45.4 H Plt Count 386 MPV 9.9 Immature Gran % (Auto) 0.600 Neut % (Auto) 91.2 H Lymph % (Auto) 4.6 L [place] % (Auto) 3.5 Eos % (Auto) 0.0 Baso % (Auto) 0.1 Absolute Neuts (auto) 23.0 H Absolute Lymphs (auto) 1.15 Total Counted Not Reportable Diff Path Review Sodium 136 Potassium 4.2 Chloride 98 Carbon Dioxide 34.0 H Anion Gap 4 L BUN 69 H Creatinine 1.47 H Estim Creat Clear Calc 23.34 Est GFR (MDRD) Af Amer 44 L Est GFR (MDRD) Non-Af 36 L BUN/Creatinine Ratio 46.9 H Glucose 241 H Calcium 7.7 L Vancomycin Trough POC Glucose 241 H 06/10/18 06/10/18 06/11/18 19:04 23:57 01:38 WBC RBC Hgb Hct MCV MCH MCHC RDW RDW Differential Plt Count MPV Immature Gran % (Auto) Neut % (Auto) Lymph % (Auto) [place] % (Auto) Eos % (Auto) Baso % (Auto) Absolute Neuts (auto) Absolute Lymphs (auto) Total Counted Diff Path Review Sodium Potassium Chloride Carbon Dioxide Anion Gap BUN Creatinine Estim Creat Clear Calc Est GFR (MDRD) Af Amer Est GFR (MDRD) Non-Af BUN/Creatinine Ratio Glucose Calcium Vancomycin Trough 17.6 H POC Glucose 312 H 336 H 06/11/18 06/11/18 06/11/18 05:41 05:45 05:45 WBC 16.4 H RBC 3.26 L Hgb 9.3 L Hct 31.3 L MCV 96.0 MCH 28.5 MCHC 29.7 L RDW 12.7 RDW Differential 43.0 Plt Count 412 MPV 10.0 Immature Gran % (Auto) 0.400 Neut % (Auto) 88.0 H Lymph % (Auto) 5.2 L [place] % (Auto) 6.3 Eos % (Auto) 0.0 Baso % (Auto) 0.1 Absolute Neuts (auto) 14.4 H Absolute Lymphs (auto) 0.85 Total Counted Not Reportable Diff Path Review Sodium 140 Potassium 4.5 Chloride 99 Carbon Dioxide 34.0 H Anion Gap 7 BUN 67 H Creatinine 1.09 H Estim Creat Clear Calc 31.47 Est GFR (MDRD) Af Amer 62 Est GFR (MDRD) Non-Af 51 L BUN/Creatinine Ratio 61.5 H Glucose 347 H Calcium 7.8 L Vancomycin Trough POC Glucose 285 H 06/11/18 06/11/18 06/11/18 12:53 17:40 23:50 WBC RBC Hgb Hct MCV MCH MCHC RDW RDW Differential Plt Count MPV Immature Gran % (Auto) Neut % (Auto) Lymph % (Auto) [place] % (Auto) Eos % (Auto) Baso % (Auto) Absolute Neuts (auto) Absolute Lymphs (auto) Total Counted Diff Path Review Sodium Potassium Chloride Carbon Dioxide Anion Gap BUN Creatinine Estim Creat Clear Calc Est GFR (MDRD) Af Amer Est GFR (MDRD) Non-Af BUN/Creatinine Ratio Glucose Calcium Vancomycin Trough POC Glucose 181 H 225 H 282 H 06/12/18 06/12/18 06/12/18 03:55 03:55 06:01 WBC 16.1 H RBC 3.33 L Hgb 9.8 L Hct 31.4 L MCV 94.3 MCH 29.4 MCHC 31.2 L RDW 12.8 RDW Differential 43.8 Plt Count 359 MPV 9.8 Immature Gran % (Auto) 0.300 Neut % (Auto) 89.3 H Lymph % (Auto) 5.1 L [place] % (Auto) 5.3 Eos % (Auto) 0.0 Baso % (Auto) 0.0 Absolute Neuts (auto) 14.4 H Absolute Lymphs (auto) 0.82 L Total Counted Not Reportable Diff Path Review Sodium 138 Potassium 4.3 Chloride 98 Carbon Dioxide 34.0 H Anion Gap 6 BUN 43 H Creatinine 0.83 Estim Creat Clear Calc 41.33 Est GFR (MDRD) Af Amer 84 Est GFR (MDRD) Non-Af 70 BUN/Creatinine Ratio 51.6 H Glucose 257 H Calcium 8.0 L Vancomycin Trough POC Glucose 228 H Microbiology 06/08/18 12:00 Sputum, Induced/Lukens Gram Stain - Final 06/08/18 12:00 Sputum, Induced/Lukens Respiratory Culture - Final Meth. resistant Staph. aureus Clinical Impression(s) from Imaging Studies Chest X-Ray 05/29/18 10:40 IMPRESSION: No acute cardiopulmonary disease Electronically Signed: Dave Parker DO at 12:21 EST Tel , Service support , Chest X-Ray 06/01/18 04:30 IMPRESSION: Bilateral pneumonia. Electronically Signed: Gloria Parish MD at 5:21 EST Tel , Service support , Chest X-Ray 06/03/18 09:39 IMPRESSION: Progressive infiltrates in the right upper lobe and left upper lobe. Improved aeration of the left lung base. Electronically Signed: Roger Mijares MD at 10:43 EST , Service support , Chest X-Ray 06/07/18 06:31 IMPRESSION: Improved aeration of the right lung base. Otherwise, there has been essentially no change. Electronically Signed: Roger Mijares MD at 12:26 EST , Service support , Chest X-Ray 06/08/18 11:00 IMPRESSION: The tip of the endotracheal tube is a 2.6 cm proximal to the cade. Stable appearance of the lungs. Electronically Signed: Roger Mijares, at 15:00 EST , Service support , Chest X-Ray 06/08/18 12:43 IMPRESSION: Since prior study, there has been improved aeration of both lungs. All the support tubes are in good position. The tip of the left PICC line catheter is at the junction of the superior vena cava and right atrium. Electronically Signed: Roger Mijares, at 13:55 EST , Service support , Videofluoroscopic Swallow 06/11/18 13:55 IMPRESSION: Solid aspiration with ingestion of thin liquids as well as nectar thickened liquids. The swallow study findings were discussed with the patient by the speech pathologist at the conclusion of the examination. Please see speech pathology report for more information and recommendations. Electronically Signed: Roger Mijares, at 14:50 EST , Service support , Medical Necessity - Tobacco Use Smoking Status: Never smoker Tobacco Use: Non-smoker Assessment/Plan All Active Problems (Last Reviewed 05/29/18 @ 14:01 by Tanner Talamantes MD) Acute bronchitis (Acute) Influenza A (Acute) DCCV for atrial flutter (Resolved) URI (upper respiratory infection) (Resolved) Thrush, oral (Resolved) Pneumonia (Resolved) MRSA (methicillin resistant staphylococcus aureus) pneumonia (Resolved) Acute respiratory failure with hypoxia (Resolved) RECOMMENDATIONS: 1. Continue modified diet per speech therapy recommendations. 2. Wean supplemental oxygen as tolerated to maintain a saturation at or above 90%. 3. Continue antibiotics to complete treatment course per ID recommendations. 4. Continue bronchodilators. 5. Continue Lasix, amiodarone and Cardizem. 6. IV steroids can be transitioned to prednisone beginning tomorrow. 7. Encourage incentive spirometer use and mobilize patient as tolerated. IMPRESSIONS: 1. Acute on chronic hypoxemic respiratory failure secondary to influenza A with MRSA superinfection Although initially improving on therapy, the patient later decompensated, becoming dependent on BiPAP therapy. On June 08, the patient required elective intubation due to an inability to be weaned from noninvasive positive pressure ventilation. The patient remains on vancomycin per ID recommendations. Her white blood cell count continues to improve. The patient was able to be liberated from mechanical ventilation on the morning of June 11. We will plan to wean supplemental oxygen to maintain saturations at or above 90%. She will remain on a modified diet per speech therapy recommendations, following swallow evaluation completed previously. In the interim, the patient will be continued on her baseline amiodarone and Cardizem doses. Her baseline Lasix regimen will also be continued. Encourage incentive spirometer use and mobilize patient as tolerated. 2. Severe sepsis secondary to influenza A with MRSA superinfection Continue vancomycin as ordered. Total course duration to be determined by infectious diseases. 3. History of pulmonary fibrosis secondary to chronic aspiration The patient will remain on a modified diet, per speech therapy recommendations. 4. History of paroxysmal atrial fibrillation Continue baseline anticoagulation and cardiac medication regimen. Continue baseline diuretic regimen. 5. Diabetes mellitus/hypertension/generalized anxiety disorder Complicates care, management, recovery and prognosis. Continue home medications as indicated. Physical therapy to continue to work with the patient. This note was generated with [employer] dictation software. It may contain incorrect words, spelling, and punctuation that were not noted in checking the note before signing. DISPOSITION: The patient is medically stable for transfer out of the intensive care unit. Code Visit Inpatient E&M: 16638 Subs Hosp L3
--- NOTE | 2018-06-12 07:17 | PN_ITS ---
Patient Problems: Active and Suspected Problems (Last Reviewed 05/29/18 @ 14:01 by Tanner Talamantes MD) Acute bronchitis (Acute) Influenza A (Acute) Subjective: Patient underwent speech and swallow eval the day prior recommendation is for patient to be placed on Mechanical Soft textures,[place]-thick Liquids Temp 98.4 F 06/12/18 04:00 Pulse 100 06/12/18 07:02 Resp 24 H 06/12/18 07:02 BP 115/71 06/12/18 07:00 Pulse Ox 96 06/12/18 07:02 Objective: GENERAL: Awake frail looking HEENT: Atraumatic; EYES; Anicteric, Normal Conjunctiva NECK; supple, normal thyroid, RESPIRATORY: Diminished to auscultation bilaterally, CARDIOVASCULAR: Regular S1 S2, GI: soft, non-tender, normoactive bowel sounds, : No Renal angle tenderness; EXTREMITIES: trace edema, no clubbing, NEURO: Grossly intact SKIN: No Rash PSYCH; flat affect Vitals/I&O's: Vital Signs Temp Pulse Resp BP Pulse Ox 98.4 F 100 24 H 115/71 96 06/12/18 04:00 06/12/18 07:02 06/12/18 07:02 06/12/18 07:00 06/12/18 07:02 Oxygen Flow Rate (L/min) 4 Oxygen Delivery Method Nasal Cannula Weight: 50.2 kg Body Mass Index (BMI) 23.8 Finger Stick Blood Glucose 133 Intake and Output for Last 24 Hours 06/10/18 06/11/18 06/12/18 23:59 23:59 23:59 Intake Total 2125.2 / 2125.2 1350.9 / 1350.9 324 / 324 Output Total 1225 / 1225 1150 / 1150 1500 / 1500 Balance 900.2 / 900.2 200.9 / 200.9 -1176 / -1176 Microbiology Past 72 Hours 06/08/18 12:00 Sputum, Induced/Lukens Gram Stain - Final 06/08/18 12:00 Sputum, Induced/Lukens Respiratory Culture - Final Meth. resistant Staph. aureus Laboratory Results 06/11/18 12:53: POC Glucose 181 H 06/11/18 17:40: POC Glucose 225 H 06/11/18 23:50: POC Glucose 282 H 06/12/18 03:55: WBC 16.1 H, RBC 3.33 L, Hgb 9.8 L, Hct 31.4 L, MCV 94.3, MCH 29.4, MCHC 31.2 L, RDW 12.8, RDW Differential 43.8, Plt Count 359, MPV 9.8, Immature Gran % (Auto) 0.300, Neut % (Auto) 89.3 H, Lymph % (Auto) 5.1 L, [place] % (Auto) 5.3, Eos % (Auto) 0.0, Baso % (Auto) 0.0, Absolute Neuts (auto) 14.4 H, Absolute Lymphs (auto) 0.82 L, Total Counted Not Reportable 06/12/18 03:55: Sodium 138, Potassium 4.3, Chloride 98, Carbon Dioxide 34.0 H, Anion Gap 6, BUN 43 H, Creatinine 0.83, Estim Creat Clear Calc 41.33, Est GFR (MDRD) Af Amer 84, Est GFR (MDRD) Non-Af 70, BUN/Creatinine Ratio 51.6 H, Glucose 257 H, Calcium 8.0 L 06/12/18 06:01: POC Glucose 228 H Current Medications Acetaminophen (Tylenol) 650 mg RECTAL Q4H PRN PRN PRN Reason: MILD-MOD PAIN (1-5/10) Last Admin: 06/07/18 14:05 Dose: 650 mg Al Hydroxide/Mg Hydroxide (Mylanta Ii) 30 ml PO Q6H PRN PRN PRN Reason: INDIGESTION Last Admin: 06/06/18 23:23 Dose: 30 ml Albuterol Sulfate (Ventolin Aerosols) 2.5 mg INHALATION Q4H PRN PRN Reason: pul fibrosis J84.10 & bronchiectasis J47.9 Last Admin: 06/07/18 19:10 Dose: 2.5 mg Albuterol/Ipratropium (Duoneb) 3 ml INHALATION Q4HWA.RT ANDREA Last Admin: 06/12/18 06:30 Dose: 3 ml Amiodarone HCl (Cordarone) 100 mg GT DAILY [facility] Last Admin: 06/11/18 15:35 Dose: 100 mg Bisacodyl (Dulcolax) 10 mg RECTAL DAILY PRN PRN Reason: Constipation Chlorhexidine Gluconate () 1 each TOPICAL DAILY [facility] Last Admin: 06/11/18 05:50 Dose: 1 each Clonazepam (Klonopin) 0.5 mg GT Q8H PRN PRN PRN Reason: ANXIETY Last Admin: 06/11/18 21:36 Dose: 0.5 mg Diltiazem HCl (Cardizem) 30 mg GT Q6 [facility] Last Admin: 06/12/18 06:02 Dose: 30 mg Furosemide (Lasix) 20 mg GT DAILY [facility] Last Admin: 06/11/18 15:36 Dose: 20 mg Vancomycin IV Pharmacy to Dose (1 ea/ Sodium Chloride) 500 mls @ 250 mls/hr IV X1 PRN; Protocol PRN Reason: Rx to Dose Vancomycin HCl (Vancomycin) 1,000 mg in 200 mls @ 200 mls/hr IV Q24H [facility] Last Admin: 06/12/18 01:28 Dose: 200 mls/hr Insulin Human Lispro (Humalog Kwikpen (Bkc)) 0 unit SC Q6 [facility]; Protocol Last Admin: 06/12/18 06:02 Dose: 4 u Magnesium Hydroxide (Milk Of Magnesia) 30 ml PO DAILY PRN PRN PRN Reason: Constipation Methylprednisolone (Solu-Medrol) 40 mg IV DAILY [facility] Last Admin: 06/11/18 12:54 Dose: 40 mg Montelukast Sodium (Singulair) 10 mg GT QHS [facility] Last Admin: 06/11/18 21:37 Dose: 10 mg Nortriptyline HCl (Pamelor) 50 mg GT QHS [facility] Last Admin: 06/11/18 21:36 Dose: 50 mg Nystatin (Nystatin) 500,000 unit PO 4X/DAY [facility] Stop: 06/12/18 14:01 Last Admin: 06/11/18 21:36 Dose: 500,000 unit Ondansetron HCl (Zofran) 4 mg IV Q6H PRN PRN PRN Reason: NAUSEA/VOMITING Last Admin: 06/07/18 01:39 Dose: 4 mg Polyethylene Glycol (Miralax) 17 gm GT DAILY [facility] Last Admin: 06/11/18 11:21 Dose: Not Given Prednisolone Acetate (Pred Forte Eye Drops (1 Ml)) 1 drop OPHTHALMIC DAILY [facility] Last Admin: 06/11/18 12:55 Dose: 1 drop Rivaroxaban (Xarelto) 15 mg GT DAILY [facility] Last Admin: 06/11/18 11:22 Dose: Not Given Senna/Docusate Sodium (Senokot-S, Juanita-Colace) 1 tablet NG DAILY ANDREA Last Admin: 06/11/18 11:22 Dose: Not Given Sodium Chloride () 5 - 15 ml IV UD PRN PRN Reason: SALINE FLUSH Last Admin: 06/09/18 12:08 Dose: 10 ml Medical Necessity - Tobacco Use Smoking Status: Never smoker Tobacco Use: Non-smoker Assessment/Plan All Active Problems (Last Reviewed 05/29/18 @ 14:01 by Tanner Talamantes MD) Acute bronchitis (Acute) Influenza A (Acute) DCCV for atrial flutter (Resolved) URI (upper respiratory infection) (Resolved) Thrush, oral (Resolved) Pneumonia (Resolved) MRSA (methicillin resistant staphylococcus aureus) pneumonia (Resolved) Acute respiratory failure with hypoxia (Resolved) Patient is an 83-year-old lady with multiple comorbidities presenting with progressive shortness of breath and persistent cough in addition to subjective fever and chills. An assessment of acute bronchitis made admitted to regular nursing floor for further management and condition deteriorated resulting in patient being moved from the regular nursing floor to ICU. Patient was managed with noninvasive ventilation BiPAP. Subsequent sputum cultures came back positive for MRSA 1. Acute hypoxic respiratory failure secondary to acute influenza A infection complicated by MRSA pneumonia. Patient transferred from a regular nursing floor to the intensive care unit managed on noninvasive ventilation BiPAP which has since been weaned off to high flow oxygen patient did complete a 5-day treatment with Tamiflu currently remains on Zosyn and vancomycin patient has been weaned off BiPAP however had to be placed back on the night of 06/07/2018. Remains on vancomycin and Zosyn. Case discussed with Dr. Delgadillo with pulmonary medicine/intensive care was intubated on 06/08/2018 as a result of worsening respiratory status. Consult was placed to infectious disease in view of worsening WBC count was seen by Dr. Cortez on 06/09/2018 his notes and recommendations reviewed patient was weaned off the vent on the morning of 06/11/2018. WBC count trending down. Patient underwent speech and swallow eval on 06/11/2018 and subsequently placed on Mechanical Soft textures,[place]-thick Liquids transferred from the intensive care unit to PCU on 06/12/2018 2. Chronic hypoxic respiratory failure secondary to combination of COPD and bronchiectasis patient is followed by pulmonary medicine as outpatient patient is on baseline home O2 3. Acute kidney injury diuretics held kidney function back to baseline as of 06/11/2018. 4. Paroxysmal A. fib/flutter patient is on amiodarone and Cardizem. On systemic anticoagulation with xarelto. 5. GERD; on PPI 6. Hypertension blood pressure stable did continue with home meds 7. Anxiety disorder patient is on Klonopin at home 8. History of left-sided hemiplegia following cervical cyst removal requested for PT OT as tolerated 9. DVT prophylaxis patient will Xarelto no need for additional measures 10. Physical deconditioning: PT OT as tolerated with plans for patient to be discharged to a [facility] facility when medically stable 11. Dysphagia ; with suspected recurrent aspiration. Scheduled to undergo speech and swallow eval on 06/11/2018. Code Visit Inpatient E&M: 14617 [facility] Hosp L3
[2018-06-12] MEDS: Furosemide 20 MG Tablet PO (10:51)
[2018-06-12] MEDS: Polyethylene Glycol 3350 17 GM PACKET PO (10:51)
[2018-06-12] MEDS: Senna/Docusate Sodium 1 Tablet PO (10:52)
[2018-06-12] MEDS: Rivaroxaban 15 MG Tablet PO (10:52)
[2018-06-12] MEDS: Amiodarone 200 MG Tablet 100 MG PO (10:53)
[2018-06-12] MEDS: NYSTATIN 500,000 UNIT/5 ML UDC 500000 UNIT PO ×3 (10:53→21:24)
[2018-06-12] MEDS: 0.9% NaCl Peripheral Flush Adult/Peds IV (10:54)
[2018-06-12] MEDS: prednisoLONE eye drops (1 mL) 1 DROP OPTH.BTL 1 DRP OPHTHALMIC (10:55)
[2018-06-12] MEDS: dilTIAZem 30 MG Tablet PO ×2 (11:00→17:12)
[2018-06-12 11:21] LABS: Bedside Glucose 182 mg/dL (70-110)
[2018-06-12] MEDS: clonazePAM 0.5 MG Tablet PO ×2 (13:38→21:24)
[2018-06-12 17:30] LABS: Bedside Glucose 267 mg/dL (70-110)
[2018-06-12] MEDS: Acetaminophen 650 MG Suppository RECTAL (21:23)
[2018-06-12] MEDS: Montelukast 10 MG Tablet PO (21:24)
[2018-06-12] MEDS: Nortriptyline 25 MG Capsule 50 MG PO (21:24)
[2018-06-13] VITALS (19 sets, daily range): BP systolic 120–150; BP diastolic 48–88; PULSE 65–131; RESP 16–24; TEMP 36.6–36.7; O2SAT 93–96
[2018-06-13] MEDS: Insulin Lispro 100 UNIT/ML INSULN.PEN SC ×5 (00:07→23:06)
[2018-06-13] MEDS: dilTIAZem 30 MG Tablet PO ×5 (00:07→23:06)
--- NOTE | 2018-06-13 00:35 | EKG12_ITS ---
Test Reason : AFLUTTER Blood Pressure : / mmHG Vent. Rate : 124 BPM Atrial Rate : 248 BPM P-R Int : 000 ms QRS Dur : 092 ms QT Int : 344 ms P-R-T Axes : 094 035 -06 degrees QTc Int : 494 ms Atrial flutter with 2:1 A-V conduction Incomplete right bundle branch block Junctional ST depression, probably normal Abnormal ECG When compared with ECG of 13-JUN-2018 00:57, MANUAL COMPARISON REQUIRED, DATA IS UNCONFIRMED Confirmed by CATERINA OCONNELL, HECTOR ([id number]), news editor DEDE SCALES ([id number]) on 06/15/2018 1:12:42 PM Referred By: KEO Confirmed By:HECTOR DIGGS MD
[2018-06-13 00:56] LABS: Bedside Glucose 282 mg/dL (70-110)
[2018-06-13] MEDS: 0.9% NaCl Peripheral Flush Adult/Peds IV ×4 (01:11→09:59)
[2018-06-13] MEDS: Vancomycin IV 1,000 MG/200 ML BAG 200 MG IV (01:11)
[2018-06-13 05:26] LABS: Bedside Glucose 160 mg/dL (70-110)
[2018-06-13 05:51] LABS: Absolute Lymphocyte Count 0.96 X10^3/ul (0.83-4.51); Absolute Neutrophil Count 13.4 X10^3/uL (2.0-7.7); Basophil# 0.01 X10^3/uL; Basophil% 0.1 % (0-1); Eosinophil# 0.01 X10^3/uL; Eosinophils% 0.1 % (0-5); Hematocrit 31.1 % (37-47); Hemoglobin 9.6 g/dl (12.0-15.0); Lymphocyte # 0.96 X10^3/ul (4.0); Lymphocyte % 6.2 % (19-41); Mean Corp Hgb Conc 30.9 g/gl (32-36); Mean Corpuscular Hgb 29.6 pg (27.0-32.0); Mean Platelet Vol. 9.7 fl (6.2-12.0); Monocyte# 1.07 X10^3/uL; Monocyte% 6.9 % (0-10); Neutrophil # 13.43 X10^3/uL (2.7-7.7); Neutrophil % 86.2 % (47-70); Platelet Count 391 K/mm3 (150-450); RBC Distribution Width CV 12.5 % (11.6-14.6); RBC Distribution Width SD 41.8 fl (35.1-43.9); Red Blood Count 3.24 M/mm3 (4.2-5.4); White Blood Count 15.6 K/mm3 (4.4-11.0)
[2018-06-13 06:10] LABS: Anion Gap 7 (5-15); BUN 34 mg/dL (7-18); BUN/Creat Ratio 43.6 RATIO (10-20); Calcium,Total 8.3 mg/dL (8.5-10.1); Chloride 99 mmol/L (98-107); Creatinine, Serum 0.78 mg/dL (0.55-1.02); EST Glomerular Filtration Rate 75 mL/min (>60); Est Glom Filt Rate - Afr Amer 91 mL/min (>60); Glucose 162 mg/dL (74-106); Sodium Level 140 mmol/L (136-145)
[2018-06-13 06:35] LABS: POSITIVE COUNT NO; POSITIVE DIFFERENTIAL NO; POSITIVE MORPHOLOGY NO
[2018-06-13] MEDS: Ipratropium/Albuterol Sulfate 3 ML AMPUL.NEB INHALATION ×4 (07:40→20:19)
[2018-06-13] MEDS: Saliva Substitute 237 ML BOTTLE 15 ML MM ×3 (08:20→15:55)
--- NOTE | 2018-06-13 09:48 | PCM.PROGNOTE ---
Patient Problems: Active and Suspected Problems (Last Updated 06/13/18 @ 18:26 by Malik Vargas DO) MRSA pneumonia (Acute) Acute bronchitis (Acute) Influenza A (Acute) Subjective: The patient was seen and examined at the bedside this morning. Events from the last 24 hours have been reviewed. The patient is currently afebrile, hemodynamically stable and maintaining appropriate oxygen saturations on 3 L/min via nasal cannula. The patient has done well clinically following transfer out of the intensive care unit. Leukocytosis continues to improve. The patient is currently documented to be overall net +4.4 L for the admission. Objective: The patient's most recent lab work, culture data and imaging studies have all been personally reviewed. Respiratory viral panel was positive for influenza A. Sputum culture was positive for methicillin-resistant staph aureus. Blood cultures have not shown any growth to date. Surface echocardiogram dated August 2015 revealed normal LV size and ejection fraction. There was moderate focal aortic valve calcification along with a right ventricular systolic pressure estimated to be 32 mmHg. Repeat sputum culture dated June 08 was again positive for MRSA. - Physical Exam General: Alert, Cooperative, No apparent distress, - - Hard of hearing HEENT: Atraumatic, PERRLA, Normocephalic Oral: No Gingival or Mucosal Lesions/ Ulcerations Neck: Supple, No Nodes, Trachea Midline Lungs: No rhonchi, No wheeze, No rales, Diminished Cardiovascular: Normal S1, Normal S2, Tachycardic Abdomen: Bowel Sounds Present, Soft, Non Tender Extremities: No clubbing, No cyanosis, No edema Skin: - - No significant change from previous. Musculoskeletal: No Tenderness to Palpation of Joints or Extremities Lymphatic: No Cervical, Supraclavicular, or Inguinal Adenopathy Neurological: Neuro grossly intact Psych/Mental Status: Normal Affect, Appropriate Vital Signs Temp Pulse Resp BP Pulse Ox 36.6 C 78 20 H 120/51 L 93 06/13/18 09:45 06/13/18 09:45 06/13/18 09:45 06/13/18 09:45 06/13/18 09:45 Oxygen Flow Rate (L/min) 3 Oxygen Delivery Method Nasal Cannula Weight: 129 lb 3.054 oz Body Mass Index (BMI) 23.8 Finger Stick Blood Glucose 133 Intake and Output for Last 24 Hours 06/11/18 06/12/18 06/13/18 23:59 23:59 23:59 Intake Total 1350.9 / 1350.9 664 / 664 456 / 456 Output Total 1150 / 1150 2024 / 2024 150 / 150 Balance 200.9 / 200.9 -1361 / -1361 306 / 306 Microbiology Past 72 Hours 06/08/18 12:00 Gram Stain - Final Sputum, Induced/Lukens Respiratory Culture - Final Meth. resistant Staph. aureus Laboratory Tests Past 24 Hrs 06/13/18 06/13/18 05:10 05:10 WBC 15.6 H RBC 3.24 L Hgb 9.6 L Hct 31.1 L MCV 96.0 MCH 29.6 MCHC 30.9 L RDW 12.5 RDW Differential 41.8 Plt Count 391 MPV 9.7 Immature Gran % (Auto) 0.500 Neut % (Auto) 86.2 H Lymph % (Auto) 6.2 L [place] % (Auto) 6.9 Eos % (Auto) 0.1 Baso % (Auto) 0.1 Absolute Neuts (auto) 13.4 H Absolute Lymphs (auto) 0.96 Total Counted Not Reportable Sodium 140 Potassium 4.0 Chloride 99 Carbon Dioxide 34.0 H Anion Gap 7 BUN 34 H Creatinine 0.78 Estim Creat Clear Calc 34.30 Est GFR (MDRD) Af Amer 91 Est GFR (MDRD) Non-Af 75 BUN/Creatinine Ratio 43.6 H Glucose 162 H Calcium 8.3 L POC Glucose 06/13/18 06/13/18 06/12/18 05:11 00:06 17:16 POC Glucose 160 H 282 H 267 H 06/12/18 10:50 POC Glucose 182 H Clinical Impression(s) from Imaging Studies Chest X-Ray 05/29/18 10:40 IMPRESSION: No acute cardiopulmonary disease Electronically Signed: Dave Parker DO at 12:21 EST Tel , Service support , Chest X-Ray 06/01/18 04:30 IMPRESSION: Bilateral pneumonia. Electronically Signed: Gloria Parish MD at 5:21 EST Tel , Service support , Chest X-Ray 06/03/18 09:39 IMPRESSION: Progressive infiltrates in the right upper lobe and left upper lobe. Improved aeration of the left lung base. Electronically Signed: Roger Mijares MD at 10:43 EST , Service support , Chest X-Ray 06/07/18 06:31 IMPRESSION: Improved aeration of the right lung base. Otherwise, there has been essentially no change. Electronically Signed: Roger Mijares MD at 12:26 EST , Service support , Chest X-Ray 06/08/18 11:00 IMPRESSION: The tip of the endotracheal tube is a 2.6 cm proximal to the cade. Stable appearance of the lungs. Electronically Signed: Roger Mijares, at 15:00 EST , Service support , Chest X-Ray 06/08/18 12:43 IMPRESSION: Since prior study, there has been improved aeration of both lungs. All the support tubes are in good position. The tip of the left PICC line catheter is at the junction of the superior vena cava and right atrium. Electronically Signed: Roger Mijares, at 13:55 EST , Service support , Videofluoroscopic Swallow 06/11/18 13:55 IMPRESSION: Solid aspiration with ingestion of thin liquids as well as nectar thickened liquids. The swallow study findings were discussed with the patient by the speech pathologist at the conclusion of the examination. Please see speech pathology report for more information and recommendations. Electronically Signed: Roger Mijares, at 14:50 EST , Service support , Medical Necessity - Tobacco Use Smoking Status: Never smoker Tobacco Use: Non-smoker Assessment/Plan All Active Problems (Last Updated 06/13/18 @ 18:26 by Malik Vargas DO) MRSA pneumonia (Acute) Acute bronchitis (Acute) Influenza A (Acute) DCCV for atrial flutter (Resolved) URI (upper respiratory infection) (Resolved) Thrush, oral (Resolved) Pneumonia (Resolved) Atrial fibrillation with RVR (Resolved) MRSA (methicillin resistant staphylococcus aureus) pneumonia (Resolved) Acute respiratory failure with hypoxia (Resolved) RECOMMENDATIONS: 1. Continue modified diet per speech therapy recommendations. 2. Wean supplemental oxygen as tolerated to maintain a saturation at or above 90%. 3. Continue antibiotics to complete treatment course per ID recommendations. 4. Continue bronchodilators. 5. Continue Lasix, amiodarone and Cardizem. 6. IV steroids can be transitioned to prednisone 40 mg daily, with plans for a taper at discharge. 7. Encourage incentive spirometer use and mobilize patient as tolerated. IMPRESSIONS: 1. Acute on chronic hypoxemic respiratory failure secondary to influenza A with MRSA superinfection Although initially improving on therapy, the patient later decompensated, becoming dependent on BiPAP therapy. On June 08, the patient required elective intubation due to an inability to be weaned from noninvasive positive pressure ventilation. The patient remains on vancomycin per ID recommendations. Her white blood cell count continues to improve. The patient was able to be liberated from mechanical ventilation on the morning of June 11. We will plan to wean supplemental oxygen to maintain saturations at or above 90%. She will remain on a modified diet per speech therapy recommendations, following swallow evaluation completed previously. In the interim, the patient will be continued on her baseline amiodarone and Cardizem doses. Her baseline Lasix regimen will also be continued. Encourage incentive spirometer use and mobilize patient as tolerated. 2. Severe sepsis secondary to influenza A with MRSA superinfection Continue vancomycin as ordered. Total course duration to be determined by infectious diseases. 3. History of pulmonary fibrosis secondary to chronic aspiration The patient will remain on a modified diet, per speech therapy recommendations. 4. History of paroxysmal atrial fibrillation Continue baseline anticoagulation and cardiac medication regimen. Continue baseline diuretic regimen. 5. Diabetes mellitus/hypertension/generalized anxiety disorder Complicates care, management, recovery and prognosis. Continue home medications as indicated. Physical therapy to continue to work with the patient. This note was generated with [employer] dictation software. It may contain incorrect words, spelling, and punctuation that were not noted in checking the note before signing. DISPOSITION: Given the patient's lack of ongoing ICU needs, will sign off. Please call with any additional questions. Code Visit Inpatient E&M: 82072 Subs Hosp L2
[2018-06-13] MEDS: Furosemide 20 MG Tablet PO (09:59)
[2018-06-13] MEDS: prednisoLONE eye drops (1 mL) 1 DROP OPTH.BTL 1 DRP OPHTHALMIC (09:59)
[2018-06-13] MEDS: Rivaroxaban 15 MG Tablet PO (10:00)
[2018-06-13] MEDS: NYSTATIN 500,000 UNIT/5 ML UDC 500000 UNIT PO ×4 (10:14→21:23)
[2018-06-13] MEDS: Amiodarone 200 MG Tablet 100 MG PO (10:14)
[2018-06-13] MEDS: Senna/Docusate Sodium 1 Tablet PO (10:15)
[2018-06-13] MEDS: clonazePAM 0.5 MG Tablet PO ×2 (12:37→21:23)
[2018-06-13 12:56] LABS: Bedside Glucose 205 mg/dL (70-110)
[2018-06-13] MEDS: guaiFENesin Dm 10 ML UDC PO (18:06)
[2018-06-13 18:21] LABS: Bedside Glucose 299 mg/dL (70-110)
--- NOTE | 2018-06-13 18:25 | PN_ITS ---
Patient Problems: Active and Suspected Problems (Last Updated 06/13/18 @ 18:26 by Malik Vargas DO) MRSA pneumonia (Acute) Acute bronchitis (Acute) Influenza A (Acute) Subjective: Patient was seen and examined today, she is currently on a pur?ed diet with honey thickened liquids, I placed her on Robitussin-DM for cough today. She is currently on nasal cannula O2 at 3.5 L. - Physical Exam General: Alert, Oriented x3, Cooperative, No apparent distress, Well developed HEENT: Atraumatic, PERRLA, EOMI, Normocephalic Oral: Moist Mucosa Neck: Supple, Trachea Midline, Thyroid Normal Size and Texture Lungs: Normal air movement, Rhonchi - Scattered expiratory rhonchi are noted bilaterally Cardiovascular: Regular rate, No murmurs Abdomen: Bowel Sounds Present, Soft, Non Tender Extremities: No edema, Capillary Refill Less than 3 Seconds Skin: No rashes, No breakdown Musculoskeletal: No Tenderness to Palpation of Joints or Extremities Neurological: Cranial nerves II-XII grossly intact, Neuro grossly intact, Sensory exam intact to light touch and pain Psych/Mental Status: Normal Affect, Appropriate, Alert and oriented to time, place, person, mood and affect Vital Signs Temp Pulse Resp BP Pulse Ox 97.9 F 81 20 H 138/55 H 93 06/13/18 15:45 06/13/18 15:45 06/13/18 15:45 06/13/18 15:45 06/13/18 15:45 Oxygen Flow Rate (L/min) 3.5 Oxygen Delivery Method Room Air Weight: 58.6 kg Body Mass Index (BMI) 23.8 Finger Stick Blood Glucose 133 Intake and Output for Last 24 Hours 06/11/18 06/12/18 06/13/18 23:59 23:59 23:59 Intake Total 1350.9 / 1350.9 664 / 664 1176 / 1176 Output Total 1150 / 1150 2024 / 2024 500 / 500 Balance 200.9 / 200.9 -1361 / -1361 676 / 676 Laboratory Tests Past 24 Hrs 06/13/18 06/13/18 05:10 05:10 WBC 15.6 H RBC 3.24 L Hgb 9.6 L Hct 31.1 L MCV 96.0 MCH 29.6 MCHC 30.9 L RDW 12.5 RDW Differential 41.8 Plt Count 391 MPV 9.7 Immature Gran % (Auto) 0.500 Neut % (Auto) 86.2 H Lymph % (Auto) 6.2 L [place] % (Auto) 6.9 Eos % (Auto) 0.1 Baso % (Auto) 0.1 Absolute Neuts (auto) 13.4 H Absolute Lymphs (auto) 0.96 Total Counted Not Reportable Sodium 140 Potassium 4.0 Chloride 99 Carbon Dioxide 34.0 H Anion Gap 7 BUN 34 H Creatinine 0.78 Estim Creat Clear Calc 34.30 Est GFR (MDRD) Af Amer 91 Est GFR (MDRD) Non-Af 75 BUN/Creatinine Ratio 43.6 H Glucose 162 H Calcium 8.3 L POC Glucose 06/13/18 06/13/18 06/13/18 12:36 05:11 00:06 POC Glucose 205 H 160 H 282 H Medical Necessity - Tobacco Use Smoking Status: Never smoker Tobacco Use: Non-smoker Assessment/Plan All Active Problems (Last Updated 06/13/18 @ 18:26 by Malik Vargas DO) MRSA pneumonia (Acute) Acute bronchitis (Acute) Influenza A (Acute) DCCV for atrial flutter (Resolved) URI (upper respiratory infection) (Resolved) Thrush, oral (Resolved) Pneumonia (Resolved) Atrial fibrillation with RVR (Resolved) MRSA (methicillin resistant staphylococcus aureus) pneumonia (Resolved) Acute respiratory failure with hypoxia (Resolved) #1 acute on chronic hypoxic respiratory failure-patient is currently on nasal cannula O2, pulmonary medicine is participating in her care #2 MRSA pneumonia #3 recent influenza A infection #4 severe sepsis secondary to influenza A and MRSA pneumonia #5 oral pharyngeal dysphagia #6 paroxysmal atrial fibrillation #7 type 2 diabetes #8 restrictive lung disease #9 pulmonary hypertension-mild #10 bronchiectasis #11 debility-patient will need placement in a shelter facility, PT and OT are seeing the patient Code Visit Inpatient E&M: 36708 Subs Hosp L2
[2018-06-13] MEDS: Nortriptyline 25 MG Capsule 50 MG PO (21:23)
[2018-06-13] MEDS: Montelukast 10 MG Tablet PO (21:23)
--- NOTE | 2018-06-13 21:34 | EKG12_ITS ---
Test Reason : CONVERTED NSR Blood Pressure : / mmHG Vent. Rate : 070 BPM Atrial Rate : 070 BPM P-R Int : 170 ms QRS Dur : 086 ms QT Int : 426 ms P-R-T Axes : 050 -12 084 degrees QTc Int : 460 ms Normal sinus rhythm Possible Left atrial enlargement Borderline ECG When compared with ECG of 04-JUN-2018 15:46, Significant changes have occurred Confirmed by CATERINA OCONNELL, HECTOR ([id number]), publications editor DEDE SCALES ([id number]) on 06/15/2018 1:14:53 PM Referred By: RAMONE Confirmed By:HECTOR DIGGS MD
[2018-06-13 23:20] LABS: Bedside Glucose 266 mg/dL (70-110)
[2018-06-14] VITALS (24 sets, daily range): BP systolic 122–155; BP diastolic 51–82; PULSE 72–128; RESP 18–26; TEMP 36.6–37.5; O2SAT 89–100
[2018-06-14] MEDS: 0.9% NaCl Peripheral Flush Adult/Peds IV (01:19)
[2018-06-14] MEDS: Vancomycin IV 1,000 MG/200 ML BAG 200 MG IV (01:19)
[2018-06-14] MEDS: guaiFENesin Dm 10 ML UDC PO ×2 (01:19→17:58)
[2018-06-14] MEDS: dilTIAZem 30 MG Tablet PO ×4 (03:42→17:33)
[2018-06-14 05:30] LABS: Bedside Glucose 110 mg/dL (70-110)
--- NOTE | 2018-06-14 07:11 | EKG12_ITS ---
Test Reason : TACHYCARDIA Blood Pressure : / mmHG Vent. Rate : 128 BPM Atrial Rate : 258 BPM P-R Int : 000 ms QRS Dur : 098 ms QT Int : 300 ms P-R-T Axes : 111 103 005 degrees QTc Int : 438 ms Suspect arm lead reversal, interpretation assumes no reversal Atrial flutter with variable A-V block Incomplete right bundle branch block Possible Right ventricular hypertrophy Nonspecific ST abnormality Abnormal ECG When compared with ECG of 13-JUN-2018 22:00, MANUAL COMPARISON REQUIRED, DATA IS UNCONFIRMED Confirmed by CATERINA OCONNELL, HECTOR ([id number]), editor index DEDE SCALES ([id number]) on 06/15/2018 1:08:16 PM Referred By: KEO Confirmed By:HECTOR DIGGS MD
[2018-06-14] MEDS: Furosemide 20 MG Tablet PO (09:14)
[2018-06-14] MEDS: Senna/Docusate Sodium 1 Tablet PO (09:14)
[2018-06-14] MEDS: Amiodarone 200 MG Tablet 100 MG PO (09:14)
[2018-06-14] MEDS: NYSTATIN 500,000 UNIT/5 ML UDC 500000 UNIT PO ×4 (09:15→22:44)
[2018-06-14] MEDS: Rivaroxaban 15 MG Tablet PO (09:15)
[2018-06-14] MEDS: prednisoLONE eye drops (1 mL) 1 DROP OPTH.BTL 1 DRP OPHTHALMIC (09:16)
[2018-06-14] MEDS: clonazePAM 0.5 MG Tablet PO ×2 (09:28→17:58)
[2018-06-14] MEDS: Nystatin Ointment 1 APPLIC TOPICAL ×2 (10:04→22:44)
[2018-06-14] MEDS: Ipratropium/Albuterol Sulfate 3 ML AMPUL.NEB INHALATION ×3 (10:40→19:20)
--- NOTE | 2018-06-14 11:27 | EKG12_ITS ---
Test Reason : RHYTHM Blood Pressure : / mmHG Vent. Rate : 088 BPM Atrial Rate : 088 BPM P-R Int : 164 ms QRS Dur : 084 ms QT Int : 408 ms P-R-T Axes : 059 -20 071 degrees QTc Int : 493 ms Sinus rhythm with frequent and consecutive Premature ventricular complexes and Premature atrial compl exes Prolonged QT Abnormal ECG When compared with ECG of 14-JUN-2018 07:37, MANUAL COMPARISON REQUIRED, DATA IS UNCONFIRMED Confirmed by KEILA EVANS ([id number]), associate entertainment editor DEDE SCALES ([id number]) on 06/18/2018 1:43:10 PM Referred By: KEO Confirmed By:KEILA EVANS
--- NOTE | 2018-06-14 11:30 | NURSING ---
Pt desatting while eating breakfast and coughing more frequently with swallowing. Pt made NPO and called speech therapy with update. ST to see pt.
[2018-06-14 12:30] LABS: Bedside Glucose 197 mg/dL (70-110)
[2018-06-14] MEDS: Insulin Lispro 100 UNIT/ML INSULN.PEN SC ×2 (12:46→17:35)
--- NOTE | 2018-06-14 16:48 | CHAPLAIN ---
Type of Pastoral Visit ___ Initial Visit _x__ Follow-up Visit ___ On-call Visit ___ General Patient Visit ___ Spiritual Assessment ___ Family Conference ___ Bereavement ___ Rapid Response ___ Code Blue ___ Other (describe below) Pastoral Care Referral From _x__ Patient ___ Family ___ Nurse ___ Physician ___ Filenet Architect ___ A Auxiliary ___ Other (describe below) Sacrament/Intervention _x__ Active listening ___ Anointing ___ Sikhism ___ Bereavement ___ Communion ___ [place] exploration ___ ___ Life review _x__ Prayer ___ Reconciliation ___ Sacrament of Sick _x__ Supportive presence ___ Wedding ___ Other (describe below) Pastoral Comments
[2018-06-14 17:45] LABS: Bedside Glucose 256 mg/dL (70-110)
--- NOTE | 2018-06-14 17:54 | PCM.PROGNOTE ---
Patient Problems: Active and Suspected Problems (Last Updated 06/13/18 @ 18:26 by Malik Vargas DO) Acute bronchitis (Acute) Influenza A (Acute) Subjective: Patient was seen and examined today, I talk with speech therapy who states that they feel the patient is safe currently for a pur?ed diet with honey thickened liquids under supervision only. Patient requires 6 L to maintain her pulse ox at 96%. She continues to appear frail and unwell, patient's vancomycin will be stopped after today. Patient was noted to be in atrial fibrillation today. - Physical Exam General: Alert, Oriented x3, Cooperative, No apparent distress, - - Patient appears frail and unwell HEENT: Atraumatic, PERRLA, EOMI, Normocephalic Oral: Dry Mucosa, - - Patient has excoriated mucosa in the mouth Neck: Supple, Trachea Midline, Thyroid Normal Size and Texture Lungs: Clear to auscultation, Normal air movement, No wheeze, No rales, Rhonchi - Expiratory rhonchi bilaterally Cardiovascular: PMI Normal, Irregular Rate Abdomen: Bowel Sounds Present, Soft, Non Tender, Non-Distended Extremities: No clubbing, No cyanosis, No edema, Capillary Refill Less than 3 Seconds Skin: No rashes, No breakdown Musculoskeletal: No Tenderness to Palpation of Joints or Extremities Neurological: Cranial nerves II-XII grossly intact, Neuro grossly intact, Sensory exam intact to light touch and pain Psych/Mental Status: Normal Affect, Appropriate, Alert and oriented to time, place, person, mood and affect Vital Signs Temp Pulse Resp BP Pulse Ox 98.1 F 78 18 137/62 H 96 06/14/18 16:49 06/14/18 16:49 06/14/18 16:49 06/14/18 16:49 06/14/18 16:49 Oxygen Flow Rate (L/min) 6 Oxygen Delivery Method Nasal Cannula Weight: 57.7 kg Body Mass Index (BMI) 23.8 Finger Stick Blood Glucose 133 Intake and Output for Last 24 Hours 06/12/18 06/13/18 06/14/18 23:59 23:59 23:59 Intake Total 664 / 664 1296 / 1296 647 / 647 Output Total 2024 / 2024 700 / 700 850 / 850 Balance -1361 / -1361 596 / 596 -203 / -203 POC Glucose 0306/14/18 06/14/18 17:30 12:09 05:19 POC Glucose 256 H 197 H 110 06/13/18 06/13/18 23:05 18:04 POC Glucose 266 H 299 H Medical Necessity - Tobacco Use Smoking Status: Never smoker Tobacco Use: Non-smoker Assessment/Plan All Active Problems (Last Updated 06/13/18 @ 18:26 by Malik Vargas, ) MRSA pneumonia (Acute) Acute bronchitis (Acute) Influenza A (Acute) DCCV for atrial flutter (Resolved) URI (upper respiratory infection) (Resolved) Thrush, oral (Resolved) Pneumonia (Resolved) Atrial fibrillation with RVR (Resolved) MRSA (methicillin resistant staphylococcus aureus) pneumonia (Resolved) Acute respiratory failure with hypoxia (Resolved) #1 acute on chronic hypoxic respiratory failure-patient is currently on nasal cannula O2, pulmonary medicine is participating in her care #2 MRSA pneumonia-IV vancomycin again was finished today #3 recent influenza A infection #4 severe sepsis secondary to influenza A and MRSA pneumonia #5 oral pharyngeal dysphagia-speech therapy is following #6 paroxysmal atrial fibrillation-now in atrial fib #7 type 2 diabetes #8 restrictive lung disease #9 pulmonary hypertension-mild #10 bronchiectasis #11 debility-patient will need placement in a group home facility, PT and OT are seeing the patient #12 severe caloric and protein malnutrition-nutritional services is following patient Code Visit Inpatient E&M: 44021 Subs Hosp L2
[2018-06-14] MEDS: Nortriptyline 25 MG Capsule 50 MG PO (22:45)
[2018-06-14] MEDS: Montelukast 10 MG Tablet PO (22:45)
[2018-06-15] VITALS (19 sets, daily range): BP systolic 118–147; BP diastolic 50–73; PULSE 69–124; RESP 16–26; TEMP 36.4–37.7; O2SAT 91–100
[2018-06-15] MEDS: Insulin Lispro 100 UNIT/ML INSULN.PEN SC ×2 (00:45→17:32)
[2018-06-15] MEDS: dilTIAZem 30 MG Tablet PO ×5 (00:45→23:58)
[2018-06-15 00:56] LABS: Bedside Glucose 213 mg/dL (70-110)
[2018-06-15 06:46] LABS: Bedside Glucose 96 mg/dL (70-110)
[2018-06-15] MEDS: Ipratropium/Albuterol Sulfate 3 ML AMPUL.NEB INHALATION ×4 (07:23→19:51)
[2018-06-15] MEDS: predniSONE 20 MG Tablet 40 MG PO (09:35)
[2018-06-15] MEDS: Furosemide 20 MG Tablet PO (09:35)
[2018-06-15] MEDS: Amiodarone 200 MG Tablet 100 MG PO (09:37)
[2018-06-15] MEDS: Nystatin Ointment 1 APPLIC TOPICAL ×2 (09:37→21:00)
[2018-06-15] MEDS: clonazePAM 0.5 MG Tablet PO ×3 (09:38→21:00)
[2018-06-15] MEDS: guaiFENesin Dm 10 ML UDC PO ×2 (09:38→23:58)
[2018-06-15] MEDS: NYSTATIN 500,000 UNIT/5 ML UDC 500000 UNIT PO ×4 (09:38→21:00)
[2018-06-15] MEDS: prednisoLONE eye drops (1 mL) 1 DROP OPTH.BTL 1 DRP OPHTHALMIC (09:39)
[2018-06-15] MEDS: Senna/Docusate Sodium 1 Tablet PO (09:39)
[2018-06-15] MEDS: Saliva Substitute 237 ML BOTTLE 15 ML MM ×2 (09:44→21:07)
--- NOTE | 2018-06-15 11:30 | PCM.PN.ID ---
Patient Problems: Active and Suspected Problems (Last Updated 06/13/18 @ 18:26 by Malik Vargas DO) Acute bronchitis (Acute) Influenza A (Acute) Subjective: Feeling ok, some sputum, no fever. - Physical Exam General: Cooperative, No apparent distress Lungs: Diminished, Rhonchi Cardiovascular: Regular rate, Regular Rhythm Abdomen: Soft, Non Tender, Non-Distended Skin: No rashes Vital Signs Temp Pulse Resp BP Pulse Ox 99.0 F 79 18 140/66 H 92 06/15/18 09:30 06/15/18 09:30 06/15/18 09:30 06/15/18 09:30 06/15/18 09:30 Oxygen Flow Rate (L/min) 4 Oxygen Delivery Method Nasal Cannula Weight: 56.2 kg Body Mass Index (BMI) 23.8 Finger Stick Blood Glucose 133 Intake and Output for Last 24 Hours 06/13/18 06/14/18 06/15/18 23:59 23:59 23:59 Intake Total 1296 / 1296 647 / 647 Output Total 700 / 700 850 / 850 150 / 150 Balance 596 / 596 -203 / -203 -150 / -150 POC Glucose 06/15/18 06/15/18 06/14/18 06:27 00:37 17:30 POC Glucose 96 213 H 256 H 06/14/18 12:09 POC Glucose 197 H Medical Necessity - Tobacco Use Smoking Status: Never smoker Tobacco Use: Non-smoker Route of nutrition/ use of supplements: [] Nutritional Intake: [] IV Site: [] Ramos Catheter: [] - Assessment/Plan Antibiotics: [] Assessment/Plan: [] Active and Suspected Problems (Last Reviewed 05/29/18 @ 14:01 by Tanner Talamantes MD) Acute bronchitis (Acute) Influenza A (Acute) acute hypoxic resp failure due to flu A and MRSA pneumonia - stopped zosyn 06/09. Repeat sputum cx with MRSA again. Completed vanc 06/14/18. Following off of abx, stable/improving. Will follow as needed, please call with any ?s
[2018-06-15 11:51] LABS: Bedside Glucose 140 mg/dL (70-110)
--- NOTE | 2018-06-15 11:56 | PN.SURG_ITS ---
Patient Problems: Active and Suspected Problems (Last Updated 06/13/18 @ 18:26 by Malik Vargas DO) Acute bronchitis (Acute) Influenza A (Acute) Subjective: I was consulted for PEG tube placement. I discussed the PEG tube placement with the patient and the patient's [id number]. They discussed this amongst themselves yesterday in the read on placing a PEG tube for nutritional feeding. - Physical Exam General: Alert, Cooperative Lungs: - - Cough Abdomen: Soft, Non Tender, Non-Distended Vital Signs Temp Pulse Resp BP Pulse Ox 99.0 F 87 18 140/66 H 92 06/15/18 09:30 06/15/18 10:59 06/15/18 10:44 06/15/18 09:30 06/15/18 09:30 Oxygen Flow Rate (L/min) 4 Oxygen Delivery Method Nasal Cannula Weight: 123 lb 14.397 oz Body Mass Index (BMI) 23.8 Finger Stick Blood Glucose 133 Intake and Output for Last 24 Hours 06/13/18 06/14/18 06/15/18 23:59 23:59 23:59 Intake Total 1296 / 1296 647 / 647 Output Total 700 / 700 850 / 850 450 / 450 Balance 596 / 596 -203 / -203 -450 / -450 POC Glucose 06/15/18 06/15/18 06/15/18 11:43 06:27 00:37 POC Glucose 140 H 96 213 H 06/14/18 06/14/18 17:30 12:09 POC Glucose 256 H 197 H Medical Necessity - Tobacco Use Smoking Status: Never smoker Tobacco Use: Non-smoker Assessment/Plan All Active Problems (Last Updated 06/13/18 @ 18:26 by Malik Vargas DO) MRSA pneumonia (Acute) Acute bronchitis (Acute) Influenza A (Acute) DCCV for atrial flutter (Resolved) URI (upper respiratory infection) (Resolved) Thrush, oral (Resolved) Pneumonia (Resolved) Atrial fibrillation with RVR (Resolved) MRSA (methicillin resistant staphylococcus aureus) pneumonia (Resolved) Acute respiratory failure with hypoxia (Resolved) 83-year-old female with dysphasia 1. Patient is in the hospital with pneumonia as well as influenza. Feeding tube was discussed with the patient and her family. They would like feeding tube placement for supplemental feedings due to dysphagia. I discussed this with the patient in detail as well as her family member in the room. I advised her that I could not promise that the patient would not be intubated. If there is any respiratory compromise during MAC anesthesia the patient will require intubation and possibly have to go back to the ICU to wean off the vent. The patient and her family understand. I also discussed the risks including but not limited to bleeding, infection, injury to other organs or the colon. Patient agrees to proceed. Patient Xarelto was held since yesterday morning and tomorrow morning will be 48 hours. Plan for PEG tube placement Thursday at 11 AM. N.p.o. after midnight. Percy Pérez MD Pager: [facility] [address] [place] [address] [address] [place] [address] Office:
[2018-06-15 17:46] LABS: Bedside Glucose 240 mg/dL (70-110)
--- NOTE | 2018-06-15 20:31 | PN_ITS ---
Patient Problems: Active and Suspected Problems (Last Updated 06/13/18 @ 18:26 by Malik Vargas DO) Acute bronchitis (Acute) Influenza A (Acute) Subjective: Patient was seen and examined today, she is currently on nasal cannula oxygen but desaturates at times when she eats. Family and the patient have decided that she wants a PEG tube inserted, I have contacted general surgery and they are due to perform the procedure tomorrow. - Physical Exam General: Alert, Oriented x3, Cooperative, No apparent distress, Well developed HEENT: Atraumatic, PERRLA, EOMI, Normocephalic Oral: Dry Mucosa, - - Patient's oral mucosa is excoriated Neck: Supple, Trachea Midline, Thyroid Normal Size and Texture Lungs: Clear to auscultation, Normal air movement, No wheeze, No rales, Rhonchi - Scattered expiratory rhonchi bilaterally Cardiovascular: Regular rate, No murmurs Abdomen: Bowel Sounds Present, Soft, Non Tender, Non-Distended, No hernias noted Extremities: No edema, Capillary Refill Less than 3 Seconds Skin: No rashes, No breakdown Musculoskeletal: No Tenderness to Palpation of Joints or Extremities Neurological: Cranial nerves II-XII grossly intact, Neuro grossly intact, Sensory exam intact to light touch and pain, Coordination normal Psych/Mental Status: Normal Affect, Appropriate, Alert and oriented to time, place, person, mood and affect Vital Signs Temp Pulse Resp BP Pulse Ox 99.8 F H 117 H 26 H 140/60 H 95 06/15/18 14:43 06/15/18 19:51 06/15/18 19:51 06/15/18 14:43 06/15/18 19:52 Oxygen Flow Rate (L/min) 4 Oxygen Delivery Method Nasal Cannula Weight: 56.2 kg Body Mass Index (BMI) 23.8 Finger Stick Blood Glucose 133 Intake and Output for Last 24 Hours 06/13/18 06/14/18 06/15/18 23:59 23:59 23:59 Intake Total 1296 / 1296 647 / 647 50 / 50 Output Total 700 / 700 850 / 850 750 / 750 Balance 596 / 596 -203 / -203 -700 / -700 POC Glucose 06/15/18 06/15/18 06/15/18 17:30 11:43 06:27 POC Glucose 240 H 140 H 96 06/15/18 00:37 POC Glucose 213 H Medical Necessity - Tobacco Use Smoking Status: Never smoker Tobacco Use: Non-smoker Assessment/Plan All Active Problems (Last Updated 06/13/18 @ 18:26 by Malik Vargas DO) MRSA pneumonia (Acute) Acute bronchitis (Acute) Influenza A (Acute) DCCV for atrial flutter (Resolved) URI (upper respiratory infection) (Resolved) Thrush, oral (Resolved) Pneumonia (Resolved) Atrial fibrillation with RVR (Resolved) MRSA (methicillin resistant staphylococcus aureus) pneumonia (Resolved) Acute respiratory failure with hypoxia (Resolved) #1 acute on chronic hypoxic respiratory failure-patient is currently on nasal cannula O2, pulmonary medicine is participating in her care #2 MRSA pneumonia-patient completed her course of IV vancomycin #3 recent influenza A infection #4 severe sepsis secondary to influenza A and MRSA pneumonia #5 oral pharyngeal dysphagia-speech therapy is following, patient has consented to placement of the PEG tube which will occur tomorrow #6 paroxysmal atrial fibrillation-now in atrial fib #7 type 2 diabetes #8 restrictive lung disease #9 pulmonary hypertension-mild #10 bronchiectasis #11 debility-patient will need placement in a long term facility, PT and OT are seeing the patient #12 severe caloric and protein malnutrition-nutritional services is following patient, patient will have a PEG tube placed tomorrow Code Visit Inpatient E&M: 83266 [facility] [place] Hosp L2
[2018-06-15] MEDS: Montelukast 10 MG Tablet PO (21:00)
[2018-06-15] MEDS: Nortriptyline 25 MG Capsule 50 MG PO (21:00)
[2018-06-16] VITALS (25 sets, daily range): BP systolic 97–130; BP diastolic 49–81; PULSE 68–120; RESP 15–32; TEMP 36.2–37.4; O2SAT 92–100; BMI 22.6; BMI 22.4
[2018-06-16] MEDS: Insulin Lispro 100 UNIT/ML INSULN.PEN SC ×2 (00:04→17:55)
[2018-06-16 00:36] LABS: Bedside Glucose 156 mg/dL (70-110)
[2018-06-16] MEDS: Saliva Substitute 237 ML BOTTLE 15 ML MM ×2 (01:54→06:12)
[2018-06-16] MEDS: Albuterol 2.5 MG/3 ML VIAL.NEB. INHALATION (02:22)
[2018-06-16 05:12] LABS: Absolute Lymphocyte Count 1.64 X10^3/ul (0.83-4.51); Absolute Neutrophil Count 12.5 X10^3/uL (2.0-7.7); Basophil# 0.01 X10^3/uL; Basophil% 0.1 % (0-1); Eosinophils% 0.7 % (0-5); Hematocrit 31.7 % (37-47); Hemoglobin 9.8 g/dl (12.0-15.0); Lymphocyte # 1.64 X10^3/ul (4.0); Mean Corp Hgb Conc 30.9 g/gl (32-36); Mean Corpuscular Hgb 29.2 pg (27.0-32.0); Mean Corpuscular Volume 94.3 fL (81-99); Mean Platelet Vol. 9.1 fl (6.2-12.0); Monocyte# 0.65 X10^3/uL; Monocyte% 4.4 % (0-10); Neutrophil # 12.45 X10^3/uL (2.7-7.7); Neutrophil % 83.6 % (47-70); Platelet Count 368 K/mm3 (150-450); RBC Distribution Width CV 13.2 % (11.6-14.6); RBC Distribution Width SD 45.5 fl (35.1-43.9); Red Blood Count 3.36 M/mm3 (4.2-5.4); White Blood Count 14.9 K/mm3 (4.4-11.0)
[2018-06-16 05:13] LABS: POSITIVE COUNT NO; POSITIVE DIFFERENTIAL NO; POSITIVE MORPHOLOGY NO
[2018-06-16 05:31] LABS: Anion Gap 7 (5-15); BUN 26 mg/dL (7-18); BUN/Creat Ratio 37.8 RATIO (10-20); Calcium,Total 8.2 mg/dL (8.5-10.1); Chloride 103 mmol/L (98-107); Creatinine, Serum 0.69 mg/dL (0.55-1.02); EST Glomerular Filtration Rate 87 mL/min (>60); Est Glom Filt Rate - Afr Amer 105 mL/min (>60); Glucose 98 mg/dL (74-106); Potassium 3.8 mmol/L (3.5-5.1); Sodium Level 143 mmol/L (136-145)
--- NOTE | 2018-06-16 05:55 | EKG12_ITS ---
Test Reason : PRE-OP Blood Pressure : / mmHG Vent. Rate : 084 BPM Atrial Rate : 084 BPM P-R Int : 168 ms QRS Dur : 080 ms QT Int : 370 ms P-R-T Axes : 061 -19 042 degrees QTc Int : 437 ms Sinus rhythm with Fusion complexes and Premature atrial complexes Possible Left atrial enlargement Borderline ECG When compared with ECG of 14-JUN-2018 12:58, MANUAL COMPARISON REQUIRED, DATA IS UNCONFIRMED Confirmed by CATERINA OCONNELL, HECTOR ([id number]), city editor DEDE SCALES ([id number] on 06/18/2018 1:52:14 PM Referred By: KEO Confirmed By:HECTOR DIGGS MD
[2018-06-16] MEDS: clonazePAM 0.5 MG Tablet PO ×3 (06:09→21:22)
[2018-06-16] MEDS: 0.9% NaCl Peripheral Flush Adult/Peds IV ×4 (06:10→06:20)
[2018-06-16] MEDS: dilTIAZem 30 MG Tablet PO ×3 (06:10→17:51)
[2018-06-16 06:36] LABS: Bedside Glucose 102 mg/dL (70-110)
[2018-06-16] MEDS: Ipratropium/Albuterol Sulfate 3 ML AMPUL.NEB INHALATION ×4 (07:41→19:12)
[2018-06-16 08:38] LABS: Hemoglobin A1c 6.6 % (4.2-6.3)
[2018-06-16] MEDS: prednisoLONE eye drops (1 mL) 1 DROP OPTH.BTL 1 DRP OPHTHALMIC (09:14)
--- NOTE | 2018-06-16 10:12 | NURSING ---
Patient to Surgery. Report called to [place] in [place].
--- NOTE | 2018-06-16 11:43 | PN_ITS ---
Progress Note The patient had PEG tube placed. During EGD the patient had severe gastritis of the antrum. I have started her on a PPI and advised that she continue this. The patient may start tube feeds tomorrow. She may start a light diet today. Diet to be started on whatever speech therapy recommends. She may resume her blood thinners 24 hours from now. Percy Pérez MD Pager: [facility] [address] [place] [address] [address] [place] [phone] Office:
--- NOTE | 2018-06-16 11:47 | OP.ENDO_ITS ---
06/16/2018 Cricket Mcconnell Re : Upper GI endoscopy procedure for Marie Edmonds Dear Jayesh This procedure was performed on Saturday, June 16, 2018. My impressions and recommendations are as follows: Impressions : - Gastritis with hemorrhage. - An externally removable PEG placement was successfully completed. - No specimens collected. Recommendations : - [facility]. - Please follow the post-PEG recommendations including: external bolster snug to abdominal wall, change dressing once per day, NPO x4 hrs then water today, may use PEG tomorrow for feedings and check site for bleeding q 4 hrs. - Resume Eliquis (apixaban) at prior dose tomorrow. My findings are described in the full procedure note, which is enclosed. If I can be of further assistance, please feel free to contact me at Doctor phone number(s): , Work: . Sincerely, Percy Pérez MD 06/16/2018 11:46:48 AM This report has been signed electronically.
[2018-06-16 12:46] LABS: Bedside Glucose 126 mg/dL (70-110)
[2018-06-16] MEDS: predniSONE 20 MG Tablet 40 MG PO (13:44)
[2018-06-16] MEDS: Amiodarone 200 MG Tablet 100 MG PO (13:44)
[2018-06-16] MEDS: NYSTATIN 500,000 UNIT/5 ML UDC 500000 UNIT PO ×3 (13:45→21:22)
[2018-06-16] MEDS: Furosemide 20 MG Tablet PO (13:45)
[2018-06-16] MEDS: Pantoprazole Sodium 40 MG Tablet PO (13:45)
[2018-06-16] MEDS: Senna/Docusate Sodium 1 Tablet PO (13:45)
[2018-06-16] MEDS: Nystatin Ointment 1 APPLIC TOPICAL ×2 (13:46→21:22)
[2018-06-16] MEDS: Acetaminophen 325 MG Tablet 650 MG PO (14:51)
--- NOTE | 2018-06-16 15:18 | CASEMGMT ---
CHEVY faxed operative note to [facility]. SW will let them know tube feed recommendations as soon as they are in computer. Nadiya SAXENA [employer] WORKER
[2018-06-16 18:11] LABS: Bedside Glucose 157 mg/dL (70-110)
--- NOTE | 2018-06-16 19:43 | PCM.PROGNOTE ---
Patient Problems: Active and Suspected Problems (Last Updated 06/13/18 @ 18:26 by Malik Vargas DO) Acute bronchitis (Acute) Influenza A (Acute) Subjective: She was seen and examined today, she underwent placement of a PEG tube earlier today. I talk with the family who was in the room today also. Patient is currently on 5 L via nasal cannula, she has marked expiratory rhonchi on the left at this time. She does not appear to be in respiratory distress but continues to look frail and unwell. - Physical Exam General: Alert, Oriented x3, Cooperative, No apparent distress, Well developed HEENT: Atraumatic, PERRLA, EOMI, Normocephalic Oral: Moist Mucosa Neck: Supple, No Nuchal Rigidity, Trachea Midline, Thyroid Normal Size and Texture Lungs: Normal air movement, No wheeze, No rales, Rhonchi - Expiratory rhonchi are scattered over the right lung Cardiovascular: Regular rate, Regular Rhythm, Normal S1, Normal S2, No murmurs, No Ectopic Activity, PMI Normal, No rub noted Abdomen: Bowel Sounds Present, Soft, - - PEG tube in place Extremities: No clubbing, No cyanosis, Capillary Refill Less than 3 Seconds Skin: No rashes, No breakdown Musculoskeletal: No Tenderness to Palpation of Joints or Extremities Neurological: Cranial nerves II-XII grossly intact, Neuro grossly intact, Sensory exam intact to light touch and pain Psych/Mental Status: Normal Affect, Appropriate, Alert and oriented to time, place, person, mood and affect Vital Signs Temp Pulse Resp BP Pulse Ox 98.0 F 81 20 H 125/60 H 92 06/16/18 15:52 06/16/18 19:17 06/16/18 15:57 06/16/18 15:52 06/16/18 15:57 Oxygen Flow Rate (L/min) 5 Oxygen Delivery Method Nasal Cannula Weight: 55.5 kg Body Mass Index (BMI) 22.4 Finger Stick Blood Glucose 133 Intake and Output for Last 24 Hours 06/14/18 06/15/18 06/16/18 23:59 23:59 23:59 Intake Total 647 / 647 50 / 50 620 / 620 Output Total 850 / 850 750 / 750 1150 / 1150 Balance -203 / -203 -700 / -700 -530 / -530 Laboratory Tests Past 24 Hrs 06/16/18 06/16/18 06/16/18 05:00 05:00 05:00 WBC 14.9 H RBC 3.36 L Hgb 9.8 L Hct 31.7 L MCV 94.3 MCH 29.2 MCHC 30.9 L RDW 13.2 RDW Differential 45.5 H Plt Count 368 MPV 9.1 Immature Gran % (Auto) 0.200 Neut % (Auto) 83.6 H Lymph % (Auto) 11.0 L [place] % (Auto) 4.4 Eos % (Auto) 0.7 Baso % (Auto) 0.1 Absolute Neuts (auto) 12.5 H Absolute Lymphs (auto) 1.64 Total Counted Not Reportable Sodium 143 Potassium 3.8 Chloride 103 Carbon Dioxide 33.0 H Anion Gap 7 BUN 26 H Creatinine 0.69 Estim Creat Clear Calc 34.30 Est GFR (MDRD) Af Amer 105 Est GFR (MDRD) Non-Af 87 BUN/Creatinine Ratio 37.8 H Glucose 98 Hemoglobin A1c 6.6 H Calcium 8.2 L POC Glucose 06/16/18 06/16/18 06/16/18 17:54 12:42 06:20 POC Glucose 157 H 126 H 102 06/16/18 00:02 POC Glucose 156 H Medical Necessity - Tobacco Use Smoking Status: Never smoker Tobacco Use: Non-smoker Assessment/Plan All Active Problems (Last Updated 06/13/18 @ 18:26 by Malik Vargas DO) MRSA pneumonia (Acute) Acute bronchitis (Acute) Influenza A (Acute) DCCV for atrial flutter (Resolved) URI (upper respiratory infection) (Resolved) Thrush, oral (Resolved) Pneumonia (Resolved) Atrial fibrillation with RVR (Resolved) MRSA (methicillin resistant staphylococcus aureus) pneumonia (Resolved) Acute respiratory failure with hypoxia (Resolved) #1 acute on chronic hypoxic respiratory failure-patient is currently on nasal cannula O2, pulmonary medicine is participating in her care #2 MRSA pneumonia-patient completed her course of IV vancomycin #3 recent influenza A infection #4 severe sepsis secondary to influenza A and MRSA pneumonia #5 oral pharyngeal dysphagia-speech therapy is following, PEG tube was placed today #6 paroxysmal atrial fibrillation #7 type 2 diabetes #8 restrictive lung disease #9 pulmonary hypertension-mild #10 bronchiectasis #11 debility-patient will need placement in a senior care facility, PT and OT are seeing the patient #12 severe caloric and protein malnutrition-nutritional services is following patient, I will probably start tube feeding tomorrow Code Visit Inpatient E&M: 54536 Subs Hosp L2
[2018-06-16] MEDS: Montelukast 10 MG Tablet PO (21:22)
[2018-06-16] MEDS: Nortriptyline 25 MG Capsule 50 MG PO (21:22)
[2018-06-17] VITALS (21 sets, daily range): BP systolic 120–137; BP diastolic 54–68; PULSE 65–124; RESP 12–36; TEMP 36–36.8; O2SAT 92–100
[2018-06-17] MEDS: dilTIAZem 30 MG Tablet PO ×2 (00:11→06:35)
[2018-06-17] MEDS: Insulin Lispro 100 UNIT/ML INSULN.PEN SC ×4 (00:12→23:39)
[2018-06-17 00:25] LABS: Bedside Glucose 250 mg/dL (70-110)
[2018-06-17] MEDS: clonazePAM 0.5 MG Tablet PO (06:35)
[2018-06-17] MEDS: Saliva Substitute 237 ML BOTTLE 15 ML MM (06:37)
[2018-06-17 06:55] LABS: Bedside Glucose 135 mg/dL (70-110)
[2018-06-17] MEDS: Ipratropium/Albuterol Sulfate 3 ML AMPUL.NEB INHALATION ×4 (07:34→19:33)
--- NOTE | 2018-06-17 10:00 | PCM.PN.SRG ---
Patient Problems: Active and Suspected Problems (Last Updated 06/13/18 @ 18:26 by Malik Vargas DO) Acute bronchitis (Acute) Influenza A (Acute) Subjective: Patient evaluated resting in bed. Patient notes minimal amount of discomfort at the PEG tube site. PEG tube has not been used yet. - Physical Exam General: Alert, Cooperative Abdomen: Soft, Tender - LUQ- minimally, - - PEG tube intact. No erythema or infection noted Vital Signs Temp Pulse Resp BP Pulse Ox 97.2 F L 72 18 137/54 H 94 06/17/18 06:10 06/17/18 07:32 06/17/18 07:32 06/17/18 06:10 06/17/18 07:32 Oxygen Flow Rate (L/min) 4 Oxygen Delivery Method Nasal Cannula Weight: 121 lb 4.068 oz Body Mass Index (BMI) 22.4 Finger Stick Blood Glucose 133 Intake and Output for Last 24 Hours 06/15/18 06/16/18 06/17/18 23:59 23:59 23:59 Intake Total 50 / 50 620 / 620 50 / 50 Output Total 750 / 750 1150 / 1150 300 / 300 Balance -700 / -700 -530 / -530 -250 / -250 POC Glucose 06/17/18 06/17/18 06/16/18 06:34 00:04 17:54 POC Glucose 135 H 250 H 157 H 06/16/18 12:42 POC Glucose 126 H Medical Necessity - Tobacco Use Smoking Status: Never smoker Tobacco Use: Non-smoker Assessment/Plan All Active Problems (Last Updated 06/13/18 @ 18:26 by Malik Vargas DO) MRSA pneumonia (Acute) Acute bronchitis (Acute) Influenza A (Acute) DCCV for atrial flutter (Resolved) URI (upper respiratory infection) (Resolved) Thrush, oral (Resolved) Pneumonia (Resolved) Atrial fibrillation with RVR (Resolved) MRSA (methicillin resistant staphylococcus aureus) pneumonia (Resolved) Acute respiratory failure with hypoxia (Resolved) I am following this patient in conjunction with Dr. Pérez S/p PEG tube placement PEG tube ready for use Code Visit Inpatient E&M: 97797 Subs Hosp L1 - POST-OP/NO CHARGE
[2018-06-17] MEDS: Furosemide 20 MG Tablet PO (10:15)
[2018-06-17] MEDS: Amiodarone 200 MG Tablet 100 MG PO (10:15)
[2018-06-17] MEDS: Senna/Docusate Sodium 1 Tablet PO (10:15)
[2018-06-17] MEDS: Pantoprazole Sodium 40 MG Tablet PO (10:15)
[2018-06-17] MEDS: prednisoLONE eye drops (1 mL) 1 DROP OPTH.BTL 1 DRP OPHTHALMIC (10:16)
[2018-06-17] MEDS: NYSTATIN 500,000 UNIT/5 ML UDC 500000 UNIT PO ×4 (10:16→21:47)
[2018-06-17] MEDS: predniSONE 20 MG Tablet 40 MG PO (10:16)
[2018-06-17] MEDS: Nystatin Ointment 1 APPLIC TOPICAL ×2 (10:22→21:53)
--- NOTE | 2018-06-17 11:32 | NS ---
Rec Vital AF 1.2 via PEG @ goal rate of 55cc/hour w/ 85cc H2O flush every 4 hours to provide 1584 calories, 99 g protein, and 1580cc free fluid per day (1070cc from formula, 510cc from flushes). Would start at 20cc/hour and increase by 15cc every 6 to 8 hours as pt tolerates until goal rate achieved. Please call clinical dietitian at [phone] w/ further questions. Garland Cardenas MS, RDN, LD
--- NOTE | 2018-06-17 13:10 | CASEMGMT ---
CHEVY faxed updates to [facility]. Tube feed recommendations were included in the updates. Nadiya SAXENA MSW
[2018-06-17] MEDS: clonazePAM 0.5 MG Tablet GT ×2 (13:59→21:53)
[2018-06-17] MEDS: Vital AF 1.2 Cal Liquid 1,000 ML 55 ML GT (13:59)
[2018-06-17] MEDS: dilTIAZem 30 MG Tablet GT ×3 (13:59→23:36)
[2018-06-17] MEDS: Metoprolol Tartrate 25 MG Tablet 12.5 MG PO (18:09)
[2018-06-17 18:31] LABS: Bedside Glucose 159 mg/dL (70-110)
[2018-06-17 18:31] LABS: Bedside Glucose 160 mg/dL (70-110)
--- NOTE | 2018-06-17 19:54 | PN_ITS ---
Patient Problems: Active and Suspected Problems (Last Updated 06/13/18 @ 18:26 by Malik Vargas DO) Acute bronchitis (Acute) Influenza A (Acute) Subjective: Patient was seen and examined today, earlier today she had to be placed back on BiPAP due to worsening pulse ox, I talked with the patient at that time and asked her if she ever wanted to be placed back on a ventilator-patient answered no. Patient's family members were in the room this morning. Patient was started on tube feedings through her PEG tube today. Patient also had worsening atrial fibrillation today and I placed her on a beta-raghu. - Physical Exam General: Oriented x3, Cooperative, No apparent distress, Lethargic HEENT: Atraumatic, PERRLA, EOMI, Normocephalic Oral: Dry Mucosa Neck: Supple, Trachea Midline, Thyroid Normal Size and Texture Lungs: Normal air movement, No wheeze, Rhonchi - Expiratory rhonchi bilaterally Cardiovascular: PMI Normal, Irregular Rate, No rub noted Abdomen: Bowel Sounds Present, Soft, Non-Distended, - - PEG tube in place Extremities: No clubbing, No cyanosis, No edema, Capillary Refill Less than 3 Seconds Skin: No rashes, No breakdown Musculoskeletal: No Tenderness to Palpation of Joints or Extremities Neurological: Cranial nerves II-XII grossly intact, Neuro grossly intact, Sensory exam intact to light touch and pain, Coordination normal Psych/Mental Status: Normal Affect, Appropriate Vital Signs Temp Pulse Resp BP Pulse Ox 98 F 111 H 31 H 120/68 98 06/17/18 16:00 06/17/18 19:33 06/17/18 19:33 06/17/18 16:00 06/17/18 19:33 Oxygen Flow Rate (L/min) 12 Oxygen Delivery Method Bi-pap Weight: 55 kg Body Mass Index (BMI) 22.4 Finger Stick Blood Glucose 133 Intake and Output for Last 24 Hours 06/15/18 06/16/18 06/17/18 23:59 23:59 23:59 Intake Total 50 / 50 620 / 620 529 / 529 Output Total 750 / 750 1150 / 1150 1000 / 1000 Balance -700 / -700 -530 / -530 -471 / -471 POC Glucose 06/17/18 06/17/18 06/17/18 18:08 13:56 06:34 POC Glucose 160 H 159 H 135 H 06/17/18 00:04 POC Glucose 250 H Medical Necessity - Tobacco Use Smoking Status: Never smoker Tobacco Use: Non-smoker Assessment/Plan All Active Problems (Last Updated 06/13/18 @ 18:26 by Malik Vargas, ) MRSA pneumonia (Acute) Acute bronchitis (Acute) Influenza A (Acute) DCCV for atrial flutter (Resolved) URI (upper respiratory infection) (Resolved) Thrush, oral (Resolved) Pneumonia (Resolved) Atrial fibrillation with RVR (Resolved) MRSA (methicillin resistant staphylococcus aureus) pneumonia (Resolved) Acute respiratory failure with hypoxia (Resolved) #1 acute on chronic hypoxic respiratory failure-patient is back on BiPAP at this time, I talked with pulmonary medicine about her care today. I feel patient is very weak at this time and her respiratory status may continue to decline. Again patient does not want to be placed back on a ventilator. Patient is a DNR CC arrest #2 MRSA pneumonia-patient completed her course of IV vancomycin #3 recent influenza A infection #4 severe sepsis secondary to influenza A and MRSA pneumonia-resolved #5 oral pharyngeal dysphagia-speech therapy is following, PEG tube feeding was instituted today #6 atrial fibrillation-patient was placed on a beta-raghu today in an attempt to control her rate #7 type 2 diabetes #8 restrictive lung disease #9 pulmonary hypertension-mild #10 bronchiectasis #11 debility-patient will need placement in a half-way facility, PT and OT are seeing the patient #12 severe caloric and protein malnutrition-nutritional services is following patient, tube feedings were started today Overall prognosis for this patient is poor due to her multiple medical problems and advanced age. I feel family members are aware of this. Code Visit Inpatient E&M: 31051 Subs Hosp L2
[2018-06-17] MEDS: Nortriptyline 25 MG Capsule 50 MG GT (21:53)
[2018-06-17] MEDS: Montelukast 10 MG Tablet GT (21:54)
[2018-06-17] MEDS: 0.9% NaCl Peripheral Flush Adult/Peds IV (23:46)
[2018-06-17 23:51] LABS: Bedside Glucose 188 mg/dL (70-110)
[2018-06-18] VITALS (24 sets, daily range): BP systolic 115–140; BP diastolic 53–73; PULSE 74–127; RESP 12–41; TEMP 36.4–36.8; O2SAT 74–98
[2018-06-18] MEDS: Insulin Lispro 100 UNIT/ML INSULN.PEN SC ×3 (06:24→17:23)
[2018-06-18] MEDS: clonazePAM 0.5 MG Tablet GT ×3 (06:24→21:38)
[2018-06-18] MEDS: dilTIAZem 30 MG Tablet GT ×4 (06:24→23:41)
[2018-06-18 06:40] LABS: Bedside Glucose 165 mg/dL (70-110)
[2018-06-18] MEDS: Ipratropium/Albuterol Sulfate 3 ML AMPUL.NEB INHALATION ×4 (06:49→19:32)
--- NOTE | 2018-06-18 07:06 | EKG12_ITS ---
Test Reason : POSSIBLE CONVERT NSR Blood Pressure : / mmHG Vent. Rate : 123 BPM Atrial Rate : 256 BPM P-R Int : 000 ms QRS Dur : 082 ms QT Int : 310 ms P-R-T Axes : 123 -26 077 degrees QTc Int : 443 ms Atrial flutter with variable A-V block with premature ventricular or aberrantly conducted complexes Nonspecific ST and T wave abnormality Abnormal ECG Confirmed by CATERINA OCONNELL, HECTOR ([id number]), proposal editor DEDE SCALES ([id number]) on 06/25/2018 8:57:18 AM Referred By: GOSIA Confirmed By:HECTOR DIGGS MD
[2018-06-18] MEDS: prednisoLONE eye drops (1 mL) 1 DROP OPTH.BTL 1 DRP OPHTHALMIC (08:11)
[2018-06-18] MEDS: Senna/Docusate Sodium 1 Tablet GT (08:12)
[2018-06-18] MEDS: Amiodarone 200 MG Tablet 100 MG GT (08:12)
[2018-06-18] MEDS: predniSONE 20 MG Tablet 40 MG GT (08:12)
[2018-06-18] MEDS: Metoprolol Tartrate 25 MG Tablet 12.5 MG PO ×2 (08:12→21:38)
[2018-06-18] MEDS: Furosemide 20 MG Tablet GT (08:12)
[2018-06-18] MEDS: NYSTATIN 500,000 UNIT/5 ML UDC 500000 UNIT PO ×3 (08:13→17:25)
[2018-06-18] MEDS: Polyethylene Glycol 3350 17 GM PACKET GT (08:13)
[2018-06-18] MEDS: Nystatin Ointment 1 APPLIC TOPICAL ×2 (08:13→21:39)
[2018-06-18 11:36] LABS: Bedside Glucose 235 mg/dL (70-110)
--- NOTE | 2018-06-18 12:12 | CASEMGMT ---
CHEVY faxed updates to [facility]. CHEVY also called [facility] and let them know patient is not returning today. CHEVY said it is possible she could return over the weekend, but not likely. Green sheet is on chart in the event patient is ready. Plan: [facility] under skilled level of care when ready. Nadiya SAXENA MSW
[2018-06-18] MEDS: Vital AF 1.2 Cal Liquid 1,000 ML 55 ML GT (17:25)
[2018-06-18 19:56] LABS: Bedside Glucose 294 mg/dL (70-110)
--- NOTE | 2018-06-18 20:40 | CPS ---
RT staff was called to patient's room because patient O2 sats were low per staff anesthesiologist. RT staff applied Bipap to patient and titrated O2 so patient's O2 saturation was >92%. Discussed lasix for patient with staff anesthesiologist. Patient's lung sounds were 'wet'/fine crackles.
--- NOTE | 2018-06-18 20:45 | PCM.PROGNOTE ---
Patient Problems: Active and Suspected Problems (Last Updated 06/13/18 @ 18:26 by Malik Vargas DO) Acute bronchitis (Acute) Influenza A (Acute) Subjective: Patient was seen and examined today, she appeared weaker and more frail today, she was unable to come off BiPAP for long periods of time. I went in and talked with the patient and the patient's family, they consented to have hospice come and talk with them this afternoon and finally patient decided to sign up with hospice, the plan is for the patient to go back to the [facility] in [place] and be taken care of by hospice there. BiPAP will need to be set up at the [facility], this cannot be accomplished until tomorrow. I will make the patient a DNR CC only. - Physical Exam General: Oriented x3, Cooperative, Lethargic HEENT: Atraumatic, PERRLA, EOMI, Normocephalic Neck: Supple, No Nuchal Rigidity, Trachea Midline, Thyroid Normal Size and Texture Lungs: Diminished, Rhonchi - Expiratory rhonchi are noted over both lungs particularly on the right, Tachypneic, Using Accessory Muscles Cardiovascular: PMI Normal, Irregular Rate, No rub noted Abdomen: Bowel Sounds Present, Soft, Non Tender, Non-Distended, - - PEG tube in place Extremities: No clubbing, No cyanosis, No edema, Capillary Refill Less than 3 Seconds Skin: No rashes, No breakdown Musculoskeletal: No Tenderness to Palpation of Joints or Extremities Neurological: Cranial nerves II-XII grossly intact, Neuro grossly intact Psych/Mental Status: Appropriate, - - Patient is lethargic but appears to be comfortable at this time Vital Signs Temp Pulse Resp BP Pulse Ox 98.2 F 91 41 H 124/59 H 93 06/18/18 14:42 06/18/18 20:39 06/18/18 20:39 06/18/18 14:42 06/18/18 20:39 Oxygen Flow Rate (L/min) 12 Oxygen Delivery Method Bi-pap Weight: 54.9 kg Body Mass Index (BMI) 22.4 Finger Stick Blood Glucose 133 Intake and Output for Last 24 Hours 06/16/18 06/17/18 06/18/18 23:59 23:59 23:59 Intake Total 620 / 620 614 / 614 1715 / 1715 Output Total 1150 / 1150 1000 / 1000 300 / 300 Balance -530 / -530 -386 / -386 1415 / 1415 POC Glucose 06/18/18 06/18/18 06/18/18 17:21 11:26 06:23 POC Glucose 294 H 235 H 165 H 06/17/18 23:35 POC Glucose 188 H Medical Necessity - Tobacco Use Smoking Status: Never smoker Tobacco Use: Non-smoker Assessment/Plan All Active Problems (Last Updated 06/13/18 @ 18:26 by Malik Vargas DO) MRSA pneumonia (Acute) Acute bronchitis (Acute) Influenza A (Acute) DCCV for atrial flutter (Resolved) URI (upper respiratory infection) (Resolved) Thrush, oral (Resolved) Pneumonia (Resolved) Atrial fibrillation with RVR (Resolved) MRSA (methicillin resistant staphylococcus aureus) pneumonia (Resolved) Acute respiratory failure with hypoxia (Resolved) #1 acute on chronic hypoxic respiratory failure-patient is back on BiPAP at this time, patient has consented to be active with hospice, the plan is for the patient to go to the [facility] tomorrow under hospice care. I will change patient's CODE STATUS to DNR CC #2 MRSA pneumonia-patient completed her course of IV vancomycin #3 recent influenza A infection #4 severe sepsis secondary to influenza A and MRSA pneumonia-resolved #5 oral pharyngeal dysphagia- PEG tube feeding will continue #6 atrial fibrillation-patient continues on a beta-raghu today for added rate control #7 type 2 diabetes #8 restrictive lung disease #9 pulmonary hypertension-mild #10 bronchiectasis #11 debility-patient is failing at this time, she will be transported back to the [facility] tomorrow under hospice care #12 severe caloric and protein malnutrition Overall prognosis for this patient is poor due to her multiple medical problems and advanced age. Summary: This patient presented to the emergency room on 05/29/18 with a chief complaint of shortness of breath and cough. Patient had a long history of oral pharyngeal dysphasia, she was admitted for acute bronchitis and was positive for influenza A. Patient was on baseline oxygen at home and had a history of COPD and bronchiectasis. Patient had been on Xarelto and had a history of paroxysmal atrial fib and flutter. Patient was admitted to the hospital and placed on ceftriaxone and Zithromax, respiratory panel resulted in positive influenza A. Patient had respiratory distress while hospitalized and was seen in consultation by pulmonary medicine as well as infectious diseases, she was placed on BiPAP and sputum culture was positive for MRSA. Patient underwent a long protracted course in the hospital and was given a course of IV vancomycin for MRSA. Patient was seen by speech therapy due to her dysphagia. Patient's condition stabilized somewhat and she was transferred to PCU, it was felt that she had severe malnutrition and that PEG tube placement would be indicated if the patient consented to this for nutritional support. PEG tube was placed with permission of the patient and the patient's family, unfortunately since that time a few days ago, patient's respiratory status deteriorated again and patient was placed back on BiPAP. Again, today the patient consented to be active with hospice. Code Visit Inpatient E&M: [id number] Subs Hosp L3
--- NOTE | 2018-06-18 20:57 | PN_ITS ---
Patient Problems: Active and Suspected Problems (Last Updated 06/13/18 @ 18:26 by Malik Vargas DO) Acute bronchitis (Acute) Influenza A (Acute) Subjective: Patient was seen and examined today, she appeared weaker and more frail today, she was unable to come off BiPAP for long periods of time. I went in and talked with the patient and the patient's family, they consented to have hospice come and talk with them this afternoon and finally patient decided to sign up with hospice, the plan is for the patient to go back to the [facility] in [place] and be taken care of by hospice there. BiPAP will need to be set up at the [facility], this cannot be accomplished until tomorrow. I will make the patient a DNR CC only. - Physical Exam General: Oriented x3, Cooperative, Lethargic HEENT: Atraumatic, PERRLA, EOMI, Normocephalic Neck: Supple, No Nuchal Rigidity, Trachea Midline, Thyroid Normal Size and Texture Lungs: Diminished, Rhonchi - Expiratory rhonchi are noted over both lungs particularly on the right, Tachypneic, Using Accessory Muscles Cardiovascular: PMI Normal, Irregular Rate, No rub noted Abdomen: Bowel Sounds Present, Soft, Non Tender, Non-Distended, - - PEG tube in place Extremities: No clubbing, No cyanosis, No edema, Capillary Refill Less than 3 Seconds Skin: No rashes, No breakdown Musculoskeletal: No Tenderness to Palpation of Joints or Extremities Neurological: Cranial nerves II-XII grossly intact, Neuro grossly intact Psych/Mental Status: Appropriate, - - Patient is lethargic but appears to be comfortable at this time Vital Signs Temp Pulse Resp BP Pulse Ox 98.2 F 91 41 H 124/59 H 93 06/18/18 14:42 06/18/18 20:39 06/18/18 20:39 06/18/18 14:42 06/18/18 20:39 Oxygen Flow Rate (L/min) 12 Oxygen Delivery Method Bi-pap Weight: 54.9 kg Body Mass Index (BMI) 22.4 Finger Stick Blood Glucose 133 Intake and Output for Last 24 Hours 06/16/18 06/17/18 06/18/18 23:59 23:59 23:59 Intake Total 620 / 620 614 / 614 1715 / 1715 Output Total 1150 / 1150 1000 / 1000 300 / 300 Balance -530 / -530 -386 / -386 1415 / 1415 POC Glucose 06/18/18 06/18/18 06/18/18 17:21 11:26 06:23 POC Glucose 294 H 235 H 165 H 06/17/18 23:35 POC Glucose 188 H Medical Necessity - Tobacco Use Smoking Status: Never smoker Tobacco Use: Non-smoker Assessment/Plan All Active Problems (Last Updated 06/13/18 @ 18:26 by Malik Vargas DO) MRSA pneumonia (Acute) Acute bronchitis (Acute) Influenza A (Acute) DCCV for atrial flutter (Resolved) URI (upper respiratory infection) (Resolved) Thrush, oral (Resolved) Pneumonia (Resolved) Atrial fibrillation with RVR (Resolved) MRSA (methicillin resistant staphylococcus aureus) pneumonia (Resolved) Acute respiratory failure with hypoxia (Resolved) #1 acute on chronic hypoxic respiratory failure-patient is back on BiPAP at this time, patient has consented to be active with hospice, the plan is for the patient to go to the [facility] tomorrow under hospice care. I will change patient's CODE STATUS to DNR CC #2 MRSA pneumonia-patient completed her course of IV vancomycin #3 recent influenza A infection #4 severe sepsis secondary to influenza A and MRSA pneumonia-resolved #5 oral pharyngeal dysphagia- PEG tube feeding will continue #6 atrial fibrillation-patient continues on a beta-raghu today for added rate control #7 type 2 diabetes #8 restrictive lung disease #9 pulmonary hypertension-mild #10 bronchiectasis #11 debility-patient is failing at this time, she will be transported back to the [facility] tomorrow under hospice care #12 severe caloric and protein malnutrition Overall prognosis for this patient is poor due to her multiple medical problems and advanced age. Summary: This patient presented to the emergency room on 05/29/18 with a chief complaint of shortness of breath and cough. Patient had a long history of oral pharyngeal dysphasia, she was admitted for acute bronchitis and was positive for influenza A. Patient was on baseline oxygen at home and had a history of COPD and bronchiectasis. Patient had been on Xarelto and had a history of paroxysmal atrial fib and flutter. Patient was admitted to the hospital and placed on ceftriaxone and Zithromax, respiratory panel resulted in positive influenza A. Patient had respiratory distress while hospitalized and was seen in consultation by pulmonary medicine as well as infectious diseases, she was placed on BiPAP and sputum culture was positive for MRSA. Patient underwent a long protracted course in the hospital and was given a course of IV vancomycin for MRSA. Patient was seen by speech therapy due to her dysphagia. Patient's condition stabilized somewhat and she was transferred to PCU, it was felt that she had severe malnutrition and that PEG tube placement would be indicated if the patient consented to this for nutritional support. PEG tube was placed with permission of the patient and the patient's family, unfortunately since that time a few days ago, patient's respiratory status deteriorated again and patient was placed back on BiPAP. Again, today the patient consented to be active with hospice. Code Visit Inpatient E&M: 26845 Subs Hosp L3
--- NOTE | 2018-06-18 21:00 | RAD_ITS ---
STUDY: X-RAY CHEST REASON FOR EXAM: Female, 83 years old. Shortness of breath. TECHNIQUE: Single AP portable view of the chest. COMPARISON: June 08, 2018. FINDINGS: Telemetry wires overlie the chest. The NG tube and endotracheal tube seen on the earlier study are no longer seen. Stable left PICC line. The lungs are hypoexpanded when compared to prior study. There is persistent density throughout right lung with sparing of the apex. There is minimal infiltrate noted in the lower left lung which appears unchanged. There is no demonstrated pleural abnormality. Normal size heart. Normal mediastinum and mariza. Normal visualized pulmonary arteries. Normal visualized aortic arch and descending thoracic aorta. The thoracic spine is obscured by the mediastinum. There is degenerative osteoarthritis of the bilateral shoulders. There is no demonstrated abnormality of the visualized soft tissue structures of the upper abdomen. RAD/Chest 1 View (Portable) IMPRESSION: 1. Removal of the endotracheal tube and nasogastric tube seen on the prior study. 2. Decreased inspiratory effort without other evidence of pulmonary change. Electronically Signed: Spencer Cordoba DO at 21:21 EST Tel [phone], Service support ,
[2018-06-18] MEDS: Furosemide 100 MG/10 ML Vial 80 MG IV (21:37)
[2018-06-18] MEDS: Montelukast 10 MG Tablet GT (21:39)
[2018-06-18] MEDS: Nortriptyline 25 MG Capsule 50 MG GT (21:39)
--- NOTE | 2018-06-18 23:37 | CPS ---
increased EPAP per Dr. Marcelino to help with patient's oxygenation needs.
--- NOTE | 2018-06-18 23:39 | NURSING ---
bedside BGT 119
[2018-06-18 23:50] LABS: Bedside Glucose 119 mg/dL (70-110)
[2018-06-19 02:00] VITALS: PULSE 90; RESP 12; RESP 39; O2SAT 92
[2018-06-19] MEDS: Morphine 2 MG/ML Syringe IV ×3 (02:20→08:52)
[2018-06-19] MEDS: 0.9% NaCl Peripheral Flush Adult/Peds IV ×2 (02:20→05:40)
[2018-06-19 03:01] VITALS: PULSE 101
[2018-06-19 04:28] VITALS: PULSE 102; RESP 12; RESP 37; O2SAT 92
[2018-06-19 05:27] VITALS: BP 99/50; PULSE 94; RESP 36; TEMP 37.6; O2SAT 86
[2018-06-19] MEDS: clonazePAM 0.5 MG Tablet GT (05:40)
--- NOTE | 2018-06-19 05:59 | NURSING ---
no AM BGT per family request
[2018-06-19 07:08] VITALS: PULSE 90
[2018-06-19 07:32] VITALS: PULSE 2; PULSE 96; RESP 12; RESP 34; RESP 36; O2SAT 20
[2018-06-19] MEDS: Ipratropium/Albuterol Sulfate 3 ML AMPUL.NEB INHALATION (07:32)
[2018-06-19] MEDS: LORazepam 2 MG/ML Syringe 0.5 MG IV (09:04)
--- NOTE | 2018-06-19 09:25 | NURSING ---
Dr Bob in the room to see the patient. Family is in the room including the medical POA. The family and POA is requesting that all life sustaining measures be discontinued, she is DNR-CC, and planned hospice transfer today. Pt removed from Bipap at this time per family and POA request.
--- NOTE | 2018-06-19 09:55 | NURSING ---
No pulse felt and no respirations noted. Dr Bob in the room and pronounced the patients time of at this time.
--- NOTE | 2018-06-19 09:59 | NURSING ---
Hospice notified of .
--- NOTE | 2018-06-19 10:11 | PCM.DEATH ---
Preliminary Cause of cardiopulmonary arrest due to acute on chronic hypoxic respiratory failure Date of Admission: 05/29/18 Date of : 06/19/18 - Principle Diagnosis acuteon chronic hypoxic respiratory failure due to pneumonia and influenza A Problem List: Active and Suspected Problems (Last Updated 06/13/18 @ 18:26 by Malik Vargas DO) Acute bronchitis (Acute) Influenza A (Acute) Hospital Course Patient was an 83-year-old female with an extensive past medical history as listed. She was admitted on 05/29/2018 with a complaint of shortness of breath which started after dental work 2 days prior to admission. Patient thought she may have aspirated as she had a persistent cough as well as shortness of breath and wheezing as well as subjective fever and chills. She was initially diagnosed with acute bronchitis. She was admitted and started on IV ceftriaxone and azithromycin. Subsequently she developed worsening shortness of breath requiring BiPAP due to hypoxia. She had been on 2 L of oxygen baseline at home but subsequently required up to 5 L of oxygen to maintain appropriate saturation. Sputum culture grew MRSA and pulmonology was consulted. At that point, he was managed for acute on chronic hypoxic respiratory failure due to influenza A infection with MRSA superinfection. Patient was requiring increasing amounts of oxygen and was not tolerating BiPAP very well and so ended up being intubated. She was also managed for severe sepsis due to influenza A infection and MRSA superinfection as well as AK I. She was subsequently extubated on 06/11/2018 after trial of CPAP. Surface echocardiogram showed normal left ventricular size and normal ejection fraction. Patient was subsequently transitioned to nasal cannula with as needed BiPAP therapy. However her respiratory status subsequently worsened and she was not tolerating BiPAP very well. CODE STATUS was changed to DNR CC and hospice was consulted on 06/28/2018. Family made decision to place patient in hospice care and patient was due to go to the inpatient hospice on 06/19/2018. However on the morning of 06/19/2018, family decided that they wanted to take patient off BiPAP as she was not tolerating it well and to give patient morphine and Ativan to help calm her down and to ease her passage. BiPAP was taken off and patient passed on 06/19/2018 at 9:55 AM. Time of was 9:55 AM. Family was by bedside at time of patient's . Cause of was acute cardiopulmonary arrest due to acute on chronic hypoxic respiratory failure due to influenza infection with superimposed MRSA infection. Code Visit Inpatient E&M: 66738 Disch Hosp
--- NOTE | 2018-06-19 10:29 | NURSING ---
Jazmin at [facility] notified of . . Hold body until further notice.
--- NOTE | 2018-06-19 11:49 | NURSING ---
Ramos catheter d/c at this time without difficulty under supervision of David Ding RN d/t patient
--- NOTE | 2018-06-19 11:50 | NURSING ---
Per nursing winding department supervisor Alexis Osborn RN, ok to release body to [facility].
--- NOTE | 2018-06-19 13:35 | NURSING ---
Body relased to [facility].
== END 2018-06-19 09:55 | DRG 208 ==
LOC: ED 11:34 → MS3 15:08 → ICU 06-03 09:59 → PCU 06-12 14:25
PROVIDERS: Hospitalist; Internal Medicine; Internal Medicine Critical Care Medicine; Surgery; Admitting Provider Internal Medicine; Emergency Provider Emergency Medicine; Family Provider Family Medicine; PCP Family Medicine; Visit Provider Student in an Organized Health Care Education/Training Program
PROC: 0DH64UZ Insertion of Feeding Device into Stomach, Percutaneous Endoscopic Approach (ICD-10-PCS; CPT 43246; principal; 2018-06-16 10:55)
DX: J10.08 Influenza due to other identified influenza virus with other specified pneumonia (principal); J96.21 Acute and chronic respiratory failure with hypoxia; A41.9 Sepsis, unspecified organism; R65.20 Severe sepsis without septic shock; E43 Unspecified severe protein-calorie malnutrition; G81.94 Hemiplegia, unspecified affecting left nondominant side; B37.0 Candidal stomatitis; I48.92 Unspecified atrial flutter; N17.9 Acute kidney failure, unspecified; J15.212 Pneumonia due to Methicillin resistant Staphylococcus aureus; Z99.81 Dependence on supplemental oxygen; R13.12 Dysphagia, oropharyngeal phase; I10 Essential (primary) hypertension; K21.9 Gastro-esophageal reflux disease without esophagitis; Z66 Do not resuscitate; I48.0 Paroxysmal atrial fibrillation; E11.9 Type 2 diabetes mellitus without complications; Z79.01 Long term (current) use of anticoagulants; I27.20 Pulmonary hypertension, unspecified; F41.1 Generalized anxiety disorder; J47.0 Bronchiectasis with acute lower respiratory infection; Z68.22 Body mass index [BMI] 22.0-22.9, adult
CPT/HCPCS: 31500; 31720; 36415; 36569; 36600; 71045; 71046; 74230; 80048; 80069; 80202; 82550; 82803; 82962; 83036; 83605; 83880; 84100; 84478; 85025; 85027; 87040; 87070; 87077; 87186; 87205; 87633; 87641; 92526; 92610; 92611; 93005; 94002; 94003; 94640; 94660; 94667; 94668; 95831; 97110; 97116; 97161; 97166; 97530; 97535; 97802; 97803; 99251; 99283; J7030; J7050; A4216; G0463; J1940; J2405